=== PATIENT | female | born 1950 | race Caucasian/White ===

== ENCOUNTER 2021-01-02 15:01 | Emergency (ER) | payer MEDICARE, SELFPAY ==
[2021-01-02] VITALS (27 sets, daily range): BP systolic 120–150; BP diastolic 65–104; PULSE 63–152; RESP 13–30; TEMP 36.3–36.6; O2SAT 92–100
--- NOTE | ~2021-01-02 | XR_ITS ---
EXAMINATION: XR chest 2V EXAM DATE: 01/02/2021 16:16 INDICATION: Chest pain. TECHNIQUE: Frontal and lateral projections of the chest obtained and reviewed. There is no prior teodoro dy for comparison. FINDINGS: The lungs are hyperinflated which can be seen with chronic obstructive pulmonary disease (a clinical diagnosis of functional impairment), but is not diagnostic of it. The lungs are clear. Th ere are no pleural effusions. Mild cardiomegaly. There is no pneumothorax suspected. The bones and soft tissues are unremarkable. IMPRESSION: 1. Mild cardiomegaly. 2. Hyperinflation. Reviewed, dictated and finalized at location A.
--- NOTE | 2021-01-02 15:16 | ECG_ITS ---
Measurements Intervals [place] Rate: 151 P: HI: 0 QRS: -60 QRSD: 97 T: 29 QT: 295 QTc: 468 Interpretive Statements ATRIAL FIBRILLATION WITH RAPID VENTRICULAR RESPONSE INCOMPLETE RIGHT BUNDLE BRANCH BLOCK LEFT ANTERIOR FASCICULAR BLOCK BORDERLINE ST-T WAVE ABNORMALITY- HIGH LATERAL LEADS BASELINE ARTIFACT- II, III, AVR, AVL, AVF ABNORMAL ECG Electronically Signed On 01-02-2021 18:50:55 CDT by Noah Marrero D.O.
--- NOTE | 2021-01-02 15:18 | ED.ARRPALP ---
HPI - Arrhythmia/Palpitations General Chief Complaint: Arrhythmia/Palpitations Stated Complaint: SOB/AFIB Time Seen by Provider: 01/02/21 15:04 History of Present Illness HPI narrative: 70 yo female w/ h/o atrial fibrillation presents to the ED for the same. [facility] when she suddenly noted heart racing and SIMON. SHe has had paroxysmal a-fin in the past which has been controlled with metoprolol. She is also on xarelto. She has not missed any doses. No chest pain, fever, back pain, syncope. Related Data Allergies Allergy/AdvReac Type Severity Reaction Status Date / Time Sulfa (Sulfonamide Allergy Unknown Verified 01/02/21 15:19 Antibiotics) NKFA Allergy Unknown Uncoded 02/09/03 11:58 SULFA Allergy Unknown Uncoded 01/02/21 15:18 Review of Systems Review of Systems: All systems reviewed & are unremarkable except as noted in HPI and below Constitutional: Constitutional: Denies chills and Denies fever(s) ENT: Denies dizziness Cardiovascular: Cardiovascular: Denies chest pain and Reports rapid heart rate Respiratory: Respiratory: Reports dyspnea Gastrointestinal: Gastrointestinal: Denies nausea and Denies vomiting Genitourinary: Genitourinary: Reports no additional female genitourinary complaints [facility] Past Medical History Medical History (Updated 01/02/21 @ 18:08 by Rylan Sultana MD) Paroxysmal atrial fibrillation Social History Social History (Updated 01/02/21 @ 16:09 by Rylan Sultana MD) Smoking status: Never smoker Alcohol intake: never Substance use: never Living arrangements: alone Exam Const: General: healthy appearing, no acute distress and alert Orientation/consciousness: patient oriented x3 HENMT: Head: normal to inspection Neck: Neck: normal visual inspection and no lymphadenopathy Chest: Chest palpation & inspection: no tenderness Resp: Effort & Inspection: normal respiratory effort Auscultation: clear to auscultation bilaterally, no rales, no rhonchi and no wheezes Cardio: Jugular venous distension: no JVD Rate: tachycardic Rhythm: abnormal rhythm irregularly irregular Heart sounds: no murmurs GI: Inspection: non-distended GI Palp: Yes Soft to palpation and No Tenderness to palpation present (GI) Skin: General skin exam: normal color Neuro: General: patient oriented x3 and moves all extremities Speech: normal speech Extrem: General: no edema Psych: Appearance: well kempt Affect: normal affect Course Vital Signs Vital signs: Vital Signs Pulse Rate 152 H 01/02/21 15:03 Respiratory Rate 24 H 01/02/21 15:03 Blood Pressure 120/91 H 01/02/21 15:03 Pulse Oximetry 92 01/02/21 15:03 Temperature 36.5 C 01/02/21 17:12 Pulse Rate 68 01/02/21 17:12 Respiratory Rate 14 01/02/21 17:12 Blood Pressure 146/69 H 01/02/21 17:12 Pulse Oximetry 100 01/02/21 17:12 Procedures Procedural Sedation Procedural Sedation #1: Provider Performed: sedation and procedure Informed Consent Obtained: yes Equipment in Room: bag and mask, capnography, spring coverer, crash cart, oxygen, pulse oximeter and suction Plan for Sedation: moderate sedation ASA Class: II Mallampati Classification: class I NPO Status: last liquid food (hours ago) (3) Explanation to Patient/Family: Risk/Benefits/Alternatives and Pt/Family agreed with plan Pt. Educated on Procedural Sedation: Yes Re-evaluated immediately prior: Yes Preparation: spring coverer applied, pulse oximeter, capnometry used, supplemental O2 applied, reversal agents at bedside, suction/airway equipment at bedside and IV secured IV Propofol dose (mg): 70 Patient Tolerated Procedure: well and no complications Other Procedure Procedure 1: Other Procedure: Electrical cardioversion She was placed on the pacer pads Sedation was performed as documented Synchronized cardioversion was attempted at
[2021-01-02] MEDS: METOPROLOL TARTRATE INJ 5 MG/5 ML VIAL IV PUSH (15:44)
[2021-01-02] MEDS: SODIUM CHLORIDE 0.9% IV 500 ML 999 ML IV CONT (15:44)
[2021-01-02 16:13] LABS: Eosinophils Absolute Auto 0.1 K/mm3 (0-0.3); Eosinophils Percent Auto 2.6 % (0-4.4); Hematocrit 39.4 % (37.0-47.0); Hemoglobin 12.9 g/dL (12.0-15.0); Immature Granulocyte Absolute 0.01 K/mm3 (0.00-0.031); Immature Granulocyte Percent A 0.2 % (0-0.5); Lymphocytes Absolute Auto 0.83 K/mm3 (0.9-3.2); Lymphocytes Percent Auto 19.9 % (18.3-44.2); Mean Corpuscular HGB Conc 32.7 g/dl (32-36); Mean Corpuscular Hemoglobin 32.4 pg (26-34); Mean Platelet Volume 9.8 fl (7.4-10.4); Monocytes Absolute Auto 0.2 K/mm3 (0.1-0.6); Monocytes Percent Auto 4.8 % (2.6-8.5); Neutrophils Percent Auto 71.5 % (45.5-73.1); Platelet Count Result 222 k/mm3 (150-375); Red Blood Count 3.98 M/mm3 (4.2-5.4); White Blood Count 4.2 K/mm3 (4.5-10.0)
[2021-01-02 16:22] LABS: INR 1.1; Partial Thromboplastin Time 31.5 SECONDS (22.3-36.8)
[2021-01-02 16:25] LABS: Anion Gap 3 mmol/L (8-16); Blood Urea Nitrogen 17 mg/dL (7-17); Calcium 8.6 mg/dL (8.4-10.2); Carbon Dioxide 30 mmol/L (22-30); Chloride 110 mmol/L (98-107); Estimated CRCL calculation 48 ml/min; Estimated Glomerular Filt Rate > 60; Glucose 114 mg/dL (65-105); Potassium 3.7 mmol/L (3.4-5.0); Sodium 143 mmol/L (137-145)
--- NOTE | 2021-01-02 16:29 | PC.NURSE ---
1632 EDP administered 40mg of propofol via IVP. 1633 EDP administered another 20mg of propofol via IVP.
--- NOTE | 2021-01-02 16:35 | PC.NURSE ---
1634 EDP administered another 10mg of propofol via IVP. 1635 EDP synchronized electrical cardioverted patient at 100J.
--- NOTE | 2021-01-02 16:36 | PC.NURSE ---
EDP electrical synchronized cardioverted patient at 150J due patient remaining in a fib RVR.
[2021-01-02 16:37] LABS: Troponin I < 0.012 ng/mL (0.000-0.034)
[2021-01-02] MEDS: METOPROLOL TARTRATE INJ 5 MG/5 ML VIAL (16:40)
== END 2021-01-02 18:35 | disposition home or self-care (01) ==
PROVIDERS: Emergency Provider Emergency Medicine; PCP Internal Medicine
DX: I48.0 Paroxysmal atrial fibrillation (principal)
CPT/HCPCS: 36415; 71046; 80048; 84484; 85025; 85610; 85730; 92960; 93005; 96374; 99285; J2704; J7040

== ENCOUNTER 2021-01-25 13:30 | Outpatient (CLI) | payer MEDICARE, SELFPAY ==
--- NOTE | ~2021-01-25 | MM_ITS ---
EXAMINATION: MM screening susan BI w ree HISTORY: Screening mammogram TECHNIQUE: Craniocaudal and mediolateral oblique 3-D tomosynthesis images were obtained and synthetic 2-D images were generated. CAD analysis was submitted and interpreted. COMPARISON: No prior mammogram is available for comparison at this institution. BREAST PARENCHYMAL COMPOSITION: There are scattered areas of fibroglandular density. FINDINGS: There is no evidence of suspicious mass, calcification, or architectural distortion to sugg est malignancy in either breast. There has been no suspicious interval change. IMPRESSION: 1. No mammographic evidence of malignancy. 2. Recommend routine screening mammography in one year. BI-RADS Category 1: Negative Reviewed, dictated and finalized at location A.
== END 2021-01-25 13:31 | disposition home or self-care (01) ==
LOC: ANHIMG 13:39
PROVIDERS: Visit Provider Nurse Practitioner Family
DX: Z12.31 Encounter for screening mammogram for malignant neoplasm of breast (principal)
CPT/HCPCS: 77063; 77067

== ENCOUNTER 2021-02-09 11:36 | Emergency (ER) | payer MEDICARE, SELFPAY ==
[2021-02-09] VITALS (7 sets, daily range): BP systolic 118–152; BP diastolic 70–106; PULSE 74–146; RESP 14–18; TEMP 36.4–36.7; O2SAT 98–100
--- NOTE | ~2021-02-09 | XR_ITS ---
EXAMINATION: XR chest 2V 02/09/2021 12:31 INDICATION: A. Fib PROCEDURE: 2 view chest COMPARISON: 01/02/2021 FINDINGS: The lungs are clear. The cardiomediastinal silhouette is enlarged. There are no pleural e ffusions. There is no pneumothorax suspected. IMPRESSION: 1: No acute cardiopulmonary disease. 2: Cardiomegaly. Reviewed, dictated and finalized at location B.
--- NOTE | 2021-02-09 11:49 | ECG_ITS ---
Measurements Intervals [place] Rate: 120 P: NV: 0 QRS: -72 QRSD: 87 T: 27 QT: 314 QTc: 444 Interpretive Statements ATRIAL FIBRILLATION WITH RAPID VENTRICULAR RESPONSE INCOMPLETE RIGHT BUNDLE BRANCH BLOCK LEFT ANTERIOR FASCICULAR BLOCK BASELINE WANDER- I, II, III, AVL ABNORMAL ECG Electronically Signed On 02-09-2021 11:57:56 CDT by Noah Marrero D.O.
[2021-02-09] MEDS: dilTIAZem HCl INJ 25 MG/5 ML VIAL 10 MG IV PUSH (12:10)
[2021-02-09 12:19] LABS: Basophils Absolute Auto 0.1 K/mm3 (0.0-0.1); Basophils Percent Auto 0.8 % (0.2-1.2); Eosinophils Absolute Auto 0.2 K/mm3 (0-0.3); Eosinophils Percent Auto 3.7 % (0-4.4); Hematocrit 43.4 % (37.0-47.0); Hemoglobin 14.2 g/dL (12.0-15.0); Immature Granulocyte Absolute 0.01 K/mm3 (0.00-0.031); Immature Granulocyte Percent A 0.2 % (0-0.5); Lymphocytes Absolute Auto 1.84 K/mm3 (0.9-3.2); Lymphocytes Percent Auto 30.7 % (18.3-44.2); Mean Corpuscular HGB Conc 32.7 g/dl (32-36); Mean Corpuscular Hemoglobin 32.6 pg (26-34); Mean Corpuscular Volume 99.8 fl (80-100); Mean Platelet Volume 9.8 fl (7.4-10.4); Monocytes Absolute Auto 0.3 K/mm3 (0.1-0.6); Neutrophils Absolute Auto 3.6 K/mm3 (1.3-6.7); Neutrophils Percent Auto 59.6 % (45.5-73.1); Platelet Count Result 254 k/mm3 (150-375); Red Blood Count 4.35 M/mm3 (4.2-5.4); Red Cell Distribution Width 12.8 % (11.5-14.5)
[2021-02-09] MEDS: ASPIRIN 81 MG CHEWABLE TABLET 324 MG PO (12:19)
[2021-02-09 12:31] LABS: Anion Gap 7 mmol/L (8-16); Blood Urea Nitrogen 22 mg/dL (7-17); Calcium 9.3 mg/dL (8.4-10.2); Carbon Dioxide 26 mmol/L (22-30); Chloride 107 mmol/L (98-107); Estimated CRCL calculation 46 ml/min; Estimated Glomerular Filt Rate > 60; Glucose 103 mg/dL (65-105); Potassium 4.2 mmol/L (3.4-5.0); Sodium 140 mmol/L (137-145)
[2021-02-09 12:42] LABS: Troponin I < 0.012 ng/mL (0.000-0.034)
[2021-02-09 12:45] LABS: INR 1.2; Prothrombin Time 15.8 Seconds (11.1-14.7)
[2021-02-09 12:46] LABS: Partial Thromboplastin Time 34.5 SECONDS (22.3-36.8)
--- NOTE | 2021-02-09 12:55 | ED.ARRPALP ---
HPI - Arrhythmia/Palpitations General Chief Complaint: Arrhythmia/Palpitations Stated Complaint: sent for afib Time Seen by Provider: 02/09/21 11:59 Source: patient Mode of arrival: ambulatory Limitations: no limitations History of Present Illness HPI narrative: Patient 70 years old white female, asymptomatic, went see a family physician today for the first time to establish physician patient relationship, the nurse practitioner found out that the patient have A. fib then referred her to our emergency room. Again patient is asymptomatic denying any fever, chills, nausea, vomiting, chest pain, shortness of breath, palpitation. Related Data Allergies Allergy/AdvReac Type Severity Reaction Status Date / Time Sulfa (Sulfonamide Allergy Unknown Unknown Verified 02/09/21 12:09 Antibiotics) NKFA Allergy Unknown Unknown Uncoded 02/09/21 12:09 SULFA Allergy Unknown Unknown Uncoded 02/09/21 12:09 Review of Systems Review of Systems: Narrative: CONSTITUTIONAL: Denies fever, chills, or sweats. EYES: Denies visual changes, redness, or discharge. ENT: Denies rhinorrhea, congestion, sore throat, or otalgia. CARDIOVASCULAR: Denies chest pain, palpitations, or edema. RESPIRATORY: Denies cough or dyspnea. GASTROINTESTINAL: Denies abdominal pain, nausea, vomiting, or diarrhea. GENITOURINARY: Denies dysuria or hematuria. SKIN: Denies rash or itching. MUSCULOSKELETAL: Denies back pain, joint pain, or myalgia. NEUROLOGIC: Denies headache, numbness, or weakness. PSYCHIATRIC: Denies anxiety or depression. PMFSH Past Medical History Medical History Paroxysmal atrial fibrillation Social History Social History Smoking status: Never smoker Alcohol intake: never Substance use: never Exam Narrative: Exam Narrative: General appearance: Well-developed, well-nourished Skin: Normal color Head: Normocephalic, nontraumatic Eyes: Clear conjunctiva ENT: Oropharynx normal, ears normal, nose normal Neck: Supple, nontender Chest and respiratory: Airway patent, no respiratory distress, no accessory muscle use Heart: Regular rate/rhythm Abdomen: Soft, nontender, no organomegaly, quiet bowel sounds Vascular: Normal peripheral pulses, normal capillary refill. Musculoskeletal: Normal range of motion, nontender back Neurologic: Alert and oriented ?3, ROLL PLUGGER is normal as tested, no gross motor deficit Course Course Emergency Course: Stable Vital Signs Vital signs: Vital Signs Temperature 36.7 C 02/09/21 11:52 Pulse Rate 146 H 02/09/21 11:52 Respiratory Rate 16 02/09/21 11:52 Blood Pressure 145/87 H 02/09/21 11:52 Pulse Oximetry 100 02/09/21 11:52 Temperature 36.4 C L 02/09/21 11:55 Pulse Rate 74 02/09/21 12:44 Respiratory Rate 14 02/09/21 12:44 Blood Pressure 133/78 02/09/21 12:44 Pulse Oximetry 99 02/09/21 12:44 MDM - Arrhythmia/Palpitations MDM Narrative Medical decision making narrative: Patient had history of A. fib, currently on metoprolol 25 mg nightly and Xarelto. Heart rate is controlled after Cardizem bolus. Metoprolol 25 mg p.o. ordered. 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 On arrival to the emergency room heart rate was A. fib with RVR at 120 which is not significant enough for hospitalization. Patient is asymptomatic. I believe patient would be okay to be discharged home. Differential Diagnosis Differential diagnosis: Likely other (Chronic atrial fibrillation) Lab Data Result diagrams: 02/09/21 12:14 02/09/21 12:13 Labs: Lab Results 02/09/21
[2021-02-09] MEDS: METOPROLOL TARTRATE 25 MG TABLET PO (13:30)
== END 2021-02-09 14:11 | disposition home or self-care (01) ==
PROVIDERS: Emergency Provider Emergency Medicine; PCP Family Medicine
DX: I48.21 Permanent atrial fibrillation (principal)
CPT/HCPCS: 36415; 71046; 80048; 84443; 84484; 85025; 85610; 85730; 93005; 96365; 99284; A9270

== ENCOUNTER 2021-04-10 02:39 | Day surgery (SDC) | payer MEDICARE, SELFPAY ==
[2021-03-31 15:48] VITALS: BMI 22.8
--- NOTE | 2021-04-10 08:16 | WPDANESEPPF ---
Anes - Initial Pre Proc Eval Procedure: Operation Date: 04/10/21 10:15 Proposed Procedures p Screening Colonoscopy - Enrique Rodriguez MD Date/Time: 04/10/21 08:16 Surgeon: Enrique Rodriguez MD Pre Op Diagnosis: neoplasm screening Patient Data Age: 70 Gender: F Height: 1.7 m Weight: 66 kg Allergies Allergy/AdvReac Type Severity Reaction Status Date / Time Sulfa (Sulfonamide Allergy Unknown Unknown Verified 04/10/21 09:21 Antibiotics) latex Allergy Hives Verified 04/10/21 09:21 NKFA Allergy Unknown Unknown Uncoded 04/10/21 09:21 SULFA Allergy Unknown Unknown Uncoded 04/10/21 09:21 Home Medications Medication Instructions Recorded Confirmed Type flecainide 100 mg PO BID 03/31/21 03/31/21 History loratadine 10 mg PO DAILY 03/31/21 03/31/21 History meclizine 25 mg PO DAILY PRN 03/31/21 03/31/21 History metoprolol succinate 25 mg PO DAILY 03/31/21 03/31/21 History metoprolol tartrate 25 mg PO DAILY PRN 03/31/21 03/31/21 History rivaroxaban [Xarelto] 20 mg PO DAILY 03/31/21 03/31/21 History Patient hx anesthesia problems: none Family hx anesthesia problems: none [facility] Past Medical History Medical History (Updated 04/10/21 @ 09:35 by Enrique Rodriguez MD) Hemochromatosis HTN (hypertension) Paroxysmal atrial fibrillation Social History Social History Smoking status: Never smoker Tobacco type: cigarettes Alcohol intake: never Substance use: never Living arrangements: alone Gender identity (if verbalized by the patient): Female Spiritual care concerns: No Anes - Eval Final PreProcedure Day of Procedure 04/10/21 08:16 Patient weight: normal Heart: regular rate and rhythm Lungs: clear to auscultation and normal air movement Airway: Mallampati scale class II Neurological: alert and oriented Last oral intake: >/= 8 hours ASA classification: III Emergent: no Anesthetic plan: proceed Anesthesia type and monitoring: general GIVS Informed Consent: The patient's anesthetic plan and its attendant risks and benefits were discussed with the patient/family/POA. Questions were solicited and answers provided to the satisfaction of the patient/family/POA.
[2021-04-10 09:22] VITALS: BP 141/69; PULSE 101; RESP 20; TEMP 36.1; O2SAT 98; BMI 22.8
[2021-04-10] MEDS: LACTATED RINGERS 1,000 ML 150 ML IV CONT (09:28)
--- NOTE | 2021-04-10 09:33 | WPDGICN ---
Assessment and Plan Assessment and plan (1) Family history of colon cancer in father: Code(s): Z80.0 - Family history of malignant neoplasm of digestive organs Status: Acute Assessment and Plan: Patient has a family history of colon cancer in parent as well as polyps in her brother. Surveillance colonoscopy should be performed at least every 5 years. (2) History of colon polyps: Code(s): Z86.010 - Personal history of colonic polyps Status: Acute Assessment and Plan: Patient has a history of colon polyps most recently 2016. Plan is for surveillance exam every 3-5 years given her prior history. (3) Atrial fibrillation: Code(s): I48.91 - Unspecified atrial fibrillation Status: Acute Assessment and Plan: Xarelto anticoagulation will be held briefly for screening colonoscopy. (4) Hemochromatosis: Code(s): E83.119 - Hemochromatosis, unspecified Status: Acute GI Consult Note Consult date/time: 04/10/21 09:33 HPI: Jillian Gunn is a 70 year old female Presents for screening colonoscopy. Patient has a prior history of colon polyps. Typically she has had a follow-up exam every 3-5 years. Most recently 3 years ago in [place]. Patient reports that her current weight appetite bowel movements are normal. She denies abdominal pain. She has had no bleeding. Family history is significant her father had colon cancer. Her brother has had colon polyps as well. Review of Systems Review of Systems: All systems reviewed & are unremarkable except as noted in HPI and below PMFSH Past Medical History Medical History (Updated 04/10/21 @ 09:35 by Enrique Rodriguez MD) Hemochromatosis HTN (hypertension) Paroxysmal atrial fibrillation Social History Social History Smoking status: Never smoker Tobacco type: cigarettes Alcohol intake: never Substance use: never Living arrangements: alone Gender identity (if verbalized by the patient): Female Spiritual care concerns: No Meds Home Medications and Allergies Home Medications Medication Instructions Recorded Confirmed Type flecainide 100 mg PO BID 03/31/21 03/31/21 History loratadine 10 mg PO DAILY 03/31/21 03/31/21 History meclizine 25 mg PO DAILY PRN 03/31/21 03/31/21 History metoprolol succinate 25 mg PO DAILY 03/31/21 03/31/21 History metoprolol tartrate 25 mg PO DAILY PRN 03/31/21 03/31/21 History rivaroxaban [Xarelto] 20 mg PO DAILY 03/31/21 03/31/21 History Allergies Allergy/AdvReac Type Severity Reaction Status Date / Time Sulfa (Sulfonamide Allergy Unknown Unknown Verified 04/10/21 09:21 Antibiotics) latex Allergy Hives Verified 04/10/21 09:21 NKFA Allergy Unknown Unknown Uncoded 04/10/21 09:21 SULFA Allergy Unknown Unknown Uncoded 04/10/21 09:21 Vital Signs Vital Signs - 24 hr 04/10/21 09:22 Temperature 97.0 F L Pulse Rate 101 H Respiratory Rate 20 Blood Pressure 141/69 H Pulse Oximetry 98 Exam Narrative: Physical exam reveals patient be alert. Vital signs stable. HEENT exam is unremarkable. Patient is anicteric. Lungs are clear to auscultation and percussion. Heart is without murmur or extra sounds. Abdominal exam bowel sounds are present soft nontender with no hepatosplenomegaly. Digital external rectal exam is normal.
[2021-04-10 10:22] VITALS: BP 106/66; PULSE 103; RESP 20; O2SAT 96
[2021-04-10 10:30] VITALS: BP 98/59; PULSE 104; RESP 20; O2SAT 96
[2021-04-10 10:39] VITALS: BP 118/81; PULSE 99; RESP 20; O2SAT 100
== END 2021-04-10 10:53 | disposition home or self-care (01) ==
PROVIDERS: PCP Family Medicine; Visit Provider Internal Medicine Gastroenterology
PROC: 0DJD8ZZ Inspection of Lower Intestinal Tract, Via Natural or Artificial Opening Endoscopic (ICD-10-PCS; CPT 45378; principal; 2021-04-10 10:15)
DX: Z12.11 Encounter for screening for malignant neoplasm of colon (principal); Z80.0 Family history of malignant neoplasm of digestive organs; D12.2 Benign neoplasm of ascending colon; K57.30 Diverticulosis of large intestine without perforation or abscess without bleeding; K64.8 Other hemorrhoids; K63.5 Polyp of colon
CPT/HCPCS: 45385; 88305; J2704; J7120

== ENCOUNTER 2021-10-18 09:22 | Outpatient (CLI) | payer MEDICARE, SELFPAY ==
--- NOTE | ~2021-10-18 | XR_ITS ---
XR lumbar spine 2-3V DATE: 10/18/2021 10:07 INDICATION: Upper and lower back pain since moving boxes on 08/08/2021 TECHNIQUE: AP, lateral, coned lateral lumbosacral views COMPARISON: None FINDINGS: There is moderate levoscoliosis of the thoracolumbar spine. There is diffuse osteopenia. There is moderately prominent degenerative disc disease throughout the lumbar spine. No fracture or bone destruction. The lumbar pedicles appear intact. The sacroiliac joints are intact. IMPRESSION: Multilevel moderately prominent degenerative disc disease Diffuse osteopenia Rotatory thoracolumbar levoscoliosis Reviewed, dictated and finalized at location A. 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
--- NOTE | ~2021-10-18 | XR_ITS ---
XR chest 2V DATE: 10/18/2021 10:08 INDICATION: Dyspnea. Upper and lower back pain since moving boxes on 08/08. TECHNIQUE: PA and lateral views COMPARISON: 02/09/2021 AP and lateral chest FINDINGS: Cardiomegaly. No hilar or mediastinal enlargement. No pulmonary vascular congestion or pleu ral effusion. No pulmonary infiltrate or consolidation or pneumothorax. Bilateral hyperinflation, suggesting COPD. Diffuse osteopenia. There is minimal dextroscoliosis of the thoracic spine. IMPRESSION: Bilateral hyperinflation suggesting COPD Cardiomegaly Reviewed, dictated and finalized at location A. 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
== END 2021-10-18 09:23 | disposition home or self-care (01) ==
LOC: ANHIMG 09:33
PROVIDERS: PCP Family Medicine; Visit Provider Family Medicine
DX: M54.6 Pain in thoracic spine (principal); R06.00 Dyspnea, unspecified; M51.36 Other intervertebral disc degeneration, lumbar region; M85.88 Other specified disorders of bone density and structure, other site; M41.86 Other forms of scoliosis, lumbar region; R91.8 Other nonspecific abnormal finding of lung field; I51.7 Cardiomegaly
CPT/HCPCS: 71046; 72100

== ENCOUNTER 2022-01-02 16:40 | Emergency (ER) | payer MEDICARE, SELFPAY ==
[2022-01-02] VITALS (9 sets, daily range): BP systolic 105–151; BP diastolic 47–90; PULSE 55–71; RESP 18; TEMP 36.5; O2SAT 95–100
--- NOTE | ~2022-01-02 | XR_ITS ---
EXAMINATION: XR chest 1V portable Exam Date/Time: 01/02/2022 19:55 CDT CLINICAL HISTORY: syncope Comparison: 10/18/21. RESULT: Lines, tubes, and devices: None. Lungs and pleura: Clear. Cardiomediastinal silhouette: Stable cardiomediastinal silhouette. Other: No acute osseous or upper abdominal finding. IMPRESSION: No acute cardiopulmonary process Reviewed, dictated and finalized at location K.
--- NOTE | 2022-01-02 16:49 | ECG_ITS ---
Measurements Intervals [place] Rate: 55 P: 51 IA: 237 QRS: -68 QRSD: 116 T: 18 QT: 483 QTc: 464 Interpretive Statements SINUS BRADYCARDIA WITH FIRST DEGREE AV BLOCK INCOMPLETE RIGHT BUNDLE BRANCH BLOCK LEFT ANTERIOR FASCICULAR BLOCK BASELINE ARTIFACT- I, II, III, AVR, AVL, AVF ABNORMAL ECG Electronically Signed On 01-02-2022 18:51:55 CDT by Noah Marrero D.O.
[2022-01-02 17:15] LABS: Basophils Percent Auto 0.6 % (0.2-1.2); Eosinophils Absolute Auto 0.1 K/mm3 (0-0.3); Eosinophils Percent Auto 2.3 % (0-4.4); Hematocrit 39.7 % (37.0-47.0); Hemoglobin 12.9 g/dL (12.0-15.0); Immature Granulocyte Absolute 0.02 K/mm3 (0.00-0.031); Immature Granulocyte Percent A 0.4 % (0-0.5); Lymphocytes Percent Auto 22.5 % (18.3-44.2); Mean Corpuscular HGB Conc 32.5 g/dl (32-36); Mean Corpuscular Hemoglobin 32.5 pg (26-34); Mean Platelet Volume 8.9 fl (7.4-10.4); Monocytes Absolute Auto 0.3 K/mm3 (0.1-0.6); Monocytes Percent Auto 5.1 % (2.6-8.5); Neutrophils Absolute Auto 3.7 K/mm3 (1.3-6.7); Neutrophils Percent Auto 69.1 % (45.5-73.1); Platelet Count Result 229 k/mm3 (150-375); Red Blood Count 3.97 M/mm3 (4.2-5.4); White Blood Count 5.3 K/mm3 (4.5-10.0)
[2022-01-02 17:25] LABS: Alanine Aminotransferase 13 U/L (6-35); Albumin Level 3.9 g/dL (3.5-5.1); Alkaline Phosphatase 67 U/L (38-126); Anion Gap 3 mmol/L (8-16); Aspartate Amino Transferase 25 U/L (14-36); Bilirubin,Total 0.5 mg/dL (0.2-1.3); Blood Urea Nitrogen 21 mg/dL (7-17); Calcium 8.4 mg/dL (8.4-10.2); Carbon Dioxide 30 mmol/L (22-30); Chloride 104 mmol/L (98-107); Estimated CRCL calculation 36 ml/min; Estimated Glomerular Filt Rate 44; Glucose 149 mg/dL (65-110); Potassium 4.1 mmol/L (3.4-5.0); Sodium 137 mmol/L (137-145)
--- NOTE | 2022-01-02 17:27 | ED.SYNCOPE ---
HPI - Syncope General Chief Complaint: Syncope Stated Complaint: syncope Time Seen by Provider: 01/02/22 16:59 Source: patient Mode of arrival: EMS Limitations: no limitations History of Present Illness HPI narrative: Patient is a 71-year-old female who presents the ED via EMS with report of syncopal episode. [place] under a covered area. She was drinking water and had had lunch there and was feeling fine. Around 3:30 PM, she reports she suddenly began to feel clammy and sweaty. She states she began to have tunnel vision at that time and was seeing stars like she knew she was going to pass out. She states she put her head in between her legs to try to prevent from passing out, but was unable to. Her friends were nearby. They states she did not fall and only lost consciousness for a few seconds. She did have nausea at that time, but denied vomiting. [facility] before EMS was called to bring the patient here. Patient states she feels weak all over and drains currently, but does not have any further nausea, dizziness, vision changes, headache. She states she has been feeling fine over the past few days. She denies any recent fever, chills, cough, cold symptoms, chest pain, shortness of breath, abdominal pain, urinary symptoms, back pain, BLE pain or edema, focal weakness. Patient has a history of paroxysmal atrial fibrillation, for which she takes metoprolol, Xarelto, flecainide. She sees Dr. Severino. Related Data Home Medications Medication Instructions Recorded Confirmed flecainide 100 mg PO BID 03/31/21 03/31/21 loratadine 10 mg PO DAILY 03/31/21 03/31/21 meclizine 25 mg PO DAILY PRN 03/31/21 03/31/21 metoprolol succinate 25 mg PO DAILY 03/31/21 03/31/21 metoprolol tartrate 25 mg PO DAILY PRN 03/31/21 03/31/21 rivaroxaban [Xarelto] 20 mg PO DAILY 03/31/21 03/31/21 Allergies Allergy/AdvReac Type Severity Reaction Status Date / Time Sulfa (Sulfonamide Allergy Unknown Unknown Verified 01/02/22 19:03 Antibiotics) latex Allergy Hives Verified 01/02/22 19:03 NKFA Allergy Unknown Unknown Uncoded 01/02/22 19:03 SULFA Allergy Unknown Unknown Uncoded 01/02/22 19:03 Review of Systems Review of Systems: CONSTITUTIONAL: Reports diaphoresis. Denies fever, chills. EYES: Reports tunnel vision, resolved. Denies redness, or discharge. ENT: Denies rhinorrhea, congestion, sore throat. CARDIOVASCULAR: Denies chest pain, palpitations, or BLE edema. RESPIRATORY: Denies cough or dyspnea. GASTROINTESTINAL: Reports nausea, resolved. Denies abdominal pain, vomiting, or diarrhea. GENITOURINARY: Denies dysuria or hematuria. MUSCULOSKELETAL: Denies BLE pain, back pain, joint pain, or myalgia. NEUROLOGIC: Reports syncope, weakness. Denies dizziness, headache, numbness, or focal weakness. All systems reviewed & are unremarkable except as noted in HPI and below PMFSH Past Medical History Medical History Hemochromatosis HTN (hypertension) Paroxysmal atrial fibrillation Surgical History Surgical History (Updated 01/02/22 @ 17:28 by Conchis Colon PA-C) No pertinent past surgical history Social History Social History Smoking status: Never smoker Tobacco type: cigarettes Alcohol intake: never Substance use: never Gender identity (if verbalized by the patient): Female Spiritual care concerns: No Exam Narrative: GENERAL: Well appearing, well-nourished, non-toxic, in no acute distress. HEAD: Normocephalic, atraumatic. EYES: PERRL/EOMI, conjunctivae clear bilaterally. No nystagmus. NOSE: Normal, no drainage THROAT: Pharynx clear, no exudate. MMs slightly dry. NECK: Supple. No adenopathy, no masses. RESPIRATORY: Airway patent, respirations nonlabored. Clear to auscultation bilaterally, no rales, rhonchi, wheezing. CARDIO
[2022-01-02 18:17] LABS: INR 1.2; Prothrombin Time 14.7 Seconds (11.1-14.7)
[2022-01-02 18:18] LABS: Partial Thromboplastin Time 31.7 SECONDS (22.3-36.8)
[2022-01-02 18:20] LABS: D Dimer 0.35 ug/mL (<0.48)
[2022-01-02 18:24] LABS: Troponin I < 0.012 ng/mL (0.000-0.034)
[2022-01-02 18:43] LABS: Appearance Urine Clear (Clear); Bilirubin Urine Negative (Negative); Blood Urine Negative (Negative); Color Urine Yellow (Yellow); Glucose Urine UA Negative (Negative); Ketones Urine Negative (Negative); Leukocyte Esterase Ur Negative LEU/UL (Negative); Nitrate Urine Negative (Negative); Protein Urine 1+ mg/dL (Negative); Specific Grav Ur 1.025 (1.001-1.035); Urobilinogen Urine 0.2 mg/dL (<2.0)
[2022-01-02 18:47] LABS: Add Urine Microscopic? YES; Mucus Urine Rare /lpf; RBC Urine 0-2 /hpf (0-2); Squamous Epithelial Cell Urine Occasional /hpf (Few)
[2022-01-02] MEDS: SODIUM CHLORIDE 0.9% IV 1,000 ML 999 ML IV CONT (19:56)
[2022-01-02 20:57] LABS: Troponin I < 0.012 ng/mL (0.000-0.034)
== END 2022-01-02 21:30 | disposition home or self-care (01) ==
PROVIDERS: Physician Assistant; Emergency Provider Emergency Medicine; PCP Family Medicine
DX: I95.1 Orthostatic hypotension (principal); I10 Essential (primary) hypertension; I48.0 Paroxysmal atrial fibrillation
CPT/HCPCS: 36415; 71045; 80053; 81001; 84484; 85025; 85380; 85610; 85730; 93005; 96360; 96361; 99284; J7030

== ENCOUNTER 2022-02-01 18:57 | Emergency (ER) | payer MEDICARE, SELFPAY ==
[2022-02-01] VITALS (12 sets, daily range): BP systolic 155–188; BP diastolic 62–87; PULSE 55–72; RESP 17–24; TEMP 36.8; O2SAT 96–100
--- NOTE | ~2022-02-01 | XR_ITS ---
XR chest 2V DATE: 02/01/2022 21:45 INDICATION: Hypertension. Dizziness. History of atrial fibrillation. TECHNIQUE: PA and lateral views COMPARISON: 01/02/2022 portable AP chest FINDINGS: Cardiomegaly. No hilar or mediastinal enlargement. Bilateral hyperinflation. No pulmonary infiltrate or consolidation, pleural effusion or pulmonary vas cular congestion or pneumothorax is detected. Diffuse osteopenia. There is dextroscoliosis of the thoracic spine. IMPRESSION: Cardiomegaly Bilateral hyperinflation No active pulmonary disease Osteopenia Reviewed, dictated and finalized at location A.
--- NOTE | ~2022-02-01 | CT_ITS ---
EXAMINATION: CT soft tissue neck wo con DATE: 02/01/2022 22:04 INDICATION: Right thyroid mass TECHNIQUE: Computed tomography (CT) of the neck was performed without intravenous contrast. Automated exposure control and iterative reconstruction technique were employed. Exam dose: 407.76 mGy-cm tot al exam DLP. COMPARISON: None FINDINGS: No cervical mass lesion or lymphadenopathy. Parotid and submandibular glands are normal in appearance. No thyroid mass lesion is evident. The lung apices are clear. Incidentally noted is anterior with some of the neck veins bilaterally and a little bit of air in the right anterior cervical spinal canal and right C2 neural foramen. No pneumomediastinum or pneumothor ax. There is moderate degenerative disc disease of the mid and lower cervical spine. IMPRESSION: No thyroid mass lesion is detected. Reviewed, dictated and finalized at [facility]. Reviewed, dictated and finalized at location A.
--- NOTE | 2022-02-01 19:09 | PC.NURSE ---
Called for triage x 1, no answer
--- NOTE | 2022-02-01 21:24 | ED.RECABL ---
HPI - Recheck/Abnormal Lab/Rx General Chief Complaint: Recheck/Abnormal Lab/Rx Stated Complaint: ELEVATED BLOOD PRESSURE Time Seen by Provider: 02/01/22 21:23 History of Present Illness HPI narrative: Patient is a 71-year-old female with history of hypertension, atrial fibrillation anticoagulated on Xarelto, presenting to the emergency department for evaluation of elevated blood pressure readings. Patient states that she has felt somewhat fatigued throughout the day today and mildly lightheaded. Patient states that she was out in the sun had tried to hydrate significantly although this did not improve her symptoms. Patient denies headache, vision changes, chest pain. She states that she took her blood pressure at home with systolics reading greater than 190s. She states that her blood pressure measurements have been all over the place this afternoon as low as systolics 150s. Patient has been compliant with her medications. No recent medication changes. She denies dizziness. She denies abdominal pain, nausea, vomiting. She denies focal weakness or numbness. Related Data Home Medications Medication Instructions Recorded Confirmed flecainide 100 mg tablet 100 mg PO BID 03/31/21 03/31/21 loratadine 10 mg tablet 10 mg PO DAILY 03/31/21 03/31/21 meclizine 25 mg tablet 25 mg PO DAILY PRN Dizziness 03/31/21 03/31/21 metoprolol succinate 25 mg 25 mg PO DAILY 03/31/21 03/31/21 tablet,extended release 24 hr metoprolol tartrate 25 mg tablet 25 mg PO DAILY PRN Atrial 03/31/21 03/31/21 Fibrillation rivaroxaban 20 mg tablet (Xarelto) 20 mg PO DAILY 03/31/21 03/31/21 Allergies Allergy/AdvReac Type Severity Reaction Status Date / Time Sulfa (Sulfonamide Allergy Unknown Unknown Verified 01/02/22 19:03 Antibiotics) latex Allergy Hives Verified 01/02/22 19:03 NKFA Allergy Unknown Unknown Uncoded 01/02/22 19:03 SULFA Allergy Unknown Unknown Uncoded 01/02/22 19:03 Review of Systems Review of Systems: CONSTITUTIONAL: Denies fever, chills, or sweats. EYES: Denies visual changes, redness, or discharge. ENT: Denies rhinorrhea, congestion, sore throat, or otalgia. CARDIOVASCULAR: Denies chest pain, palpitations, or edema. RESPIRATORY: Denies cough or dyspnea. GASTROINTESTINAL: Denies abdominal pain, nausea, vomiting, or diarrhea. GENITOURINARY: Denies dysuria or hematuria. SKIN: Denies rash or itching. MUSCULOSKELETAL: Denies back pain, joint pain, or myalgia. NEUROLOGIC: Denies headache, numbness, or weakness. [facility] Past Medical History Medical History Hemochromatosis HTN (hypertension) Paroxysmal atrial fibrillation Surgical History Surgical History No pertinent past surgical history Social History Social History Smoking status: Never smoker Tobacco type: cigarettes Alcohol intake: never Substance use: never Gender identity (if verbalized by the patient): Female Spiritual care concerns: No Exam Narrative: GENERAL: Awake, alert, conversant HEAD: Normocephalic, atraumatic. EYES: PERRLA and EOMI. ENT: Nares clear, no rhinorrhea or epistaxis. Mucous membranes moist. NECK: Supple. Patient with thyromegaly with concern for right thyroid nodule on palpation. No anterior or posterior cervical lymphadenopathy appreciated. CHEST: No respiratory distress, breathing even and non labored HEART: Regular rate, sinus rhythm ABDOMEN:Non distended, non tender EXTREMITIES: Normal range of motion. No edema. SKIN: Warm, dry, no rash. NEURO:No focal deficits. Alert and oriented x3 Course Vital Signs Vital signs: Vital Signs Temperature 36.8 C 02/01/22 19:12 Pulse Rate 72 02/01/22 19:12 Respiratory Rate 18 02/01/22 19:12 Blood Pressure 155/87 H 02/01/22 19:12 Pulse Oximetry 99 02/01/22 19:12 Oxygen Delivery Room Air 02/01/22 19:12
--- NOTE | 2022-02-01 21:28 | ECG_ITS ---
Measurements Intervals [place] Rate: 58 P: 71 MT: 266 QRS: -65 QRSD: 123 T: 28 QT: 486 QTc: 481 Interpretive Statements SINUS BRADYCARDIA WITH FIRST DEGREE AV BLOCK POSSIBLE RIGHT VENTRICULAR CONDUCTION DELAY [RSR (QR) IN V1/V2] LEFT ANTERIOR FASCICULAR BLOCK [QRS AXIS <= -45, QR IN I, RS IN II] COMPARED TO ECG 01/02/2022 16:54:58 NO CHANGE Electronically Signed On 02-02-2022 14:36:13 CDT by Alexandro Severino M.D.
[2022-02-01 22:13] LABS: Anion Gap 4 mmol/L (8-16); Blood Urea Nitrogen 20 mg/dL (7-17); Calcium 8.6 mg/dL (8.4-10.2); Carbon Dioxide 29 mmol/L (22-30); Chloride 105 mmol/L (98-107); Estimated CRCL calculation 43 ml/min; Estimated Glomerular Filt Rate 54; Glucose 109 mg/dL (65-110); Potassium 4.1 mmol/L (3.4-5.0); Sodium 138 mmol/L (137-145)
--- NOTE | 2022-02-01 22:17 | PM.IMHP ---
H&P: HPI History of Present Illness Date/Time: 02/01/22 22:17 [facility] Past Medical History Medical History Hemochromatosis HTN (hypertension) Paroxysmal atrial fibrillation Surgical History Surgical History No pertinent past surgical history Social History Social History Smoking status: Never smoker Tobacco type: cigarettes Alcohol intake: never Substance use: never Gender identity (if verbalized by the patient): Female Spiritual care concerns: No Meds Home Medications and Allergies Home Medications Medication Instructions Recorded Confirmed Type flecainide 100 mg tablet 100 mg PO BID 03/31/21 03/31/21 History loratadine 10 mg tablet 10 mg PO DAILY 03/31/21 03/31/21 History meclizine 25 mg tablet 25 mg PO DAILY PRN Dizziness 03/31/21 03/31/21 History metoprolol succinate 25 mg 25 mg PO DAILY 03/31/21 03/31/21 History tablet,extended release 24 hr metoprolol tartrate 25 mg tablet 25 mg PO DAILY PRN Atrial 03/31/21 03/31/21 History Fibrillation rivaroxaban 20 mg tablet (Xarelto) 20 mg PO DAILY 03/31/21 03/31/21 History Allergies Allergy/AdvReac Type Severity Reaction Status Date / Time Sulfa (Sulfonamide Allergy Unknown Unknown Verified 01/02/22 19:03 Antibiotics) latex Allergy Hives Verified 01/02/22 19:03 NKFA Allergy Unknown Unknown Uncoded 01/02/22 19:03 SULFA Allergy Unknown Unknown Uncoded 01/02/22 19:03 Vital Signs Vital Signs - 24 hr 02/01/22 19:12 02/01/22 20:51 02/01/22 21:01 Temperature 98.3 F Pulse Rate 72 61 55 L Respiratory Rate 18 20 21 H Blood Pressure 155/87 H 166/70 H 172/74 H Pulse Oximetry 99 98 98 Oxygen Delivery Room Air H&P: Results Labs Labs: [facility] 02/01/22 21:58 Sodium 138 Potassium 4.1 Chloride 105 Carbon Dioxide 29 BUN 20 H Creatinine 1.00 Glucose 109 Calcium 8.6
[2022-02-01 22:25] LABS: Troponin I < 0.012 ng/mL (0.000-0.034)
[2022-02-01 22:51] LABS: Appearance Urine Clear (Clear); Bilirubin Urine Negative (Negative); Blood Urine Trace-lysed (Negative); Color Urine Yellow (Yellow); Glucose Urine UA Negative (Negative); Ketones Urine Negative (Negative); Leukocyte Esterase Ur Negative LEU/UL (Negative); Nitrate Urine Negative (Negative); Protein Urine Negative (Negative); Urobilinogen Urine 0.2 mg/dL (<2.0); pH Urine 6.5 (5.0-9.0)
[2022-02-01 22:56] LABS: Mucus Urine Rare /lpf; Squamous Epithelial Cell Urine Rare /hpf (Few); WBC Urine 0-3 /hpf
[2022-02-01 23:31] LABS: Basophils Absolute Auto 0.1 K/mm3 (0.0-0.1); Basophils Percent Auto 0.8 % (0.2-1.2); Eosinophils Absolute Auto 0.1 K/mm3 (0-0.3); Eosinophils Percent Auto 2.2 % (0-4.4); Hematocrit 37.6 % (37.0-47.0); Hemoglobin 12.3 g/dL (12.0-15.0); Immature Granulocyte Absolute 0.02 K/mm3 (0.00-0.031); Immature Granulocyte Percent A 0.3 % (0-0.5); Lymphocytes Absolute Auto 1.26 K/mm3 (0.9-3.2); Lymphocytes Percent Auto 19.4 % (18.3-44.2); Mean Corpuscular HGB Conc 32.7 g/dl (32-36); Mean Corpuscular Hemoglobin 32.7 pg (26-34); Mean Platelet Volume 9.7 fl (7.4-10.4); Monocytes Absolute Auto 0.3 K/mm3 (0.1-0.6); Monocytes Percent Auto 4.5 % (2.6-8.5); Neutrophils Absolute Auto 4.7 K/mm3 (1.3-6.7); Neutrophils Percent Auto 72.8 % (45.5-73.1); Platelet Count Result 247 k/mm3 (150-375); Red Blood Count 3.76 M/mm3 (4.2-5.4); Red Cell Distribution Width 13.1 % (11.5-14.5); White Blood Count 6.5 K/mm3 (4.5-10.0)
[2022-02-01 23:42] LABS: Add Urine Microscopic? YES
== END 2022-02-01 23:47 | disposition home or self-care (01) ==
PROVIDERS: Emergency Provider Emergency Medicine; PCP Family Medicine
DX: I10 Essential (primary) hypertension (principal); I48.0 Paroxysmal atrial fibrillation; E83.119 Hemochromatosis, unspecified; Z79.01 Long term (current) use of anticoagulants; M85.88 Other specified disorders of bone density and structure, other site; I44.0 Atrioventricular block, first degree; R00.1 Bradycardia, unspecified; I44.4 Left anterior fascicular block
CPT/HCPCS: 36415; 70490; 71046; 80048; 81001; 84443; 84484; 85025; 93005; 99284

== ENCOUNTER 2022-03-15 10:12 | Outpatient (CLI) | payer MEDICARE, SELFPAY ==
--- NOTE | ~2022-03-15 | MM_ITS ---
EXAMINATION: MM screening susan BI w ree HISTORY: Screening mammogram TECHNIQUE: Craniocaudal and mediolateral oblique 3-D tomosynthesis images were obtained and synthetic 2-D images were generated. Bilateral rotated lateral CC views. CAD analysis was submitted and interp reted. COMPARISON: 01/25/2021 bilateral screening mammogram BREAST PARENCHYMAL COMPOSITION: There are scattered areas of fibroglandular density. FINDINGS: There is no evidence of suspicious mass, calcification, or architectural distortion to sugg est malignancy in either breast. There has been no suspicious interval change. IMPRESSION: 1. No mammographic evidence of malignancy. 2. Recommend routine screening mammography in one year. BI-RADS Category 1: Negative Reviewed, dictated and finalized at location A.
== END 2022-03-15 10:13 | disposition home or self-care (01) ==
PROVIDERS: PCP Family Medicine; Visit Provider Family Medicine
DX: Z12.31 Encounter for screening mammogram for malignant neoplasm of breast (principal)
CPT/HCPCS: 77063; 77067

== ENCOUNTER 2022-04-29 10:15 | Emergency (ER) | payer MEDICARE, SELFPAY ==
[2022-04-29] VITALS (8 sets, daily range): BP systolic 121–154; BP diastolic 72–88; PULSE 51–72; RESP 16–21; TEMP 36.8; O2SAT 96–97
--- NOTE | ~2022-04-29 | XR_ITS ---
XR chest 2V DATE: 04/29/2022 10:45 INDICATION: Cough, congestion TECHNIQUE: PA and lateral views COMPARISON: 02/01/2022 PA and lateral chest FINDINGS: Cardiomegaly. Aortic arch calcification. No hilar or mediastinal enlargement. Bilateral hyperinflation. No pulmonary infiltrate or consolidation, pleural effusion or pulmonary vas cular congestion or pneumothorax is detected. Diffuse osteopenia. IMPRESSION: Cardiomegaly Aortic atherosclerosis Bilateral hyperinflation; no active pulmonary disease Reviewed, dictated and finalized at location A.
--- NOTE | 2022-04-29 11:14 | PC.NURSE ---
Report received from Lexie WINTER, care assumed.
[2022-04-29 11:26] LABS: Influenza A QL RT-PCR Negative (Negative); Influenza B QL RT-PCR Negative (Negative); SARS-CoV-2 RNA PCR Negative
[2022-04-29 11:40] LABS: Basophils Percent Auto 0.9 % (0.2-1.2); Eosinophils Absolute Auto 0.2 K/mm3 (0-0.3); Eosinophils Percent Auto 3.2 % (0-4.4); Hematocrit 35.1 % (37.0-47.0); Hemoglobin 11.4 g/dL (12.0-15.0); Immature Granulocyte Absolute 0.01 K/mm3 (0.00-0.031); Immature Granulocyte Percent A 0.2 % (0-0.5); Lymphocytes Absolute Auto 0.81 K/mm3 (0.9-3.2); Lymphocytes Percent Auto 17.3 % (18.3-44.2); Mean Corpuscular HGB Conc 32.5 g/dl (32-36); Mean Corpuscular Hemoglobin 32.5 pg (26-34); Mean Platelet Volume 9.6 fl (7.4-10.4); Monocytes Absolute Auto 0.4 K/mm3 (0.1-0.6); Monocytes Percent Auto 8.4 % (2.6-8.5); Neutrophils Absolute Auto 3.3 K/mm3 (1.3-6.7); Platelet Count Result 176 k/mm3 (150-375); Red Blood Count 3.51 M/mm3 (4.2-5.4); Red Cell Distribution Width 12.8 % (11.5-14.5); White Blood Count 4.7 K/mm3 (4.5-10.0)
[2022-04-29 11:40] LABS: Alveolar/Arterial O2 Gradient 25.4 mmHg; Base Excess ABG 0.5 mEq/l (+/-2.0); Fractional Inspired Oxygen 21 %; HCO3 ABG 25.1 mEq/l (22.0-26.0); Oxygen Content ABG 16.1 %vol (16.0-22.0); Oxygen Saturation ABG 95.4 % (95.0-100.0); Oxyhemoglobin 94.1 % THb (90.0-100.0); PCO2 ABG 40.2 mmHg (35.0-45.0); PO2 ABG 76.2 mmHg (80.0-100.0); PO2 FiO2 Ratio Arterial Blood 3.63 %; Total Hemoglobin 12.1 g/dL (12.0-18.0); pH ABG 7.413 (7.350-7.450)
[2022-04-29 11:41] LABS: Site Drawn LEFT BRACHIAL
--- NOTE | 2022-04-29 11:48 | ED.URI ---
HPI - URI/Sore Throat General Chief Complaint: Upper Respiratory Infection Stated Complaint: URI Time Seen by Provider: 04/29/22 10:43 Source: patient and RN notes reviewed Mode of arrival: ambulatory Limitations: no limitations History of Present Illness HPI Narrative: 71 years old white female, history of asthma/COPD came to the emergency room from home complaining of green phlegm, coughing up, wheezing for the last 4 days. Patient was in a bus trip with a lot of people. Patient is vaccinated for COVID, she denies any fever, chills, shortness of breath or chest pain. Related Data Home Medications Medication Instructions Recorded Confirmed flecainide 100 mg tablet 100 mg PO BID 03/31/21 03/31/21 loratadine 10 mg tablet 10 mg PO DAILY 03/31/21 03/31/21 meclizine 25 mg tablet 25 mg PO DAILY PRN Dizziness 03/31/21 03/31/21 metoprolol succinate 25 mg 25 mg PO DAILY 03/31/21 03/31/21 tablet,extended release 24 hr metoprolol tartrate 25 mg tablet 25 mg PO DAILY PRN Atrial 03/31/21 03/31/21 Fibrillation rivaroxaban 20 mg tablet (Xarelto) 20 mg PO DAILY 03/31/21 03/31/21 Allergies Allergy/AdvReac Type Severity Reaction Status Date / Time Sulfa (Sulfonamide Allergy Unknown Unknown Verified 04/29/22 10:29 Antibiotics) latex Allergy Hives Verified 04/29/22 10:29 [facility] Past Medical History Medical History Hemochromatosis HTN (hypertension) Paroxysmal atrial fibrillation Surgical History Surgical History No pertinent past surgical history Social History Social History Smoking status: Never smoker Tobacco type: cigarettes Alcohol intake: never Substance use: never Gender identity (if verbalized by the patient): Female Spiritual care concerns: No Course Vital Signs Vital signs: Vital Signs Temperature 36.8 C 04/29/22 10:17 Pulse Rate 60 04/29/22 10:17 Respiratory Rate 16 04/29/22 10:17 Blood Pressure 148/81 H 04/29/22 10:17 Pulse Oximetry 96 04/29/22 10:17 Oxygen Delivery Room Air 04/29/22 10:17 Temperature 36.8 C 04/29/22 10:17 Pulse Rate 55 L 04/29/22 10:29 Respiratory Rate 21 H 04/29/22 10:29 Blood Pressure 151/76 H 04/29/22 10:29 Pulse Oximetry 96 04/29/22 10:30 Oxygen Delivery Room Air 04/29/22 10:30 MDM - URI/Sore Throat Lab Data Result diagrams: 04/29/22 11:31 04/29/22 11:31 Labs: Lab Results 04/29/22 04/29/22 04/29/22 Range/Units 10:31 11:31 11:31 WBC 4.7 (4.5-10.0) K/mm3 RBC 3.51 L (4.2-5.4) M/mm3 Hgb 11.4 L (12.0-15.0) g/dL Hct 35.1 L (37.0-47.0) % MCV 100.0 (80-100) fl MCH 32.5 (26-34) pg MCHC 32.5 (32-36) g/dl RDW 12.8 (11.5-14.5) % Plt Count 176 (150-375) k/mm3 MPV 9.6 (7.4-10.4) fl Immature Gran % (Auto) 0.2 (0-0.5) % Neut % (Auto) 70.0 (45.5-73.1) % Lymph % (Auto) 17.3 L (18.3-44.2) % [place] % (Auto) 8.4 (2.6-8.5) % Eos % (Auto) 3.2 (0-4.4) % Baso % (Auto) 0.9 (0.2-1.2) % Lymph # (Auto) 0.81 L (0.9-3.2) K/mm3 [place] # (Auto) 0.4 (0.1-0.6) K/mm3 Eos # (Auto) 0.2 (0-0.3) K/mm3 Baso # (Auto) 0.0 (0.0-0.1) K/mm3 Abs Immat Gran (auto) 0.01 (0.00-0.031) K/mm3 Absolute Neuts (auto) 3.3 (1.3-6.7) K/mm3 Absolute Nucleated RBC 0.0 (0.0-0.012) K/mm3 Nucleated RBC % 0.0 (0.0-0.2) % Sodium Pending Potassium Pending Chloride Pending Carbon Dioxide Pending Anion Gap Pending BUN Pending Creatinine Pending Estim Creat Clear Calc Pending Estimated GFR Pending Glucose Pending Calcium Pending Total Bilirubin Pending AST Pending ALT Pending Alkaline Phosphatase Pending Total Protein Pending Albumin Pending Influenza A (RT-PCR) Negative (
[2022-04-29 11:51] LABS: Alanine Aminotransferase 15 U/L (6-35); Albumin Level 3.6 g/dL (3.5-5.1); Alkaline Phosphatase 75 U/L (38-126); Anion Gap 4 mmol/L (8-16); Aspartate Amino Transferase 24 U/L (14-36); Bilirubin,Total 0.4 mg/dL (0.2-1.3); Blood Urea Nitrogen 15 mg/dL (7-17); Calcium 8.3 mg/dL (8.4-10.2); Carbon Dioxide 26 mmol/L (22-30); Chloride 107 mmol/L (98-107); Estimated CRCL calculation 54 ml/min; Estimated Glomerular Filt Rate > 60; Glucose 100 mg/dL (65-110); Potassium 4.2 mmol/L (3.4-5.0); Sodium 137 mmol/L (137-145)
[2022-04-29] MEDS: ALBUTEROL SULFATE NEB 2.5 MG/3 ML INH 5 MG INHALATION ×3 (12:27→13:08)
[2022-04-29] MEDS: IPRATROPIUM BR 0.02% INH SOLN 0.5 MG/2.5 ML VIAL INHALATION (12:28)
[2022-04-29] MEDS: predniSONE 20 MG TABLET 60 MG PO (12:29)
== END 2022-04-29 13:54 | disposition home or self-care (01) ==
PROVIDERS: Physician Assistant; Emergency Provider Emergency Medicine; PCP Family Medicine
DX: J44.1 Chronic obstructive pulmonary disease with (acute) exacerbation (principal); J06.9 Acute upper respiratory infection, unspecified; Z20.822 Contact with and (suspected) exposure to COVID-19; I48.0 Paroxysmal atrial fibrillation; I10 Essential (primary) hypertension; E83.119 Hemochromatosis, unspecified; Z79.01 Long term (current) use of anticoagulants; I51.7 Cardiomegaly; I70.0 Atherosclerosis of aorta
CPT/HCPCS: 36415; 36600; 71046; 80053; 82805; 85025; 87502; 94640; 99284; C9803; J7512; U0003; U0005

== ENCOUNTER 2022-05-30 07:54 | Outpatient (CLI) | payer MEDICARE, SELFPAY ==
--- NOTE | 2022-06-11 09:22 | WPDPFTINT ---
PFT Procedure Performed PFT Procedure Performed Spirometry with Pre/Post Bronchodilator Plethysmography (Lung Vol) Diffusing Cap (DLCO) Flow Vol Loop PFT Interpretation DOS: 05/30/2022 REQUESTING: Jennifer Almanza PA-C REASON FOR TESTING: Shortness of breath PULMONARY FUNCTION TESTS Results are reliable and reproducible. The patient had 6 some difficulties performing the study however the results were reproducible. She did have multiple attempts. Spirometry: Pre bronchodilator FEV1 is 1.45 L, 62%, decreased. Pre bronchodilator FVC is 2.32 L, 76%, within the normal range. FEV1/FVC ratio is 62%, decreased consistent with airflow obstruction. The FEF 25-75% is 0.64 L, 34% predicted, severely reduced. After bronchodilator administration there is 1% increase in FEV1, 8% increase in FVC and a 21% increase in the FEF 25-75% flows. None of these are statistically significant. Lung volumes: Total lung capacity is 5.05 L, 92% predicted, normal. Residual volume 2 L, 83% predicted, normal. RV/TLC is 39, normal. There is no air trapping or hyperinflation Diffusion: DLCO 15.8, 74% predicted, normal. DLCO/VA is 3.40, 83% predicted, normal. Flow volume loop: There is scooping of the expiratory limb. IMPRESSION: This study shows a mild obstructive ventilatory impairment with normal lung volumes and normal diffusion. There is no response to bronchodilator. Soumya Fuller MD
--- NOTE | 2022-06-11 09:29 | WPDSIXMINUTE ---
Six Minute Walk Procedure Procedure Performed Pulmonary Stress Test (6 min walk) Six Minute Walk Six Minute Walk: ? DOS:? 05/30/2022 ? REQUESTING:? Jennifer Almanza PA-C ? REASON FOR TESTING:? Shortness of breath SIX MINUTE WALK This test was conducted per ATS standards. Study was conducted with the patient breathing room air. Initial saturation was 100% pulse was 50. The patient used a walker to ambulate. Saturation varied very little between 98 and 100%. Pulse increased to 91 during the walk. During recovery pulse was 87. Total distance walked was 800 ft, 243.8 m. IMPRESSION: Patient does not require supplemental oxygen with exertion. Distance walked is adequate for age.
== END 2022-05-30 07:55 | disposition home or self-care (01) ==
PROVIDERS: PCP Family Medicine; Visit Provider Physician Assistant
DX: R06.00 Dyspnea, unspecified (principal)
CPT/HCPCS: 94060; 94726; 94729

== ENCOUNTER 2022-06-19 09:11 | Emergency (ER) | payer MEDICARE, SELFPAY ==
--- NOTE | ~2022-06-19 | XR_ITS ---
EXAMINATION: XR knee LT min 4V DATE: 06/19/2022 10:04 INDICATION: Medial left knee pain. TECHNIQUE: 4 views of left knee were obtained. COMPARISON: None. FINDINGS: Bone alignment is normal. No fracture. There is mild tricompartmental osteoarthritis charac terized by tiny osteophytes. No joint space narrowing. There is a small knee joint effusion. IMPRESSION: 1. Mild left knee osteoarthritis. 2. Small left knee joint effusion. Reviewed, dictated and finalized at location A.
[2022-06-19 09:22] VITALS: BP 160/77; PULSE 56; RESP 12; TEMP 36.3; O2SAT 99
--- NOTE | 2022-06-19 09:35 | ED.EXTPRO ---
HPI - Extremity Problem General Chief complaint: Extremity Problem,Nontraumatic <ELLEN Blackwell Last Filed: 06/19/22 15:02> Stated complaint: L LEG SWELLING/PAIN <ELLEN Blackwell Last Filed: 06/19/22 15:02> Time Seen by Provider: 06/19/22 09:18 <ELLEN Blackwell Last Filed: 06/19/22 15:02> Source: patient <ELLEN Blackwell Last Filed: 06/19/22 15:02> Mode of arrival: ambulatory <ELLEN Blackwell Last Filed: 06/19/22 15:02> Limitations: no limitations <ELLEN Blackwell Last Filed: 06/19/22 15:02> History of Present Illness HPI Narrative: Patient is a 71-year-old female who presents the ED with report of left knee pain and swelling. Patient reports she fell 1 month ago walking down a incline slope. She landed with her left leg bent backwards underneath of her. She complained of intermittent pain to her medial left knee since then. She has been taking Tylenol for the pain. She notes developed worsening and more persistent pain after an exercise class recently, which prompted her presentation. Some swelling, no redness or warmth. No fevers. No pain or swelling in the rest of her left lower extremity. Patient is on Xarelto due to history of A. fib. <ELLEN Blackwell Last Filed: 06/19/22 15:02> Related Data Home medications: Home Medications Medication Instructions Recorded Confirmed flecainide 100 mg tablet 100 mg PO BID 03/31/21 05/21/22 loratadine 10 mg tablet 10 mg PO DAILY 03/31/21 05/21/22 metoprolol succinate 25 mg 25 mg PO DAILY 03/31/21 05/21/22 tablet,extended release 24 hr rivaroxaban 20 mg tablet (Xarelto) 20 mg PO DAILY 03/31/21 05/21/22 meclizine 25 mg tablet 50 mg PO DAILY PRN Dizziness 05/21/22 05/21/22 <Conchis Cohn PA-C - Last Filed: 06/19/22 15:02> Allergies/Adverse reactions: Allergies Allergy/AdvReac Type Severity Reaction Status Date / Time Sulfa (Sulfonamide Allergy Unknown Unknown Verified 06/19/22 09:14 Antibiotics) latex Allergy Hives Verified 06/19/22 09:14 <Conchis Cohn PA-C - Last Filed: 06/19/22 15:02> Review of Systems Review of Systems: CONSTITUTIONAL: Denies fever, chills, or sweats. CARDIOVASCULAR: Denies chest pain. RESPIRATORY: Denies dyspnea. GASTROINTESTINAL: Denies abdominal pain, nausea, vomiting, or diarrhea. SKIN: Denies redness or warmth to left knee. MUSCULOSKELETAL: Reports left knee pain. NEUROLOGIC: Denies tingling, numbness, or weakness. <Conchis Cohn PA-C - Last Filed: 06/19/22 15:02> All systems reviewed & are unremarkable except as noted in HPI and below <Conchis Cohn PA-C - Last Filed: 06/19/22 15:02> [facility] Past Medical History Medical History: Medical History Hemochromatosis HTN (hypertension) Paroxysmal atrial fibrillation Takotsubo cardiomyopathy <Conchis Cohn PA-C - Last Filed: 06/19/22 15:02> Surgical History Surgical History: Surgical History No pertinent past surgical history <Conchis Cohn PA-C - Last Filed: 06/19/22 15:02> Family History Family History: Family History Father Carcinoma of colon Lung cancer Mother Pancreatic cancer Sibling Brain aneurysm Cerebrovascular accident <Conchis Cohn PA-C - Last Filed: 06/19/22 15:02> Social History Social History: Social History Smoking status: Never smoker Tobacco type: cigarettes Alcohol intake: never Substance use: never Gender identity (if verbalized by the patient): Female Spiritual care concerns: No <Conchis Cohn PA-C - Last Filed: 06/19/22 15:02> Exam Narrative: GENERAL: Elderly, well-nouris
== END 2022-06-19 11:14 | disposition home or self-care (01) ==
LOC: ANHED 10:46
PROVIDERS: Emergency Provider Emergency Medicine; PCP Family Medicine
DX: M23.92 Unspecified internal derangement of left knee (principal); S89.92XA Unspecified injury of left lower leg, initial encounter; I48.0 Paroxysmal atrial fibrillation; I51.81 Takotsubo syndrome; I10 Essential (primary) hypertension; Z79.01 Long term (current) use of anticoagulants; M17.12 Unilateral primary osteoarthritis, left knee; W10.2XXA Fall (on)(from) incline, initial encounter
CPT/HCPCS: 73564; 99283

== ENCOUNTER 2022-08-19 06:04 | Emergency (ER) | payer MEDICARE, SELFPAY ==
--- NOTE | ~2022-08-19 | XR_ITS ---
EXAMINATION: XR chest 1V DATE: 08/19/2022 07:53 INDICATION: Right flank pain. TECHNIQUE: A single frontal view of the chest was obtained. COMPARISON: Chest 2 views 04/29/2022, CT abdomen and pelvis 08/19/2022 FINDINGS: There is mild atelectasis at left lung base. No pleural effusion or pneumothorax. Cardiomeg gerhard is noted. IMPRESSION: 1. Mild atelectasis at left lung base. 2. Cardiomegaly. Reviewed, dictated and finalized at location A. [facility]
--- NOTE | ~2022-08-19 | CT_ITS ---
EXAMINATION: CT abdomen pelvis wo con DATE: 08/19/2022 07:49 INDICATION: Right flank pain. TECHNIQUE: Computed tomography (CT) of the abdomen and pelvis was performed without intravenous contr ast. Automated exposure control and iterative reconstruction technique were employed. The dose-length product was 544.33 mGy-cm. COMPARISON: None. FINDINGS: The visualized portions of the lung bases demonstrate mild atelectasis. No pleural effusion . Cardiomegaly is noted. No pericardial effusion. The liver, gallbladder, spleen, pancreas, adrenal g lands are normal. There is cortical thinning of the kidneys. There are cysts in the kidneys measuring up to 13 mm on the left. There is no urolithiasis. There is an umbilical hernia containing fat. Ther e is diverticulosis of the colon without evidence of diverticulitis. There are no dilated loops of theodora wel. The appendix is normal. There are no pathologically enlarged lymph nodes. There is physiologic f luid in the pelvis. IMPRESSION: 1. Umbilical hernia containing fat. 2. No urolithiasis. Reviewed, dictated and finalized at location A. [facility]
[2022-08-19 06:07] VITALS: BP 171/87; PULSE 71; RESP 20; TEMP 36.7; O2SAT 97
[2022-08-19 07:12] LABS: Basophils Absolute Auto 0.1 K/mm3 (0.0-0.1); Basophils Percent Auto 0.6 % (0.2-1.2); Eosinophils Absolute Auto 0.2 K/mm3 (0-0.3); Eosinophils Percent Auto 2.2 % (0-4.4); Hemoglobin 12.2 g/dL (12.0-15.0); Immature Granulocyte Absolute 0.03 K/mm3 (0.00-0.031); Immature Granulocyte Percent A 0.4 % (0-0.5); Lymphocytes Absolute Auto 0.83 K/mm3 (0.9-3.2); Lymphocytes Percent Auto 10.8 % (18.3-44.2); Mean Corpuscular HGB Conc 33.9 g/dl (32-36); Mean Corpuscular Hemoglobin 33.6 pg (26-34); Mean Corpuscular Volume 99.2 fl (80-100); Mean Platelet Volume 9.7 fl (7.4-10.4); Monocytes Absolute Auto 0.5 K/mm3 (0.1-0.6); Monocytes Percent Auto 6.4 % (2.6-8.5); Neutrophils Absolute Auto 6.1 K/mm3 (1.3-6.7); Neutrophils Percent Auto 79.6 % (45.5-73.1); Platelet Count Result 220 k/mm3 (150-375); Red Blood Count 3.63 M/mm3 (4.2-5.4); Red Cell Distribution Width 12.9 % (11.5-14.5); White Blood Count 7.7 K/mm3 (4.5-10.0)
[2022-08-19 07:22] LABS: Alanine Aminotransferase 16 U/L (6-35); Albumin Level 3.9 g/dL (3.5-5.1); Alkaline Phosphatase 66 U/L (38-126); Anion Gap 5 mmol/L (8-16); Aspartate Amino Transferase 24 U/L (14-36); Bilirubin,Total 0.4 mg/dL (0.2-1.3); Blood Urea Nitrogen 19 mg/dL (7-17); Calcium 8.4 mg/dL (8.4-10.2); Carbon Dioxide 27 mmol/L (22-30); Chloride 105 mmol/L (98-107); Estimated Glomerular Filt Rate > 60; Glucose 113 mg/dL (65-110); Lipase 23 U/L (23-300); Potassium 3.5 mmol/L (3.4-5.0); Sodium 137 mmol/L (137-145)
--- NOTE | 2022-08-19 07:35 | ED.GENADULT ---
HPI - General Adult General Chief complaint: Abdominal Pain Stated complaint: Right flank pain, RUQ pain Time Seen by Provider: 08/19/22 07:09 History of Present Illness HPI narrative: This is a 71-year-old female presenting ED with chief complaint of right flank pain. Has been going on off for the last 6 days however it was acutely worse this morning. It is a stabbing pain in her right flank that wraps around to the front of her abdomen. His 10 out 10 intensity and comes and goes. She has never experienced pain like this before, was mildly relieved with Tylenol there are no exacerbating factors. She has had some nausea but no vomiting. She has found difficulty to urinate but has no other urinary symptoms. She denies fever chills vomiting or diarrhea. She denies chest pain difficulty breathing or productive cough. Related Data Home Medications Medication Instructions Recorded Confirmed flecainide 100 mg tablet 100 mg PO BID 03/31/21 08/16/22 loratadine 10 mg tablet 10 mg PO DAILY 03/31/21 08/16/22 metoprolol succinate 25 mg 25 mg PO DAILY 03/31/21 08/16/22 tablet,extended release 24 hr rivaroxaban 20 mg tablet (Xarelto) 20 mg PO DAILY 03/31/21 08/16/22 meclizine 25 mg tablet 50 mg PO DAILY PRN Dizziness 05/21/22 08/16/22 Allergies Allergy/AdvReac Type Severity Reaction Status Date / Time Sulfa (Sulfonamide Allergy Intermediate Rash Verified 08/16/22 10:33 Antibiotics) latex Allergy Hives Verified 08/16/22 10:33 [facility] Past Medical History Medical History Allergies COPD (chronic obstructive pulmonary disease) Heart disease Hemochromatosis HTN (hypertension) Paroxysmal atrial fibrillation Takotsubo cardiomyopathy Surgical History Surgical History History of hysterectomy 1995 Family History Family History Father Carcinoma of colon Lung cancer Diabetes mellitus Mother Pancreatic cancer Sibling Brain aneurysm Cerebrovascular accident Heart disease Social History Social History Smoking status: Never smoker Tobacco type: cigarettes Alcohol intake: never Substance use: never Gender identity (if verbalized by the patient): Female Spiritual care concerns: No Exam Narrative: APPEARANCE: No apparent distress. Head: atraumatic. EYES: EOMI, NOSE: Atraumatic NECK: Trachea midline RESPIRATORY: No increased rate of breathing CARDIOVASCULAR: RRR, ABDOMINAL: Non-distended MUSCULOSKELETAl: CVA tenderness on the right side, no overlying skin changes, abdomen is soft tender no guarding or rebound, Tenderness to palpation over the right paralumbar muscles, NEURO: Alert. Cranial nerves 2-12 grossly intact. Sensation light touch, motor function cerebellar function intact for 4 extremities. Gait exam was normal. SKIN:: no overlying skin changes or evidence of vesicular rash PSYCHIATRIC: Normal affect Course Vital Signs Vital signs: Vital Signs Temperature 98.1 F 08/19/22 06:07 Pulse Rate 71 08/19/22 06:07 Respiratory Rate 20 08/19/22 06:07 Blood Pressure 171/87 H 08/19/22 06:07 Pulse Oximetry 97 08/19/22 06:07 Oxygen Delivery Room Air 08/19/22 06:07 Temperature 98.1 F 08/19/22 06:07 Pulse Rate 71 08/19/22 06:07 Respiratory Rate 20 08/19/22 06:07 Blood Pressure 171/87 H 08/19/22 06:07 Pulse Oximetry 97 08/19/22 06:07 Oxygen Delivery Room Air 08/19/22 06:07 Medical Decision Making MDM Narrative Medical decision making narrative: this is a 71-year-old female presenting ED with chief complaint of right back and flank pain. Differential includes kidney stone, musculoskeletal strain, gallbladder pathology or early shingles. CT abdomen pelvis has been ordered. Lab work be obtained. Patient has been given Tylenol for
[2022-08-19 07:42] LABS: Add Urine Microscopic? YES; Appearance Urine Clear (Clear); Bilirubin Urine Negative (Negative); Blood Urine 1+ (Negative); Color Urine Yellow (Yellow); Glucose Urine UA Negative (Negative); Ketones Urine Negative (Negative); Leukocyte Esterase Ur Negative LEU/UL (Negative); Nitrate Urine Negative (Negative); Protein Urine Negative (Negative); Specific Grav Ur >= 1.030 (1.001-1.035); Urobilinogen Urine 0.2 mg/dL (<2.0)
[2022-08-19 08:06] LABS: Mucus Urine Rare /lpf; RBC Urine 0-2 /hpf (0-2); Squamous Epithelial Cell Urine Rare /hpf (Few); WBC Urine 0-3 /hpf
[2022-08-19] MEDS: ONDANSETRON INJ 4 MG/2 ML VIAL 8 MG IV PUSH (08:27)
[2022-08-19] MEDS: HYDROmorphone HCL INJ (*CRX) 1 MG/ML SYR 0.5 MG IV PUSH (08:27)
[2022-08-19] MEDS: SODIUM CHLORIDE 0.9% IV 1,000 ML 999 ML IV CONT (08:27)
[2022-08-19 11:28] VITALS: BP 136/80; PULSE 76; RESP 16; O2SAT 98
== END 2022-08-19 11:48 | disposition home or self-care (01) ==
PROVIDERS: Emergency Medicine; Emergency Provider Emergency Medicine; PCP Family Medicine
DX: R10.9 Unspecified abdominal pain (principal); M54.50 Low back pain, unspecified; J44.9 Chronic obstructive pulmonary disease, unspecified; I48.0 Paroxysmal atrial fibrillation; I51.81 Takotsubo syndrome; I10 Essential (primary) hypertension; Z79.01 Long term (current) use of anticoagulants; Z90.710 Acquired absence of both cervix and uterus
CPT/HCPCS: 36415; 71045; 74176; 80053; 81001; 83690; 85025; 96361; 96374; 96375; 99284; J1170; J2405; J7030

== ENCOUNTER 2022-08-23 09:09 | Emergency (ER) | payer MEDICARE, SELFPAY ==
--- NOTE | ~2022-08-23 | CT_ITS ---
EXAMINATION: CT thoracic lumbar wo con DATE: 08/23/2022 13:52 INDICATION: Back pain. TECHNIQUE: Computed tomography (CT) of the thoracic and lumbar spine was performed without intravenou s contrast. Automated exposure control and iterative reconstruction technique were employed. The dose -length product was 1837.03 mGy-cm. COMPARISON: None FINDINGS: CT THORACIC SPINE: There is 4 degrees dextrocurvature of thoracic spine. Vertebral body heights are n ormal. There is mildly decreased disc height at T5-T6, moderately decreased disc height from T6-T7 to T8-T9, and mildly decreased disc height at T9-T10. There is multilevel mild facet joint osteoarthrit is. No neural foraminal stenosis or central canal stenosis. CT LUMBAR SPINE: There is 9 degrees levocurvature of lumbar spine. Vertebral body heights are normal. There is mildly decreased disc height at L3-L4 and severely decreased disc height at L4-L5 and L5-S1 with endplate remodeling. The following disc levels are specifically discussed: L1-L2: The disc does not extend beyond the endplate margin. There is mild bilateral facet joint osteo arthritis. There is no neural foraminal stenosis. There is no central canal stenosis. L2-L3: The disc is bulging. There is mild bilateral facet joint osteoarthritis. There is mild bilater al neural foraminal stenosis. There is mild central canal stenosis. L3-L4: The disc is bulging. There is mild right and severe left facet joint osteoarthritis. There is mild bilateral neural foraminal stenosis. There is mild central canal stenosis. L4-L5: The disc is bulging. There is severe bilateral facet joint osteoarthritis. There is mild bilat eral neural foraminal stenosis. There is mild central canal stenosis. L5-S1: The disc is bulging. There is severe bilateral facet joint osteoarthritis. There is mild bilat eral neural foraminal stenosis. There is mild central canal stenosis. IMPRESSION: 1. Severe lumbar spondylosis and moderate thoracic spondylosis. Reviewed, dictated and finalized at location A. [employer]
[2022-08-23 09:12] VITALS: BP 172/76; PULSE 61; RESP 16; TEMP 36.6; O2SAT 99
[2022-08-23 09:29] LABS: Basophils Percent Auto 0.8 % (0.2-1.2); Eosinophils Absolute Auto 0.1 K/mm3 (0-0.3); Eosinophils Percent Auto 2.8 % (0-4.4); Hematocrit 37.4 % (37.0-47.0); Hemoglobin 12.3 g/dL (12.0-15.0); Immature Granulocyte Absolute 0.02 K/mm3 (0.00-0.031); Immature Granulocyte Percent A 0.4 % (0-0.5); Lymphocytes Percent Auto 21.9 % (18.3-44.2); Mean Corpuscular HGB Conc 32.9 g/dl (32-36); Mean Corpuscular Volume 100.3 fl (80-100); Mean Platelet Volume 9.1 fl (7.4-10.4); Monocytes Absolute Auto 0.2 K/mm3 (0.1-0.6); Monocytes Percent Auto 4.6 % (2.6-8.5); Neutrophils Absolute Auto 3.5 K/mm3 (1.3-6.7); Neutrophils Percent Auto 69.5 % (45.5-73.1); Platelet Count Result 255 k/mm3 (150-375); Red Blood Count 3.73 M/mm3 (4.2-5.4); Red Cell Distribution Width 12.7 % (11.5-14.5)
[2022-08-23 09:39] LABS: Alanine Aminotransferase 16 U/L (6-35); Albumin Level 4.1 g/dL (3.5-5.1); Alkaline Phosphatase 69 U/L (38-126); Anion Gap 6 mmol/L (8-16); Aspartate Amino Transferase 25 U/L (14-36); Bilirubin,Total 0.6 mg/dL (0.2-1.3); Blood Urea Nitrogen 14 mg/dL (7-17); Calcium 8.6 mg/dL (8.4-10.2); Carbon Dioxide 30 mmol/L (22-30); Chloride 104 mmol/L (98-107); Estimated CRCL calculation 53 ml/min; Estimated Glomerular Filt Rate > 60; Glucose 104 mg/dL (65-110); Potassium 3.9 mmol/L (3.4-5.0); Sodium 140 mmol/L (137-145)
[2022-08-23 11:06] LABS: Add Urine Microscopic? YES; Appearance Urine Clear (Clear); Bilirubin Urine Negative (Negative); Blood Urine Trace-Intact (Negative); Color Urine Yellow (Yellow); Glucose Urine UA Negative (Negative); Ketones Urine Negative (Negative); Leukocyte Esterase Ur Negative LEU/UL (Negative); Nitrate Urine Negative (Negative); Protein Urine Negative (Negative); Specific Grav Ur 1.025 (1.001-1.035); Urobilinogen Urine 0.2 mg/dL (<2.0)
[2022-08-23 11:10] LABS: Bacteria Urine Trace /hpf; Mucus Urine Rare /lpf; Squamous Epithelial Cell Urine Rare /hpf (Few); WBC Urine 0-3 /hpf
[2022-08-23 11:33] VITALS: BP 170/72; PULSE 54; RESP 16; TEMP 36.6; O2SAT 99
[2022-08-23 12:13] VITALS: BP 165/84; PULSE 51; RESP 16; O2SAT 99
[2022-08-23] MEDS: ACETAMINOPHEN 500 MG TABLET 1000 MG PO (13:53)
[2022-08-23] MEDS: CYCLOBENZAPRINE HCL 5 MG TABLET PO (13:54)
--- NOTE | 2022-08-23 14:43 | ED.BACK ---
HPI - Back Pain/Injury General Chief Complaint: Back Pain/Injury Stated Complaint: flank pain Time Seen by Provider: 08/23/22 12:45 Source: patient Mode of arrival: ambulatory Limitations: no limitations History of Present Illness HPI Narrative: This is a 71 year old female that presents to the ER for right sided mid back pain. Ongoing over the last 4 days. No recent injury or trauma. She does report she has been doing physical therapy for her left knee. Is unsure if she maybe strained a muscle during therapy. The pain is sharp and intermittent. She can point to the area of tenderness to her right mid back. She was evaluated for this in the ER a couple of days ago. Had negative CT scan of the abdomen/pelvis and no acute findings on chest x-ray. She also had an US of her gallbladder without concerning findings. She has continued to have pain and her primary cannot see her until next week. She has been taking Tylenol with little relief. Denies fever, cough, chest pain, shortness of breath, abdominal pain, vomiting, dysuria, or hematuria. Related Data Home Medications Medication Instructions Recorded Confirmed flecainide 100 mg tablet 100 mg PO BID 03/31/21 08/16/22 loratadine 10 mg tablet 10 mg PO DAILY 03/31/21 08/16/22 metoprolol succinate 25 mg 25 mg PO DAILY 03/31/21 08/16/22 tablet,extended release 24 hr rivaroxaban 20 mg tablet (Xarelto) 20 mg PO DAILY 03/31/21 08/16/22 meclizine 25 mg tablet 50 mg PO DAILY PRN Dizziness 05/21/22 08/16/22 Allergies Allergy/AdvReac Type Severity Reaction Status Date / Time Sulfa (Sulfonamide Allergy Intermediate Rash Verified 08/23/22 12:09 Antibiotics) latex Allergy Hives Verified 08/23/22 12:09 Review of Systems Review of Systems: CONSTITUTIONAL: Denies fever, CARDIOVASCULAR: Denies chest pain, or edema. RESPIRATORY: Denies cough or dyspnea. GASTROINTESTINAL: Denies abdominal pain, nausea, vomiting GENITOURINARY: Denies dysuria or hematuria. SKIN: Denies rash MUSCULOSKELETAL: Reports back pain, joint pain, and myalgia. NEUROLOGIC: Denies numbness, or weakness. All systems reviewed & are unremarkable except as noted in HPI and below PMFSH Past Medical History Medical History Allergies COPD (chronic obstructive pulmonary disease) Heart disease Hemochromatosis HTN (hypertension) Paroxysmal atrial fibrillation Takotsubo cardiomyopathy Surgical History Surgical History History of hysterectomy 1995 Family History Family History Father Carcinoma of colon Lung cancer Diabetes mellitus Mother Pancreatic cancer Sibling Brain aneurysm Cerebrovascular accident Heart disease Social History Social History (Updated 08/23/22 @ 14:50 by Renee Britton PA-C) Smoking status: Never smoker Alcohol intake: never Substance use: never Gender identity (if verbalized by the patient): Female Spiritual care concerns: No Exam Narrative: GENERAL: Well-appearing, well-nourished, and in no acute distress. HEAD: Normocephalic, atraumatic. EYES: EOMI. ENT: Nares clear, no rhinorrhea or epistaxis. Mucous membranes moist. Oropharynx without tonsillar hypertrophy exudate or other lesions. Bilateral TMs pearly green non-bulging NECK: Supple. No adenopathy or masses. CHEST: Clear to auscultation. No respiratory distress. No wheezes rales or rhonchi HEART: Regular rate and rhythm. No murmur heard. Normal peripheral pulses. ABDOMEN: Soft, nontender, nondistended, normal active bowel sounds. BACK: Tender to palpation of the right thoracic paraspinal musculature EXTREMITIES: Normal range of motion. No edema. Strength equal in bilateral upper and lower extremities (5/5) SKIN: Warm, dry, no rash. NEURO: No focal deficits. Alert and oriented x3. PSYCH: Normal mood and affect Course Vital Signs Vital signs: Vit
== END 2022-08-23 15:35 | disposition home or self-care (01) ==
PROVIDERS: Emergency Medicine; Emergency Provider Physician Assistant; PCP Family Medicine
DX: M54.6 Pain in thoracic spine (principal); J44.9 Chronic obstructive pulmonary disease, unspecified; I48.0 Paroxysmal atrial fibrillation; I51.81 Takotsubo syndrome; I10 Essential (primary) hypertension; Z79.01 Long term (current) use of anticoagulants; M47.816 Spondylosis without myelopathy or radiculopathy, lumbar region
CPT/HCPCS: 36415; 72128; 72131; 80053; 81001; 85025; 99284; A9270

== ENCOUNTER → 2022-08-28 10:05 | Outpatient (CLI) | payer MEDICARE, SELFPAY ==
--- NOTE | ~2022-08-28 | MR_ITS ---
EXAMINATION: MR knee LT wo con DATE: 08/28/2022 11:05 INDICATION: Left knee pain TECHNIQUE: Magnetic resonance imaging (MRI) of the left knee was performed without intravenous contra st. Sequences included coronal PD-weighted FSE, coronal PD-weighted FS FSE, sagittal T2-weighted FSE , sagittal PD-weighted FS FSE and axial PD weighted fat saturated FSE. COMPARISON: None. FINDINGS: Medial compartment: Complex tear at the body of the medial meniscus which includes subtle and lateral displacement of a s mall meniscal flap which extends cephalad into the recess between the medial nonarticular margin of t he medial femoral condyle in the deep margin of the medial collateral ligament. There is a longitudin al horizontal tear into the posterior horn which contacts the inferior articular surface. There is di ffuse partial thickness cartilage loss which only smooth chondral surface throughout the medial tibia l plateau and along the anterior to central weightbearing medial femoral condyle. There is prominent marrow edema at the medial tibial plateau surrounding a subarticular linear low signal intensity like ly stress fracture line which measures 11 mm AP and 9 mm medial to lateral. No appreciable depression of the overlying articular cortex. Lateral compartment: Lateral meniscus is normal. Articular cartilage is normal. Patellofemoral compartment: Small region of partial-thickness chondral ulceration with smooth chondral surface of the central asp ect of the patellar apical ridge and lateral side of the medial patellar facet. Suggestion of partial thickness chondral fissuring with underlying tiny central subchondral osteophytes at the trochlear g roove. Assessment is however somewhat limited by some motion artifact on the sagittal images at the l evel of the trochlear groove. Ligaments and tendons: Anterior and posterior cruciate ligaments are normal. The medial collateral ligament and fibular aureliano ateral ligament complex are normal. The extensor mechanism is normal. The visualized medial and later al hamstring tendons as well as the iliotibial band are normal. Fluid: Minimal left knee joint effusion at the suprapatellar pouch. There is also fluid within a small Tinsley 's cyst. No loose osteochondral bodies identified. Osseous/other: Bones are unremarkable aside from the previous noted subarticular stress fracture and surrounding phyllis ma at the medial tibial plateau. IMPRESSION: 1. Complex medial meniscal tear. 2. Prominent marrow edema at the medial tibial plateau surrounding a small subarticular fracture, lik richy stress fracture related to altered weight distribution resulting from the meniscal tear. Line 3. Mild osteoarthritis in the medial and to lesser degree patellofemoral compartments. 4. Minimal left knee joint effusion and small Tinsley's cyst. Reviewed, dictated and finalized at location A. [facility] [employer] IMPRESSION: 1. Complex medial meniscal tear. 2. Prominent marrow edema at the medial tibial plateau surrounding a small suba rticular fracture, likely stress fracture related to altered weight distributio n resulting from the meniscal tear. Line 3. Mild osteoarthritis in the medial and to lesser degree patellofemoral compar tments. 4. Minimal left knee joint effusion and small Tinsley's cyst.
== END ==
PROVIDERS: PCP Family Medicine; Visit Provider Nurse Practitioner
DX: S83.232A Complex tear of medial meniscus, current injury, left knee, initial encounter (principal); X58.XXXA Exposure to other specified factors, initial encounter; M17.12 Unilateral primary osteoarthritis, left knee
CPT/HCPCS: 73721

== ENCOUNTER 2023-02-04 08:14 | Emergency (ER) | payer MEDICARE, SELFPAY ==
[2023-02-04] VITALS (17 sets, daily range): BP systolic 152–180; BP diastolic 67–90; PULSE 48–61; RESP 13–19; TEMP 36.4; O2SAT 94–100
--- NOTE | 2023-02-04 08:50 | ECG_ITS ---
Measurements Intervals [place] Rate: 53 P: 27 FL: 247 QRS: -59 QRSD: 113 T: 2 QT: 464 QTc: 436 Interpretive Statements SINUS BRADYCARDIA WITH FIRST DEGREE AV BLOCK LEFT ANTERIOR FASCICULAR BLOCK [QRS AXIS <= -45, QR IN I, RS IN II] COMPARED TO ECG 02/01/2022 22:13:53 NO SIGNIFICANT CHANGES Electronically Signed On 02-04-2023 15:49:01 CDT by Alexandro Severino M.D.
[2023-02-04 09:08] LABS: Basophils Percent Auto 0.7 % (0.2-1.2); Eosinophils Absolute Auto 0.2 K/mm3 (0-0.3); Eosinophils Percent Auto 3.8 % (0-4.4); Hematocrit 38.5 % (37.0-47.0); Hemoglobin 12.9 g/dL (12.0-15.0); Immature Granulocyte Absolute 0.01 K/mm3 (0.00-0.031); Immature Granulocyte Percent A 0.2 % (0-0.5); Lymphocytes Absolute Auto 0.77 K/mm3 (0.9-3.2); Lymphocytes Percent Auto 12.9 % (18.3-44.2); Mean Corpuscular HGB Conc 33.5 g/dl (32-36); Mean Corpuscular Hemoglobin 33.2 pg (26-34); Mean Platelet Volume 9.2 fl (7.4-10.4); Monocytes Absolute Auto 0.2 K/mm3 (0.1-0.6); Monocytes Percent Auto 3.5 % (2.6-8.5); Neutrophils Absolute Auto 4.7 K/mm3 (1.3-6.7); Neutrophils Percent Auto 78.9 % (45.5-73.1); Platelet Count Result 209 k/mm3 (150-375); Red Blood Count 3.89 M/mm3 (4.2-5.4); Red Cell Distribution Width 12.4 % (11.5-14.5)
[2023-02-04 09:17] LABS: Anion Gap 4 mmol/L (8-16); Blood Urea Nitrogen 21 mg/dL (7-17); Calcium 8.3 mg/dL (8.4-10.2); Carbon Dioxide 27 mmol/L (22-30); Chloride 107 mmol/L (98-107); Estimated CRCL calculation 53 ml/min; Estimated Glomerular Filt Rate > 60; Glucose 105 mg/dL (65-110); Potassium 4.5 mmol/L (3.4-5.0); Sodium 138 mmol/L (137-145)
[2023-02-04] MEDS: SODIUM CHLORIDE 0.9% IV 500 ML 999 ML IV CONT (09:20)
[2023-02-04] MEDS: MECLIZINE HCL 25 MG TABLET PO (09:23)
--- NOTE | 2023-02-04 12:00 | ED.GENADULT ---
HPI - General Adult General Chief complaint: Recheck/Abnormal Lab/Rx Stated complaint: HTN Time Seen by Provider: 02/04/23 08:29 History of Present Illness HPI narrative: Patient is a 72-year-old female who presents ER with dizziness. She woke up from sleep and reports that she is very off balance. She is concerned maybe her blood pressure was high it was 200/100 mmHg. She then was flushed and nauseous. Patient does have history of vertigo and takes meclizine but did not take it this morning. Reports movement exacerbates her symptoms and she is better with rest. No chest pain or chest pressure. No loss of consciousness. No focal weakness or numbness to an arm or leg. Patient took her home blood pressure medications last night. Here patient's blood pressure is not in the severe range. Related Data Home Medications Medication Instructions Recorded Confirmed flecainide 100 mg tablet 100 mg PO BID 03/31/21 01/21/23 loratadine 10 mg tablet 10 mg PO DAILY 03/31/21 01/21/23 metoprolol succinate 25 mg 25 mg PO DAILY 03/31/21 01/21/23 tablet,extended release 24 hr rivaroxaban 20 mg tablet (Xarelto) 20 mg PO DAILY 03/31/21 01/21/23 meclizine 25 mg tablet 50 mg PO DAILY PRN Dizziness 05/21/22 01/21/23 fluticasone propionate 50 1 spray intranasal BID 01/21/23 01/21/23 mcg/actuation nasal spray,suspension (Allergy Relief (fluticasone)) Allergies Allergy/AdvReac Type Severity Reaction Status Date / Time Sulfa (Sulfonamide Allergy Intermediate Rash Verified 02/04/23 08:29 Antibiotics) latex Allergy Hives Verified 02/04/23 08:29 Review of Systems Review of Systems: All systems reviewed & are unremarkable except as noted in HPI and below Constitutional: Constitutional: Denies chills, Denies fatigue and Denies fever(s) ENT: Reports dizziness, Denies nasal congestion and Denies sore throat Cardiovascular: Cardiovascular: Denies chest pain, Denies rapid heart rate and Denies radiating jaw, neck or arm pain Respiratory: Respiratory: Denies cough and Denies dyspnea Gastrointestinal: Gastrointestinal: Denies abdominal pain, Reports nausea and Denies vomiting Neurologic: Denies syncope, Denies headache(s), Denies focal weakness and Denies numbness PMFSH Past Medical History Medical History Allergies COPD (chronic obstructive pulmonary disease) Heart disease Hemochromatosis HTN (hypertension) Paroxysmal atrial fibrillation Takotsubo cardiomyopathy Surgical History Surgical History History of hysterectomy 1995 Family History Family History Father Carcinoma of colon Lung cancer Diabetes mellitus Mother Pancreatic cancer Sibling Brain aneurysm Cerebrovascular accident Heart disease Social History Social History Smoking status: Never smoker Alcohol intake: never Substance use: never Living arrangements: alone Occupation/Education: retired Gender identity (if verbalized by the patient): Female Spiritual care concerns: No Exam Narrative: GENERAL: Well-appearing, well-nourished, and in no acute distress. HEAD: Normocephalic, atraumatic. EYES: PERRL and EOMI. ENT: Mucous membranes moist. TMs normal bilaterally. CHEST: Clear to auscultation. No respiratory distress. HEART: Bradycardic and regular. Normal peripheral pulses. ABDOMEN: Soft, nontender, nondistended. EXTREMITIES: Normal range of motion. No edema. SKIN: Warm, dry, no rash. NEURO: Ambulates with a steady gait. Alert and oriented x3. PSYCH: Normal mood and affect. Course Course Emergency Course: Patient resting comfortably. Received oral meclizine and half liter of IV fluid. Blood pressures have been normal. No recurrence of dizziness. Discharge home. Vital Signs Vital signs:
== END 2023-02-04 12:15 | disposition home or self-care (01) ==
PROVIDERS: Emergency Provider Emergency Medicine; PCP Family Medicine
DX: R42 Dizziness and giddiness (principal); J44.9 Chronic obstructive pulmonary disease, unspecified; I11.9 Hypertensive heart disease without heart failure; I48.0 Paroxysmal atrial fibrillation; Z90.710 Acquired absence of both cervix and uterus; Z79.01 Long term (current) use of anticoagulants
CPT/HCPCS: 36415; 80048; 85025; 93005; 96360; 96361; 99283; A9270; J7040

== ENCOUNTER 2023-03-12 20:46 | Emergency (ER) | payer MEDICARE, SELFPAY ==
[2023-03-12] VITALS (11 sets, daily range): BP systolic 153–170; BP diastolic 70–81; PULSE 58–80; RESP 12–24; TEMP 36.7–36.8; O2SAT 94–99
--- NOTE | ~2023-03-12 | CT_ITS ---
CT of the Abdomen and Pelvis: Indication: Hemorrhage Technique: 2.5 mm axial scans were obtained through the abdomen and pelvis following intravenous adm inistration of 100 cc of Omnipaque 350. Dose reduction technique was used on this scan by utilizing a utomated exposure control and iterative reconstruction technique. The dose-length product (DLP) was 8 64.88 mGy-cm. COMPARISON: 08/19/2022 Findings: Scans through the lung bases are unremarkable. The liver, spleen, pancreas, gallbladder, adrenals and kidneys are within normal limits. No evidence of aortic aneurysm. No lymphadenopathy. No bowel obstruction or bowel wall thickening. There is no evidence to suggest acute appendicitis. Images through the pelvis were performed. Urinary bladder unremarkable. No adnexal mass seen. No asci cisco. Impression: No significant abnormalities seen. Reviewed, dictated and finalized at [facility]. Impression: No significant abnormalities seen.
[2023-03-12 21:13] LABS: Basophils Percent Auto 0.8 % (0.2-1.2); Eosinophils Absolute Auto 0.2 K/mm3 (0-0.3); Eosinophils Percent Auto 4.2 % (0-4.4); Hematocrit 39.8 % (37.0-47.0); Hemoglobin 12.9 g/dL (12.0-15.0); Immature Granulocyte Absolute 0.01 K/mm3 (0.00-0.031); Immature Granulocyte Percent A 0.2 % (0-0.5); Lymphocytes Absolute Auto 1.23 K/mm3 (0.9-3.2); Lymphocytes Percent Auto 24.6 % (18.3-44.2); Mean Corpuscular HGB Conc 32.4 g/dl (32-36); Mean Corpuscular Hemoglobin 32.7 pg (26-34); Mean Corpuscular Volume 100.8 fl (80-100); Mean Platelet Volume 9.3 fl (7.4-10.4); Monocytes Absolute Auto 0.2 K/mm3 (0.1-0.6); Monocytes Percent Auto 4.8 % (2.6-8.5); Neutrophils Absolute Auto 3.3 K/mm3 (1.3-6.7); Neutrophils Percent Auto 65.4 % (45.5-73.1); Platelet Count Result 252 k/mm3 (150-375); Red Blood Count 3.95 M/mm3 (4.2-5.4); Red Cell Distribution Width 12.7 % (11.5-14.5)
[2023-03-12 21:24] LABS: INR 2.1; Prothrombin Time 24.7 Seconds (11.1-14.7)
[2023-03-12 21:25] LABS: Partial Thromboplastin Time 51.4 SECONDS (22.3-36.8)
[2023-03-12 21:27] LABS: Alanine Aminotransferase 20 U/L (6-35); Albumin Level 4.4 g/dL (3.5-5.1); Alkaline Phosphatase 71 U/L (38-126); Anion Gap 8 mmol/L (8-16); Aspartate Amino Transferase 33 U/L (14-36); Bilirubin,Total 0.5 mg/dL (0.2-1.3); Blood Urea Nitrogen 22 mg/dL (7-17); Carbon Dioxide 29 mmol/L (22-30); Chloride 102 mmol/L (98-107); Estimated CRCL calculation 42 ml/min; Estimated Glomerular Filt Rate 54; Glucose 137 mg/dL (65-110); Potassium 4.4 mmol/L (3.4-5.0); Sodium 139 mmol/L (137-145)
[2023-03-12 21:38] LABS: Appearance Urine Slightly Cloudy (Clear); Bilirubin Urine Negative (Negative); Blood Urine 1+ (Negative); Glucose Urine UA Negative (Negative); Ketones Urine Negative (Negative); Leukocyte Esterase Ur 1+ LEU/UL (Negative); Nitrate Urine Negative (Negative); Protein Urine Negative (Negative); Urobilinogen Urine 0.2 mg/dL (<2.0)
[2023-03-12 21:44] LABS: Bacteria Urine None Seen /hpf; Non Pathogenic Casts 0-2; RBC Urine 0-2 /hpf (0-2); Squamous Epithelial Cell Urine None seen /hpf (Few)
[2023-03-12 21:48] LABS: Color Urine Light Red (Yellow)
[2023-03-12 21:49] LABS: Add Urine Microscopic? YES
--- NOTE | 2023-03-12 22:54 | ED.GENADULT ---
HPI - General Adult General Chief complaint: GI Bleed Stated complaint: rectal bleed Time Seen by Provider: 03/12/23 22:46 History of Present Illness HPI narrative: 72-year-old female history of atrial fibrillation on Xarelto, presented with blood per rectum. Per patient, she was in her usual state of health until this morning when she went to the bathroom, when wiping noted blood was concerned. Later during the day went to the bathroom again noted but again, so presented to the ED for further evaluation. She denied abdominal pain, fevers, chills, nausea, vomiting, chest pain, shortness of breath, dysuria, hematuria, melena, sick contacts. Related Data Home Medications Medication Instructions Recorded Confirmed flecainide 100 mg tablet 100 mg PO BID 03/31/21 01/21/23 loratadine 10 mg tablet 10 mg PO DAILY 03/31/21 01/21/23 metoprolol succinate 25 mg 25 mg PO DAILY 03/31/21 01/21/23 tablet,extended release 24 hr rivaroxaban 20 mg tablet (Xarelto) 20 mg PO DAILY 03/31/21 01/21/23 meclizine 25 mg tablet 50 mg PO DAILY PRN Dizziness 05/21/22 01/21/23 fluticasone propionate 50 1 spray intranasal BID 01/21/23 01/21/23 mcg/actuation nasal spray,suspension (Allergy Relief (fluticasone)) Allergies Allergy/AdvReac Type Severity Reaction Status Date / Time Sulfa (Sulfonamide Allergy Intermediate Rash Verified 02/04/23 08:29 Antibiotics) latex Allergy Hives Verified 02/04/23 08:29 Review of Systems Review of Systems: See HPI [facility] Past Medical History Medical History Allergies COPD (chronic obstructive pulmonary disease) Heart disease Hemochromatosis HTN (hypertension) Paroxysmal atrial fibrillation Takotsubo cardiomyopathy Surgical History Surgical History History of hysterectomy 1995 Family History Family History Father Carcinoma of colon Lung cancer Diabetes mellitus Mother Pancreatic cancer Sibling Brain aneurysm Cerebrovascular accident Heart disease Social History Social History Smoking status: Never smoker Alcohol intake: never Substance use: never Living arrangements: alone Occupation/Education: retired Gender identity (if verbalized by the patient): Female Spiritual care concerns: No Course Vital Signs Vital signs: Vital Signs Temperature 98.2 F 03/12/23 20:48 Pulse Rate 80 03/12/23 20:48 Respiratory Rate 16 03/12/23 20:48 Blood Pressure 163/81 H 03/12/23 20:48 Pulse Oximetry 97 03/12/23 20:48 Oxygen Delivery Room Air 03/12/23 20:48 Temperature 98.1 F 03/12/23 23:23 Pulse Rate 61 03/12/23 23:23 Respiratory Rate 15 03/12/23 23:23 Blood Pressure 153/70 H 03/12/23 23:23 Pulse Oximetry 99 03/12/23 23:23 Oxygen Delivery Room Air 03/12/23 20:48 Medical Decision Making MDM Narrative Medical decision making narrative: 72 year old female history of atrial fibrillation presented with one episode of blood per rectum. Abdomen soft and non tender, sitting in bed comfortably, vitals within normal limits. Differential diagnosis includes but not limited to: upper GI bleed vs lower GI bleed vs diverticulosis vs hemorrhoids. CTA abd/pelv without evidence of blush or active GI bleed. Notable for diverticulosis. No evidence of diverticulitis. No other acute intra-abdominal process. Findings communicated to patient. History and exam suggestive of diverticulosis. Blood work reviewed, noted to be unremarkable. Physical exam benign, repeat abdominal exam non tendern and soft, vitals stable. The patient tolerated oral intake, is alert and oriented, speaking with clear speech, ambulated with steady gait, and has remained hemodynamically stable throughout the ED visit. Findings on imaging communicated to patient and funeral planning counselor
[2023-03-13 00:01] VITALS: BP 168/70; PULSE 57; RESP 14; TEMP 36.4; O2SAT 100
== END 2023-03-13 00:03 | disposition home or self-care (01) ==
PROVIDERS: Emergency Medicine; Emergency Provider Emergency Medicine; PCP Family Medicine
DX: K57.90 Diverticulosis of intestine, part unspecified, without perforation or abscess without bleeding (principal); I48.0 Paroxysmal atrial fibrillation; J44.9 Chronic obstructive pulmonary disease, unspecified; I51.81 Takotsubo syndrome; I10 Essential (primary) hypertension; Z79.01 Long term (current) use of anticoagulants; Z90.710 Acquired absence of both cervix and uterus; R82.998 Other abnormal findings in urine
CPT/HCPCS: 36415; 74174; 80053; 81001; 85025; 85610; 85730; 86850; 86900; 86901; 87086; 99284; Q9967

== ENCOUNTER 2023-04-01 14:29 | Emergency (ER) | payer MEDICARE, SELFPAY ==
[2023-04-01 14:38] VITALS: BP 141/83; PULSE 73; RESP 18; TEMP 36.6; O2SAT 98
--- NOTE | 2023-04-01 15:08 | ED.SKABFB ---
HPI - Skin/Abscess/Foreign Bdy General Chief complaint: Skin/Abscess/Foreign Body Stated complaint: Bee Sting Time Seen by Provider: 04/01/23 15:08 Source: patient Mode of arrival: ambulatory Limitations: no limitations History of Present Illness HPI narrative: 72-year-old female presented for complaint of insect stings to the left forearm and left upper thigh worsening for 2 days. States while gardening, she was stung by 'ground bees' at these sites. she has been applying calamine to the sites. Denies lip, tongue, or throat swelling, shortness of breath or wheezing. Related Data Home Medications Medication Instructions Recorded Confirmed flecainide 100 mg tablet 100 mg PO BID 03/31/21 04/01/23 loratadine 10 mg tablet 10 mg PO DAILY 03/31/21 04/01/23 metoprolol succinate 25 mg 25 mg PO DAILY 03/31/21 04/01/23 tablet,extended release 24 hr rivaroxaban 20 mg tablet (Xarelto) 20 mg PO DAILY 03/31/21 04/01/23 meclizine 25 mg tablet 50 mg PO DAILY PRN Dizziness 05/21/22 04/01/23 fluticasone propionate 50 1 spray intranasal BID 01/21/23 04/01/23 mcg/actuation nasal spray,suspension (Allergy Relief (fluticasone)) Allergies Allergy/AdvReac Type Severity Reaction Status Date / Time Sulfa (Sulfonamide Allergy Intermediate Rash Verified 04/01/23 14:39 Antibiotics) latex Allergy Hives Verified 04/01/23 14:39 Review of Systems Review of Systems: CONSTITUTIONAL: Denies body aches, fever, chills, or sweats. EYES: Denies visual changes, redness, or discharge. ENT: Denies rhinorrhea, congestion CARDIOVASCULAR: Denies chest pain, palpitations, or edema. RESPIRATORY: Denies cough or dyspnea. GASTROINTESTINAL: Denies abdominal pain, nausea, vomiting, or diarrhea. SKIN: reports redness and swelling to left arm and left thigh MUSCULOSKELETAL: Denies back pain, joint pain, or myalgia. NEUROLOGIC: Denies headache, numbness, tingling, or weakness. [facility] Past Medical History Medical History Allergies COPD (chronic obstructive pulmonary disease) Heart disease Hemochromatosis HTN (hypertension) Paroxysmal atrial fibrillation Takotsubo cardiomyopathy Surgical History Surgical History History of hysterectomy 1995 Family History Family History Father Carcinoma of colon Lung cancer Diabetes mellitus Mother Pancreatic cancer Sibling Brain aneurysm Cerebrovascular accident Heart disease Social History Social History Smoking status: Never smoker Alcohol intake: never Substance use: never Living arrangements: alone Occupation/Education: retired Gender identity (if verbalized by the patient): Female Spiritual care concerns: No Comments At time of signature, I have reviewed and agree with nursing past medical, surgical, social and family history unless otherwise noted. Please see nursing chart for further information. There is no relevant family history pertinent to the presenting complaint Exam Narrative: GENERAL: Well-appearing HEAD: Normocephalic, atraumatic. EYES: conjunctivae clear, and EOMI. ENT: Mucous membranes moist. Oropharynx without edema, erythema or lesions. NECK: Supple. No lymphadenopathy CHEST: Clear to auscultation. HEART: Regular rate and rhythm. SKIN: Warm, dry. Distal left forearm with vesicles on erythematous base approx 6cm; erythema extending almost the circumference of forearm approx 75%, warm and tender; no induration fluctuance or drainage. Left upper medial thigh with erythematous circular area approx [id number], nontender, no fluctuance or induration. No streaking. NEURO: Alert and oriented x3. Course Course Emergency Course: Patient is aware of diagnosis, understands and agrees to treatment plan. Anticipatory
== END 2023-04-01 15:23 | disposition home or self-care (01) ==
PROVIDERS: Emergency Provider Nurse Practitioner Family
DX: T63.441A Toxic effect of venom of bees, accidental (unintentional), initial encounter (principal); J44.9 Chronic obstructive pulmonary disease, unspecified; I10 Essential (primary) hypertension; I48.0 Paroxysmal atrial fibrillation; I51.81 Takotsubo syndrome
CPT/HCPCS: 99213; G0463

== ENCOUNTER 2023-05-13 00:44 | Day surgery (SDC) | payer MEDICARE, SELFPAY ==
[2023-05-03 15:37] VITALS: BMI 27.4
[2023-05-13] MEDS: LACTATED RINGERS 1,000 ML 150 ML IV CONT (08:56)
[2023-05-13 08:59] VITALS: BP 144/73; PULSE 68; RESP 18; TEMP 36.1; O2SAT 100
--- NOTE | 2023-05-13 09:26 | PM.HPGS ---
History of Present Illness History of Present Illness Consent: Risks, benefits, and alternatives have been discussed and questions answered. Patient agrees to proceed with procedure. Chief complaint: Diverticulosis, hx of colon polyps Narrative: Jillian Gunn is a 72 year old female Presents for screening colonoscopy. Patient has a history of colon polyps in the past. Most recently 2020. Family history is significant her father had colon cancer. Her brother has had colon polyps. Patient states that she recently had diverticulosis several months ago. During this interval of time may have had bright red blood per rectum. This is now resolved. She no longer has abdominal pain. She has completed course of antibiotics. Pre she presents today for surveillance screening colonoscopy. Review of Systems Review of Systems: Review of systems noncontributory. [facility] Past Medical History Medical History Allergies COPD (chronic obstructive pulmonary disease) Heart disease Hemochromatosis HTN (hypertension) Paroxysmal atrial fibrillation Takotsubo cardiomyopathy Surgical History Surgical History History of hysterectomy 1995 Family History Family History Father Carcinoma of colon Lung cancer Diabetes mellitus Mother Pancreatic cancer Sibling Brain aneurysm Cerebrovascular accident Heart disease Social History Social History Smoking status: Never smoker Alcohol intake: current Substance use: never Substance use type: does not use Lack of Transportation: No Lack of Food: Never True Current Housing: I Have Housing Concerned About Future Housing: No Difficulty Paying Gas/Electric Bills: No Difficulty Paying for Meds: No Currently Unemployed: No Education: High School Diploma/GED Difficulty w/ Childcare or Family Care: No Living arrangements: with family Occupation/Education: retired Gender identity (if verbalized by the patient): Female Spiritual care concerns: No Meds Home Medications and Allergies Home Medications Medication Instructions Recorded Confirmed Type flecainide 100 mg tablet 100 mg PO BID 03/31/21 05/03/23 History rivaroxaban 20 mg tablet (Xarelto) 20 mg PO DAILY 03/31/21 05/13/23 History albuterol sulfate 90 mcg/actuation 2 puff inhalation QID PRN 04/29/22 05/03/23 Rx aerosol inhaler (Ventolin HFA) shortness of breath or wheezing #8.5 grams meclizine 25 mg tablet 25 mg PO BID Dizziness 05/21/22 05/03/23 History fluticasone propionate 50 1 spray intranasal DAILY 01/21/23 05/03/23 History mcg/actuation nasal spray,suspension (Allergy Relief (fluticasone)) Anoro Ellipta 62.5 mcg-25 1 inh inhalation DAILY #60 ea 03/25/23 05/03/23 Rx mcg/actuation powder for inhalation (umeclidinium-vilanterol) sodium,potassium,mag sulfates 17.5 See Rx Instructions PO .COMPLEX 03/27/23 04/30/23 Rx gram-3.13 gram-1.6 gram oral soln #354 mL (Suprep Bowel Prep Kit) cetirizine 10 mg capsule (Zyrtec) 10 mg PO DAILY 04/30/23 05/03/23 History carvedilol 6.25 mg tablet 6.25 mg PO BID 05/03/23 05/03/23 History mecobalamin (vitamin B12) 1,000 1,000 mcg PO DAILY 05/03/23 05/03/23 History mcg chewable tablet Allergies Allergy/AdvReac Type Severity Reaction Status Date / Time Sulfa (Sulfonamide Allergy Intermediate Rash Verified 05/13/23 08:57 Antibiotics) latex Allergy Hives Verified 05/13/23 08:57 Vital Signs Vital Signs - 24 hr 05/13/23 08:59 Temperature 97 F L Pulse Rate 68 Respiratory Rate 18 Blood Pressure 144/73 H Pulse Oximetry 100 Oxygen Delivery Room Air Exam Narrative: Physical exam reveals patient to be alert. Vital signs stable. HEENT exam is unremarkable. Patient i
--- NOTE | 2023-05-13 09:51 | WPDANESEPPF ---
Anes - Initial Pre Proc Eval Procedure: Operation Date: 05/13/23 10:00 Proposed Procedures p Colonoscopy - Enrique Rodriguez MD Date/Time: 05/13/23 09:51 Surgeon: Enrique Rodriguez MD Pre Op Diagnosis: Diverticulosis, hx of colon polyps Patient Data Age: 72 Gender: F Height: 1.7 m Weight: 79.5 kg Last Vital Signs Temp 97 F L 05/13/23 08:59 Pulse 68 05/13/23 08:59 Resp 18 05/13/23 08:59 BP 144/73 H 05/13/23 08:59 Pulse Ox 100 05/13/23 08:59 O2 Del Method Room Air 05/13/23 08:59 Allergies Allergy/AdvReac Type Severity Reaction Status Date / Time Sulfa (Sulfonamide Allergy Intermediate Rash Verified 05/13/23 08:57 Antibiotics) latex Allergy Hives Verified 05/13/23 08:57 Home Medications Medication Instructions Recorded Confirmed Type flecainide 100 mg tablet 100 mg PO BID 03/31/21 05/03/23 History rivaroxaban 20 mg tablet (Xarelto) 20 mg PO DAILY 03/31/21 05/13/23 History albuterol sulfate 90 mcg/actuation 2 puff inhalation QID PRN 04/29/22 05/03/23 Rx aerosol inhaler (Ventolin HFA) shortness of breath or wheezing #8.5 grams meclizine 25 mg tablet 25 mg PO BID Dizziness 05/21/22 05/03/23 History fluticasone propionate 50 1 spray intranasal DAILY 01/21/23 05/03/23 History mcg/actuation nasal spray,suspension (Allergy Relief (fluticasone)) Anoro Ellipta 62.5 mcg-25 1 inh inhalation DAILY #60 ea 03/25/23 05/03/23 Rx mcg/actuation powder for inhalation (umeclidinium-vilanterol) sodium,potassium,mag sulfates 17.5 See Rx Instructions PO .COMPLEX 03/27/23 04/30/23 Rx gram-3.13 gram-1.6 gram oral soln #354 mL (Suprep Bowel Prep Kit) cetirizine 10 mg capsule (Zyrtec) 10 mg PO DAILY 04/30/23 05/03/23 History carvedilol 6.25 mg tablet 6.25 mg PO BID 05/03/23 05/03/23 History mecobalamin (vitamin B12) 1,000 1,000 mcg PO DAILY 05/03/23 05/03/23 History mcg chewable tablet Patient hx anesthesia problems: none Family hx anesthesia problems: none Results Review: All pre-operative results and documents have been reviewed as part of the pre-operative evaluation. PMF Past Medical History Medical History Allergies COPD (chronic obstructive pulmonary disease) Heart disease Hemochromatosis HTN (hypertension) Paroxysmal atrial fibrillation Takotsubo cardiomyopathy Surgical History Surgical History History of hysterectomy 1995 Family History Family History Father Carcinoma of colon Lung cancer Diabetes mellitus Mother Pancreatic cancer Sibling Brain aneurysm Cerebrovascular accident Heart disease Social History Social History Smoking status: Never smoker Alcohol intake: current Substance use: never Substance use type: does not use Lack of Transportation: No Lack of Food: Never True Current Housing: I Have Housing Concerned About Future Housing: No Difficulty Paying Gas/Electric Bills: No Difficulty Paying for Meds: No Currently Unemployed: No Education: High School Diploma/GED Difficulty w/ Childcare or Family Care: No Living arrangements: with family Occupation/Education: retired Gender identity (if verbalized by the patient): Female Spiritual care concerns: No Anes - Eval Final PreProcedure Day of Procedure 05/13/23 09:51 Patient weight: normal Heart: regular rate and rhythm Lungs: clear to auscultation Airway: Mallampati scale class II Neurological: alert and oriented Last oral intake: >/= 8 hours ASA classification: III Emergent: no Anesthetic plan: proceed Anesthesia type and monitoring: general GIVS and standard monitoring Results Review: All pre-operative results and documents have been reviewed as part of the pre-operative evaluation. Informe
[2023-05-13] MEDS: SIMETHICONE ORAL SUSPENSION 20 MG/0.3 ML 30 ML BOTTLE 0.6 ML IRRIGATION (10:19)
[2023-05-13 10:26] VITALS: BP 126/63; RESP 20; O2SAT 100
[2023-05-13 10:35] VITALS: BP 143/71; RESP 18; O2SAT 100
[2023-05-13 10:45] VITALS: BP 168/86; RESP 19; O2SAT 100
--- NOTE | 2023-05-13 10:54 | SUR.PHASEII ---
Dr. Rodriguez informed pt. to resume Zarelto tomorrow on 05/14/23. Pt. verbalized understanding.
== END 2023-05-13 10:55 | disposition home or self-care (01) ==
PROVIDERS: PCP Family Medicine; Visit Provider Internal Medicine Gastroenterology
PROC: 0DJD8ZZ Inspection of Lower Intestinal Tract, Via Natural or Artificial Opening Endoscopic (ICD-10-PCS; CPT 45378; principal; 2023-05-13 10:00)
DX: Z09 Encounter for follow-up examination after completed treatment for conditions other than malignant neoplasm (principal); D12.4 Benign neoplasm of descending colon; K64.8 Other hemorrhoids; K57.30 Diverticulosis of large intestine without perforation or abscess without bleeding; Z87.19 Personal history of other diseases of the digestive system; J44.9 Chronic obstructive pulmonary disease, unspecified; I11.9 Hypertensive heart disease without heart failure; I48.0 Paroxysmal atrial fibrillation; Z79.01 Long term (current) use of anticoagulants; Z79.51 Long term (current) use of inhaled steroids; Z80.0 Family history of malignant neoplasm of digestive organs
CPT/HCPCS: 45380; 88305; J2704; J7120

== ENCOUNTER 2023-05-14 16:07 | Emergency (ER) | payer MEDICARE, SELFPAY ==
--- NOTE | ~2023-05-14 | XR_ITS ---
XR ankle RT min 3V DATE: 05/14/2023 16:32 INDICATION: Right ankle pain following a fall TECHNIQUE: 4 views COMPARISON: None FINDINGS: No fracture or dislocation of the ankle or disruption of the ankle mortise is detected. Th ere is prominent calcification at the posterior aspect of the calcaneus. IMPRESSION: Prominent posterior calcification near calcaneus Reviewed, dictated and finalized at location A.
--- NOTE | ~2023-05-14 | XR_ITS ---
EXAM: XR foot RT min 3V DATE: 05/14/2023 18:13 HISTORY: Right foot pain post fall . COMPARISON: X-ray ankle, same date. FINDINGS: Decreased mineralization. No fracture or dislocation. No lytic or blastic lesion. Mild sca ttered degenerative changes. Achilles calcification. No erosion or periosteal change. Soft tissues wi thin normal limits. IMPRESSION: No acute osseous finding in the right foot. Reviewed, dictated and finalized at location K.
--- NOTE | ~2023-05-14 | XR_ITS ---
XR knee RT 3V 05/14/2023 16:33 Indication: Right knee pain after fall Procedure: 3 views right knee Comparison: 04/30/2023 Findings: There is anatomic alignment. No fracture, subluxation or dislocation. No significant joint effusion. No foreign bodies. Impression: 1: No acute bone or joint abnormality. Reviewed, dictated and finalized at location L. Impression: 1: No acute bone or joint abnormality.
--- NOTE | ~2023-05-14 | CT_ITS ---
EXAMINATION: CT brain wo con DATE: 05/14/2023 16:38 INDICATION: Fall. Head injury. TECHNIQUE: Computed tomography (CT) of the head was performed without intravenous contrast. The mA wa s adjusted according to patient size. Iterative reconstruction technique was employed. Exam dose: 60 5.33 mGy-cm total exam DLP. COMPARISON: 03/20/2005 CT brain FINDINGS: Again noted is a large arachnoid cyst at the left middle cranial fossa, present on 03/20/2005 . There is bilateral vertebral artery and prominent bilateral carotid siphon and supraclinoid internal carotid artery calcification. There is nonspecific diminished attenuation of the cerebral white matte r, likely due to chronic small vessel ischemic changes. No intracranial mass lesion or hemorrhage or cerebrovascular accident, midline shift or mass effect i s detected. There is moderate cerebral and cerebellar volume loss. No subdural or epidural hematoma is detected. No skull fracture or bone destruction is detected. IMPRESSION: No skull fracture or acute intracranial finding is detected Reviewed, dictated and finalized at Location [facility]. Reviewed, dictated and finalized at location A.
[2023-05-14 16:10] VITALS: BP 157/81; PULSE 80; RESP 18; TEMP 36.9; O2SAT 98
--- NOTE | 2023-05-14 17:45 | ED.GENADULT ---
HPI - General Adult General Chief complaint: Extremity Injury, Lower Stated complaint: right ankle injury History of Present Illness HPI narrative: Jillian Gunn is a 72 y/o female who presents with reports of ambulating and rolled her right ankle somehow she is not sure if it went inward or outward but she fell on to her right knee and slid slightly on her right face. No LOC, she was able to get up and ambulate after her fall. She does take Xarelto. Denies pain to her left extremity Related Data Home Medications Medication Instructions Recorded Confirmed flecainide 100 mg tablet 100 mg PO BID 03/31/21 05/03/23 rivaroxaban 20 mg tablet (Xarelto) 20 mg PO DAILY 03/31/21 05/13/23 meclizine 25 mg tablet 25 mg PO BID Dizziness 05/21/22 05/03/23 fluticasone propionate 50 1 spray intranasal DAILY 01/21/23 05/03/23 mcg/actuation nasal spray,suspension (Allergy Relief (fluticasone)) cetirizine 10 mg capsule (Zyrtec) 10 mg PO DAILY 04/30/23 05/03/23 carvedilol 6.25 mg tablet 6.25 mg PO BID 05/03/23 05/03/23 mecobalamin (vitamin B12) 1,000 1,000 mcg PO DAILY 05/03/23 05/03/23 mcg chewable tablet Allergies Allergy/AdvReac Type Severity Reaction Status Date / Time Sulfa (Sulfonamide Allergy Intermediate Rash Verified 05/14/23 16:08 Antibiotics) latex Allergy Hives Verified 05/14/23 16:08 Review of Systems Review of Systems: CONSTITUTIONAL: Denies fever, chills, or sweats. EYES: Denies visual changes, redness, or discharge. ENT: Denies rhinorrhea, congestion, sore throat, or otalgia. CARDIOVASCULAR: Denies chest pain, palpitations, or edema. RESPIRATORY: Denies cough or dyspnea. GASTROINTESTINAL: Denies abdominal pain, nausea, vomiting, or diarrhea. GENITOURINARY: Denies dysuria or hematuria. SKIN: Denies rash or itching. MUSCULOSKELETAL: Denies back pain, complains of pain to her right foot NEUROLOGIC: Denies headache, numbness, dizziness, or weakness. PSYCHIATRIC: Denies anxiety or depression. [facility] Past Medical History Medical History Allergies COPD (chronic obstructive pulmonary disease) Heart disease Hemochromatosis HTN (hypertension) Paroxysmal atrial fibrillation Takotsubo cardiomyopathy Surgical History Surgical History History of hysterectomy 1995 Family History Family History Father Carcinoma of colon Lung cancer Diabetes mellitus Mother Pancreatic cancer Sibling Brain aneurysm Cerebrovascular accident Heart disease Social History Social History Smoking status: Never smoker Alcohol intake: current Substance use: never Substance use type: does not use Lack of Transportation: No Lack of Food: Never True Current Housing: I Have Housing Concerned About Future Housing: No Difficulty Paying Gas/Electric Bills: No Difficulty Paying for Meds: No Currently Unemployed: No Education: High School Diploma/GED Difficulty w/ Childcare or Family Care: No Living arrangements: with family Occupation/Education: retired Gender identity (if verbalized by the patient): Female Spiritual care concerns: No Exam Narrative: GENERAL: Well-appearing, well-nourished, and in no acute distress. HEAD: Normocephalic, atraumatic. EYES: PERRLA and EOMI. ENT: Nares clear, no rhinorrhea or epistaxis. Mucous membranes moist. Oropharynx without tonsillar hypertrophy exudate or other lesions. Bilateral TMs pearly green nonbulging NECK: Supple. No adenopathy or masses. No carotid bruits or JVD CHEST: Clear to auscultation. No respiratory distress. No wheezes rales or rhonchi HEART: Regular rate and rhythm. No murmur heard. Normal peripheral pulses. ABDOMEN: Soft, nontender, nondistended, normal active bowel sounds. EXTREMITIES: Normal range of motion. ecchymos
== END 2023-05-14 19:23 | disposition home or self-care (01) ==
PROVIDERS: Emergency Provider Nurse Practitioner Family; PCP Family Medicine
DX: S90.31XA Contusion of right foot, initial encounter (principal); W01.0XXA Fall on same level from slipping, tripping and stumbling without subsequent striking against object, initial encounter; J44.9 Chronic obstructive pulmonary disease, unspecified; I51.81 Takotsubo syndrome; I48.0 Paroxysmal atrial fibrillation; Z79.01 Long term (current) use of anticoagulants
CPT/HCPCS: 70450; 73562; 73610; 73630; 99284

== ENCOUNTER 2023-09-07 11:12 | Outpatient (CLI) | payer MEDICARE, SELFPAY ==
--- NOTE | ~2023-09-07 | MM_ITS ---
EXAMINATION: MM screening susan BI w ree HISTORY: Screening mammogram TECHNIQUE: Craniocaudal and mediolateral oblique 3-D tomosynthesis images were obtained and synthetic 2-D images were generated. CAD analysis was submitted and interpreted. COMPARISON: 03/15/2022, 01/25/2021 BREAST PARENCHYMAL COMPOSITION: There are scattered areas of fibroglandular density. FINDINGS: No suspicious mass, calcification, or architectural distortion are identified in either odm ast to suggest malignancy. There has been no suspicious interval change. IMPRESSION: 1. No mammographic evidence of malignancy. 2. Recommend routine screening mammography in one year. BI-RADS Category 1: Negative Reviewed, dictated and finalized at location A. SAMPLER
== END 2023-09-07 11:13 | disposition home or self-care (01) ==
LOC: ANHIMG 11:14
PROVIDERS: PCP Family Medicine; Visit Provider Family Medicine
DX: Z12.31 Encounter for screening mammogram for malignant neoplasm of breast (principal)
CPT/HCPCS: 77063; 77067

== ENCOUNTER 2023-09-16 00:31 | Emergency (ER) | payer MEDICARE, SELFPAY ==
--- NOTE | ~2023-09-16 | XR_ITS ---
Portable chest x-ray Comparison: 08/19/2022 Clinical History: Left-sided pain Findings: Lungs are clear, without focal consolidation or pleural effusion. Suspected COPD. Cardiom ediastinal silhouette is stable. Bones and soft tissues are unremarkable. Impression: Probable COPD. Reviewed, dictated and finalized at [facility]. RMATICS NURSE SPECIALIST Impression: Probable COPD.
--- NOTE | ~2023-09-16 | CT_ITS ---
Non-contrast CT scan of the Abdomen and Pelvis Clinical indication: Left-sided flank pain Technique: 2.5 mm axial scans were obtained through the abdomen and pelvis without intravenous or or al contrast. Dose reduction technique was used on this scan by utilizing automated exposure control a nd iterative reconstruction technique. The dose-length product (DLP) was 287.64 mGy-cm. COMPARISON: 03/12/2023 Findings: Images through the lung bases reveal no abnormalities. There is no evidence of renal or ureteral calculi. The kidneys and the ureters are nondilated. The liver, spleen, pancreas, gallbladder, and adrenals appear normal. There is no aortic aneurysm. There is no evidence of bowel obstruction. Small fat-containing umbilical hernia noted. Normal append ix. Images through the pelvis were performed. There is no evidence of ascites or lymphadenopathy. Urinary bladder unremarkable. No pelvic mass seen. Impression: No significant abnormality seen. Small fat-containing umbilical hernia. Reviewed, dictated and finalized at [facility]. S REPRESENTATIVE PRINTING Impression: No significant abnormality seen. Small fat-containing umbilical hernia.
[2023-09-16 00:34] VITALS: BP 207/86; PULSE 76; RESP 20; TEMP 36.4; O2SAT 96
[2023-09-16 04:43] LABS: Basophils Absolute Auto 0.1 K/mm3 (0.0-0.1); Basophils Percent Auto 1.1 % (0.2-1.2); Eosinophils Absolute Auto 0.3 K/mm3 (0-0.3); Eosinophils Percent Auto 5.6 % (0-4.4); Hemoglobin 12.3 g/dL (12.0-15.0); Immature Granulocyte Absolute 0.01 K/mm3 (0.00-0.031); Immature Granulocyte Percent A 0.2 % (0-0.5); Lymphocytes Absolute Auto 1.39 K/mm3 (0.9-3.2); Lymphocytes Percent Auto 29.9 % (18.3-44.2); Mean Corpuscular HGB Conc 33.2 g/dl (32-36); Mean Corpuscular Hemoglobin 32.7 pg (26-34); Mean Corpuscular Volume 98.4 fl (80-100); Mean Platelet Volume 9.3 fl (7.4-10.4); Monocytes Absolute Auto 0.2 K/mm3 (0.1-0.6); Monocytes Percent Auto 4.7 % (2.6-8.5); Neutrophils Absolute Auto 2.7 K/mm3 (1.3-6.7); Neutrophils Percent Auto 58.5 % (45.5-73.1); Platelet Count Result 208 k/mm3 (150-375); Red Blood Count 3.76 M/mm3 (4.2-5.4); Red Cell Distribution Width 12.6 % (11.5-14.5); White Blood Count 4.7 K/mm3 (4.5-10.0)
[2023-09-16 04:46] LABS: Appearance Urine Clear (Clear); Bilirubin Urine Negative (Negative); Blood Urine Negative (Negative); Color Urine Yellow (Yellow); Glucose Urine UA Negative (Negative); Ketones Urine Negative (Negative); Leukocyte Esterase Ur Negative LEU/UL (Negative); Nitrate Urine Negative (Negative); Protein Urine Negative (Negative); Specific Grav Ur 1.007 (1.001-1.035); Urobilinogen Urine 0.2 mg/dL (<2.0)
[2023-09-16 04:53] LABS: Add Urine Microscopic? NO
[2023-09-16 04:59] LABS: Alanine Aminotransferase 15 U/L (6-35); Alkaline Phosphatase 78 U/L (38-126); Anion Gap 7 mmol/L (8-16); Aspartate Amino Transferase 24 U/L (14-36); Bilirubin,Total 0.6 mg/dL (0.2-1.3); Blood Urea Nitrogen 19 mg/dL (7-17); Calcium 8.8 mg/dL (8.4-10.2); Carbon Dioxide 27 mmol/L (22-30); Chloride 107 mmol/L (98-107); Estimated CRCL calculation 52 ml/min; Estimated Glomerular Filt Rate > 60; Glucose 110 mg/dL (65-110); Lipase 28 U/L (23-300); Potassium 3.8 mmol/L (3.4-5.0); Sodium 141 mmol/L (137-145)
[2023-09-16] MEDS: ACETAMINOPHEN 500 MG TABLET 1000 MG PO (05:05)
[2023-09-16 05:13] VITALS: BP 189/69; PULSE 61; RESP 17; O2SAT 99
--- NOTE | 2023-09-16 05:48 | ED.GENADULT ---
HPI - General Adult General Chief complaint: Back Pain/Injury Stated complaint: Left flank pain Time Seen by Provider: 09/16/23 03:29 History of Present Illness HPI narrative: This is a 72-year-old female presenting with left-sided lower back pain. patient states that the pain started approximately 3 days ago when she was bending over. It is a dull pain across her left lower back that sometimes radiates the right. Sign out 10 intensity. It comes and goes. It is improved with Tylenol. She has never had symptoms like this past are no alleviating factors. She does note that she has dysuria and increased urinary frequency. She denies fever chills nausea vomiting diarrhea chest pain difficulty breathing or abdominal pain. No neurologic complaints. Related Data Home Medications Medication Instructions Recorded Confirmed flecainide 100 mg tablet 100 mg PO BID 03/31/21 07/30/23 rivaroxaban 20 mg tablet (Xarelto) 20 mg PO DAILY 03/31/21 07/30/23 meclizine 25 mg tablet 25 mg PO BID Dizziness 05/21/22 07/30/23 fluticasone propionate 50 1 spray intranasal DAILY 01/21/23 07/30/23 mcg/actuation nasal spray,suspension (Allergy Relief (fluticasone)) cetirizine 10 mg capsule (Zyrtec) 10 mg PO DAILY 04/30/23 07/30/23 carvedilol 6.25 mg tablet 6.25 mg PO BID 05/03/23 07/30/23 mecobalamin (vitamin B12) 1,000 1,000 mcg PO DAILY 05/03/23 07/30/23 mcg chewable tablet Allergies Allergy/AdvReac Type Severity Reaction Status Date / Time Sulfa (Sulfonamide Allergy Intermediate Rash Verified 09/16/23 00:38 Antibiotics) latex Allergy Hives Verified 09/16/23 00:38 [facility] Past Medical History Medical History Allergies COPD (chronic obstructive pulmonary disease) Heart disease Hemochromatosis HTN (hypertension) Paroxysmal atrial fibrillation Right ankle sprain April 2023 Takotsubo cardiomyopathy Surgical History Surgical History History of hysterectomy 1995 Family History Family History Father Carcinoma of colon Lung cancer Diabetes mellitus Mother Pancreatic cancer Sibling Brain aneurysm Cerebrovascular accident Heart disease Social History Social History Smoking status: Never smoker Alcohol intake: current Substance use: never Substance use type: does not use Lack of Transportation: No Lack of Food: Never True Current Housing: I Have Housing Concerned About Future Housing: No Difficulty Paying Gas/Electric Bills: No Difficulty Paying for Meds: No Currently Unemployed: No Education: High School Diploma/GED Difficulty w/ Childcare or Family Care: No Living arrangements: with family Occupation/Education: retired Gender identity (if verbalized by the patient): Female Spiritual care concerns: No Exam Narrative: APPEARANCE: No apparent distress. Head: atraumatic. EYES: EOMI, NOSE: Atraumatic NECK: Trachea midline RESPIRATORY: No increased rate of breathing, CTAB CARDIOVASCULAR: RRR, ABDOMINAL: Non-distended, soft nontender, left CVA tenderness MUSCULOSKELETAl: Left sided rib and lower back pain. NEURO: Alert. Moving 4/4 extremities SKIN:: Warm, dry. Normal color PSYCHIATRIC: Normal affect Course Vital Signs Vital signs: Vital Signs Temperature 97.5 F L 09/16/23 00:34 Pulse Rate 76 09/16/23 00:34 Respiratory Rate 20 09/16/23 00:34 Blood Pressure 207/86 H 09/16/23 00:34 Pulse Oximetry 96 09/16/23 00:34 Oxygen Delivery Room Air 09/16/23 00:34 Temperature 97.5 F L 09/16/23 00:34 Pulse Rate 61 09/16/23 05:13 Respiratory Rate 17 09/16/23 05:13 Blood Pressure 189/69 H 09/16/23 05:13 Pulse Oximetry 99 09/16/23 05:13 Oxygen Delivery Room Air 09/16/23 00:34 Medical Decision Making MDM Narr
== END 2023-09-16 07:39 | disposition home or self-care (01) ==
PROVIDERS: Emergency Provider Emergency Medicine; PCP Family Medicine
DX: M54.50 Low back pain, unspecified (principal); J44.9 Chronic obstructive pulmonary disease, unspecified; I10 Essential (primary) hypertension; I48.0 Paroxysmal atrial fibrillation; Z79.01 Long term (current) use of anticoagulants
CPT/HCPCS: 36415; 71045; 74176; 80053; 81003; 83690; 85025; 99284; A9270

== ENCOUNTER 2023-10-02 05:44 | Emergency (ER) | payer MEDICARE, SELFPAY ==
[2023-10-02 05:49] VITALS: BP 140/85; PULSE 84; RESP 15; TEMP 36.6; O2SAT 97
[2023-10-02 05:52] VITALS: BP 161/83; PULSE 88; RESP 18; O2SAT 96
[2023-10-02 06:31] LABS: Basophils Percent Auto 0.8 % (0.2-1.2); Eosinophils Absolute Auto 0.1 K/mm3 (0-0.3); Eosinophils Percent Auto 1.2 % (0-4.4); Hematocrit 38.5 % (37.0-47.0); Hemoglobin 12.8 g/dL (12.0-15.0); Immature Granulocyte Absolute 0.01 K/mm3 (0.00-0.031); Immature Granulocyte Percent A 0.2 % (0-0.5); Lymphocytes Absolute Auto 0.64 K/mm3 (0.9-3.2); Lymphocytes Percent Auto 12.7 % (18.3-44.2); Mean Corpuscular HGB Conc 33.2 g/dl (32-36); Mean Corpuscular Hemoglobin 32.7 pg (26-34); Mean Corpuscular Volume 98.5 fl (80-100); Mean Platelet Volume 9.3 fl (7.4-10.4); Monocytes Absolute Auto 0.1 K/mm3 (0.1-0.6); Monocytes Percent Auto 2.8 % (2.6-8.5); Neutrophils Absolute Auto 4.2 K/mm3 (1.3-6.7); Neutrophils Percent Auto 82.3 % (45.5-73.1); Platelet Count Result 236 k/mm3 (150-375); Red Blood Count 3.91 M/mm3 (4.2-5.4); Red Cell Distribution Width 12.9 % (11.5-14.5)
[2023-10-02 06:45] LABS: Alanine Aminotransferase 14 U/L (6-35); Alkaline Phosphatase 84 U/L (38-126); Anion Gap 6 mmol/L (8-16); Aspartate Amino Transferase 35 U/L (14-36); Bilirubin,Total 0.9 mg/dL (0.2-1.3); Blood Urea Nitrogen 17 mg/dL (7-17); Calcium 8.9 mg/dL (8.4-10.2); Carbon Dioxide 24 mmol/L (22-30); Chloride 106 mmol/L (98-107); Estimated CRCL calculation 59 ml/min; Estimated Glomerular Filt Rate > 60; Glucose 131 mg/dL (65-110); Lipase 27 U/L (23-300); Potassium 3.9 mmol/L (3.4-5.0); Sodium 136 mmol/L (137-145)
[2023-10-02] MEDS: KETOROLAC 15 MG/ML VIAL (*BKC) IV PUSH (07:55)
[2023-10-02] MEDS: ONDANSETRON INJ 4 MG/2 ML VIAL IV PUSH (07:55)
[2023-10-02 08:09] LABS: Appearance Urine Clear (Clear); Bacteria Urine None Seen /hpf; Bilirubin Urine Negative (Negative); Blood Urine 1+ (Negative); Color Urine Yellow (Yellow); Glucose Urine UA Negative (Negative); Ketones Urine Negative (Negative); Leukocyte Esterase Ur Negative LEU/UL (Negative); Nitrate Urine Negative (Negative); Non Pathogenic Casts 0-2; Protein Urine Negative (Negative); RBC Urine 0-2 /hpf (0-2); Specific Grav Ur 1.009 (1.001-1.035); Squamous Epithelial Cell Urine None seen /hpf (Few); Urobilinogen Urine 0.2 mg/dL (<2.0); WBC Urine 0-5 /hpf
[2023-10-02 08:18] LABS: Add Urine Microscopic? YES
--- NOTE | 2023-10-02 08:52 | ED.GENADULT ---
HPI - General Adult General Chief complaint: Abdominal Pain Stated complaint: bilateral flank pain, nausea Time Seen by Provider: 10/02/23 07:01 History of Present Illness HPI narrative: Patient is a 72-year-old female who presents ER with back pain. Ongoing over last month. Was seen previously with an unremarkable CT scan. Reports intermittent burning urination. No fevers or chills or sweats. Mild nausea but no vomiting. She has been taking Tylenol without improvement. No blood in her urine. Denies trauma. Cannot take anti-inflammatories due to being on Xarelto. Related Data Home Medications Medication Instructions Recorded Confirmed flecainide 100 mg tablet 100 mg PO BID 03/31/21 07/30/23 rivaroxaban 20 mg tablet (Xarelto) 20 mg PO DAILY 03/31/21 07/30/23 meclizine 25 mg tablet 25 mg PO BID Dizziness 05/21/22 07/30/23 fluticasone propionate 50 1 spray intranasal DAILY 01/21/23 07/30/23 mcg/actuation nasal spray,suspension (Allergy Relief (fluticasone)) cetirizine 10 mg capsule (Zyrtec) 10 mg PO DAILY 04/30/23 07/30/23 carvedilol 6.25 mg tablet 6.25 mg PO BID 05/03/23 07/30/23 mecobalamin (vitamin B12) 1,000 1,000 mcg PO DAILY 05/03/23 07/30/23 mcg chewable tablet Allergies Allergy/AdvReac Type Severity Reaction Status Date / Time Sulfa (Sulfonamide Allergy Intermediate Rash Verified 09/16/23 00:38 Antibiotics) latex Allergy Hives Verified 09/16/23 00:38 Review of Systems Review of Systems: All systems reviewed & are unremarkable except as noted in HPI and below Constitutional: Constitutional: Reports no additional constitutional complaints Cardiovascular: Cardiovascular: Reports no additional cardiovascular complaints Respiratory: Respiratory: Reports no additional respiratory complaints Gastrointestinal: Gastrointestinal: Reports no additional gastrointestinal complaints Genitourinary: Genitourinary: Denies hematuria, Denies nocturia, Reports dysuria and Denies flank pain Musculoskeletal: Musculoskeletal: Reports back pain, Denies arthralgias and Denies joint swelling PMFSH Past Medical History Medical History Allergies COPD (chronic obstructive pulmonary disease) Heart disease Hemochromatosis HTN (hypertension) Paroxysmal atrial fibrillation Right ankle sprain April 2023 Takotsubo cardiomyopathy Surgical History Surgical History History of hysterectomy 1995 Family History Family History Father Carcinoma of colon Lung cancer Diabetes mellitus Mother Pancreatic cancer Sibling Brain aneurysm Cerebrovascular accident Heart disease Social History Social History Smoking status: Never smoker Alcohol intake: current Substance use: never Substance use type: does not use Lack of Transportation: No Lack of Food: Never True Current Housing: I Have Housing Concerned About Future Housing: No Difficulty Paying Gas/Electric Bills: No Difficulty Paying for Meds: No Currently Unemployed: No Education: High School Diploma/GED Difficulty w/ Childcare or Family Care: No Living arrangements: with family Occupation/Education: retired Gender identity (if verbalized by the patient): Female Spiritual care concerns: No Exam Narrative: GENERAL: Well-appearing, well-nourished, and in no acute distress. HEAD: Normocephalic, atraumatic. ENT: Mucous membranes moist. CHEST: Clear to auscultation. No respiratory distress. HEART: Regular rate and rhythm. Normal peripheral pulses. BACK: No midline tenderness of the T/L-spine, mild left paraspinal tenderness L4 area. EXTREMITIES: Normal range of motion. No edema. SKIN: Warm, dry, no rash. NEURO: Alert and oriented x3. PSYCH: Normal mood and affect. Course Course Emerg
[2023-10-02 09:09] VITALS: BP 145/71; PULSE 64; RESP 16; O2SAT 99
== END 2023-10-02 09:09 | disposition home or self-care (01) ==
PROVIDERS: Emergency Medicine; Emergency Provider Emergency Medicine; PCP Family Medicine
DX: M54.50 Low back pain, unspecified (principal); J44.9 Chronic obstructive pulmonary disease, unspecified; I10 Essential (primary) hypertension; I48.91 Unspecified atrial fibrillation
CPT/HCPCS: 36415; 80053; 81001; 83690; 85025; 96374; 96375; 99284; J1885; J2405

== ENCOUNTER 2023-11-08 15:53 | Outpatient (CLI) | payer MEDICARE, SELFPAY ==
--- NOTE | ~2023-11-08 | US_ITS ---
US abdomen complete EXAMINATION: US Abdomen Complete INDICATION: Abdominal pain PROCEDURE: Realtime High Resolution abdomen ultrasound. COMPARISON: No prior studies for comparison FINDINGS: Gallbladder within normal limits. No gallstones, pericholecystic fluid, gallbladder wall t hickening or biliary dilatation. Common bile duct measures 4 mm. Liver echotexture within normal limits without focal mass. Pancreas within normal limits. Pancreati c tail is obscured by bowel gas. Spleen is unremarkeable. Renal echotexture is within normal limits bilaterally without hydronephrosis, contour deforming mass or renal stone. Right kidney measures 9.3 cm. Left kidney measures 9.3 cm. There is a left renal cyst measuring 1.6 cm. Visualized aspects of the aorta and IVC are within normal limits. Portal vein is patent. No sonograph ic Angulo's sign indicated by the technologist. IMPRESSION: 1: Normal abdominal ultrasound. Reviewed, dictated and finalized at location A.
== END 2023-11-08 15:54 | disposition home or self-care (01) ==
LOC: ANHIMG 15:53
PROVIDERS: PCP Family Medicine; Visit Provider Nurse Practitioner Family
DX: R10.9 Unspecified abdominal pain (principal)
CPT/HCPCS: 76700

== ENCOUNTER 2023-12-07 09:40 | Outpatient (CLI) | payer MEDICARE, SELFPAY ==
--- NOTE | ~2023-12-07 | DEXA_ITS ---
Bone Density Report Name: BIANCA DAVILA Age: 73 Sex: Female Ethnicity: White Date of : 1950 Indication: postmenopausal; screening for osteoporosis; history of glucocorticoids; asthma or emphysema; hysterectomy; Referring Provider: LILLIAN, [place] Amaya Study: Bone densitometry was performed. Exam Date: December 07, 2023 Accession number: [id number] Bone Density: Region BMD T-score Z-score Classification AP Spine(L1-L4) 0.768 -2.5 -0.1 Osteoporosis Femoral Neck (Left) 0.636 -1.9 0.2 Osteopenia Total Hip (Left) 0.671 -2.2 -0.4 Osteopenia Femoral Neck (Right) 0.629 -2.0 0.1 Osteopenia Total Hip (Right) 0.734 -1.7 0.1 Osteopenia Total Hip Mean 0.702 -2.0 -0.2 Osteopenia World Health Organization criteria for BMD impression classify patients as: Normal (T-score at or above -1.0), Osteopenia (T-score between -1.0 and -2.5), or Osteoporosis (T-score at or below -2.5). 10-year Fracture Risk: FRAX not reported because: Some T-score for Spine Total or Hip Total or Femoral Neck at or below -2.5 Clinical Information Provided by Patient: Has taken Glucocorticoids Has the following medical conditions: Asthma or Emphysema, Hysterectomy Patient maximum height was 67 Menopause Age: 45 No regular weight bearing exercise Onset of menses at age 9 Number of children 0 Impression: The patient has osteoporosis, based on the Total Spine T-score. The patient has risk factors, including: history of glucocorticoid therapy. Discussion: INCREASED RISK OF FRACTURE. BONE DENSITY IS UNDESIRABLY LOW AT ONE OR MORE SKELETAL SITES, CONSISTENT WITH POSTMENOPAUSAL OSTEOPOROSIS. This patient's lowest T-score meets the World Health Organization's (WHO) criteria for osteoporosis at one or more sites (T-score -2.5 or below). In untreated patients, the risk of osteoporotic fracture increases approximately two-fold for each 1.0 SD decrease in T-score. Low bone density is not the only risk factor for fracture; also consider factors such as patient's age, frailty or poor health, risk of falling, risk of injury, previous osteoporotic fracture, family history of osteoporosis, cigarette smoking, low body weight, etc. Not everyone with low bone mineral density has osteoporosis; osteomalacia and other metabolic bone disorders should also be considered. Patients who have osteoporosis should be evaluated for specific diseases and conditions (secondary causes) that may cause or contribute to bone loss. The [place] Association of Clinical Endocrinologists (AACE) and National Osteoporosis Foundation (NOF) recommend pharmacologic intervention for all postmenopausal women whose T-score is in this range. The patient should follow a healthful lifestyle (good nutrition with adequate calcium and vitamin D, and appropriate weight-bearing exercise). Follow-Up: Consider a repeat BMD and Vertebral Fracture Assessment (VFA) exam in 2 years or sooner if medically necessary, to reassess this patient's status. Reported by: BRISEYDA on 12/07/2023 10:03:00 AM. Reviewed, dictated and finalized at location A. JESUS
== END 2023-12-07 09:41 | disposition home or self-care (01) ==
LOC: ANHIMG 09:42
PROVIDERS: PCP Family Medicine; Visit Provider Family Medicine
DX: M81.0 Age-related osteoporosis without current pathological fracture (principal); Z78.0 Asymptomatic menopausal state
CPT/HCPCS: 77080

== ENCOUNTER 2023-12-10 16:58 | Emergency (ER) | payer MEDICARE, SELFPAY ==
[2023-12-10] VITALS (9 sets, daily range): BP systolic 170–201; BP diastolic 66–91; PULSE 55–76; RESP 13–20; TEMP 36.4–36.8; O2SAT 99–100
--- NOTE | 2023-12-10 17:15 | ECG_ITS ---
SEE SCANNED COPY FOR CONFIRMED REPORT MTDD
[2023-12-10 17:37] LABS: Alanine Aminotransferase 15 U/L (6-35); Albumin Level 4.6 g/dL (3.5-5.1); Alkaline Phosphatase 82 U/L (38-126); Anion Gap 6 mmol/L (4-12); Aspartate Amino Transferase 27 U/L (14-36); Bilirubin,Total 0.7 mg/dL (0.2-1.3); Blood Urea Nitrogen 15 mg/dL (7-17); Calcium 9.4 mg/dL (8.4-10.2); Carbon Dioxide 24 mmol/L (22-30); Chloride 106 mmol/L (98-107); Estimated CRCL calculation 51 ml/min; Estimated Glomerular Filt Rate > 60; Glucose 110 mg/dL (65-110); Potassium 4.2 mmol/L (3.4-5.0); Sodium 136 mmol/L (137-145)
[2023-12-10 17:47] LABS: Basophils Percent Auto 0.8 % (0.2-1.2); Eosinophils Absolute Auto 0.2 K/mm3 (0-0.3); Eosinophils Percent Auto 2.8 % (0-4.4); Hematocrit 38.6 % (37.0-47.0); Hemoglobin 12.9 g/dL (12.0-15.0); Immature Granulocyte Absolute 0.01 K/mm3 (0.00-0.031); Immature Granulocyte Percent A 0.2 % (0-0.5); Lymphocytes Absolute Auto 1.28 K/mm3 (0.9-3.2); Lymphocytes Percent Auto 24.1 % (18.3-44.2); Mean Corpuscular HGB Conc 33.4 g/dl (32-36); Mean Corpuscular Hemoglobin 33.2 pg (26-34); Mean Corpuscular Volume 99.5 fl (80-100); Mean Platelet Volume 9.6 fl (7.4-10.4); Monocytes Absolute Auto 0.2 K/mm3 (0.1-0.6); Neutrophils Absolute Auto 3.6 K/mm3 (1.3-6.7); Neutrophils Percent Auto 68.1 % (45.5-73.1); Platelet Count Result 245 k/mm3 (150-375); Red Blood Count 3.88 M/mm3 (4.2-5.4); Red Cell Distribution Width 12.6 % (11.5-14.5); White Blood Count 5.3 K/mm3 (4.5-10.0)
[2023-12-10 17:48] LABS: Troponin I < 0.012 ng/mL (0.000-0.034)
[2023-12-10] MEDS: hydrALAZINE HCL 20 MG/ML VIAL 10 MG IV PUSH (19:47)
--- NOTE | 2023-12-10 20:03 | ED.GENADULT ---
HPI - General Adult General Chief complaint: Recheck/Abnormal Lab/Rx Stated complaint: high blood pressure Time Seen by Provider: 12/10/23 19:21 History of Present Illness HPI narrative: Patient is a 73-year-old female who presents to the emergency department evening complaining of an elevated blood pressure. Patient states that she woke up today and she was not feeling well so she decided to check her blood pressure and states that it has been running around 190 systolic which is not anywhere near where her blood pressure remained ones. Patient does take blood pressure medications and is a good about checking her low blood pressure frequently. Patient states that her blood pressure has been normal for the past week and states that today's her stated that she noticed that it was high. Patient admits that she is still taking all her blood pressure medications as prescribed. She is currently denying any symptoms including chest pain, shortness of breath, nausea, vomiting, abdominal pain. She also denies any headaches, dizziness, or lightheadedness. There are no other modifying, alleviating, or precipitating factors at this time. Related Data Home Medications Medication Instructions Recorded Confirmed flecainide 100 mg tablet 100 mg PO BID 03/31/21 07/30/23 rivaroxaban 20 mg tablet (Xarelto) 20 mg PO DAILY 03/31/21 07/30/23 meclizine 25 mg tablet 25 mg PO BID Dizziness 05/21/22 07/30/23 fluticasone propionate 50 1 spray intranasal DAILY 01/21/23 07/30/23 mcg/actuation nasal spray,suspension (Allergy Relief (fluticasone)) cetirizine 10 mg capsule (Zyrtec) 10 mg PO DAILY 04/30/23 07/30/23 carvedilol 6.25 mg tablet 6.25 mg PO BID 05/03/23 07/30/23 mecobalamin (vitamin B12) 1,000 1,000 mcg PO DAILY 05/03/23 07/30/23 mcg chewable tablet Allergies Allergy/AdvReac Type Severity Reaction Status Date / Time Sulfa (Sulfonamide Allergy Intermediate Rash Verified 12/10/23 16:59 Antibiotics) latex Allergy Hives Verified 12/10/23 16:59 Review of Systems Review of Systems: All systems are reviewed and are negative unless stated otherwise in the HPI. [facility] Past Medical History Medical History Allergies COPD (chronic obstructive pulmonary disease) Heart disease Hemochromatosis HTN (hypertension) Paroxysmal atrial fibrillation Right ankle sprain April 2023 Takotsubo cardiomyopathy Surgical History Surgical History History of hysterectomy 1995 Family History Family History Father Carcinoma of colon Lung cancer Diabetes mellitus Mother Pancreatic cancer Sibling Brain aneurysm Cerebrovascular accident Heart disease Social History Social History Smoking status: Never smoker Alcohol intake: current Substance use: never Substance use type: does not use Lack of Transportation: No Lack of Food: Never True Current Housing: I Have Housing Concerned About Future Housing: No Difficulty Paying Gas/Electric Bills: No Difficulty Paying for Meds: No Currently Unemployed: No Education: High School Diploma/GED Difficulty w/ Childcare or Family Care: No Living arrangements: with family Occupation/Education: retired Gender identity (if verbalized by the patient): Female Spiritual care concerns: No Exam Narrative: General: Alert, awake, afebrile, in no acute distress. HEENT: PERRL, no rhinorrhea, no post nasal drip, oropharynx clear. Neck: Trachea midline, no JVD, no lymphadenopathy. Cardiovascular: Regular rate and rhythm, no murmurs, rubs or gallops, no peripheral edema. Respiratory: Clear to auscultation bilaterally, no tachypnea, no wheezing, no rhonchi, no rubs, no respiratory distress. Abdomen: Soft, nontender, nondistended, no rebound, no gua
== END 2023-12-10 20:32 | disposition home or self-care (01) ==
PROVIDERS: Preventive Medicine Aerospace Medicine; Emergency Provider Emergency Medicine; PCP Family Medicine
DX: I10 Essential (primary) hypertension (principal); J44.9 Chronic obstructive pulmonary disease, unspecified; I48.91 Unspecified atrial fibrillation
CPT/HCPCS: 36415; 80053; 84484; 85025; 93005; 96374; 99284; J0360

== ENCOUNTER 2024-02-18 07:38 | Outpatient (CLI) | payer MEDICARE, SELFPAY ==
[2024-02-18 08:16] LABS: Hematocrit 40.9 % (37.0-47.0); Hemoglobin 13.2 g/dL (12.0-15.0); Mean Corpuscular HGB Conc 32.3 g/dl (32-36); Mean Corpuscular Hemoglobin 32.7 pg (26-34); Mean Corpuscular Volume 101.2 fl (80-100); Mean Platelet Volume 9.6 fl (7.4-10.4); Platelet Count Result 229 k/mm3 (150-375); Red Blood Count 4.04 M/mm3 (4.2-5.4); Red Cell Distribution Width 11.9 % (11.5-14.5); White Blood Count 4.9 K/mm3 (4.5-10.0)
[2024-02-18 08:29] LABS: Alanine Aminotransferase 14 U/L (6-35); Albumin Level 4.2 g/dL (3.5-5.1); Alkaline Phosphatase 75 U/L (38-126); Anion Gap 6 mmol/L (4-12); Aspartate Amino Transferase 23 U/L (14-36); Bilirubin,Total 0.9 mg/dL (0.2-1.3); Blood Urea Nitrogen 18 mg/dL (7-17); Calcium 9.2 mg/dL (8.4-10.2); Carbon Dioxide 27 mmol/L (22-30); Chloride 107 mmol/L (98-107); Cholesterol 209 mg/dL (0-200); Estimated Glomerular Filt Rate 54; Glucose 99 mg/dL (65-110); HDL Direct 85 mg/dL; Potassium 4.3 mmol/L (3.4-5.0); Sodium 140 mmol/L (137-145); Triglycerides 105 mg/dL (<150)
[2024-02-18 08:35] LABS: Iron 182 ug/dL (37-170)
[2024-02-18 08:39] LABS: LDL Cholesterol Direct 94 mg/dL
[2024-02-18 08:45] LABS: Percent Iron Saturation 91 % (20-50)
== END 2024-02-18 07:39 | disposition home or self-care (01) ==
PROVIDERS: PCP Family Medicine; Visit Provider Family Medicine
DX: I10 Essential (primary) hypertension (principal); E66.3 Overweight; E83.119 Hemochromatosis, unspecified; Z79.899 Other long term (current) drug therapy
CPT/HCPCS: 36415; 80053; 80061; 82728; 83540; 83550; 84443; 85027

== ENCOUNTER 2024-06-10 12:30 | Outpatient (RCR) | payer MEDICARE, SELFPAY ==
--- NOTE | 2024-05-18 15:47 | OPREHPOC ---
Outpatient Therapy Plan of Care This is a Multidisciplinary Plan of Care that may contain components documented by all disciplines (PT, OT, and ST.) PT Problem 1 PT Problem #1 Knowledge Deficit PT Goal 1 Goal / Goal Update Malone with HEP Target Visit 4 PT Problem 2 PT Problem #2 Pain PT Goal 1 Goal / Goal Update Report no pain greater than 2/10 with sit to stand transfers for improved knee functional stability Target Visit 8 PT Problem 3 PT Problem #3 Impaired Range of Motion PT Goal 1 Goal / Goal Update Achieve 130 degrees of left knee flexion for improved functional capability of knee joint to prevent onset of arthritic damage Target Visit 8 PT Goal 2 Goal / Goal Update Demonstrate 10 degrees jennifer ankles to improve terminal stance of gait Target Visit 8 PT Problem 4 PT Problem #4 Impaired Strength PT Goal 1 Goal / Goal Update Improve jennifer hip abduction strength to 4+/5 to improve lateral stability and prevent genu valgus of jennifer knees Target Visit 8
--- NOTE | 2024-05-18 15:47 | PTOPEVAL1 ---
Assessment and note entered by Jose Michael, PT Evaluation Information Assessment Status Evaluation Diagnosis Torn meniscus of left knee ICD-10 Condition Codes (PT) Pain in left knee M25.562 Onset 2022 Subjective Information Reports that since the injection she is doing a lot better. Reports that she is not having pain currently but will get pain when sitting for a while and she goes to get up she has increased pain. She used to do a lot of walking and has not lately due to increased pain. Would do a couple laps but has not done it since the knee started bothering her. Reported Pain Level Pain Score 0: Self Report Assessment PT Clinical Summary Patient presents with minor loss in knee flexion and significant gait alterations this date. Overall since cortisone injection it appears that she is making some progress, but has notable hip strength limitations which reflect into altered gait and weakness with ADLs. Will benefit from skilled therapy to address deficits for improved gait, ADLs, and functional performance. Plan of Care Interventions Gait Training,Manual Therapy,Neuro Re-education, Therapeutic Activities,Therapeutic Exercise PT Services Indicated Yes Treatment Frequency and 2x/week for 8 visits Duration These treatments will address the objective and functional deficits as defined above. The patient will be advanced safely and appropriately in order for the patient to progress towards his/her prior level of function. Additional exercises will be introduced and as well as a comprehensive home exercise program upon discharge, if needed, ?to ensure carryover of functional gains achieved in the clinic. This treatment plan has been reviewed and agreement upon by the patient.
--- NOTE | 2024-06-10 13:06 | PTOPDC ---
Assessment and note entered by Myriam Leone, PT Discharge Report Assessment Status Discharge Diagnosis Torn meniscus of left knee ICD-10 Condition Codes (PT) Pain in left knee M25.562 Onset 2022 Subjective Information knee is doing good, have been doing all of the exercises at home; ready to be finished with therapy; Reported Pain Level Pain Score 0: Self Report Pain Score 0: Self Report Assessment PT Clinical Summary Jillian has received 8 PT sessions. She has improved with decreased pain to 0/10; L knee active ROM is 0-120'; increase strength of L LE; education complete for HEP. The goals were partially achieved. Discharge PT services. She is to continue with her HEP. Plan of Care PT Services Indicated No
== END 2024-06-10 13:58 | disposition home or self-care (01) ==
LOC: ANHPT 12:30
PROVIDERS: PCP Family Medicine; Visit Provider Orthopaedic Surgery
DX: S83.242A Other tear of medial meniscus, current injury, left knee, initial encounter (principal)
CPT/HCPCS: 97110; 97140; 97161; 97530

== ENCOUNTER 2024-06-16 06:13 | Emergency (ER) | payer MEDICARE, SELFPAY ==
[2024-06-16] VITALS (7 sets, daily range): BP systolic 158–191; BP diastolic 69–91; PULSE 55–78; RESP 11–17; TEMP 36.4–36.6; O2SAT 97–100
--- NOTE | ~2024-06-16 | XR_ITS ---
Clinical Indication: Hypertension PA and lateral views of the chest: Comparison: 09/16/2023 Findings: The lungs are clear, without evidence of focal consolidation or pleural effusion. Possible COPD. Cardiomediastinal silhouette is stable. Bones and soft tissues are unremarkable. Impression: Clear lungs. Possible COPD. Stable cardiomegaly. Reviewed, dictated and finalized at location . Impression: Clear lungs. Possible COPD. Stable cardiomegaly.
--- NOTE | 2024-06-16 06:14 | ECG_ITS ---
Test Date: 2024-06-16 06:24:14 Measurements Intervals [place] Rate: 62 P: 79 ME: 255 QRS: -66 QRSD: 110 T: 19 QT: 453 QTc: 463 Interpretive Statements SINUS RHYTHM WITH FIRST DEGREE AV BLOCK MARKED LEFT AXIS DEVIATION [QRS AXIS < -30] INCOMPLETE RIGHT BUNDLE BRANCH BLOCK [90+ ms QRS DURATION, TERMINAL R IN V1/V2, 40+ ms S IN I/aVL/V4/V5/V6] SEPTAL MYOCARDIAL INFARCTION , PROBABLY OLD [40+ ms Q WAVE IN V1/V2] No previous ECG available for comparison Electronically Signed On 06-16-2024 09:45:25 CDT by Janee Robin M.D.
[2024-06-16 06:34] LABS: Basophils Absolute Auto 0.1 K/mm3 (0.0-0.1); Basophils Percent Auto 1.1 % (0.2-1.2); Eosinophils Absolute Auto 0.3 K/mm3 (0-0.3); Eosinophils Percent Auto 5.4 % (0-4.4); Hematocrit 39.3 % (37.0-47.0); Hemoglobin 13.1 g/dL (12.0-15.0); Immature Granulocyte Absolute 0.02 K/mm3 (0.00-0.031); Immature Granulocyte Percent A 0.4 % (0-0.5); Lymphocytes Absolute Auto 1.06 K/mm3 (0.9-3.2); Lymphocytes Percent Auto 19.1 % (18.3-44.2); Mean Corpuscular HGB Conc 33.3 g/dl (32-36); Mean Corpuscular Hemoglobin 33.9 pg (26-34); Mean Corpuscular Volume 101.6 fl (80-100); Mean Platelet Volume 9.2 fl (7.4-10.4); Monocytes Absolute Auto 0.3 K/mm3 (0.1-0.6); Monocytes Percent Auto 4.5 % (2.6-8.5); Neutrophils Absolute Auto 3.9 K/mm3 (1.3-6.7); Neutrophils Percent Auto 69.5 % (45.5-73.1); Platelet Count Result 205 k/mm3 (150-375); Red Blood Count 3.87 M/mm3 (4.2-5.4); Red Cell Distribution Width 12.9 % (11.5-14.5); White Blood Count 5.6 K/mm3 (4.5-10.0)
[2024-06-16 06:41] LABS: Alanine Aminotransferase 14 U/L (6-35); Albumin Level 4.2 g/dL (3.5-5.1); Alkaline Phosphatase 49 U/L (38-126); Anion Gap 10 mmol/L (4-12); Aspartate Amino Transferase 22 U/L (14-36); Bilirubin,Total 0.7 mg/dL (0.2-1.3); Blood Urea Nitrogen 21 mg/dL (7-17); Calcium 8.7 mg/dL (8.4-10.2); Carbon Dioxide 25 mmol/L (22-30); Chloride 107 mmol/L (98-107); Estimated CRCL calculation 46 ml/min; Estimated Glomerular Filt Rate > 60; Glucose 109 mg/dL (65-110); Potassium 3.7 mmol/L (3.4-5.0); Sodium 142 mmol/L (137-145)
[2024-06-16] MEDS: SODIUM CHLORIDE 0.9% IV 1,000 ML 150 ML IV CONT (07:43)
[2024-06-16] MEDS: METOCLOPRAMIDE HCL INJ 10 MG/2 ML VIAL 5 MG IV PUSH (07:44)
[2024-06-16] MEDS: MECLIZINE HCL 25 MG TABLET PO (07:45)
--- NOTE | 2024-06-16 09:10 | ED_ITS ---
HPI - Dizziness General Chief Complaint: Dizziness Stated Complaint: dizzy, high bp, nausea Time Seen by Provider: 06/16/24 07:01 Source: patient Mode of arrival: ambulatory Limitations: no limitations History of Present Illness HPI Narrative: 73-year-old with a history of benign positional vertigo, hypertension, AFib here with the complaints of sudden onset of dizziness this morning patient states that she woke up to go to the restroom around 3:00 a.m. since then she has been feeling extremely dizzy and nauseated. Patient states that she takes meclizine however she has not taken this morning. She denies any chest pain and shortness of breath. MD elicited complaint: dizziness Pertinent past history: BPPV Timing: sudden onset Severity: moderate Description: room spinning History of similar symptoms: Yes Exacerbating factors: movement/ambulation Relieving factors: remaining still Associated symptoms: nausea and vomiting Related Data Home Medications Medication Instructions Recorded Confirmed flecainide 100 mg tablet 100 mg PO BID 03/31/21 06/02/24 cetirizine 10 mg capsule (Zyrtec) 10 mg PO DAILY 04/30/23 06/02/24 hydralazine 25 mg tablet 25 mg PO ONCE 02/11/24 06/02/24 calcium 600 mg (as 1 tablet PO BID 05/26/24 06/02/24 carbonate)-vitamin D3 10 mcg (400 unit) tablet (Calcium with Vitamin D) mecobalamin (vitamin B12) 1,000 1,000 mcg PO DAILY 05/26/24 06/02/24 mcg chewable tablet Allergies Allergy/AdvReac Type Severity Reaction Status Date / Time Sulfa (Sulfonamide Allergy Intermediate Rash Verified 06/16/24 06:25 Antibiotics) latex Allergy Hives Verified 06/16/24 06:25 Review of Systems Review of Systems: All systems reviewed & are unremarkable except as noted in HPI and below Constitutional: Constitutional: Reports no additional constitutional complaints Eyes: Eyes: Reports no additional eye complaints ENT: Reports system reviewed and no additional complaints, except as documented Cardiovascular: Cardiovascular: Reports no additional cardiovascular complaints Respiratory: Respiratory: Reports no additional respiratory complaints Gastrointestinal: Gastrointestinal: Reports as per HPI Musculoskeletal: Musculoskeletal: Reports no additional musculoskeletal complaints Neurologic: Reports system reviewed and no additional complaints, except as documented [facility] Past Medical History Medical History Allergies COPD (chronic obstructive pulmonary disease) Heart disease Hemochromatosis HTN (hypertension) Paroxysmal atrial fibrillation Right ankle sprain April 2023 Takotsubo cardiomyopathy Surgical History Surgical History History of hysterectomy 1995 Family History Family History Father Carcinoma of colon Lung cancer Diabetes mellitus Mother Pancreatic cancer Sibling Brain aneurysm Cerebrovascular accident Heart disease Social History Social History Smoking status: Never smoker Second hand tobacco smoke exposure: Yes Alcohol intake: current Alcohol use details: wine Substance use: never Substance use type: does not use Do You Feel Safe in your Home?: Yes Lack of Transportation: No Lack of Food: Never True Current Housing: I Have Housing Concerned About Future Housing: No Difficulty Paying Gas/Electric Bills: No Difficulty Paying for Meds: No Currently Unemployed: No Education: High School Diploma/GED Difficulty w/ Childcare or Family Care: No Living arrangements: alone Occupation/Education: retired 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 HEAD: Normocephalic, atraumatic. EYES: PERRLA and EOMI. ENT: Nares clear, no rhinorrhea or epistaxis. Mucous membranes moist. NECK: Supple. CHEST: Clear to auscultation. No respiratory distress. HEART: Regular rate and rhythm. No murmur heard. Normal peripheral pulses. ABDOMEN: Soft, nontender, nondistended, normal active bowel sounds. EXTREMITIES: Normal range of motion. No edema. SKIN: Warm, dry, no rash. NEURO: No focal deficits. Alert and oriented x3. PSYCH: Normal mood Course Course Emergency Course: Patient feeling much better. Informed her about the lab work. Patient states that she has meclizine at home I recommended her to continue home medication. Advised to continue home medication. Fall precaution Vital Signs Vital signs: Vital Signs Temperature 36.6 C 06/16/24 06:17 Pulse Rate 78 06/16/24 06:17 Respiratory Rate 17 06/16/24 06:17 Blood Pressure 191/91 H 06/16/24 06:17 Pulse Oximetry 97 06/16/24 06:17 Oxygen Delivery Room Air 06/16/24 06:17 Temperature 36.6 C 06/16/24 06:17 Pulse Rate 55 L 06/16/24 08:49 Respiratory Rate 11 L 06/16/24 08:49 Blood Pressure 160/77 H 06/16/24 08:49 Pulse Oximetry 100 06/16/24 08:49 Oxygen Delivery Room Air 06/16/24 06:17 MDM - Dizziness MDM Narrative Medical decision making narrative: 73-year-old with a history of BPPV, hypertension here with a complaint of sudden onset of dizziness associated with nausea and vomiting. She has no motor deficit his motor exam is benign and do EKG and lab work when okay were some Reglan for dizziness and nausea. Differential Diagnosis Differential diagnosis: Likely benign paroxysmal positional vertigo, orthostatic hypotension, cerebrovascular accident and transient cerebral ischemia Medical Records Attestation: I reviewed the patient's medical records. Lab Data Attestation: I reviewed the patient's lab results. 06/16/24 06:22 06/16/24 06:22 Labs: Lab Results 06/16/24 Range/Units 06:22 WBC 5.6 (4.5-10.0) K/mm3 RBC 3.87 L (4.2-5.4) M/mm3 Hgb 13.1 (12.0-15.0) g/dL Hct 39.3 (37.0-47.0) % MCV 101.6 H (80-100) fl MCH 33.9 (26-34) pg MCHC 33.3 (32-36) g/dl RDW 12.9 (11.5-14.5) % Plt Count 205 (150-375) k/mm3 MPV 9.2 (7.4-10.4) fl Immature Gran % (Auto) 0.4 (0-0.5) % Neut % (Auto) 69.5 (45.5-73.1) % Lymph % (Auto) 19.1 (18.3-44.2) % [place] % (Auto) 4.5 (2.6-8.5) % Eos % (Auto) 5.4 H (0-4.4) % Baso % (Auto) 1.1 (0.2-1.2) % Lymph # (Auto) 1.06 (0.9-3.2) K/mm3 [place] # (Auto) 0.3 (0.1-0.6) K/mm3 Eos # (Auto) 0.3 (0-0.3) K/mm3 Baso # (Auto) 0.1 (0.0-0.1) K/mm3 Abs Immat Gran (auto) 0.02 (0.00-0.031) K/mm3 Absolute Neuts (auto) 3.9 (1.3-6.7) K/mm3 Absolute Nucleated RBC 0.000 (0.0-0.012) K/mm3 Nucleated RBC % 0.0 (0.0-0.2) % Sodium 142 (137-145) mmol/L Potassium 3.7 (3.4-5.0) mmol/L Chloride 107 (98-107) mmol/L Carbon Dioxide 25 (22-30) mmol/L Anion Gap 10 (4-12) mmol/L BUN 21 H (7-17) mg/dL Creatinine 0.90 (0.7-1.0) mg/dL Estim Creat Clear Calc 46 ml/min Estimated GFR > 60 (59 - ) Glucose 109 (65-110) mg/dL Calcium 8.7 (8.4-10.2) mg/dL Total Bilirubin 0.7 (0.2-1.3) mg/dL AST 22 (14-36) U/L ALT 14 (6-35) U/L Alkaline Phosphatase 49 (38-126) U/L Total Protein 7.0 (6.3-8.2) g/dL Albumin 4.2 (3.5-5.1) g/dL Imaging Data Radiologist's impression: ITS Impressions Chest X-Ray 06/16/24 07:12 Impression: Clear lungs. Possible COPD. Stable cardiomegaly. ECG Data EKG #1: ECG completion date: 06/16/24 ECG completion time: 06:24 EKG Interpretation: normal rate (62), sinus rhythm, normal QRS, normal QT and NL axis Discharge Plan Discharge Clinical Impression: Benign paroxysmal positional vertigo Patient Disposition: Home, Self-Care Condition: Stable Instructions: Benign Paroxysmal Positional Vertigo (ED) Prescriptions: New ondansetron 4 mg tablet,disintegrating 4 mg PO Q6-8H PRN (Reason: nausea and vomiting) Qty: 14 0RF No Action calcium carbonate-vitamin D3 [Calcium with Vitamin D] 600 mg-10 mcg (400 unit) tablet 1 tablet PO BID Zyrtec 10 mg capsule 10 mg PO DAILY hydralazine 25 mg tablet 25 mg PO ONCE Rx Instructions: Only take if BP is over 160 Anoro Ellipta 62.5-25 mcg/actuation blister with device 1 inh inhalation DAILY 30 Days Qty: 60 11RF Rx Instructions: One puff same time daily. albuterol sulfate [Ventolin HFA] 90 mcg/actuation HFA aerosol inhaler 2 puff inhalation QID PRN (Reason: shortness of breath or wheezing) Qty: 8.5 0RF flecainide 100 mg tablet 100 mg PO BID mecobalamin (vitamin B12) 1,000 mcg tablet,chewable 1,000 mcg PO DAILY acetaminophen 500 mg tablet 1,000 mg PO TID PRN (Reason: isabella) 7 Days Qty: 42 0RF carvedilol 6.25 mg tablet 6.25 mg PO BID Qty: 180 1RF meclizine 25 mg tablet 25 mg PO BID Qty: 180 1RF Xarelto 20 mg tablet 20 mg PO DAILY Qty: 90 1RF alendronate 70 mg tablet 70 mg PO WEEKLY Qty: 12 1RF Follow-up/Referrals: Antoinetta Lopez DO [Primary Care Provider] -
[2024-06-16] MEDS: LORazepam INJ (*CRX) 2 MG/ML VIAL 0.5 MG IV PUSH (09:31)
== END 2024-06-16 10:28 | disposition home or self-care (01) ==
PROVIDERS: Emergency Medicine; Emergency Provider Family Medicine; PCP Family Medicine
DX: H81.10 Benign paroxysmal vertigo, unspecified ear (principal); I48.0 Paroxysmal atrial fibrillation; I11.9 Hypertensive heart disease without heart failure; J44.9 Chronic obstructive pulmonary disease, unspecified; Z90.710 Acquired absence of both cervix and uterus; Z79.01 Long term (current) use of anticoagulants; Z79.899 Other long term (current) drug therapy; I45.10 Unspecified right bundle-branch block; I51.7 Cardiomegaly; I44.0 Atrioventricular block, first degree
CPT/HCPCS: 36415; 71046; 80053; 85025; 93005; 96361; 96374; 96375; 99284; A9270; J2060; J2765; J7030

== ENCOUNTER 2024-12-02 07:06 | Outpatient (CLI) | payer MEDICARE, SELFPAY ==
--- OUTSIDE RECORDS SUMMARY | 2024-12-02 07:10 | XMS_ITS | Clinical Summary ---
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 Role Phone Antonietta Lopez DO Primary Care Provider [phone] Allergies Active Allergy Reactions Criticality Noted Date Comments Latex, Natural Rubber Rash Medium 05/22/2016 Sulfa (Sulfonamide Antibiotics) Rash Medium 11/2015 Medications loratadine (CLARITIN) 10 mg tablet Take 1 tablet (10 mg total) by mouth daily as needed Active rivaroxaban (XARELTO) 20 mg tablet Take 1 tablet (20 mg total) by mouth daily 9 Active acetaminophen 500 mg capsule Take by mouth as needed Active meclizine (ANTIVERT) 25 mg tablet Take 1 tablet (25 mg total) by mouth 3 (three) times a day as needed for dizziness Active multivitamin capsule Take 1 capsule by mouth daily Active albuterol HFA (PROVENTIL HFA,VENTOLIN HFA,PROAIR HFA) 90 mcg/actuation inhaler 2 Active Anoro Ellipta 62.5-25 mcg/actuation blister with device 2 Active cetirizine (ZyrTEC) 10 mg tablet Take 1 tablet (10 mg total) by mouth daily Active carvediloL (COREG) 6.25 mg tablet Take 1 tablet (6.25 mg total) by mouth 2 (two) times a day with meals 3 Active hydrOXYzine (ATARAX) 25 mg tablet Take 1 tablet (25 mg total) by mouth Active ascorbic acid, vitamin C, (ascorbic acid) 250 mg tablet,chewable Vitamin C 1 Active ELDERBERRY FRUIT ORAL Take by mouth Activ e flecainide (TAMBOCOR) 100 mg tablet Take 1 tablet by mouth twice daily 180 tablet 5 Active Active Problems Problem Noted Date Diagnosed Date Paroxysmal atrial fibrillation 02/16/2021 Stress-induced cardiomyopathy 06/08/2019 Elevated blood pressure read ing in office with white coat syndrome, without diagnosis of hypertension 06/08/2019 Dizziness 06/08/2019 Surgical History Surgery Date Site/Laterality Comments CARDIAC CATHETERIZATION HYSTERECTOMY Medical History Medical History Date Comments Arrhythmia Atrial fibrillation (HCC) Takotsubo cardiomyopathy 2018 Hemochromatosis White coat syndrome without diagnosis of hyperte nsion Guillain Calvert syndrome 1991 Vertigo Family History Medical History Relation Name Comments Cancer Father Diabetes Father Cancer Mother Arrhythmia Sister Diabetes Sister Relation Name Status Comments Father Mother Sister Social History Tobacco Use Types Packs/Day Years Used Date Smoking Tobacco: Never Smokeless Tobacco: Never Tobacco Cessation:Counseling Given: Not Answered Comments Unknown Sex and Gender Information Value Date Recorded Sex Assigned at Not on file Legal Sex Female 8:38 PM [employer] Gender Identity Not on file Sexual Orientation Not on file Obstetrics History Last Filed Vital Signs Vital Sign Reading Time Taken Comments Blood Pressure 120/80 07/21/2024 10:24 AM [employer] Pulse 60 07/21/2024 10:24 AM [employer] Temperature - - Respiratory Rate - - Oxygen Saturation 99% 07/21/2024 10:24 AM [employer] Inhaled Oxygen Concentration - - Weight 82.3 kg (181 lb 8 oz) 07/21/2024 10:24 AM [employer] Height 170.2 cm (5' 7 ) 07/21/2024 10:24 AM [employer] Body Mass Index 28.43 07/21/2024 10:24 AM [employer] Plan of Treatment Health Maintenance Due Date Last Done Comments Depression Screening 1948 Fall Risk Assessment 1948 Hepatitis C Screening 1950 Osteoporosis Screening-Bone Density Scan 1948 DTaP/Tdap/Td Vaccine (1 - Tdap) 11/19/1959 Hepatitis B Screening 1966 Zoster Vaccine (1 of 2) 1998 Well Visit 65+ 2013 Influenza Vaccine (Season Ended) 2025 05/18/2019, 06/23/2018, 06/17/2017, Additional history exists Pneumococcal vaccine 65+ Completed 08/14/2017, 03/19 Insurance MEDICARE [facility] MEDICARE [facility] [place] [address] [facility] [address] 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
--- OUTSIDE RECORDS SUMMARY | 2024-12-02 07:10 | XMS_ITS | Data Portability ---
Author Organization [facility], Main Office Address [address] [place] [address] Assessment No assessment recorded. Plan of Treatment Reminders Order Date Submit Date Provider Last Modified By Organization Details Last Modified Time Details Appointments None recorded. Lab None recorded. Referral physical therapist referral - *Please call pt to schedule* [email or web address] [facility] [address], [place], [address], 4 10:02:43 gastroenter ologist referral 2022 023 [email or web address] 3 Enrique Rodriguez MD, [address] [facility] [address], [place], [address], 3 08:06:57 Procedures None recorded. Surgeries None recorded. Imaging US, abdomen, complete [address], [address], [place], [address], 4 09:04:40 DEXA - *Please call pt to schedule* [email or web address] [place] [address], [address], [place], [address], 3 16:37:28 Medication Orders meclizine 25 mg tablet 2023 024 MONET Ge [facility] [address], [address] , [place], [address], 4 09:27:14 Xarelto 20 mg tablet 2023 024 [email or web address] [facility] [address], [address], [place], [address], 4 09:27:07 hydralazine 25 mg tablet 2023 024 [facility] [address], [address], [place], [address], 4 09:27:15 carvedilol 6.25 mg tablet 2023 024 [facility] [address], [address], [place], [address], 4 09:27:13 Flagyl 500 mg tablet 2022 023 [facility] [address], [address], [place], [address], 3 10:45:13 ciprofloxac in 500 mg tablet 2022 023 [facility] [address], [address], [place], [address], 3 10:45:12 Patient TargetsNo targets recorded. Patient Instructions Encounter Date Encounter Id Patient Instructions Last Modified By Organization Details Last Modified Time 06/26/2023 [id number] dementia rating scale-2* [email or web address] Not available 06/26/2023 11:49:02 multi-dimensiona l health assessment questionnaire* Not available 06/26/2023 11:49:06 care plan* [email or web address] Not available 06/26 11:49:09 advance directiv es: care instructions Not available 06/26/2023 10:44:38 advance care planning: care instructions Not available 06/26/2023 10:44:38 [place] Advance Directives Not available 06/26/2023 10:44:38 Personalized [facility] Plan and Screening Recommendations Advance Directives - Do you have one? Advance Directives - Do we have your advance directive on file in your health record? Primary Prevention/Interven tion (prevents or decreases the chance of common diseases from occurring) Smoking Risk: Alcohol Misuse Screening: Weight: Physical activity: Nutrition: Fall Risk (screened today): Vaccines Pneumococcal: Influenza: Chronic Disease Risks Stroke: I have no recommendations Act higinio diagnosis, Continue current treatment plan Heart Attack: I have no recommendations Act higinio diagnosis, Continue current treatment plan Clogging of the Arteries: I have no recommendations Act higinio diagnosis, Continue current treatment plan Diabetes: Active diagnosis, Continue current treatment plan Secondary Prevention/Interven tion (detects treatable diseases before they may cause symptoms, disability, or ) Breast Cancer Screening with mammogram: Your next mammogram: Ordered Cervical/Uterine/Ov keli Cancer Screening: No screening necessary Osteoporosis Screening: Your next DEXA in: Ordered Date Screening Last Performed: Colon Cancer Screening: Colonoscopy Date Screening Last Performed: 05/13/23 Eye Disease Screening: Dementia Risk: Depression Screening: Active diagnosis, Continue current treatment plan [id number] Not available 06/26/2023 10:47:05 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 [address], [address], 03/13/2023 07:56:02 05/14/2005/14/2023 XR, knee No observ ation record ed. [address], [address], 05/15/2023 08:29:34 05/14/20 23 05/14/2023 XR, ankle No observ ation record ed. [place] [address], [place], [address], 05/15/2023 15:17:34 05/14/20 23 05/14/2023 CT, brain , w/o contr ast No observ ation record ed. [place] [address], [place], [address], 05/15/2023 08:33:26 09/09/19 24 09/07/2023 MAMMO , scree cira, digit al, bilat eral No observ ation record ed. [place] [address], [place], [address], 12/29/2023 15:31:11 09/16/19 24 09/16/2023 XR, chest No observ ation record ed. [place] [address], [place], [address], 09/17/2023 07:57:05 09/16/19 24 09/16/2023 CT, abdom en + pelvi s, w/o contr ast No observ ation record ed. [place] [address], [place], [address], 10/02/2023 12:15:03 11/09/19 24 11/08/2023 US, abdom en, compl ete No observ ation record ed. [address] [facility], [place], [address], 11/13/2023 15:54:13 12/11/19 24 12/07/2023 DEXA No observ ation record ed. [place] [address], [place], [address], 01/07/2024 17:02:54 Result Notes None recorded. Problems Name Problem SNOMED Code Status Onset Date Resolution Date Notes Provider Name and Address Organization Details Recorded Time Chronic obstructive pulmonary disease 10871843 Active 2021 Not Available [facility] 3 23:03:20 Rosacea 001464945 Active 2021 Not Available [facility] 3 23:03:20 Hemochromat osis 045245650 Active 2020 Not Available [facility] 3 23:03:20 Takotsubo cardiomyopa thy 517906550 Active 2020 Not Available [facility] 3 23:03:20 Atrial fibrillatio n 35334509 Active 2020 Not Available [facility] 3 23:03:20 Pruritic rash 10894414 Active 2021 Not Available [facility] 3 23:03:20 Polyp of colon 40148492 Active 2020 Tubular adenoma 04/10/21 Not Available [facility] 3 23:03:20 Basal cell carcinoma of skin 631969247 Active 2022 Sravanthi Hinton MD [address], [address], [place], [address] , [facility] 3 08:06:37 Vitamin D deficiency 17703055 Active 2022 Sravanthi Hinton MD [address], [address], [place], [address] , [facility] 3 10:37:40 Cobalamin deficiency 373073756 Active 2022 Sravanthi Hinton MD [address], [address], [place], [address] , [facility] 3 10:37:50 Iron deficiency 87796811 Active 2022 Sravanthi Hinton MD [address], [address], [place], [address] , [facility] 3 10:38:50 Essential hypertensio n 99351748 Active 2022 DOC Dias [address], [address], [place], [address] , [place] [facility] 3 16:53:10 Acute sinusitis 90960951 Active 2022 DOC Dias [address], [address], [place], [address] , [place] [facility] 3 17:00:48 Diverticulo sis of colon 087633113 Active 2022 DOC Dias [address], [address], [place], [address] , [facility] 3 10:35:15 Spasm 29333761 Active 2023 Sravanthi Hinton MD [address], [address], [place], [address] , [facility] 4 15:30:44 Low back pain 830617122 Active 2023 FER Huitorn [address], [address], [place], [address] , [facility] 4 16:25:50 Abdominal discomfort 74079673 Active 2023 FER Huitron [address], [address], [place], [address] , [facility] 4 16:35:14 Cyst of kidney 607305351 Active 2023 Sravanthi Hinton MD [address], [address], [place], [address] , [facility] 4 13:44:26 Vertigo 053035243 Active 2023 FER Huitron [address], [address], [place], [address] , [facility] 4 09:25:21 Osteoporosi s 52471343 Active 2023 Sravanthi Hinton MD [address], [address], [place], [address] , [facility] [employer] 19:37:35 Problem Notes None recorded. Procedures Surgical History Date Name Laterality Status Provider Name and Address Organization Details Recorded Time 06/26/20 Medicare Wellness CPT Code, subsequent completed Yemi Saldana RN [facility] 06/26/2023 10:19:48 05/13/20 colonoscopy completed Sravanthi Hinton MD [address] [facility], [facility] [address], [place], [address], [facility] 06/26/2023 10:46:36 04/10/20 21 colonoscopy completed Not Available [facility] 10/18/19 23:02:53 06/15/19 96 Hysterectomy completed Not Available [facility] 023 23:02:53 extraction of cataract completed Not Available [facility] 10/17/2022 23:02:53 Imaging Results Imaging Date Name Status LastModified by Organiz ation Details LastModified Time 03/12/2023 CT, angiogram, abdomen + pelvis, w/ contrast completed [address], [address], 03/13/2023 07:56:02 05/14/2023 XR, knee completed [address] [place] [address], [address], 05/15/2023 08:29:34 05/14/2023 XR, ankle completed [address] [place] [address], [address], 05/15/2023 15:17:34 05/14/2023 CT, brain, w/o contrast completed [address], [address], 05/15/2023 08:33:26 09/07/2023 MAMMO, screening, digital, bilateral completed [address] [place] [address], [address], 12/29/2023 15:31:11 09/16/2023 XR, chest completed [facility] [address] [facility] [address], [address], 09/17/2023 07:57:05 09/16/2023 CT, abdomen + pelvis, w/o contrast completed [email or web address] [address], [place], [address], 10/02/2023 12:15:03 11/08/2023 US, abdomen, complete completed [address] [facility] [place] [address] [place] [address], [address], 11/13/2023 15:54:13 12/07/2023 DEXA completed [address] [place] [address], [address], 01/07/2024 17:02:54 Procedure Notes None recorded. Medical Equipment None Reported. Allergies Allergen ID Allergen Name Allergen Category Reaction Reaction Severity Criticality Documentation Date Start Date Code Code System Note Provider Name and Address Organization Details Recorded Time 02541 Substance with sulfonami de structure and antibacte rial mechanism of action (substanc e) medicatio n Not available Not available Not available 10/17/2022 87559 8003 SNOMED Not Available [facility] 3 23:04:19 48589 Latex (substanc e) environme nt,medica tion Not available Not available Not available 10/17/2022 17597 8007 SNOMED Not Available [facility] 3 23:04:19 58403 cephalexi n medicatio n other mild low 03/14/2023 2231 RxNorm josi Salgado, [employer] [address] [facility], [facility] [address], [place], [address] , [facility] [employer] [facility] 3 10:37:53 Medications Name Sig Start Date Stop Date Status Note LastModified by Organization Details LastModified Time amoxicillin 500 mg capsule TAKE 1 CAPSULE BY MOUTH EVERY 8 HOURS FOR 10 DAYS 04/19 completed Not Available Not Available Not Available buspirone 5 mg tablet TAKE 1 TABLET BY MOUTH THREE TIMES DAILY NEEDED FOR STRESS active Not Available Not Available No t Available carvedilol 6.25 mg tablet Take 1 tablet twice a day by oral route for 90 days. active Not Available Not Available No t Available doxycycline hyclate 100 mg capsule TAKE 1 CAPSULE BY MOUTH TWICE DAILY FOR 10 DAYS 12/24 completed Not Available Not Available Not Available tizanidine 2 mg tablet Take 1 tablet every 6 hours by oral route. active Not Available Not Available No t Available azithromyci n 250 mg tablet TAKE 2 TABLETS BY MOUTH ON DAY 1, AND THEN TAKE 1 TABLET BY MOUTH ONCE A DAY ON DAY 2 THROUGH DAY 5 12/24 completed Not Available Not Available Not Available metoprolol succinate ER 50 mg tablet,exte nded release 24 hr TAKE 1 TABLET BY MOUTH ONCE DAILY 02/13 completed Not Available Not Available Not Available prednisone 20 mg tablet TAKE 2 TABLETS BY MOUTH ONCE DAILY FOR 5 DAYS 03/14 completed Not Available Not Available Not Available alendronate 70 mg tablet TAKE 1 TABLET BY MOUTH ONCE A WEEK active Not Available Not Available No t Available hydralazine 25 mg tablet Take 1 tablet daily as needed for systolic bp over 160 active Not Available Not Available No t Available metronidazo le 500 mg tablet TAKE 1 TABLET BY MOUTH EVERY 8 HOURS active Not Available Not Available No t Available ciprofloxac in 500 mg tablet TAKE 1 TABLET BY MOUTH EVERY 12 HOURS FOR 10 DAYS active Not Available Not Available No t Available triamcinolo ne acetonide 0.1 % topical cream active Not Available Not Available Not Available amoxicillin 875 mg tablet Take 1 tablet every 12 hours by oral route for 7 days. active Not Available Not Available No t Available meclizine 25 mg tablet Take 1 tablet by mouth three times daily as needed active Not Available Not Available No t Available triamcinolo ne acetonide 40 mg/mL suspension for injection Take 40 mg by injection route for 1 day. 12/13 completed Not Available Not Available Not Available cephalexin 500 mg capsule TAKE 1 CAPSULE BY MOUTH EVERY 8 HOURS FOR 5 DAYS active Not Available Not Available No t Available flecainide 100 mg tablet TAKE 1 TABLET BY MOUTH TWICE DAILY active Not Available Not Available No t Available Motion Sickness Relief 50 mg tablet Take 1 tablet every 6 hours by oral route. 03/08 completed Not Available Not Available Not Available hydroxyzine HCl 25 mg tablet active Not Available Not Available Not Available metoprolol succinate ER 25 mg tablet,exte nded release 24 hr TAKE 1 TABLET BY MOUTH ONCE DAILY FOR 90 DAYS 03/14 completed Not Available Not Available Not Available methylpredn isolone 4 mg tablets in a dose pack TAKE BY MOUTH DIRECTED ON INSIDE OF PACKAGE 05/07 completed Not Available Not Available Not Available albuterol sulfate HFA 90 mcg/actuati on aerosol inhaler INHALE 2 PUFFS BY MOUTH 4 TIMES DAILY NEEDED FOR SHORTNESS OF BREATH FOR WHEEZING active Not Available Not Available No t Available metronidazo le 0.75 % topical gel APPLY THIN LAYER TOPICALLY TO FACE IN THE MORNING AND IN THE EVENING 06/22 completed Not Available Not Available Not Available doxycycline hyclate 100 mg tablet TAKE 1 TABLET BY MOUTH TWICE DAILY 06/22 completed Not Available Not Available Not Available amoxicillin 875 mg-potassiu m clavulanate 125 mg tablet 03/08 completed Not Available Not Available Not Available escitalopra m 10 mg tablet 01/12 completed Not Available Not Available Not Available cyclobenzap rine 5 mg tablet TAKE 1 TABLET BY MOUTH THREE TIMES DAILY NEEDED active Not Available Not Available No t Available metoprolol tartrate 25 mg tablet TAKE 1 TABLET BY MOUTH TWICE DAILY NEEDED ONLY FOR SUDDEN ONSET AFIB SX WITH HR GREATER THAN 120BPM 05/04 completed Not Available Not Available Not Available tizanidine 2 mg capsule TAKE 1 CAPSULE BY MOUTH EVERY 8 HOURS NEEDED FOR MUSCLE SPASM active Not Available Not Available No t Available Vitamin C 2020 active Not Available Not Available Not Avai lable zinc 2020 active Not Available Not Available Not Avai lable Symbicort 80 mcg-4.5 mcg/actuati on HFA aerosol inhaler active Not Available Not Available Not Available sodium,pota ssium,mag sulfates 17.5 gram-3.13 gram-1.6 gram oral soln TAKE DIRECTED active Not Available Not Available No t Available Xarelto 20 mg tablet TAKE 1 TABLET BY MOUTH ONCE DAILY active Not Available Not Available No t Available Anoro Ellipta 62.5 mcg-25 mcg/actuati on powder for inhalation INHALE 1 PUFF BY MOUTH ONCE DAILY FOR 30 DAYS . INHALE AT THE SAME TIME EACH DAY. DO NOT TAKE WITH SYMBICORT active Not Available Not Available No t Available Spiriva Respimat 2.5 mcg/actuati on solution for inhalation Inhale 2 puffs every day by inhalatio n route. 12/13 completed Not Available Not Available Not Available Vitals Date Recorded Body height Systolic blood pressure Diastolic blood pressure Systolic blood pressure Diastolic blood pressure Provider Name and Address Organization Details Last Updated DateTime 3 170.18 cm 132 mm[Hg] 92 mm[Hg] 120 mm[Hg] 82 mm[Hg] Zoila Cardozo RN [facility] [employer] [facility] 3 10:20:04 Date Recorded Body height Body mass index (BMI) Body weight Heart rate Oxygen saturation Oxygen saturation in Arterial blood by Pulse oximetry Body temperature Systolic blood pressure Diastolic blood pressure Provider Name and Address Organization Details Last Updated DateTime 3 170.18 cm 27.9 kg/m2 67926.4 4 g 71 /min 97 % 97 % 97.6 [degF] 140 mm[Hg] 92 mm[Hg] Estefania Corona RN [facility] [employer] [facility] 3 10:24:03 Date Recorded Body height Body mass index (BMI) Body weight Body temperature Heart rate Oxygen saturation Oxygen saturation in Arterial blood by Pulse oximetry Systolic blood pressure Diastolic blood pressure Provider Name and Address Organization Details Last Updated DateTime 3 170.18 cm 28.2 kg/m2 64358.6 3 g 97.5 [degF] 66 /min 96 % 96 % 112 mm[Hg] 78 mm[Hg] Yemi Saldana RN [facility] [employer] [facility] 3 10:23:20 Date Recorded Body height Body mass index (BMI) Body weight Body temperature Heart rate Oxygen saturation Oxygen saturation in Arterial blood by Pulse oximetry Systolic blood pressure Diastolic blood pressure Provider Name and Address Organization Details Last Updated DateTime 4 170.18 cm 28.2 kg/m2 81639.6 3 g 99.7 [degF] 73 /min 97 % 97 % 148 mm[Hg] 88 mm[Hg] Yuliya Mark RN [facility] [employer] [facility] 4 15:54:35 Date Recorded Body height Body mass index (BMI) Body weight Body temperature Heart rate Oxygen saturation Oxygen saturation in Arterial blood by Pulse oximetry Systolic blood pressure Diastolic blood pressure Provider Name and Address Organization Details Last Updated DateTime 4 170.18 cm 27.4 kg/m2 88836.6 6 g 98.5 [degF] 62 /min 97 % 97 % 148 mm[Hg] 84 mm[Hg] Yuliya Mark RN [place] [facility] 4 09:03:15 Social History Question Answer Notes LastModified by Organizat ion Details LastModified Time Tobacco Smoking Status Never Smoker Not Available [employer] 10/17/2022 23:02:35 Do You Have An Advance Directive? Yes [id number] Information not available 10/17/2022 What Is Your Level Of Alcohol Consumption? None MIGRATION.65680 71156 Information not available 10/17/2022 Are You Blind Or Do You Have Difficulty Seeing? No MIGRATION.46533 06495 Information not available 10/17/2022 What Is Your Level Of Caffeine Consumption? Occasional MIGRATION.85575 65959 Information not available 10/17/2022 How Much Tobacco Do You Chew? None MIGRATION.60158 66743 Information not available 10/17/2022 In The 14 Days Before Symptom Onset, Have You Had Close Contact With A Laboratory-confi rmed COVID-19 While That Case Was Ill? No MIGRATION.26525 21164 Information not available 10/17/2022 In The 14 Days Before Symptom Onset, Have You Had Close Contact With A Person Who Is Under Investigation For COVID-19 While That Person Was Ill? No MIGRATION.10673 12777 Information not available 10/17/2022 Are You Deaf Or Do You Have Serious Difficulty Hearing? Yes MIGRATION.01080 01119 Information not available 10/17/2022 What Type Of Diet Are You Following? REGULAR MIGRATION.52368 86896 Information not available 10/17/2022 Which Illicit Or Recreational Drugs Have You Used? No MIGRATION.70129 28961 Information not available 10/17/2022 Do You Or Have You Ever Used E-cigarettes Or Vape? Never Used Electronic Cigarettes MIGRATION.99704 40307 Information not available 10/17/2022 What Is Your Occupation? Retired MIGRATION.70168 71479 Information not available 10/17/2022 Have There Been Any Changes To Your Family Or Social Situation? No MIGRATION.61445 98074 Information not available 10/17/2022 Are There Any Guns Present In Your Home? No MIGRATION.99690 25157 Information not available 10/17/2022 Do You Use Insect Repellent Routinely? No MIGRATION.72505 60753 Information not available 10/17/2022 Where Do You Live? [place] MIGRATION.96223 77147 Information not available 10/17/2022 Do You Have A Medical Power Of Network Support Analyst? Yes MIGRATION.25495 45160 Information not available 10/17/2022 What Was The Date Of Your Most Recent Tobacco Screening? 06/26/2023 Information not available 06/26/2023 Do You Have Any Pets? No MIGRATION.25066 49868 Information not available 10/17/2022 Do You Have Smoke And Carbon Monoxide Detectors In Your Home? Yes MIGRATION.93929 02654 Information not available 10/17/2022 Are You Passively Exposed To Smoke? No MIGRATION.36941 16856 Information not available 10/17/2022 Do You Or Have You Ever Used Smokeless Tobacco? Never Used Smokeless Tobacco MIGRATION.24153 00176 Information not available 10/17/2022 Are There Any Smokers In Your House? No MIGRATION.51544 37152 Information not available 10/17/2022 How Much Tobacco Do You Smoke? No MIGRATION.77602 17136 Information not available 10/17/2022 What Types Of Sporting Activities Do You Participate In? Goes [facility] MIGRATION.70802 12540 Information not available 10/17/2022 Do You Feel Stressed (tense, Restless, Nervous, Or Anxious, Or Unable To Sleep At Night)? [id number] MIGRATION.12098 97003 Information not available 10/17/2022 Do You Use Any Illicit Or Recreational Drugs? No MIGRATION.44930 92415 Information not available 10/17/2022 Do You Use Sunscreen Routinely? Yes MIGRATION.39706 28766 Information not available 10/17/2022 Has Tobacco Cessation Counseling Been Provided? No MIGRATION.38373 73936 Information not available 10/17/2022 Have You Recently Traveled Abroad? No MIGRATION.25962 49629 Information not available 10/17/2022 Are You Currently In School? No MIGRATION.50944 23562 Information not available 10/17/2022 Do You Have Any Dietary Restrictions? No MIGRATION.92454 33401 Information not available 10/17/2022 Do You Or Have You Ever Used Any Other Forms Of Tobacco Or Nicotine? No MIGRATION.43611 58241 Information not available 10/17/2022 Sex: Unknown Functional Status Question Answer Note LastModified by Organizat [employer] Details LastModified Time Do you have difficulty walking or climbing stairs? No MIGRATION.[id number] 026 Information not available 10/17/2022 Do you have transportation difficulties? No MIGRATION.1186415 026 Information not available 10/17/2022 Are you able to walk? [place]WOREST MIGRATION.7507830 026 Information not available 10/17/2022 Do you have difficulty doing errands alone? No MIGRATION.6321463 026 Information not available 10/17/2022 Are you able to care for yourself? Yes MIGRATION.7088054 026 Information not available 10/17/2022 Do you have difficulty dressing or bathing? No MIGRATION.0625709 026 Information not available 10/17/2022 What is your exercise level? Moderate MIGRATION.1453319 026 Information not available 10/17/2022 Mental Status Question Answer Note LastModified by Organizat ion Details LastModified Time Do you have difficulty concentrating, remembering or making decisions? No MIGRATION.[id number] 6 Information not available 10/17/2022 Family History Relationship Description Onset Age of this Age Resolved Age Notes LastModified by Organization Details LastModified Time Father Family history of malignant neoplasm 61 colon and lung [id number] Not available 10/17/2022 23:02:53 Mother Family history of malignant neoplasm 66 pancre atic [id number] Not available 10/17/2022 23:02:53 Brother Cerebrovascu lar accident [id number] Not available 10/17/2022 23:02:53 Brother Aneurysm 56 brain- caused cva [id number] Not available 10/17/2022 23:02:53 Medical History No medical history recorded. Gynecological History Statement/Question Response How many live births 0 Date of Last Mammogram 01/25/2021 Date of Last Colonoscopy Most Recent Bone Density Date of LMP Sexually Active? N STIs/STDs N Current Control Method Menopause Breast Problems no Discharge no Obstetrics History GPAL:G 0 P 0 0 0 0 Immunizations Vaccine Type Date Status Note Provider Nam e and Address Organization Details Recorded Time COVID-19, mRNA, LNP-S, PF, 30 mcg/0.3 mL dose 10/09/2021 completed Not Available [facility] 3 23:04:15 COVID-19 PS Non-US Vaccine (EpiVacCorona ) 03/24/2021 completed Not Available [facility] 3 23:04:16 COVID-19 PS Non-US Vaccine (EpiVacCorona ) 03/03/2021 completed Not Available [facility] 3 23:04:16 Influenza, high-dose, quadrivalent, PF 06/22/2022 completed Not Available [facility] 3 23:04:16 Influenza, high-dose, quadrivalent, PF 06/13/2021 completed Not Available [facility] 3 23:04:16 Past Encounters Encounter ID Performer Location Encounter Start Date Encounter Closed Date Diagnosis/Indication Diagnosis SNOMED-CT Code Diagnosis ICD10 Code Diagnosis Note [id number] [facility] [place] [address] [place] [address] 01/12/2021 00:00:00 01/12/2021 19:47:44 [id number] [facility] [place] [address] [place] [address] 02/09/2021 00:00:00 02/09/2021 15:33:59 [id number] [facility] [place] [address] [place] [address] 03/08/2021 00:00:00 03/10/2021 09:16:50 [id number] [facility] [place] [address] [place] [address] 03/17/2021 00:00:00 03/17/2021 12:53:48 [id number] [facility] [place] [address] [place] [address] 04/19/2021 00:00:00 04/19/2021 10:32:37 [id number] [facility] [place] [address] [place] [address] 06/13/2021 00:00:00 06/13/2021 17:06:13 [id number] [facility] [place] [address] [place] [address] 10/17/2021 00:00:00 10/17/2021 10:17:24 [id number] [facility] [place] [address] [place] [address] 11/14/2021 00:00:00 11/14/2021 11:01:21 [id number] [facility] [place] [address] [place] [address] 12/01/2021 00:00:00 12/01/2021 18:14:52 [id number] [facility] [place] [address] [place] [address] 12/13/2021 00:00:00 12/13/2021 09:29:56 [id number] [facility] [place] [address] [place] [address] 02/07/2022 00:00:00 02/07/2022 16:41:38 [id number] [facility] [place] [address] [place] [address] 03/14/2022 00:00:00 03/15/2022 12:44:19 [id number] [facility] [place] [address] [place] [address] 05/07/2022 00:00:00 05/07/2022 11:45:17 [id number] [facility] [place] [address] [place] [address] 06/22/2022 00:00:00 07/17/2022 17:07:12 [id number] [facility] [place] [address] [place] [address] 06/25/2022 00:00:00 06/25/2022 10:51:13 [id number] [facility] Primary Care Alexia thomason [address] [facility] [address] [place] [address] 08/28/2022 00:00:00 08/28/2022 09:23:13 [id number] Sravanthi Hinton MD [facility] Primary Care Michele willian [address] [facility] [address] [place] [address] 12/24/2022 10:18:09 12/24/2022 10:53:44 Atrial fibrillation 39463734 I48.91 Z79.899 stable Chronic ob structive pulmonary disease 90167177 J44.9 stable Vitamin D deficiency 347 96528 E55.9 Cobalamin deficiency 190 302663 E53.8 Iron deficiency 22369893 E61.1 [id number] DOC Dias [facility] Primary Care [place] [address] [facility] [address] [place] [address] 02/13/2023 16:25:13 02/13/2023 17:11:06 Essential hypertension 46799596 I10 Not well controlled Asymptomat ic at this timeEncour aged pt to increase water intake, reduce caffeine intake, exercise regularly, decrease/e liminate sodium intake, work on weight loss and stress reductionW ill continue to monitor closelyDis continue metoprolol as it is not as effective in managing bps.Start carvedilol 6.25mg BID Atrial fibrillation 4943 6004 I48.91 Chronic, stableDisc ussed importance of controllin g BP, minimizing EtOH, and exercising regularly. Advised patient to seek medical attention for palpitatio ns, chest pain, dizziness or syncope, SOB, or any other new or concerning symptoms. Patient on {{beta-blo cker antia rrhythmic warfarin b eta-blocke r + antiarrhyt hmic beta- pippa + warfarin a ntiarrhyth king + warfarin b eta-blocke r + antiarrhyt hmic + warfarin b eta-blocke r + xarelto#}} .Samples given. Acute sinusitis 32324026 J01.90 --Ear Pain/Sinus Congestion -encourage d warm compresses to face/jawli ne to promote drainage. Ok to take otc pain relievers per package instructio ns to reduce discomfort . Continue/s tart nasal spray otc anti-hista mines per package instructio ns.Will give course of steroids. [id number] NAVID River [facility] Primary Care [facility] [address] [facility] [address] [place] [address] 02/22/2023 09:52:31 02/22/2023 10:45:40 [id number] DOC Dias [facility] Primary Care [facility] [address] [facility] [address] [place] [address] 03/14/2023 10:15:25 03/14/2023 13:56:08 Diverticulosis of colon 961580589 K57.30 New problemRev iewed ER note from Dr. Dupree (03/12/23) indicating diverticul osis w/o diverticul itis.Discu ssed bland diet, avoid seeds, nuts and high fiber foots. increase fluids, handout given. If pain worsens, develops fever, vomiting should RTC or go to the ER for further evaluation . Pt voices understand ing.Althou gh imaging neg for diverticul itis, pt still having some pain sx. Advised to complete ciprofloxa neil and metronidaz ole as directed. Essential hypertension 00576028 I10 Improved, but not to goalReview ed pts bp log (see scanned documentat ion). Bps noticeably improved from last visit.Asym ptomatic at this timeEncour aged pt to increase water intake, reduce caffeine intake, exercise regularly, decrease/e liminate sodium intake, work on weight loss and stress reductionW ill continue to monitor closely, pt to track bps at home.Disco ntinued metoprolol as it is not as effective in managing bps.Contin ue carvedilol 6.25mg BID [id number] Sravanthi Hinton MD [facility] Primary Care [facility] [address] [facility] [address] [place] [address] 06/26/2023 10:15:32 06/26/2023 11:35:38 Adult health examination 703905295 Z00.00 Colonoscop y 05/13/23-po lyps repeat 3-[address] Mercedes gustafson is scheduled for A orderedFlu vaccine todayRecom mend RSV, covid vaccine and shingles vaccine seriesPneu monia vaccines completed per patient recordLabs up to date Screening for disorder 088316659 Z13.9 Postmenopausal state 764 10533 Z78.0 Chronic ob structive pulmonary disease 18743034 J44.[address] Nava Essential hypertension 76252859 I10 stable Hemochromatosis 16730585 6 E83.119 stablerepe at labs in 6 months Polyp of colon 40702561 K63.5 colonoscop y 05/13/23 Dr. Rodriguez tubular adenomarep eat in 3-5 years per his note Atrial fibrillation 4943 6004 I48.91 stablesees cardiology [id number] FER Huitron [facility] Primary Care [place] [address] [employer] [facility] [address] [place] [address] 10/31/2023 15:47:52 10/31/2023 16:44:57 Low back pain 444815991 M54.50 -new issue, to left low back-pain rated at 5/10, can go up to 10/10 later in the day-F/u in the ER x2, was given muscle relaxers (uses occ)-ROM and strength are intact some pain-numbn ess and tingling to left hip-PT referral given Abdominal discomfort 433 87043 R10.9 -noted since August, LLQ/superi or lateral L hip-no specific incident that coused discomfort -she questions whether she has a hernia or not, non currently papable on exam-has not affected diet-bowel and bladder are wnl-US abdomen ordered [id number] FER Huitron [facility] Primary Care [facility] [address] [facility] [address] [facility] [place] [address] 12/11/2023 08:55:39 12/11/2023 09:42:52 Low back pain 089762352 M54.50 12-11-23-pt doing PT BID, seems to be improving conditions -no further treatment needed 10-31-23-ne w issue, to left low back-pain rated at 5/10, can go up to 10/10 later in the day-F/u in the ER x2, was given muscle relaxers (uses occ)-ROM and strength are intact some pain-numbn ess and tingling to left hip-PT referral given Abdominal discomfort 433 88884 R10.9 12-11-23-US reviewed-n egative-no further interventi on needed 10-31-23-no samaria since August, LLQ/superi or lateral L hip-no specific incident that coused discomfort -she questions whether she has a hernia or not, non currently papable on exam-has not affected diet-bowel and bladder are wnl-US abdomen ordered Essential hypertension 19034642 I10 -pt recently noted high bp at PT (feeling dizzy)-F/u with the ER yesterday dt feeling dizzy, bp noted to be in the 190s-was given hydralazin e while in the ER, improvemen t noted-uses 32oz container for water, drinks 3 per day-does not drink coffee/caf feine products-h ydralazine 25mg given-refi ll carvedilol given Atrial fibrillation 4943 6004 I48.91 -refill xarelto given Vertigo 148241060 R42 -refill meclizine given Health Concerns Section Related Observation LastModified by Organization Detai ls LastModified Time None Recorded Concern Status LastModified by Organization Details LastModified Time None Recorded Advance Directives Directive Y: Payers Encounter Date Sequence Insurance Name Policy Number Policy Allen Covered Member ID Allen Member ID Guarantor Name 02/22/2023 1 [employer] (MEDICARE REPLACEMENT HMO[place] [id number] Jillian Lang Luis A [id number] Jillian Rickey Luis A 03/14/2023 1 [employer] (MEDICARE REPLACEMENT HMO) [id number] Jillian Celison [id number] Jillian Rickey Gunn 06/26/2023 1 [employer] (MEDICARE REPLACEMENT HMO) [id number] Jillian Rickey Gunn [id number] Jillian Rickey Luis A 10/31/2023 1 [employer] (MEDICARE RE[place]AC[place] [id number] Jillian Lang Gunn [id number] Jillian Rickey Luis A 12/11/2023 1 [employer] (MEDICARE REPLACEMENT HMO) [id number] Jillian Rickey Gunn [id number] Jillian Gunn Notes Date Note Type Note Provider Name and Address Organization Details Recorded Time 03/14/2023 text/html 1. Pt in office for ER f/u appt. Pt states she went to ER on with a severe stomach ache. States she had several BMs that day and they were all bloody. Pt states they did a CT scan and found diverticular disease. States she was told to cut back on nuts/seeds/corn. Did not receive any meds b/c she already had f/u scheduled.2. Pt also needs to f/u on elevated bp. Pt states bp is improving with medication change. States she has been tracking them at home. Reports family member (who is a nurse) has been doing orthostatic pressures on her over the past few weeks. DOC Dias [address], [place], [address], [employer] 03/14/2023 13:59:44 10/31/2023 text/html Pt was recently in the hospital for low back pain FER Huitron [address], [place], [address], [employer] 10/31/2023 17:12:11 12/11/2023 text/html pt is here for f/u FER Alston [address], [place], [address], [employer] 12/11/2023 09:29:14 OBGyn Episode No OBEpisode recorded.
--- OUTSIDE RECORDS SUMMARY | 2024-12-02 07:10 | XMS_ITS | Referral Summary ---
Author Organization [facility] Address [address] [place] [address] Care Team Providers Care Bullion Weigher Name Role Phone Antonietta Lopez DO Primary Care Provider +1- [phone] Allergies Active Allergy Reactions Criticality Noted Date [...] without diagnosis of hypertension 06/08/2019 Dizziness 06/08/2019 Social History Tobacco Use Types Packs/Day Years Used Date Smoking Tobacco: Never Smokeless Tobacco: Never Tobacco Cessation:Counseling Given: Not Answered Comments Unknown Sex and Gender Information Value Date Recorded Sex Assigned at Not on file Legal Sex Female 8:38 PM POCKET CUTTER Gender Identity Not on file Sexual Orientation Not on file Last Filed Vital Signs Vital Sign Reading Time Taken Comments Blood Pressure 120/80 07/21/2024 10:24 AM POCKET CUTTER Pulse 60 07/21/2024 10:24 AM POCKET CUTTER Temperature - - Respiratory Rate - - Oxygen Saturation 99% 07/21/2024 10:24 AM POCKET CUTTER Inhaled Oxygen Concentration - - Weight 82.3 kg (181 lb 8 oz) 07/21/2024 10:24 AM POCKET CUTTER Height 170.2 cm (5' 7 ) 07/21/2024 10:24 AM POCKET CUTTER Body Mass Index 28.43 07/21/2024 10:24 AM POCKET CUTTER Plan of Treatment Not on file Insurance MEDICARE [facility] MEDICARE [facility] AETNA MEDICARE GOLD AETNA MEDICARE GOLD [facility] MEDICARE Address: [facility] [address] [place] [address] Care Teams Bullion Weigher Relationship Specialty Start Date End Date Antonietta Lopez DO [facility] [address] MELLO [address] [place] [address] PCP - General Family Medicine 12/31/23
[2024-12-02 07:43] LABS: Hematocrit 39.3 % (37.0-47.0); Hemoglobin 12.8 g/dL (12.0-15.0); Mean Corpuscular HGB Conc 32.6 g/dl (32-36); Mean Corpuscular Hemoglobin 32.2 pg (26-34); Mean Platelet Volume 9.5 fl (7.4-10.4); Platelet Count Result 231 k/mm3 (150-375); Red Blood Count 3.97 M/mm3 (4.2-5.4); Red Cell Distribution Width 12.8 % (11.5-14.5); White Blood Count 4.9 K/mm3 (4.5-10.0)
[2024-12-02 08:15] LABS: Alanine Aminotransferase 15 U/L (6-35); Albumin Level 4.1 g/dL (3.5-5.1); Alkaline Phosphatase 58 U/L (38-126); Anion Gap 8 mmol/L (4-12); Aspartate Amino Transferase 25 U/L (14-36); Bilirubin,Total 0.9 mg/dL (0.2-1.3); Blood Urea Nitrogen 20 mg/dL (7-17); Carbon Dioxide 27 mmol/L (22-30); Chloride 105 mmol/L (98-107); Cholesterol 197 mg/dL (0-200); Estimated Glomerular Filt Rate 48; Glucose 100 mg/dL (65-110); HDL Direct 80 mg/dL; Potassium 3.9 mmol/L (3.4-5.0); Sodium 140 mmol/L (137-145); Triglycerides 94 mg/dL (<150)
[2024-12-02 08:16] LABS: Iron 196 ug/dL (37-170)
[2024-12-02 08:26] LABS: LDL Cholesterol Direct 81 mg/dL
[2024-12-02 08:27] LABS: Percent Iron Saturation 90 % (20-50)
== END 2024-12-02 07:07 | disposition home or self-care (01) ==
PROVIDERS: PCP Family Medicine; Visit Provider Family Medicine
DX: E66.3 Overweight (principal); E83.119 Hemochromatosis, unspecified; I10 Essential (primary) hypertension; D64.9 Anemia, unspecified; Z79.899 Other long term (current) drug therapy
CPT/HCPCS: 36415; 80053; 80061; 82728; 83540; 83550; 84443; 85027

== ENCOUNTER 2024-12-31 14:18 | Outpatient (CLI) | payer MEDICARE, SELFPAY ==
--- OUTSIDE RECORDS SUMMARY | 2024-12-31 14:22 | XMS_ITS | Clinical Summary ---
Author Organization [facility] Luc Fisher Address [address] [place] [address] Care Team Providers Care Insurance Specialist Name Role Phone Antonietta Lopez Primary Care Provider +1- [phone] Allergies Active Allergy Reactions Criticality Noted Date Comments Latex, Natural Rubber Rash Medium 05/22/2016 Sulfa (Sulfonamide Antibiotics) Rash Medium 11/2015 Medications rivaroxaban (Xarelto) 20 mg Tablet Take 20 mg by mouth daily with supper. Active flecainide (TAMBOCOR) 100 mg tablet Take 100 mg by mouth 2 times daily. 5 Active meclizine (ANTIVERT) 25 mg tablet Take 25 mg by mouth 3 times daily as needed for Dizziness. Active carvediloL (COREG) 6.25 mg tablet Take 6.25 mg by mouth 2 times daily. 3 Active umeclidinium-v ilanteroL (Anoro Ellipta) 62.5-25 mcg/actuation Disk with Device Take 1 Puff by inhalation daily. Active alendronate (FOSAMAX) 70 mg tablet Take 70 mg by mouth see administration instructions. 5 Active cyanocobalamin 1,000 mcg Tablet Take 1,000 mcg by mouth daily. Active calcium as CARBONATE-susan min D3 600 mg-200 unit Capsule Take by mouth daily. Active metroNIDAZOLE (METROGEL) 1 % Gel Apply to affected area. 5 Active fluconazole (DIFLUCAN) 150 mg tablet Take 150 mg by mouth every 7 days. 5 Active albuterol sulfate HFA 90 mcg/actuation aerosol inhaler 2 Puffs by See Admin Instructions route see administration instructions. Active Zinc Acetate, Oral, 50 mg (zinc) Capsule Take 50 mg by mouth daily. Active ELDERBERRY FRUIT ORAL Take by mouth daily. Active ascorbic acid, vitamin C, (VITAMIN C) 1,000 mg Tablet Take 1,000 mg by mouth daily. Active Active Problems No known active problems Encounters Date Type Department Care Team Description 12/31/2024 1:30 PM CDT Office Visit [facility] Oncology and Hematology - [place] [address] [place] [address] Vidal Ayoub MD Hereditary hemochromatosis (Primary Dx) from Last 3 Months Family History Medical History Relation Name Comments Brain Cancer Father Colon Cancer Father Lung Cancer Father Pancreatic Cancer Mother Diabetes Sister Relation Name Status Comments Father Mother Sister Alive Social History Tobacco Use Types Packs/Day Years Used Date Smoking Tobacco: Never Smokeless Tobacco: Never Alcohol Use Standard Drinks/Week Comments Yes 0 (1 standard drink = 0.6 oz pur e alcohol) occasional Comments Unknown Sex and Gender Information Value Date Recorded Sex Assigned at Not on file Legal Sex Female 8:21 AM CDT Gender Identity Not on file Sexual Orientation Not on file Last Filed Vital Signs Vital Sign Reading Time Taken Comments Blood Pressure 132/84 12/31/2024 1:46 PM CDT Pulse 86 12/31/2024 1:46 PM CDT Temperature 35.7 C (96.3 F) 12/31/2024 1:46 PM CDT Respiratory Rate 15 12/31/2024 1:46 PM CDT Oxygen Saturation 96% 12/31/2024 1:46 PM CDT Inhaled Oxygen Concentration - - Weight 80.6 kg (177 lb 9.6 oz) 12/31/2024 1:46 P M CDT Height 170.2 cm (5' 7 ) 12/31/2024 1:46 PM CDT Body Mass Index 27.82 12/31/2024 1:46 PM CDT Plan of Treatment Upcoming Encounters Date Type Department Care Team (Late st Contact Info) Description 01/07/2025 4:30 PM CDT Telephone Check Up [facility] Oncology and Hematology [facility] [address] [place] [address] Vidal Ayoub MD [address] [facility] [address] [place] [address] Health Maintenance Due Date Last Done Comments DTAP/TDAP/TD VACCINES (1 - Tdap) 11/19/1967 ZOSTER VACCINE (1 of 2) 1998 OSTEOPOROSIS SCREENING 2013 RSV VACCINE (60+ or ) (1 - 1-dose 75+ series) 11/19/2023 INFLUENZA VACCINE (#1) 2024 05/23/2020 Medicare Advantage ([place]) Prev entative Visit/Annual Wellness Visit 08/19/2024 PNEUMOCOCCAL VACCINE 50+ YEARS Completed 08/14/2017 , 04/06/2014 Insurance AENA O MCR Care Teams Insurance Specialist Relationship Specialty Start Date End Date Antonietta Lopez DO [address] [facility] [address] [place] [address] PCP - General Family Practice 12/31/24
--- OUTSIDE RECORDS SUMMARY | 2024-12-31 14:22 | XMS_ITS | Encounter Summary ---
Author Organization [facility] NIGHAT Goddard [facility] Address [address] [place] [address] Care Team Providers Care Cinnamon Grinder Name Role Phone Antonietta Lopez Primary Care Provider +1- [phone] Reason for Referral * Laboratory Services (Routine) - Open Specialty Diagnoses / Procedures Referred By Contac t Referred To Contact Diagnoses Hereditary hemochromatosis Procedures HEMOCHROMATOSIS GENOTYPE Vidal Ayoub MD [address] [place] [address] Phone: tel: fax: Referral ID Status Reason Start Date Expiration Date Visits Re quested Visits Authorized [id number] Open 12/31/2024 01/31/2026 1 1 Encounter Details Date Type Department Care Team (Late st Contact Info) Description 12/31/2024 1:30 PM CDT Office Visit [facility] Oncology and Hematology - [place] [facility] Natalia Choudhury [address] [address] Vidal Ayoub MD [address] [place] [address] Hereditary hemochromatosis (Primary Dx) Social History Tobacco Use Types Packs/Day Years Used Date Smoking Tobacco: Never Smokeless Tobacco: Never Alcohol Use Standard Drinks/Week Comments Yes 0 (1 standard drink = 0.6 oz pur e alcohol) occasional Comments Unknown Sex and Gender Information Value Date Recorded Sex Assigned at Not on file Legal Sex Female 8:21 AM CDT Gender Identity Not on file Sexual Orientation Not on file documented as of this encounter Last Filed Vital Signs Vital Sign Reading [...] Mass Index 27.82 12/31/2024 1:46 PM CDT documented in this encounter Plan of Treatment Upcoming Encounters Date Type Department Care Team (Late st Contact Info) Description 01/07/2025 4:30 PM CDT Telephone Check Up [facility] and [facility]ology - [place] [address] [facility] [address] [place] [address] Vidal Ayoub MD [address] [facility] [address] [place] [address] Scheduled Orders Name Type Priority Associated Diagnoses Orde r Schedule CBC WITH DIFFERENTIAL Lab Stat Hereditary hemochromatosis Expected: 12/31/2024, Expires: 12/31/2025 COMPREHENSIVE METABOLIC PANEL Lab Stat Hereditary hemochromatosis Expected: 12/31/2024, Expires: 12/31/2025 FERRITIN Lab Routine Hereditary hemochromatosis Expected: 12/31/2024, Expires: 12/31/2025 IRON, TIBC, AND PERCENT SATURATION Lab Routine Hereditary hemochromatosis Expected: 12/31/2024, Expires: 12/31/2025 HEMOCHROMATOSIS GENOTYPE Lab Routine Hereditary hemochromatosis Ordered: 12/31/2024 documented as of this encounter Visit Diagnoses Diagnosis Hereditary hemochromatosis- Primary documented in this encounter Care Teams Cinnamon Grinder Relationship Specialty Start Date End Date Antonietta Lopez DO [address] [place] [address] [address] [place] [address] PCP - General Family Practice 12/31/24 documented as of this encounter
--- OUTSIDE RECORDS SUMMARY | 2024-12-31 14:22 | XMS_ITS | Clinical Summary ---
Author Organization [facility] Address [address] [place] [address] Care Team Providers Care Creative Intern Name Role Phone Antonietta Lopez DO Primary Care Provider +1- [phone] Allergies Active Allergy Reactions Criticality Noted Date Comments Latex, Natural Rubber Rash Medium 05/22/2016 Sulfa (Sulfonamide Antibiotics) Rash Medium 11/2015 Medications loratadine (CLARITIN) 10 mg tablet Take 1 tablet (10 mg total) by mouth daily as needed Active rivaroxaban (XARELTO) 20 mg tablet Take 1 tablet (20 mg total) by mouth daily 11/18/19 19 Active acetaminophen 500 mg capsule Take by mouth as needed Active meclizine (ANTIVERT) 25 mg tablet Take 1 tablet (25 mg total) by mouth 3 (three) times a day as needed for dizziness Active multivitamin capsule Take 1 capsule by mouth daily Active albuterol HFA (PROVENTIL HFA,VENTOLIN HFA,PROAIR HFA) 90 mcg/actuation inhaler 05/20/20 22 Active Anoro Ellipta 62.5-25 mcg/actuation blister with device 05/21/20 22 Active cetirizine (ZyrTEC) 10 mg tablet Take 1 tablet (10 mg total) by mouth daily Active carvediloL (COREG) 6.25 mg tablet Take 1 tablet (6.25 mg total) by mouth 2 (two) times a day with meals 04/29/20 23 Active hydrOXYzine (ATARAX) 25 mg tablet Take 1 tablet (25 mg total) by mouth Active ascorbic acid, vitamin C, (ascorbic acid) 250 mg tablet,chewabl e Vitamin C 06/13/20 21 Active ELDERBERRY FRUIT ORAL Take by mouth Activ e flecainide (TAMBOCOR) 100 mg tablet Take 1 tablet by mouth twice daily 180 tablet 12/29/19 25 Active flecainide (TAMBOCOR) 100 mg tablet Take 1 tablet by mouth twice daily 180 tablet 09/15/19 25 025 Discontinued Active Problems Problem Noted Date Diagnosed Date [...] diagnosis of hyperte nsion Guillain Calvert syndrome 1990 Vertigo Family History Medical History Relation Name [...] on file Legal Sex Female 8:38 PM SUPERVISOR WOOD CREW Gender Identity Not on file Sexual Orientation Not on file Obstetrics History Last Filed Vital Signs Vital Sign Reading Time Taken Comments Blood Pressure 120/80 07/21/2024 10:24 AM SUPERVISOR WOOD CREW Pulse 60 07/21/2024 10:24 AM SUPERVISOR WOOD CREW Temperature - - Respiratory Rate - - Oxygen Saturation 99% 07/21/2024 10:24 AM SUPERVISOR WOOD CREW Inhaled Oxygen Concentration - - Weight 82.3 kg (181 lb 8 oz) 07/21/2024 10:24 AM SUPERVISOR WOOD CREW Height 170.2 cm (5' 7 ) 07/21/2024 10:24 AM SUPERVISOR WOOD CREW Body Mass Index 28.43 07/21/2024 10:24 AM SUPERVISOR WOOD CREW Plan of Treatment Health Maintenance Due Date [...] vaccine 65+ Completed 08/14/2017, 03/19 Insurance MEDICARE [facility] MEDICARE [facility] [place] [address] [facility]LY [facility] MEDICARE [facility] AET MEDICARE [facility] Care Teams Creative Intern Relationship Specialty Start Date End Date Antonietta Lopez DO [address] [place] [address] [place] [address] PCP - General Family Medicine 12/31/23
--- OUTSIDE RECORDS SUMMARY | 2024-12-31 14:22 | XMS_ITS | Referral Summary ---
Author Organization [facility] Address [address] [place] [address] Care Team Providers Care Pastoral Assistant Name Role Phone Antonietta Lopez DO Primary Care Provider [phone] Allergies Active Allergy Reactions Criticality Noted Date [...] on file Legal Sex Female 8:38 PM [employer] Gender Identity Not on file Sexual Orientation Not on file Last Filed Vital Signs Vital Sign Reading Time Taken Comments Blood Pressure 120/80 07/21/2024 10:24 AM [employer] Pulse 60 07/21/2024 10:24 AM [employer] Temperature - - Respiratory Rate - - Oxygen Saturation 99% 07/21/2024 10:24 AM [employer] Inhaled Oxygen Concentration - - Weight 82.3 kg (181 lb 8 oz) 07/21/2024 10:24 AM [employer] Height 170.2 cm (5' 7 ) 07/21/2024 10:24 AM [employer] Body Mass Index 28.43 07/21/2024 10:24 AM [employer] Plan of Treatment Not on file Insurance MEDICARE [facility] MEDICARE [facility] [employer] MEDICARE [employer] [facility] Address: [address] [place] [address] Care Teams Pastoral Assistant Relationship Specialty Start Date End Date Antonietta Lopez DO [facility] [address] [address] PCP - General Family Medicine 12/31/23
--- OUTSIDE RECORDS SUMMARY | 2024-12-31 14:23 | XMS_ITS | Data Portability ---
Author Organization [facility], Main Office Address [address] [place] [address] Assessment No assessment recorded. Plan of Treatment Reminders Order Date Submit Date Provider Last Modified By Organization Details Last Modified Time Details Appointments None recorded. Lab None recorded. Referral physical therapist referral - *Please call pt to schedule* [email or web address] [facility] [address], [place], [address], 4 10:02:43 gastroenter ologist referral 2022 023 [email or web address] 3 Enrique Rodriguez MD, [address] [facility] [address], [place], [address], 3 08:06:57 Procedures None recorded. Surgeries None recorded. Imaging US, abdomen, complete [email or web address], [address], [place], [address], 4 09:04:40 DEXA - *Please call pt to schedule* [email or web address], [address], [place], [address], 3 16:37:28 Medication Orders meclizine 25 mg tablet 2023 024 MONET Ge [facility] [address], [address] , [place], [address], 4 09:27:14 Xarelto 20 mg tablet 2023 024 [email or web address] [facility] [address], [address], [place], [address], 4 09:27:07 hydralazine 25 mg tablet 2023 024 [facility] [address], [address], [place], [address], 4 09:27:15 carvedilol 6.25 mg tablet 2023 024 [facility] [address], [address], [place], [address], 4 09:27:13 Flagyl 500 mg tablet 2022 023 [facility] [address], [address], [place], [address], 3 10:45:13 ciprofloxac in 500 mg tablet 2022 023 [facility] [address], [address], [place], [address], 3 10:45:12 Patient TargetsNo targets recorded. Patient Instructions Encounter Date Encounter Id Patient Instructions Last Modified By Organization Details Last Modified Time 06/26/2023 [id number] dementia rating scale-2* Not available 06/26/2023 11:49:02 multi-dimensiona l health assessment questionnaire* [email or web address] Not available 06/26/2023 11:49:06 care plan* [email or web address] Not available 06/26 11:49:09 advance directiv es: care instructions Not available 06/26/2023 10:44:38 advance care planning: care instructions Not available 06/26/2023 10:44:38 [place] Advance Directives Not available 06/26/2023 10:44:38 Personalized [facility] Plan and Screening Recommendations Advance Directives - [...] Screening: Active diagnosis, Continue current treatment plan [email or web address] Not available 06/26/2023 10:47:05 Reason for Referral Director Of Math Referral for Diverticulosis of colon Referring Physician: [...] contr ast No observ ation record ed. [address], [address], 03/13/2023 07:56:02 05/14/2005/14/2023 XR, knee No observ ation record ed. [address], [address], 05/15/2023 08:29:34 05/14/20 23 05/14/2023 XR, ankle No observ ation record ed. [address] [facility], [place], [address], 05/15/2023 15:17:34 05/14/20 23 05/14/2023 CT, brain , w/o contr ast No observ ation record ed. [address] [facility], [place], [address], 05/15/2023 08:33:26 09/09/19 24 09/07/2023 MAMMO , scree cira, digit al, bilat eral No observ ation record ed. [address] [address], [place], [address], 12/29/2023 15:31:11 09/16/19 24 09/16/2023 XR, chest No observ ation record ed. [address] [address], [place], [address], 09/17/2023 07:57:05 09/16/19 24 09/16/2023 CT, abdom en + pelvi s, w/o contr ast No observ ation record ed. [address] [facility], [place], [address], 10/02/2023 12:15:03 11/09/19 24 11/08/2023 US, abdom en, compl ete No observ ation record ed. [address] [facility], [place], [address], 11/13/2023 15:54:13 12/11/19 24 12/07/2023 DEXA No observ ation record ed. [address] [address], [place], [address], 01/07/2024 17:02:54 Result Notes None recorded. Problems Name Problem SNOMED Code Status Onset Date Resolution Date Notes Provider Name and Address Organization Details Recorded Time Chronic obstructive pulmonary disease 81074548 Active 2021 Not Available [facility] 3 23:03:20 Rosacea 519579423 Active 2021 Not Available [facility] 3 23:03:20 Hemochromat osis 406029306 Active 2020 Not Available [facility] 3 23:03:20 Takotsubo cardiomyopa thy 083911066 Active 2020 Not Available [facility] 3 23:03:20 Atrial fibrillatio n 14863036 Active 2020 Not Available [facility] 3 23:03:20 Pruritic rash 88794411 Active 2021 Not Available [facility] 3 23:03:20 Polyp of colon 08182408 Active 2020 Tubular adenoma 04/10/21 Not Available [facility] 3 23:03:20 Basal cell carcinoma of skin 784596038 Active 2022 Sravanthi Hinton MD [address], [address], [place], [address] , [facility] 3 08:06:37 Vitamin D deficiency 31571767 Active 2022 Sravanthi Hinton MD [address], [address], [place], [address] , [facility] 3 10:37:40 Cobalamin deficiency 139573049 Active 2022 Sravanthi Hinton MD [address], [address], [place], [address] , [facility] 3 10:37:50 Iron deficiency 56367167 Active 2022 Sravanthi Hinton MD [address], [address], [place], [address] , [facility] 3 10:38:50 Essential hypertensio n 89707251 Active 2022 DOC Dias [address], [address], [place], [address] , [facility] 3 16:53:10 Acute sinusitis 39845379 Active 2022 DOC Dias [address], [address], [place], [address] , [facility] 3 17:00:48 Diverticulo sis of colon 722778377 Active 2022 DOC Dias [address], [address], [place], [address] , [facility] 3 10:35:15 Spasm 51438435 Active 2023 Sravanthi Hinton MD [address], [address], [place], [address] , [facility] 4 15:30:44 Low back pain 434332113 Active 2023 FER Huitron [address], [address], [place], [address] , [facility] 4 16:25:50 Abdominal discomfort 87527509 Active 2023 FER Huitron [address], [address], [place], [address] , [facility] 4 16:35:14 Cyst of kidney 898693406 Active 2023 Sravanthi Hinton MD [address], [address], [place], [address] , [facility] 4 13:44:26 Vertigo 705815087 Active 2023 FER Huitron [address], [address], [place], [address] , [facility] 4 09:25:21 Osteoporosi s 96308477 Active 2023 Sravanthi Hinton MD [address], [address], [place], [address] , [facility] 19:37:35 Problem Notes None recorded. Procedures Surgical History Date Name Laterality Status Provider Name and Address Organization Details Recorded Time 06/26/20 Medicare Wellness CPT Code, subsequent completed Yemi Saldana RN [place] [facility] 06/26/2023 10:19:48 05/13/20 colonoscopy completed Sravanthi Hinton MD [address] [facility], [facility] [address], [place], [address], [facility] [employer] 06/26/2023 10:46:36 04/10/20 21 colonoscopy completed Not Available [facility] [place] [facility] 10/18/19 23:02:53 06/15/19 96 Hysterectomy completed Not Available [facility] 023 23:02:53 extraction of cataract completed Not Available [facility] [place] [facility] 10/17/2022 23:02:53 Imaging Results Imaging Date Name Status LastModified by Organiz ation Details LastModified Time 03/12/2023 CT, angiogram, abdomen + pelvis, w/ contrast completed [address], [address], 03/13/2023 07:56:02 05/14/2023 XR, knee completed [address] [place] [address], [address], 05/15/2023 08:29:34 05/14/2023 XR, ankle completed [email or web address] [address] [place] [address], [address], 05/15/2023 15:17:34 05/14/2023 CT, brain, w/o contrast completed [address], [address], 05/15/2023 08:33:26 09/07/2023 MAMMO, screening, digital, bilateral completed [address], [address], 12/29/2023 15:31:11 09/16/2023 XR, chest completed [facility] [address] [facility] [address] [place] [address], [address], 09/17/2023 07:57:05 09/16/2023 CT, abdomen + pelvis, w/o contrast completed [address], [place], [address], 10/02/2023 12:15:03 11/08/2023 US, abdomen, complete completed [address] [facility] [place] [address], [address], 11/13/2023 15:54:13 12/07/2023 DEXA completed [address] [place] [address], [address], 01/07/2024 17:02:54 Procedure Notes None recorded. Medical Equipment None Reported. Allergies Allergen ID Allergen Name Allergen Category Reaction Reaction Severity Criticality Documentation Date Start Date Code Code System Note Provider Name and Address Organization Details Recorded Time 14748 Substance with sulfonami de structure and antibacte rial mechanism of action (substanc e) medicatio n Not available Not available Not available 10/17/2022 06112 8003 SNOMED Not Available [facility] [place] [facility] 3 23:04:19 [address] Latex (substanc e) environme nt,medica tion Not available Not available Not available 10/17/2022 63155 8007 SNOMED Not Available [facility] [place] [facility] 3 23:04:19 08328 cephalexi n medicatio n other mild low 03/14/2023 2231 RxNorm josi Salgado, ALMOND [employer] FIN[employer] [address] [facility], [facility] [address], [place], [address] , [facility] [employer] 3 10:37:53 Medications Name Sig Start [...] 120 mm[Hg] 82 mm[Hg] Zoila Cardozo RN [facility] [employer] [facility] 3 10:20:04 Date Recorded Body height Body mass index (BMI) Body weight Heart rate Oxygen saturation Oxygen saturation in Arterial blood by Pulse oximetry Body temperature Systolic blood pressure Diastolic blood pressure Provider Name and Address Organization Details Last Updated DateTime 3 170.18 cm 27.9 kg/m2 02010.4 4 g 71 /min 97 % 97 % 97.6 [degF] 140 mm[Hg] 92 mm[Hg] Estefania Corona RN [facility] [employer] [facility] 3 10:24:03 Date Recorded Body height Body mass index (BMI) Body weight Body temperature Heart rate Oxygen saturation Oxygen saturation in Arterial blood by Pulse oximetry Systolic blood pressure Diastolic blood pressure Provider Name and Address Organization Details Last Updated DateTime 3 170.18 cm 28.2 kg/m2 04665.6 3 g 97.5 [degF] 66 /min 96 % 96 % 112 mm[Hg] 78 mm[Hg] Yemi Saldana RN [facility] [employer] [facility] 3 10:23:20 Date Recorded Body height Body mass index (BMI) Body weight Body temperature Heart rate Oxygen saturation Oxygen saturation in Arterial blood by Pulse oximetry Systolic blood pressure Diastolic blood pressure Provider Name and Address Organization Details Last Updated DateTime 4 170.18 cm 28.2 kg/m2 28821.6 3 g 99.7 [degF] 73 /min 97 % 97 % 148 mm[Hg] 88 mm[Hg] Yuliya Mark RN [facility] [employer] [facility] 4 15:54:35 Date Recorded Body height Body mass index (BMI) Body weight Body temperature Heart rate Oxygen saturation Oxygen saturation in Arterial blood by Pulse oximetry Systolic blood pressure Diastolic blood pressure Provider Name and Address Organization Details Last Updated DateTime 4 170.18 cm 27.4 kg/m2 21953.6 6 g 98.5 [degF] 62 /min 97 % 97 % 148 mm[Hg] 84 mm[Hg] Yuliya Mark RN [facility] 4 09:03:15 Social History Question Answer Notes LastModified by Organizat ion Details LastModified Time Tobacco Smoking Status Never Smoker Not Available [employer] 10/17/2022 23:02:35 Do You Have An Advance Directive? Yes MIGRATION.26628 17427 Information not available 10/17/2022 Are You Blind Or Do You Have Difficulty Seeing? No MIGRATION.38640 53281 Information not available 10/17/2022 What Is Your Level Of Caffeine Consumption? Occasional MIGRATION.57321 78262 Information not available 10/17/2022 How Much Tobacco Do You Chew? None MIGRATION.11107 45557 Information not available 10/17/2022 In The 14 Days Before Symptom Onset, Have You Had Close Contact With A Laboratory-confir med COVID-19 While That Case Was Ill? No MIGRATION.87807 72692 Information not available 10/17/2022 In The 14 Days Before Symptom Onset, Have You Had Close Contact With A Person Who Is Under Investigation For COVID-19 While That Person Was Ill? No MIGRATION.44949 53257 Information not available 10/17/2022 Are You Deaf Or Do You Have Serious Difficulty Hearing? Yes MIGRATION.29049 71308 Information not available 10/17/2022 What Type Of Diet Are You Following? REGULAR MIGRATION.42484 36151 Information not available 10/17/2022 Which Illicit Or Recreational Drugs Have You Used? No MIGRATION.02712 55544 Information not available 10/17/2022 Have There Been Any Changes To Your Family Or Social Situation? No MIGRATION.61011 81785 Information not available 10/17/2022 Are There Any Guns Present In Your Home? No MIGRATION.06520 00286 Information not available 10/17/2022 Do You Use Insect Repellent Routinely? No MIGRATION.99137 97991 Information not available 10/17/2022 Where Do You Live? [place] MIGRATION.22602 72563 Information not available 10/17/2022 Do You Have A Medical Power Of Wood Ski Maker? Yes MIGRATION.85423 80478 Information not available 10/17/2022 What Was The Date Of Your Most Recent Tobacco Screening? 06/26/2023 Information not available 06/26/2023 Do You Have Any Pets? No MIGRATION.37573 66916 Information not available 10/17/2022 Do You Have Smoke And Carbon Monoxide Detectors In Your Home? Yes MIGRATION.44618 71326 Information not available 10/17/2022 Are You Passively Exposed To Smoke? No MIGRATION.66089 01253 Information not available 10/17/2022 Are There Any Smokers In Your House? No MIGRATION.96372 76790 Information not available 10/17/2022 How Much Tobacco Do You Smoke? No MIGRATION.41750 70135 Information not available 10/17/2022 What Types Of Sporting Activities Do You Participate In? Goes To [facility] MIGRATION.53137 71348 Information not available 10/17/2022 Do You Use Sunscreen Routinely? Yes MIGRATION.52132 25935 Information not available 10/17/2022 Has Tobacco Cessation Counseling Been Provided? No MIGRATION.40757 57773 Information not available 10/17/2022 Have You Recently Traveled Abroad? No MIGRATION.00524 89826 Information not available 10/17/2022 Do You Have Difficulty Walking Or Climbing Stairs? No MIGRATION.66432 68369 Information not available 10/17/2022 Are You Currently In School? No MIGRATION.07604 60977 Information not available 10/17/2022 Do You Have Any Dietary Restrictions? No MIGRATION.22780 30401 Information not available 10/17/2022 Sex: Unknown Functional Status Question Answer Note LastModified by Organizat ion Details LastModified Time Do you use any illicit or recreational drugs? No MIGRATION.726188 9199 Information not available 10/17/2022 Do you or have you ever used any other forms of tobacco or nicotine? No MIGRATION.477179 1263 Information not available 10/17/2022 What is your level of alcohol consumption? None MIGRATION.675338 8968 Information not available 10/17/2022 Do you or have you ever used smokeless tobacco? Never used smokeless tobacco MIGRATION.840797 0176 Information not available 10/17/2022 Do you have transportation difficulties? No MIGRATION.798530 9536 Information not available 10/17/2022 Are you able to walk? [place]OREST MIGRATION.474242 3048 Information not available 10/17/2022 Do you have difficulty doing errands alone? No MIGRATION.265711 2568 Information not available 10/17/2022 Are you able to care for yourself? Yes MIGRATION.707619 4494 Information not available 10/17/2022 What is your occupation? retired MIGRATION.647992 5759 Information not available 10/17/2022 Do you have difficulty dressing or bathing? No MIGRATION.723548 8358 Information not available 10/17/2022 Do you or have you ever used e-cigarettes or vape? Never used electronic cigarettes MIGRATION.904315 4623 Information not available 10/17/2022 What is your exercise level? Moderate MIGRATION.780953 3856 Information not available 10/17/2022 Mental Status Question Answer Note LastModified by Organizat ion Details LastModified Time Do you feel stressed (tense, restless, nervous, or anxious, or unable to sleep at night)? HS3390-4 MIGRATION.47727647 26 Information not available 10/17/2022 Do you have difficulty concentrating, remembering or making decisions? No MIGRATION.83976989 26 Information not available 10/17/2022 Family History Relationship Description Onset Age of this Age Resolved Age Notes LastModified by Organization Details LastModified Time Father Family history of malignant neoplasm 63 colon and lung MIGRATION.453 [id number] Not available 10/17/2022 23:02:53 Mother Family history of malignant neoplasm 68 pancre atic MIGRATION.309 [id number] Not available 10/17/2022 23:02:53 Brother Cerebrovascu lar accident MIGRATION.857 3392645 Not available 10/17/2022 23:02:53 Brother Aneurysm 56 brain- caused cva MIGRATION.845 7134688 Not available 10/17/2022 23:02:53 Medical History No [...] mcg/0.3 mL dose 10/09/2021 completed Not Available [facility] 23:04:15 COVID-19 PS Non-US Vaccine (EpiVacCorona ) 03/24/2021 completed Not Available [facility] 10/18/19 [id number]|2024-12-31 14:44:00|2024-12-31 14:43:00|XMS_ITS|FERN HORTA|External Medical Summaries|[id number]|" Clinical Summary Created on: December 31, 2024 Collette Sewell : 04/17/1951 Sex: Male Author Organization [facility] Address [facility] [place] [address] Care Team Providers Care Security Incident Response Specialist Name Role Phone Casa Corrigan MD Primary Care Provider Alexandro Dorsey MD Unavailable [phone] Kassandra Palacios NP Unavailable [phone] Sebas Baron MD Unavailable Allergies Active Allergy Reactions Criticality Noted Date Comments Cat Dander Itching 06/18/2016 Simvastatin Myalgias 11/11/2024 Medications aspirin EC 81 MG tabletIndicati ons:Anticoagul ant Therapy Take 1 tablet (81 mg total) by mouth daily. Indications: Anticoagulant Therapy 8 Active vitamin C 1000 MG tabletIndicati ons:Nutritiona l Support Take 1 tablet (1,000 mg total) by mouth daily. Indications: Nutritional Support Active Flaxseed, Linseed, (FLAX SEED OIL) 1000 MG capsuleIndicat ions:Nutrition al Support Take 1,000 mg by mouth daily. Indications: Nutritional Support Active multivitamin tabletIndicati ons:Nutritiona l Support Take 1 tablet by mouth daily. Indications: Nutritional Support Active metFORMIN 1000 MG tabletIndicati ons:Diabetes Mellitus Take 1 tablet (1,000 mg total) by mouth daily with breakfast. Indications: Diabetes 8 Active lisinopril 2.5 MG tablet Take 1 tablet (2.5 mg total) by mouth daily. 90 tablet 3 9 Active dulaglutide (TRULICITY) 3 MG/0.5ML injection Inject 3 mg into the skin once a week. 3 Active gabapentin (NEURONTIN) 600 MG tablet Take 0.5 tablets (300 mg total) by mouth daily. 4 Active Active Problems Problem Noted Date Diagnosed Date Abscess of left index finger 06/13/2024 Erectile dysfunction, unspecified erectile dysfu nction type 11/06/2022 PVD (peripheral vascular disease) with claudicat ion 04/14/2018 CAD (coronary artery disease) Dyslipidemia Essential (primary) hypertension NSTEMI (non-ST elevated myoc ardial infarction) ([facility]) S/P PTCA (percutaneous transluminal coronary ang ioplasty) Overview (06/18/2016): s/p PTCA/stent Resolved Problems Problem Noted Date Diagnosed Date Resolved Date Pre-operative clearance 10/24/202110/17 Encounters Date Type Department Care Team Description 11/11/2024 9:45 AM CDT Office Visit [facility] [address] [place] [address] Kassandra Palacios NP Follow Up 11/11/2024 Telephone [facility] [address] [place] [phone] Kassandra Palacios NP Lab Results; Record Request 11/11/2024 Travel 11/11/2024 Orders Only [facility] [address] [place] [id number] Angela Garcia MD 10/22[facility]2024 [facility] [address] [place] [address] Kassandra Palacios NP Reschedule 10/15/2024 Telephone [facility] field [address] [place] [address] Coco Stanford MD Reschedule from Last 3 Months Immunizations Immunization Administration Dates Next Due PFIZER COVID-19 (ORIGINAL FO RMULATION, PURPLE CAP) mRNA, LNP-S, PF, 30 MCG/0.3 ML DOSE 10/14/2020,09/22/2020 Family History Medical History Relation Comments ALS Father Hypertension Mother Seizures Mother macular degeneration Mother Relation Status Comments Brother Father (Age 73) Mother Alive Sister Alive Social History Tobacco Use Types Packs/Day Years Used Date Smoking Tobacco: Former Cigarettes - 1974 Cigars Smokeless Tobacco: Never Tobacco Cessation:Counseling Given: No Alcohol Use Standard Drinks/Week Comments Yes 0 (1 standard drink = 0.6 oz pur e alcohol) 3 -4 PER WEEK [employer] Answer Date Recorded In the past 12 months has e [employer], gas, oil, or water [employer] threatened to shut off services in your home? No 06/13/2024 Humiliation, Afraid, Rape, and Kick questionnair e Answer Date Recorded Within the last year, have y ou been afraid of your partner or ex-partner? No 06/13/2024 Within the last year, have y ou been humiliated or emotionally abused in other ways by your partner or ex-partner? No Within the last year, have y ou been kicked, hit, slapped, or otherwise physically hurt by your partner or ex-partner? No 06/13/2024 Within the last year, have y ou been raped or forced to have any kind of sexual activity by your partner or ex-partner? No 06/13/2024 Overall Financial Resource Strain (CARDIA) Answe r Date Recorded How hard is it for you to pa y for the very basics like food, housing, medical care, and heating? Not hard at all 06/13/2024 Hunger Vital Sign Answer Date Recorded Within the past 12 months, y ou worried that your food would run out before you got the money to buy more. Never true 06/13/20 24 Within the past 12 months, t he food you bought just didn't last and you didn't have money to get more. Never true 06/13/2024 PRAPARE - Transportation Answer Date Re corded In the past 12 months, has l ack of transportation kept you from medical appointments or from getting medications? No 05/20 In the past 12 months, has l ack of transportation kept you from meetings, work, or from getting things needed for daily living? No 06/13/2024 Housing Stability Vital Sign Answer Igor e Recorded In the last 12 months, was t here a time when you were not able to pay the mortgage or rent on time? No 06/13/2024 In the past 12 months, how m any times have you moved where you were living? 0 06/13/2024 At any time in the past 12 m [facility], were you homeless or living in a care home (including now)? 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 Not on file Not on file Not on file Not on file Not on file Not on file Last Filed Vital Signs Vital Sign Reading Time Taken Comments Blood Pressure 130/74 11/11/2024 9:54 AM CDT Pulse 86 11/11/2024 9:54 AM CDT Temperature 36.5 C (97.7 F) 06/16/2024 8:26 AM CDT Respiratory Rate 18 11/11/2024 9:54 AM CDT Oxygen Saturation 93% 11/11/2024 9:54 AM CDT Inhaled Oxygen Concentration - - Weight 117.5 kg (259 lb) 11/11/2024 9:54 AM CDT Height 182.9 cm (6') 11/11/2024 9:54 AM CDT Body Mass Index 35.13 11/11/2024 9:54 AM CDT Plan of Treatment Upcoming Encounters Date Type Department Care Team (Late st Contact Info) Description 11/11/2025 9:45 AM CDT Office Visit [facility] eld [address] [place] [address] Kassandra Palacios NP [address] [place] [address] Health Maintenance Due Date Last Done Comments Colorectal Cancer Screening Colonoscopy (10 Years) 04/17/1951 Kidney Health Evaluation 04/17/1949 Diabetes: Retinopathy Eye Exam 04/17/1967 Hepatitis C 04/17/1967 DTaP, Tdap and Td Vaccines ( 1 - Tdap) 04/17/1968 Zoster Vaccines (1 of 2) 04/17/1999 AAA SCREENING 04/17/2014 Annual Medicare Wellness Visit 04/17/2014 Pneumococcal Vaccine: 50+ Years (2 of 2 - PPSV23) 08/06/2016 06/11/2016 ASCVD LDL 12/18/2023 12/17/2022, 07/15/2017, 04/15/2013 Lipid Panel 12/18/2023 12/17/2022, 04/15/2013 RSV Immunization or 60+ Years (1 - 1-dose 75+ series) 04/17/2024 COVID-19 Vaccine (3 - 2023-2 5 season) 2024 10/14/2020, 09/22/2020 Hemoglobin A1C 12/13/2024 06/14/2024 Meningococcal B Vaccine Aged Out No l onger eligible based on patient's age to complete this topic Meningococcal Vaccine Aged Out No david ce eligible based on patient's age to complete this topic RSV Immunizations Under 20 Months Aged Out No longer eligible b ased on patient's age to complete this topic Medical Devices Implanted Type Area Discount Clerk Device Identifier Shelf Expiration Date Model / Serial / Lot Screw Screw Description:Left ankle Stent Stent Description:Heart stent Procedures Procedure Name Priority Date/Time Associated Diagnosis Comments ELECTROCARDIOGRAM (NON MIDMARK ACQUIRED) Routine 11/11/2024 10:00 AM CDT Coronary artery disease involving cahto coronary artery of cahto heart without angina pectoris Essential hypertension Hyperlipidemia, mixed CMP (ABSTRACTED LAB) Routine 11/11/2024 HEMOGLOBIN, GLYCOSYLATED Routine 024 6:16 AM CDT LIPID PANEL Routine 12/17/2022 7:30 AM CDT Fatigue from Last 3 Months or Most Recently Relevant to Health Maintenance Results * ELECTROCARDIOGRAM (11/11/2024 10:00 AM CDT) 11/11/2024 10:0 0 AM CDT Narrative [facility] - 11/11/2024 5:29 PM CDT [facility] [address] [place] [address] Test Date: 2024-11-11 Pat Name: COLLETTE SEWELL Department: 105 Room: Gender: Male Clinical Allergist: [facility] : 1951-04-17 Requested By: ANGELA GARCIA Order Number: [id number] Reading MD: Angela Garcia Measurements Intervals [place] Rate: 86 P: 41 HI: 219 QRS: -13 QRSD: 92 T: 43 QT: 362 QTc: 434 Interpretive Statements SINUS RHYTHM WITH FIRST DEGREE AV BLOCK Procedure Note Angela Garcia MD - 11/11/2024 [facility] [address] [place] [address] Test Date: 2024-11-11 Pat Name: COLLETTE SEWELL Department: 105 Room: Gender: Male Clinical Allergist: [facility] : 1951-04-17 Requested By: ANGELA GARCIA Order Number: [id number] Reading MD: Angela Garcia Measurements Intervals [place] Rate: 86 P: 41 HI: 219 QRS: -13 QRSD: 92 T: 43 QT: 362 QTc: 434 Interpretive Statements SINUS RHYTHM WITH FIRST DEGREE AV BLOCK us Angela Garcia MD PROCEDURES-ORDERABLE NO CHARGE F inal Result [facility] * (ABNORMAL) CMP (ABSTRACTED LAB) (11/11/2024) SODIUM S/P/B 140 136 - 145 POTASSIUM S/P/B 4.6 3.5 - 5.1 CHLORIDE S/P/B 104 98 - 107 CO2 26 21 - 31 ANION GAP 10 8 - 16 BUN 19 7 - 25 CREATININE S/P/B 1.0 0.6 - 1.3 EGFR NON-AFR. AMER. 78 <=90 GLUCOSE 128(A) 70 - 105 mg/dL CALCIUM S/P/B 9.7 8.6 - 10.3 ALKALINE PHOSPHATASE S/P/B 88 34 - 104 AST 14 13 - 39 ALT 17 7 - 52 BILIRUBIN TOTAL S/P/B 0.6 0.3 - 1.0 TOTAL PROTEIN S/P/B 6.5 6.0 - 8.3 ALBUMIN S/P/B 4.4 3.5 - 5.7 11/11/2024 us Doc Pccl Abstract LAB-OUTSIDE/ABSTRACTED Final R esult * (ABNORMAL) HEMOGLOBIN, GLYCATED (06/14/2024 6:16 AM CDT) HGB A1C 6.8(H) <5.7 % 06/14/2024 8:34 AM CDT [facility] ESTIMATED AVG GLUCOSE 148(H) 74 - 114 MG/DL 06/14/2024 8:34 AM CDT [facility] 06/14/2024 6:16 AM CDT us Macario Gil MD LABORATORY Final Result [facility] [address] [place] [address], [phone] * LIPID PANEL (12/17/2022 7:30 AM CDT) CHOLESTEROL 157 MG/DL 12/17/2022 8:58 AM CDT [facility] Comment:DESIRABLE: <200 TRIGLYCERIDES 73 MG/DL 12/17/2022 8:58 AM CDT [facility] Comment:<150 NORMAL HDL 48 >39 MG/DL 12/17/2022 8:58 AM CDT [facility] LDL (CALCULATED) 94 MG/DL 12/18/19 8:58 AM CDT [facility] Comment:<100 OPTIMAL VLDL CALCULATION 15 MG/DL 12/18/19 8:58 AM CDT [facility] Comment:REFERENCE RANGE NOT ESTABLISHED CHOL/HDL RATIO 3.3 12/17/2022 8:58 AM CDT [facility] Comment:REFERENCE RANGE NOT ESTABLISHED LDL/HDL 2.0 12/17/2022 8:58 AM CDT [facility] Comment:REFERENCE RANGE NOT ESTABLISHED NON HDL CHOLESTEROL 109 MG/DL 12/17/2022 8:58 AM CDT [facility] Comment:REFERENCE RANGE NOT ESTABLISHED 12/17/2022 7:30 AM CDT Yara Gomez NP LABORATORY Final Result [facility] [address] [place] [address], [phone] from Last 3 Months or Most Recently Relevant to Health Maintenance Insurance [employer] Advance Directives * Full Code (Latest Code Status on File) Date Activated Date Inactivated Comments 06/13/2024 9:21 PM 06/16/2024 4:47 PM Care Teams Security Incident Response Specialist Relationship Specialty Start Date End Date Casa Corrigan MD [address] [place] [address] PCP - General FAMILY PRACTICE 06/10/17 Alexandro Dorsey MD [address] [place] [address] RECONSTRUCTIVE SURGERY 10/18/21 Kassandra Palacios NP [address] [place] [phone] Nurse Practitioner Nurse Practitioner Family 11/11/24 Sebas Baron MD [address] [place], [place] [id number] Consulting Physician INTERVENTIONAL CARDIOLOGY 11/11/24 "
[2024-12-31 14:36] LABS: Basophils Absolute Auto 0.1 K/mm3 (0.0-0.1); Basophils Percent Auto 0.9 % (0.2-1.2); Eosinophils Absolute Auto 0.2 K/mm3 (0-0.3); Eosinophils Percent Auto 3.6 % (0-4.4); Hemoglobin 13.3 g/dL (12.0-15.0); Immature Granulocyte Absolute 0.01 K/mm3 (0.00-0.031); Immature Granulocyte Percent A 0.2 % (0-0.5); Lymphocytes Percent Auto 26.2 % (18.3-44.2); Mean Corpuscular HGB Conc 33.3 g/dl (32-36); Mean Corpuscular Hemoglobin 32.9 pg (26-34); Mean Platelet Volume 9.4 fl (7.4-10.4); Monocytes Absolute Auto 0.3 K/mm3 (0.1-0.6); Monocytes Percent Auto 4.7 % (2.6-8.5); Neutrophils Absolute Auto 3.5 K/mm3 (1.3-6.7); Neutrophils Percent Auto 64.4 % (45.5-73.1); Platelet Count Result 248 k/mm3 (150-375); Red Blood Count 4.04 M/mm3 (4.2-5.4); Red Cell Distribution Width 12.7 % (11.5-14.5); White Blood Count 5.4 K/mm3 (4.5-10.0)
[2024-12-31 15:26] LABS: Alanine Aminotransferase 15 U/L (6-35); Albumin Level 4.4 g/dL (3.5-5.1); Alkaline Phosphatase 63 U/L (38-126); Anion Gap 8 mmol/L (4-12); Aspartate Amino Transferase 29 U/L (14-36); Bilirubin,Total 0.8 mg/dL (0.2-1.3); Blood Urea Nitrogen 33 mg/dL (7-17); Carbon Dioxide 27 mmol/L (22-30); Chloride 104 mmol/L (98-107); Estimated Glomerular Filt Rate 39; Glucose 98 mg/dL (65-110); Potassium 4.2 mmol/L (3.4-5.0); Sodium 139 mmol/L (137-145)
[2024-12-31 16:34] LABS: Iron 193 ug/dL (37-170)
[2024-12-31 16:44] LABS: Percent Iron Saturation 82 % (20-50)
== END 2024-12-31 14:19 | disposition home or self-care (01) ==
LOC: ANHLAB 14:19
PROVIDERS: PCP Nurse Practitioner; Visit Provider Internal Medicine Hematology & Oncology
DX: E83.110 Hereditary hemochromatosis (principal)
CPT/HCPCS: 36415; 80053; 81256; 82728; 83540; 83550; 85025

== ENCOUNTER 2025-01-20 13:19 | Outpatient (CLI) | payer MEDICARE, SELFPAY ==
--- OUTSIDE RECORDS SUMMARY | 2025-01-20 13:23 | XMS_ITS | Data Portability ---
Author Organization [facility], Main Office Address [address] [place] [address] Assessment No assessment recorded. Plan of Treatment Reminders Order Date Submit Date Provider Last Modified By Organization Details Last Modified Time Details Appointments None recorded. Lab None recorded. Referral physical therapist referral - *Please call pt to schedule* [email or web address] [facility] [address], [place], [address], 4 10:02:43 gastroenter ologist referral 2022 023 [email or web address] 3 Enrique Rodriguez MD, [address] [facility] [address], [place], [address], 3 08:06:57 Procedures None recorded. Surgeries None recorded. Imaging US, abdomen, complete [email or web address], [address], [place], [address], 4 09:04:40 DEXA - *Please call pt to schedule* [email or web address], [address], [place], [address], 3 16:37:28 Medication Orders meclizine 25 mg tablet 2023 024 MONET Ge [facility] [address], [address] , [place], [address], 4 09:27:14 Xarelto 20 mg tablet 2023 024 [email or web address] [facility] [address], [address], [place], [address], 4 09:27:07 hydralazine 25 mg tablet 2023 024 [facility] [address], [address], [place], [address], 4 09:27:15 carvedilol 6.25 mg tablet 2023 024 [facility] [address], [address], [place], [address], 4 09:27:13 Flagyl 500 mg tablet 2022 023 [facility] [address], [address], [place], [address], 3 10:45:13 ciprofloxac in 500 mg tablet 2022 023 [facility] [address], [address], [place], [address], 3 10:45:12 Patient TargetsNo targets recorded. Patient Instructions Encounter Date Encounter Id Patient Instructions Last Modified By Organization Details Last Modified Time 06/26/2023 [id number] dementia rating scale-2* [email or web address] Not available 06/26/2023 11:49:02 multi-dimensiona l health assessment questionnaire* [email or web address] Not available 06/26/2023 11:49:06 care plan* [email or web address] Not available 06/26 11:49:09 advance directiv es: care instructions Not available 06/26/2023 10:44:38 advance care planning: care instructions Not available 06/26/2023 10:44:38 [place] Advance Directives Not available 06/26/2023 10:44:38 Personalized [facility] Plan and Screening Recommendations Advance Directives - Do you have one? Advance Directives - Do we have your advance directive on file in your health record? Primary Prevention/Interven tion (prevents or decreases the chance of common diseases from occurring) Smoking Risk: Alcohol Misuse Screening: Weight: Physical activity: Nutrition: Fall Risk (screened today): Vaccines Pneumococcal: Influenza: Chronic Disease Risks Stroke: Active diagnosis, Continue current treatment plan Heart Attack: Active diagnosis, Continue current treatment plan Clogging of the Arteries: Active diagnosis, Continue current treatment plan Diabetes: Active diagnosis, Continue current treatment plan Secondary Prevention/Interven tion (detects treatable diseases before they may cause symptoms, disability, or ) Breast Cancer Screening with mammogram: Ordered Cervical/Uterine/Ov keli Cancer Screening: No screening necessary Osteoporosis Screening: Ordered Date Screening Last Performed: Colon Cancer Screening: Colonoscopy In: Ordered Recomme nded Recommended today, but you have declined No screening necessary In:2027 Date Screening Last Performed: 05/13/23 Eye Disease Screening: Ordered Recommended today Recommended today, but you have declined No Eye exam necessary Your next exam in: Dementia Risk: Depression Screening: Active diagnosis, Continue current treatment plan [place] [id number] Not available 06/26/2023 10:47:05 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 [address], [address], 03/13/2023 07:56:02 05/14/2005/14/2023 XR, knee No observ ation record ed. [address], [address], 05/15/2023 08:29:34 05/14/20 23 05/14/2023 XR, ankle No observ ation record ed. [address] [facility], [place], [address], 05/15/2023 15:17:34 05/14/20 23 05/14/2023 CT, brain , w/o contr ast No observ ation record ed. [address] [address], [place], [address], 05/15/2023 08:33:26 09/09/19 24 09/07/2023 MAMMO , scree cira, digit al, bilat eral No observ ation record ed. [address] [address], [place], [address], 12/29/2023 15:31:11 09/16/19 24 09/16/2023 XR, chest No observ ation record ed. [address] [address], [place], [address], 09/17/2023 07:57:05 09/16/19 24 09/16/2023 CT, abdom en + pelvi s, w/o contr ast No observ ation record ed. [address] [address], [place], [address], 10/02/2023 12:15:03 11/09/19 24 11/08/2023 US, abdom en, compl ete No observ ation record ed. [address] [address], [place], [address], 11/13/2023 15:54:13 12/11/19 24 12/07/2023 DEXA No observ ation record ed. [address] [address], [place], [address], 01/07/2024 17:02:54 Result Notes None recorded. Problems Name Problem SNOMED Code Status Onset Date Resolution Date Notes Provider Name and Address Organization Details Recorded Time Chronic obstructive pulmonary disease 32836982 Active 2021 Not Available [facility] 3 23:03:20 Rosacea 012366959 Active 2021 Not Available [facility] 3 23:03:20 Hemochromat osis 836622903 Active 2020 Not Available [facility] 3 23:03:20 Takotsubo cardiomyopa thy 548611772 Active 2020 Not Available [facility] 3 23:03:20 Atrial fibrillatio n 65494342 Active 2020 Not Available [facility] 3 23:03:20 Pruritic rash 00721993 Active 2021 Not Available [facility] 3 23:03:20 Polyp of colon 62863216 Active 2020 Tubular adenoma 04/10/21 Not Available [facility] 3 23:03:20 Basal cell carcinoma of skin 796528069 Active 2022 Sravanthi Hinton MD [address], [address], [place], [address] , [facility] 3 08:06:37 Vitamin D deficiency 86400693 Active 2022 Sravanthi Hinton MD [address], [address], [place], [address] , [facility] 3 10:37:40 Cobalamin deficiency 654150163 Active 2022 Sravanthi Hinton MD [address], [address], [place], [address] , [facility] 3 10:37:50 Iron deficiency 31029485 Active 2022 Sravanthi Hinton MD [address], [address], [place], [address] , [facility] 3 10:38:50 Essential hypertensio n 76849645 Active 2022 DOC Dias [address], [address], [place], [address] , [place] [facility] 3 16:53:10 Acute sinusitis 35602247 Active 2022 DOC Dias [address], [address], [place], [address] , [place] [facility] 3 17:00:48 Diverticulo sis of colon 199436828 Active 2022 DOC Dias [address], [address], [place], [address] , [facility] [place] [facility] 3 10:35:15 Spasm 11383489 Active 2023 Sravanthi Hinton MD [address], [address], [place], [address] , [facility] [place] [facility] 4 15:30:44 Low back pain 915908572 Active 2023 [facility] [address], [address], [place], [address] , [facility] [place] [facility] 4 16:25:50 Abdominal discomfort 74447564 Active 2023 [facility] [address], [address], [place], [address] , [place] [facility] 4 16:35:14 Cyst of kidney 549568840 Active 2023 Sravanthi Hinton MD [address], [address], [place], [address] , [facility] [place] [facility] 4 13:44:26 Vertigo 561007836 Active 2023 [facility] [address], [address], [place], [address] , [place] [facility] 4 09:25:21 Osteoporosi s 03481448 Active 2023 Sravanthi Hinton MD [address], [address], [place], [address] , [employer] [facility] 4 19:37:35 Problem Notes None recorded. Procedures Surgical History Date Name Laterality Status Provider Name and Address Organization Details Recorded Time 06/26/20 23 Medicare Wellness CPT Code, subsequent completed Yemi Saldana RN [facility] 06/26/2023 10:19:48 05/13/20 23 colonoscopy completed Sravanthi Hinton MD [address], [facility] [address], [place], [address], [facility] [employer] 06/26/2023 10:46:36 04/10/20 21 colonoscopy completed Not Available [facility] 10/18/19 23 23:02:53 06/15/19 96 Hysterectomy completed Not Available [facility] 023 23:02:53 extraction of cataract completed Not Available [facility] 10/17/2022 23:02:53 Imaging Results None recorded. Procedure Notes None recorded. Medical Equipment None Reported. Allergies Allergen ID Allergen Name Allergen Category Reaction Reaction Severity Criticality Documentation Date Start Date Code Code System Note Provider Name and Address Organization Details Recorded Time 35798 Substance with sulfonami de structure and antibacte rial mechanism of action (substanc e) medicatio n Not available Not available Not available 10/17/2022 55171 8003 SNOMED Not Available [facility] 3 23:04:19 61586 Latex (substanc e) environme nt,medica tion Not available Not available Not available 10/17/2022 91364 8007 SNOMED Not Available [facility] 3 23:04:19 81169 cephalexi n medicatio n other mild low 03/14/2023 2231 RxNorm DOC Henson [address], [facility] [address], [place], [address], [employer] [facility] 3 10:37:53 Medications Name Sig Start Date [...] Not Available Vitals Date Recorded Body height Body mass index (BMI) Body weight Body temperature Heart rate Oxygen saturation Oxygen saturation in Arterial blood by Pulse oximetry Systolic blood pressure Diastolic blood pressure Provider Name and Address Organization Details Last Updated DateTime 4 170.18 cm 28.2 kg/m2 68672.6 3 g 99.7 [degF] 73 /min 97 % 97 % 148 mm[Hg] 88 mm[Hg] Yuliya Mark RN [facility] 4 15:54:35 Date Recorded Body height Body mass index (BMI) Body weight Body temperature Heart rate Oxygen saturation Oxygen saturation in Arterial blood by Pulse oximetry Systolic blood pressure Diastolic blood pressure Provider Name and Address Organization Details Last Updated DateTime 4 170.18 cm 27.4 kg/m2 00367.6 6 g 98.5 [degF] 62 /min 97 % 97 % 148 mm[Hg] 84 mm[Hg] Yuliya Mark RN [facility] 4 09:03:15 Date Recorded Body height Systolic blood pressure Diastolic blood pressure Systolic blood pressure Diastolic blood pressure Provider Name and Address Organization Details Last Updated DateTime 3 170.18 cm 132 mm[Hg] 92 mm[Hg] 120 mm[Hg] 82 mm[Hg] Zoila Cardozo RN [facility] 3 10:20:04 Date Recorded Body height Body mass index (BMI) Body weight Heart rate Oxygen saturation Oxygen saturation in Arterial blood by Pulse oximetry Body temperature Systolic blood pressure Diastolic blood pressure Provider Name and Address Organization Details Last Updated DateTime 3 170.18 cm 27.9 kg/m2 61100.4 4 g 71 /min 97 % 97 % 97.6 [degF] 140 mm[Hg] 92 mm[Hg] Estefania Corona RN [facility] 3 10:24:03 Date Recorded Body height Body mass index (BMI) Body weight Body temperature Heart rate Oxygen saturation Oxygen saturation in Arterial blood by Pulse oximetry Systolic blood pressure Diastolic blood pressure Provider Name and Address Organization Details Last Updated DateTime 3 170.18 cm 28.2 kg/m2 71726.6 3 g 97.5 [degF] 66 /min 96 % 96 % 112 mm[Hg] 78 mm[Hg] Yemi Saldana RN [place] [facility] [place] [facility] 3 10:23:20 Social History Question Answer Notes LastModified by Organizat ion Details LastModified Time Tobacco Smoking Status Never Smoker Not Available [employer] 10/17/2022 23:02:35 Do You Have An Advance Directive? Yes MIGRATION.56842 08552 Information not available 10/17/2022 Are You Blind Or Do You Have Difficulty Seeing? No MIGRATION.88140 78928 Information not available 10/17/2022 What Is Your Level Of Caffeine Consumption? Occasional MIGRATION.33168 68261 Information not available 10/17/2022 How Much Tobacco Do You Chew? None MIGRATION.24733 97156 Information not available 10/17/2022 In The 14 Days Before Symptom Onset, Have You Had Close Contact With A Laboratory-confir med COVID-19 While That Case Was Ill? No MIGRATION.86497 99715 Information not available 10/17/2022 In The 14 Days Before Symptom Onset, Have You Had Close Contact With A Person Who Is Under Investigation For COVID-19 While That Person Was Ill? No MIGRATION.76878 05137 Information not available 10/17/2022 Are You Deaf Or Do You Have Serious Difficulty Hearing? Yes MIGRATION.49169 53837 Information not available 10/17/2022 What Type Of Diet Are You Following? REGULAR MIGRATION.38518 72523 Information not available 10/17/2022 Which Illicit Or Recreational Drugs Have You Used? No MIGRATION.67815 63508 Information not available 10/17/2022 Have There Been Any Changes To Your Family Or Social Situation? No MIGRATION.94407 80239 Information not available 10/17/2022 Are There Any Guns Present In Your Home? No MIGRATION.24349 41541 Information not available 10/17/2022 Do You Use Insect Repellent Routinely? No MIGRATION.46795 13565 Information not available 10/17/2022 Where Do You Live? [place] MIGRATION.50043 26187 Information not available 10/17/2022 Do You Have A Medical Power Of Audiovisual Equipment Operator? Yes MIGRATION.61885 44950 Information not available 10/17/2022 What Was The Date Of Your Most Recent Tobacco Screening? 06/26/2023 Information not available 06/26/2023 Do You Have Any Pets? No MIGRATION.98954 39255 Information not available 10/17/2022 Do You Have Smoke And Carbon Monoxide Detectors In Your Home? Yes MIGRATION.59598 32102 Information not available 10/17/2022 Are You Passively Exposed To Smoke? No MIGRATION.25217 86671 Information not available 10/17/2022 Are There Any Smokers In Your House? No MIGRATION.69067 25851 Information not available 10/17/2022 How Much Tobacco Do You Smoke? No MIGRATION.35979 57527 Information not available 10/17/2022 What Types Of Sporting Activities Do You Participate In? Goes To The [facility] MIGRATION.62258 07629 Information not available 10/17/2022 Do You Use Sunscreen Routinely? Yes MIGRATION.92583 91097 Information not available 10/17/2022 Has Tobacco Cessation Counseling Been Provided? No MIGRATION.77231 66255 Information not available 10/17/2022 Have You Recently Traveled Abroad? No MIGRATION.99023 32067 Information not available 10/17/2022 Do You Have Difficulty Walking Or Climbing Stairs? No MIGRATION.50920 35952 Information not available 10/17/2022 Are You Currently In School? No MIGRATION.40207 44340 Information not available 10/17/2022 Do You Have Any Dietary Restrictions? No MIGRATION.01369 43163 Information not available 10/17/2022 Sex: Unknown Functional Status Question Answer Note LastModified by Organizat ion Details LastModified Time Do you use any illicit or recreational drugs? No MIGRATION.376877 2681 Information not available 10/17/2022 Do you or have you ever used any other forms of tobacco or nicotine? No MIGRATION.378017 5164 Information not available 10/17/2022 What is your level of alcohol consumption? None MIGRATION.150335 5769 Information not available 10/17/2022 Do you or have you ever used smokeless tobacco? Never used smokeless tobacco MIGRATION.219585 4236 Information not available 10/17/2022 Do you have transportation difficulties? No MIGRATION.712934 7550 Information not available 10/17/2022 Are you able to walk? YESWOREST MIGRATION.538854 2718 Information not available 10/17/2022 Do you have difficulty doing errands alone? No MIGRATION.610379 1103 Information not available 10/17/2022 Are you able to care for yourself? Yes MIGRATION.669522 0695 Information not available 10/17/2022 What is your occupation? retired MIGRATION.881055 4995 Information not available 10/17/2022 Do you have difficulty dressing or bathing? No MIGRATION.732360 1280 Information not available 10/17/2022 Do you or have you ever used e-cigarettes or vape? Never used electronic cigarettes MIGRATION.633575 7758 Information not available 10/17/2022 What is your exercise level? Moderate MIGRATION.216528 9985 Information not available 10/17/2022 Mental Status Question Answer Note LastModified by Organizat ion Details LastModified Time Do you feel stressed (tense, restless, nervous, or anxious, or unable to sleep at night)? PJ1151-3 MIGRATION.57215316 26 Information not available 10/17/2022 Do you have difficulty concentrating, remembering or making decisions? No MIGRATION.37174932 26 Information not available 10/17/2022 Family History Relationship Description Onset Age of this Age Resolved Age Notes LastModified by Organization Details LastModified Time Father Family history of malignant neoplasm 63 colon and lung MIGRATION.696 4774945 Not available 10/17/2022 23:02:53 Mother Family history of malignant neoplasm 68 pancre atic MIGRATION.391 1331034 Not available 10/17/2022 23:02:53 Brother Cerebrovascu lar accident MIGRATION.462 2165872 Not available 10/17/2022 23:02:53 Brother Aneurysm 56 brain- caused cva MIGRATION.529 2285128 Not available 10/17/2022 23:02:53 Medical History No [...] mcg/0.3 mL dose 10/09/2021 completed Not Available [facility] 3 23:04:15 COVID-19 PS Non-US Vaccine (EpiVacCorona ) 03/24/2021 completed Not Available [facility] 3 23:04:16 COVID-19 PS Non-US Vaccine (EpiVacCorona ) 03/03/2021 completed Not Available [facility] 3 23:04:16 Influenza, high-dose, quadrivalent, PF 06/22/2022 completed Not Available [facility] 3 23:04:16 Influenza, high-dose, quadrivalent, PF 06/13/2021 completed Not Available [facility] 3 23:04:16 Past Encounters Encounter ID Performer Location Encounter Start Date Encounter Closed Date Diagnosis/Indication Diagnosis SNOMED-CT Code Diagnosis ICD10 Code Diagnosis Note [id number] DOC Dias [facility] Primary Care [place] [address] [facility] [address] [place] [address] 01/12/2021 00:00:00 01/12/2021 19:47:[id number] [facility] Primary Care [place] [address] [facility] [place] [address] 02/09/2021 00:00:00 02/09/2021 15:33:59 [id number] [address] Hinton MD [facility] Primary Care [place] [address] [facility] [address] [place] [address] 03/08/2021 00:00:00 03/10/2021 09:16:50 [id number] [address] [facility] Primary Care [place] [address] [facility] [address] [place] [address] 03/17/2021 00:00:00 03/17/2021 12:53:[id number] [facility] Primary Care [place] [address] [facility] [place] [address] 04/19/2021 00:00:00 04/19/2021 10:32:37 [id number] NAVID River [facility] Primary [facility] [place] [address] [place] [address] 06/13/2021 00:00:00 06/13/2021 17:06:13 [id number] Sravanthi Hinton MD S[facility] Primary Care [place] [address] [place] [address] 10/17/2021 00:00:00 10/17/2021 10:17:24 [id number] Sravanthi Hinton MD [facility] Primary Care [place] [address] [place] [address] 11/14/2021 00:00:00 11/14/2021 11:01:21 [id number] DOC Dias [facility] Primary [facility] [place] [address] [place] [address] 12/01/2021 00:00:00 12/01/2021 18:14:52 [id number] Sravanthi Hinton MD [facility] Primary Care [place] [address] [place] [address] 12/13/2021 00:00:00 12/13/2021 09:29:56 [id number] NAVID River [facility] Primary [facility] [place] [address] [place] [address] 02/07/2022 00:00:00 02/07/2022 16:41:38 [id number] Sravanthi Hinton MD [facility] Primary Care [place] [address] [place] [address] 03/14/2022 00:00:00 03/15/2022 12:44:19 [id number] NAVID River [facility] Primary [facility] [place] [address] [place] [address] 05/07/2022 00:00:00 05/07/2022 11:45:[id number] [facility] Primary Care [place] [address] [place] [address] 06/22/2022 00:00:00 07/17/2022 17:07:12 [id number] [facility] Primary Care [place] [address] [place] [address] 06/25/2022 00:00:00 06/25/2022 10:51:[id number] [facility] Primary Care [place] [address] [place] [address] 08/28/2022 00:00:00 08/28/2022 09:23:13 [id number] [facility] Primary [place] [address] [facility] [place] [address] 12/24/2022 10:18:09 12/24/2022 10:53:44 Atrial fibrillation 49610775 I48.91 Z79.899 stable Chronic ob structive pulmonary disease 37634109 J44.9 stable Vitamin D deficiency 347 51177 E55.9 Cobalamin deficiency 190 382859 E53.8 Iron deficiency 24916518 E61.[id number] [facility] Primary [place] [address] [facility] [place] [address] 02/13/2023 16:25:13 02/13/2023 17:11:06 Essential hypertension 74291663 I10 Not well controlled Asymptomat ic at [...] other new or concerning symptoms. Patient on beta-block er antiarr hythmic wa rfarin bet a-pippa + antiarrhyt hmic beta- pippa + warfarin a ntiarrhyth king + warfarin b eta-blocke r + antiarrhyt hmic + warfarin b eta-blocke r + xarelto.Sa mples given. Acute sinusitis 78150034 J01.90 --Ear Pain/Sinus Congestion -encourage d warm compresses to face/jawli ne to promote drainage. Ok to take otc pain relievers per package instructio ns to reduce discomfort . Continue/s tart nasal spray otc anti-hista mines per package instructio ns.Will give course of steroids. [id number] Sravanthi Hinton MD [facility] Primary Care [facility] [address] [facility] [place] [address] 02/22/2023 09:52:31 02/22/2023 10:45:[id number] [facility] Primary Care [facility] [address] [facility] [address] [place] [address] 03/14/2023 10:15:25 03/14/2023 13:56:08 Diverticulosis of colon 111603128 K57.30 New problemRev iewed ER note from [...] and metronidaz ole as directed. Essential hypertension 54228971 I10 Improved, but not to goalReview ed [...] in managing bps.Contin ue carvedilol 6.25mg BID [id number] Sravanthi Hinton MD [facility] Primary Care [address] [place] [address] 06/26/2023 10:15:32 06/26/2023 11:35:38 Adult health examination 756507961 Z00.00 Colonoscop y 05/13/23-po lyps repeat 3-[address] Mercedes gustafson is scheduled for A orderedFlu vaccine todayRecom mend RSV, covid vaccine and shingles vaccine seriesPneu monia vaccines completed per patient recordLabs up to date Screening for disorder 357543029 Z13.9 Postmenopausal state [id number] Z78.0 Chronic ob structive pulmonary disease 18503754 J44.[address] Nava Essential hypertension 54043245 I10 stable Hemochromatosis [id number] 6 E83.119 stablerepe at labs in 6 months Polyp of colon 35049745 K63.5 colonoscop y 05/13/23 Dr. Rodriguez tubular adenomarep eat in 3-5 years per his note Atrial fibrillation 4943 6004 I48.91 stablesees cardiology [id number] Sravanthi Hinton MD [facility] Primary Care [address] [place] [address] 10/31/2023 15:47:52 10/31/2023 16:44:57 Low back pain 837315634 M54.50 -new issue, to left low back-pain rated at 5/10, can go up to 10/10 later in the day-F/u in the ER x2, was given muscle relaxers (uses occ)-ROM and strength are intact some pain-numbn ess and tingling to left hip-PT referral given Abdominal discomfort 433 36455 R10.9 -noted since August, LLQ/superi or lateral L hip-no specific incident that coused discomfort -she questions whether she has a hernia or not, non currently papable on exam-has not affected diet-bowel and bladder are wnl-US abdomen ordered [id number] Sravanthi Hinton MD [facility] Primary Care [address] [place] [address] 12/11/2023 08:55:39 12/11/2023 09:42:52 Low back pain 256078215 M54.50 12-11-23-pt doing PT BID, seems to be improving conditions -no further treatment needed 10-31-23-ne w issue, to left low back-pain rated at 5/10, can go up to 10/10 later in the day-F/u in the ER x2, was given muscle relaxers (uses occ)-ROM and strength are intact some pain-numbn ess and tingling to left hip-PT referral given Abdominal discomfort 433 26610 R10.9 12-11-23-US reviewed-n egative-no further interventi on needed 10-31-23-no samaria since August, LLQ/superi or lateral L hip-no specific incident that coused discomfort -she questions whether she has a hernia or not, non currently papable on exam-has not affected diet-bowel and bladder are wnl-US abdomen ordered Essential hypertension 46153649 I10 -pt recently noted high bp at PT (feeling dizzy)-F/u with the ER yesterday dt feeling dizzy, bp noted to be in the 190s-was given hydralazin e while in the ER, bernie t noted-uses 32oz container for water, drinks 3 per day-does not drink coffee/caf feine products-h ydralazine 25mg given-refi ll carvedilol given Atrial fibrillation 4943 6004 I48.91 -refill xarelto given Vertigo [id number] R42 -refill meclizine given Health Concerns Section Related Observation LastModified by Organization Detai ls LastModified Time None Recorded Concern Status LastModified by Organization Details LastModified Time None Recorded Advance Directives Directive Y: Payers Encounter Date Sequence Insurance Name Policy Number Policy Allen Covered Member ID Allen Member ID Guarantor Name 02/22/2023 1 [employer] (MEDICARE REPLACEMENT/ ADVANTAGE - HMO) [id number] Jillian Rickey Luis A [id number] Jillian Rickey Luis A 03/14/2023 1 [employer] (MEDICARE REPLACEMENT/ ADVANTAGE - HMO) [id number] Jillian Rickey Luis A [id number] Jillian Rickey Gunn 06/26/2023 1 [employer] (MEDICARE REPLACEMENT/ ADVANTAGE - HMO) [id number] Jillian Gunn [id number] Jillian Gunn 10/31/2023 1 [employer] (MEDICARE REPLACEMENT/ ADVANTAGE - HMO) [id number] Jillian Gunn [id number] Jillian Gunn 12/11/2023 1 [employer] (MEDICARE REPLACEMENT/ ADVANTAGE - HMO) [id number] Jillian Gunn [id number] Jillian Gunn Notes Date Note Type Note [...] the past few weeks. [facility] [address], [place] [address], [place], [address], [employer] 03/14/2023 13:59:44 10/31/2023 text/html Pt was recently in the hospital for low back pain [facility] [address], [place] [address], [place], [address], [employer] 10/31/2023 17:12:11 12/11/2023 text/html pt is here for f/u [facility] [address], [facility] [address], [place], [address], R2G 12/11/2023 09:29:14 OBGyn Episode No OBEpisode recorded.
--- OUTSIDE RECORDS SUMMARY | 2025-01-20 13:23 | XMS_ITS | Clinical Summary ---
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 Gender Identity Not on file Sexual Orientation Not on file Obstetrics History Last Filed Vital Signs Vital Sign Reading Time Taken Comments Blood Pressure 120/80 07/21/2024 10:24 AM HAZARDOUS MATERIALS TANKER DRIVER Pulse 60 07/21/2024 10:24 AM HAZARDOUS MATERIALS TANKER DRIVER Temperature - - Respiratory Rate - - Oxygen Saturation 99% 07/21/2024 10:24 AM HAZARDOUS MATERIALS TANKER DRIVER Inhaled Oxygen Concentration - - Weight 82.3 kg (181 lb 8 oz) 07/21/2024 10:24 AM HAZARDOUS MATERIALS TANKER DRIVER Height 170.2 cm (5' 7) 07/21/2024 10:24 AM HAZARDOUS MATERIALS TANKER DRIVER Body Mass Index 28.43 07/21/2024 10:24 AM HAZARDOUS MATERIALS TANKER DRIVER Plan of Treatment Health Maintenance Due Date [...] Pneumococcal vaccine 65+ Completed 08/14/2017, 03/[address] [facility] [address]IC[address] [facility] [place] [id number] T MEDICARE [facility] T MEDICARE [facility] Care Teams Ballpoint Pens Assembler Relationship Specialty Start Date End Date Antonietta Lopez DO [address] [place] [address] [id number] PCP - General Family Medicine 12/31/23
--- OUTSIDE RECORDS SUMMARY | 2025-01-20 13:23 | XMS_ITS | Clinical Summary ---
Author Organization [facility] Luc [facility] Address [address] [place] [address] Care Team Providers Care Gui Developer Name Role Phone Antonietta Lopez Primary Care Provider +1- [phone] Allergies Active Allergy Reactions Criticality Noted Date [...] Encounters Date Type Department Care Team Description 01/12/2025 Orders Only [facility] Oncology and Hematology [facility] [address] [place] [address] Vidal Ayoub MD 01/07/2025 4:30 PM CDT Telephone Check Up [facility] Oncology [facility] [address] [place] [address] Vidal Ayoub MD Hereditary hemochromatosis (Primary Dx) 01/07/2025 External Device Data STL ABSTRACTION Provider, Abstract 01/07/2025 External Device Data STL ABSTRACTION Provider, Abstract 01/06/2025 External Device Data STL ABSTRACTION Provider, Abstract 01/06/2025 External Device Data STL ABSTRACTION Provider, Abstract 01/05/2025 External Device Data STL ABSTRACTION Provider, Abstract 01/04/2025 Orders Only [facility] Oncology and Hematology [facility] [address] [place] [address] Vidal Ayoub MD 12/31/2024 1:30 PM CDT Office Visit [facility] Oncology [facility] [address] [place] [address] Vidal Ayoub MD Hereditary hemochromatosis (Primary Dx) [...] P M CDT Height 170.2 cm (5' 7) 12/31/2024 1:46 PM CDT Body Mass Index 27.82 12/31/2024 1:46 PM CDT Plan of Treatment Upcoming Encounters Date Type Department Care Team (Late st Contact Info) Description 04/14/2025 10:00 AM CDT Office Visit [facility] Oncology and Hematology - [place] [address] [facility] [address] [place] [address] Vidal Ayoub MD [address] [facility] [address] [place] [address] Health Maintenance Due Date Last Done Comments DTAP/TDAP/TD VACCINES (1 - Tdap) 11/19/1967 ZOSTER VACCINE (1 of 2) 1998 OSTEOPOROSIS SCREENING 2013 RSV VACCINE (60+ or ) (1 - 1-dose 75+ series) 11/19/2023 INFLUENZA VACCINE (#1) 2024 05/23/2020 [place] Prev entative Visit/Annual Wellness Visit 08/19/2024 PNEUMOCOCCAL VACCINE 50+ YEARS Completed 08/14/2017 , 04/06/2014 Procedures Procedure Name Priority Date/Time Associated Diagnosis Comments HEREDITARY HEMOCHROMATOSIS DNA MUTATION ANALYSIS Routine 12/31/2024 11:31 AM CDT IRON LEVEL Routine 12/31/2024 10:20 AM CDT COMPREHENSIVE METABOLIC PANEL Routine 12/31/2024 9:43 AM CDT from Last 3 Months Results * HEREDITARY HEMOCHROMATOSIS DNA MUTATION ANALYSIS (12/31/2024 11:31 AM CDT) us Vidal Ayoub MD CHEMISTRY ORDERABLES COM Final Result * IRON LEVEL (12/31/2024 10:20 AM CDT) Blood Vidal Ayoub MD CHEMISTRY ORDERABLES Final Resu lt * COMPREHENSIVE METABOLIC PANEL (12/31/2024 9:43 AM CDT) Blood Vidal Ayoub MD CHEMISTRY ORDERABLES Final Resu lt from Last 3 Months Insurance [facility] Address: [facility] [id number] [place] [id number] Care Teams Gui Developer Relationship Specialty Start Date End Date Antonietta Lopez DO [address] [facility] [address] [place] [id number] PCP - General Family Practice 12/31/24
--- OUTSIDE RECORDS SUMMARY | 2025-01-20 13:23 | XMS_ITS | Referral Summary ---
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 Gender Identity Not on file Sexual Orientation Not on file Last Filed Vital Signs Vital Sign Reading Time Taken Comments Blood Pressure 120/80 07/21/2024 10:24 AM TWIST PACKER Pulse 60 07/21/2024 10:24 AM TWIST PACKER Temperature - - Respiratory Rate - - Oxygen Saturation 99% 07/21/2024 10:24 AM TWIST PACKER Inhaled Oxygen Concentration - - Weight 82.3 kg (181 lb 8 oz) 07/21/2024 10:24 AM TWIST PACKER Height 170.2 cm (5' 7) 07/21/2024 10:24 AM TWIST PACKER Body Mass Index 28.43 07/21/2024 10:24 AM TWIST PACKER Plan of Treatment Not on file Insurance MEDICARE [facility] AETNA MEDICARE GOLD AETNA MEDICARE GOLD Care Teams Washer Meat Relationship Specialty Start Date End Date Antonietta Lopez DO [facility] [address] [address] PCP - General Family Medicine 12/31/23
[2025-01-20 13:31] LABS: Hematocrit 39.4 % (37.0-47.0); Mean Corpuscular Hemoglobin 32.7 pg (26-34); Mean Corpuscular Volume 99.2 fl (80-100); Mean Platelet Volume 9.1 fl (7.4-10.4); Platelet Count Result 232 k/mm3 (150-375); Red Blood Count 3.97 M/mm3 (4.2-5.4); Red Cell Distribution Width 12.4 % (11.5-14.5); White Blood Count 5.8 K/mm3 (4.5-10.0)
[2025-01-20 16:43] LABS: Iron 177 ug/dL (37-170)
[2025-01-20 16:53] LABS: Percent Iron Saturation 76 % (20-50)
== END 2025-01-20 13:20 | disposition home or self-care (01) ==
LOC: ANHLAB 13:20
PROVIDERS: PCP Nurse Practitioner; Visit Provider Internal Medicine Hematology & Oncology
DX: E83.110 Hereditary hemochromatosis (principal)
CPT/HCPCS: 36415; 82728; 83540; 83550; 85027

== ENCOUNTER 2025-01-28 13:00 | Emergency (ER) | payer MEDICARE, SELFPAY ==
--- NOTE | ~2025-01-28 | CT_ITS ---
EXAMINATION: CT brain wo con DATE: 01/28/2025 14:12 INDICATION: Anticoagulated patient post fall with head injury TECHNIQUE: Computed tomography (CT) of the head was performed without intravenous contrast. Sagittal and coronal reconstructions were performed. The mA was adjusted according to patient size. Iterative reconstruction technique was employed. The dose-length product was 605.33 mGy-cm. COMPARISON: head CT dated 05/14/2023 FINDINGS: No calvarial fracture. No acute intracranial hemorrhage, acute infarction or abnormal extra axial flu id collection. There is mild scattered white matter hypoattenuation consistent with chronic small ves ilya ischemic disease. Symmetric prominence of the sulci consistent with mild age-appropriate diffuse cerebral volume loss. Ventricles are normal and symmetric. No mass/mass effect. Changes of bilateral intraocular lens replacement. There is mucosal thickening and central blood in the left maxillary sin us. There is subtle buckling of the inferior wall of the left orbit as well as the lateral wall of th e left maxillary sinus which is new since the prior study consistent with fracture. IMPRESSION: 1. Fracture with mild buckling of the inferior wall of the left orbit and lateral wall the maxillary sinus with blood filling the left maxillary sinus. 2. Stable appearance of normal aging brain with no calvarial fracture or acute intracranial process. Reviewed, dictated and finalized at location A. IMPRESSION: 1. Fracture with mild buckling of the inferior wall of the left orbit and later al wall the maxillary sinus with blood filling the left maxillary sinus. 2. Stable appearance of normal aging brain with no calvarial fracture or acute intracranial process.
--- NOTE | ~2025-01-28 | XR_ITS ---
XR knee LT min 4V 01/28/2025 14:29 Indication: Left knee pain Procedure: 4 views left knee Comparison: 04/21/2024 Findings: No fracture, subluxation or dislocation. Mild joint space narrowing. No joint effusion. No foreign bodies. Small loose bodies posterior to the joint space. Impression: 1: Mild tricompartment osteoarthritis of the left knee. Reviewed, dictated and finalized at location B. Impression: 1: Mild tricompartment osteoarthritis of the left knee.
--- NOTE | ~2025-01-28 | CT_ITS ---
EXAMINATION: 1. CT facial & cervical spine wo DATE: 01/28/2025 14:12 INDICATION: Left head and facial injury post fall TECHNIQUE: 1. Computed tomography (CT) of the maxillofacial region and of the cervical spine were performed with out intravenous contrast. Sagittal and coronal reconstructions of both regions were obtained. Automat ed exposure control and iterative reconstruction technique were employed. The dose-length product was 227.27 mGy-cm. COMPARISON: None. FINDINGS: Maxillofacial CT: Nondisplaced fracture with mild buckling along the inferior wall of the left maxillary sinus position medial to the infraorbital canal anteriorly but extending across the anteriormost and posterior aspe cts of the canal. Mildly displaced fractures along the anterior and lateral coker of the left maxilla which is nearly completely filled with blood. No other maxillofacial fractures identified. Specifica lly the nasal bones, zygomatic arches, coker of the right orbit and remaining paranasal sinuses and t he mandible are all intact. There is some sclerosis along the coker of the bilateral ethmoid sinuses with associated mild mucosal thickening likely sequela of chronic sinusitis. There is severe bilatera l temporomandibular osteoarthritis. Nasal septum is midline. Cervical spine CT: Mild cervicothoracic dextrocurvature. Sagittal alignment is normal. Mild osteoarthritis at the atlant oaxial articulation. Vertebral body heights are normal. No fracture. Moderate disc height loss with s evere bilateral uncovertebral osteoarthritis at C4-C5 with severe right-sided and moderate left-sided uncovertebral osteoarthritis at C5-C6. Additional mild disc height loss at C2-C3, C3-C4, and C6-C7 w ith additional severe uncovertebral osteoarthritis on the left at C6-C7 and mild uncovertebral osteoa rthritis at C2-C3 and C3-C4. There are posterior disc osteophyte complexes resulting in mild central canal stenosis at C4-C5 through C6-C7. Multilevel moderate bilateral facet osteoarthritis throughout the cervical spine. There is multilevel mild left-sided and minimal to mild right-sided cervical neur al foraminal stenosis. Cervical soft tissues are unremarkable. Mild biapical pleural-parenchymal scar ring. IMPRESSION: 1. Fractures of the inferior wall of the left orbit and anterior and lateral coker of the left maxill sammy sinus. 2. Mild cervicothoracic dextrocurvature with moderate cervical spondylosis. No acute cervical osseous abnormality. Reviewed, dictated and finalized at location A. IMPRESSION: 1. Fractures of the inferior wall of the left orbit and anterior and lateral wa lls of the left maxillary sinus. 2. Mild cervicothoracic dextrocurvature with moderate cervical spondylosis. No acute cervical osseous abnormality.
[2025-01-28 13:04] VITALS: BP 182/103; PULSE 99; RESP 18; TEMP 36.8; O2SAT 98
--- OUTSIDE RECORDS SUMMARY | 2025-01-28 13:33 | XMS_ITS | Clinical Summary ---
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 Elevated blood pressure read ing in office with white coat syndrome, without diagnosis of hypertension 06/08/2019 Dizziness 06/08/2019 Encounters Date Type Department Care Team Description 01/26/2025 11:15 AM CDT Office Visit [facility] Cardiology [address] [facility] [address] [place] [address] Alexandro Severino MD Stress-induced cardiomyopathy (Primary Dx); Paroxysmal atrial fibrillation (HCC) from Last 3 Months Surgical History Surgery Date Site/Laterality Comments CARDIAC [...] on file 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 Gender Identity Not on file Sexual Orientation Not on file Obstetrics History Last Filed Vital Signs Vital Sign Reading Time Taken Comments Blood Pressure 120/70 01/26/2025 11:10 AM CDT Pulse 82 01/26/2025 11:10 AM CDT Temperature - - Respiratory Rate - - Oxygen Saturation 97% 01/26/2025 11: 10 AM CDT Inhaled Oxygen Concentration - - Weight 82.4 kg (181 lb 11.2 oz) 025 11:10 AM CDT Height 170.2 cm (5' 7) 01/26/2025 11:1 0 AM CDT Body Mass Index 28.46 01/26/2025 11:10 AM CDT Plan of Treatment Health Maintenance Due Date Last Done Comments Depression Screening 1948 Fall Risk Assessment 1950 Hepatitis C Screening 1950 Osteoporosis Screening-Bone Density Scan 1950 DTaP/Tdap/Td Vaccine (1 - Tdap) 11/19/1959 Hepatitis B Screening 1966 Zoster Vaccine (1 of 2) 1998 Well Visit 65+ 2013 Influenza Vaccine (Season Ended) 2025 05/18/2019, 06/23/2018, 06/17/2017, Additional history exists Pneumococcal vaccine 65+ Completed 08/14/2017, 03/19 Procedures Procedure Name Priority Date/Time Associated Diagnosis Comments ELECTROCARDIOGRAM REPORT Routine 025 3:18 PM CDT Paroxysmal atrial fibrillation (HCC) from Last 3 Months Results * Electrocardiogram Report (01/26/2025 3:18 PM CDT) us Alexandro Severino MD ECG ORDERABLES Final Re sult from Last 3 Months Insurance MEDICARE [facility] [place], [place] [id number] MEDICARE [facility] TNA MEDICARE GOLD Care Teams Lead Architect Relationship Specialty Start Date End Date Antonietta Lopez DO [facility] [address] [address] PCP - General Family Medicine 12/31/23
--- OUTSIDE RECORDS SUMMARY | 2025-01-28 13:33 | XMS_ITS | Referral Summary ---
Author Organization [facility] Address [address] [place] [address] Care Team Providers Care Laundry Sorter Name Role Phone Antonietta Lopez DO Primary Care Provider +1- [phone] Encounters Date Type Department Care Team Description 01/26/2025 11:15 AM CDT Office Visit 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 Gender Identity Not on file Sexual Orientation [...] 01/26/2025 11:10 AM CDT Plan of Treatment Not on file Procedures Procedure Name Priority Date/Time Associated Diagnosis Comments ELECTROCARDIOGRAM REPORT Routine 025 3:18 PM CDT Paroxysmal atrial fibrillation (HCC) from Last 3 Months Results * Electrocardiogram Report (01/26/2025 3:18 PM CDT) us Alexandro Severino MD ECG ORDERABLES Final Re sult from Last 3 Months Insurance MEDICARE [facility] MEDICARE [facility] [place] [address] A[employer] MEDICARE GOLD AETNA MEDICARE GOLD Care Teams Laundry Sorter Relationship Specialty Start Date End Date Antonietta Lopez DO [address] [place] [address] [place] [address] PCP - General Family Medicine 12/31/23
--- OUTSIDE RECORDS SUMMARY | 2025-01-28 13:33 | XMS_ITS | Data Portability ---
Author Organization [facility], Main Office Address [address] [place] [address] Assessment No assessment recorded. Plan of Treatment Reminders Order Date Submit Date Provider Last Modified By Organization Details Last Modified Time Details Appointments None recorded. Lab None recorded. Referral physical therapist referral - *Please call pt to schedule* [email or web address] [facility] [address], [place], [address], 4 10:02:43 gastroenter ologist referral 2022 023 [email or web address] 3 Enrique Rodriguez MD, [address] [facility] [address], [place], [address], 3 08:06:57 Procedures None recorded. Surgeries None recorded. Imaging US, abdomen, complete [email or web address], [address], [place], [address], 4 09:04:40 DEXA - *Please call pt to schedule* [email or web address], [address], [place], [address], 3 16:37:28 Medication Orders meclizine 25 mg tablet 2023 024 MONET Ge [facility] [address], [address] , [place], [address], 4 09:27:14 Xarelto 20 mg tablet 2023 024 [email or web address] [facility] [address], [address], [place], [address], 4 09:27:07 hydralazine 25 mg tablet 2023 024 [facility] [address], [address], [place], [address], 4 09:27:15 carvedilol 6.25 mg tablet 2023 024 [facility] [address], [address], [place], [address], 4 09:27:13 Flagyl 500 mg tablet 2022 023 [facility] [address], [address], [place], [address], 3 10:45:13 ciprofloxac in 500 mg tablet 2022 023 [facility] [address], [address], [place], [address], 3 10:45:12 Patient TargetsNo targets recorded. Patient Instructions Encounter Date Encounter Id Patient Instructions Last Modified By Organization Details Last Modified Time 06/26/2023 [id number] dementia rating scale-2* [email or web address] Not available 06/26/2023 11:49:02 multi-dimensiona l health assessment questionnaire* [email or web address] Not available 06/26/2023 11:49:06 care plan* [email or web address] Not available 06/26 11:49:09 advance directiv es: care instructions Not available 06/26/2023 10:44:38 advance care planning: care instructions Not available 06/26/2023 10:44:38 [place] Advance Directives Not available 06/26/2023 10:44:38 Personalized [facility] Plan and Screening Recommendations Advance Directives - [...] Screening Last Performed: Colon Cancer Screening: Colonoscopy In:2027 Date Screening Last Performed: 05/13/23 Eye Disease Screening: Your next exam in: Dementia Risk: Depression Screening: Active diagnosis, Continue current treatment plan [email or web address] Not available 06/26/2023 10:47:05 Reason for Referral [employer] Referral for Diverticulosis of colon Referring Physician: [...] contr ast No observ ation record ed. [address] [place] [address], [address], 03/13/2023 07:56:02 05/14/2005/14/2023 XR, knee No observ ation record ed. [address], [place], [address], 05/15/2023 08:29:34 05/14/2005/14/2023 XR, ankle No observ ation record ed. [address] [facility], [place], [address], 05/15/2023 15:17:34 05/14/20 23 05/14/2023 CT, brain , w/o contr ast No observ ation record ed. [address] [address], [place], [address], 05/15/2023 08:33:26 09/09/19 24 09/07/2023 MAMMO , scree cira, digit al, bilat eral No observ ation record ed. [address] [address], [place], [address], 12/29/2023 15:31:11 09/16/19 24 09/16/2023 XR, chest No observ ation record ed. [address] [address], [place], [address], 09/17/2023 07:57:05 09/16/19 24 09/16/2023 CT, abdom en + pelvi s, w/o contr ast No observ ation record ed. [address] [address], [place], [address], 10/02/2023 12:15:03 11/09/19 24 11/08/2023 US, abdom en, compl ete No observ ation record ed. [address] [address], [place], [address], 11/13/2023 15:54:13 12/11/19 24 12/07/2023 DEXA No observ ation record ed. [address], [address], 01/07/2024 17:02:54 Result Notes None recorded. Problems Name Problem SNOMED Code Status Onset Date Resolution Date Notes Provider Name and Address Organization Details Recorded Time Chronic obstructive pulmonary disease 75467179 Active 2021 Not Available [employer] 3 23:03:20 Rosacea 508152333 Active 2021 Not Available [facility] 3 23:03:20 Hemochromat osis 150957323 Active 2020 Not Available [facility] 3 23:03:20 Takotsubo cardiomyopa thy 111773255 Active 2020 Not Available [facility] 3 23:03:20 Atrial fibrillatio n 93692711 Active 2020 Not Available [facility] 3 23:03:20 Pruritic rash 24394966 Active 2021 Not Available [facility] 3 23:03:20 Polyp of colon 03518350 Active 2020 Tubular adenoma 04/10/21 Not Available [facility] 3 23:03:20 Basal cell carcinoma of skin 849087870 Active 2022 Sravanthi Hinton MD [address], [address], [place], [address] , [facility] [employer] [facility] 3 08:06:37 Vitamin D deficiency 96272209 Active 2022 Sravanthi Hinton MD [address], [address], [place], [address] , [facility] [employer] [facility] 3 10:37:40 Cobalamin deficiency 574306524 Active 2022 Sravanthi Hinton MD [address], [address], [place], [address] , [facility] [employer] [facility] 3 10:37:50 Iron deficiency 43437597 Active 2022 Sravanthi Hinton MD [address], [address], [place], [address] , [facility] [employer] [facility] 3 10:38:50 Essential hypertensio n 15081816 Active 2022 DOC Dias [address], [address], [place], [address] , [facility] [employer] [facility] 3 16:53:10 Acute sinusitis 57884250 Active 2022 DOC Dias [address], [address], [place], [address] , [facility] [employer] [facility] 3 17:00:48 Diverticulo sis of colon 193046706 Active 2022 DOC Dias [address], [address], [place], [address] , [place] [facility] 3 10:35:15 Spasm 09102039 Active 2023 Sravanthi Hinton MD [address], [address], [place], [address] , [facility] [employer] [facility] 4 15:30:44 Low back pain 571180810 Active 2023 [facility]ER [employer] [address], [address], [place], [address] , [place] [facility] 4 16:25:50 Abdominal discomfort 33741328 Active 2023 FER [employer] [address], [address], [place], [address] , [facility] - [facility] 4 16:35:14 Cyst of kidney 666731558 Active 2023 Sravanthi Hinton MD [address], [address], [place], [address] , [facility] - [facility] 4 13:44:26 Vertigo 971532372 Active 2023 [employer] [address], [address], [place], [address] , [place] [facility] 4 09:25:21 Osteoporosi s 28787040 Active 2023 Sravanthi Hinton MD [address], [address], [place], [address] , [facility] - [facility] 4 19:37:35 Problem Notes None recorded. Procedures Surgical History Date Name Laterality Status Provider Name and Address Organization Details Recorded Time 06/26/20 Medicare Wellness CPT Code, subsequent completed Yemi Saldana RN [facility] [employer] 06/26/2023 10:19:48 05/13/20 23 colonoscopy completed Sravanthi Hinton MD [address] [facility], [facility], [place], [address], [facility] [employer] [facility] 06/26/2023 10:46:36 04/10/20 21 colonoscopy completed Not Available [facility] 10/18/19 23:02:53 06/15/19 96 Hysterectomy completed Not Available [facility] 023 23:02:53 extraction of cataract completed Not Available [facility] 10/17/2022 23:02:53 Imaging Results None recorded. Procedure Notes None recorded. Medical Equipment None Reported. Allergies Allergen ID Allergen Name Allergen Category Reaction Reaction Severity Criticality Documentation Date Start Date Code Code System Note Provider Name and Address Organization Details Recorded Time 80109 Substance with sulfonami de structure and antibacte rial mechanism of action (substanc e) medicatio n Not available Not available Not available 10/17/2022 95792 8003 SNOMED Not Available [facility] 3 23:04:19 86437 Latex (substanc e) environme nt,medica tion Not available Not available Not available 10/17/2022 45326 8007 SNOMED Not Available [facility] 3 23:04:19 88664 cephalexi n medicatio n other mild low 03/14/2023 2231 RxNorm DOC Henson [address] [facility], [facility], [address], [place], [address], [facility] [employer] 3 10:37:53 Medications Name Sig Start Date [...] Updated DateTime 4 170.18 cm 28.2 kg/m2 96166.6 3 g 99.7 [degF] 73 /min 97 % 97 % 148 mm[Hg] 88 mm[Hg] Yuliya Mark RN [facility] [employer] [facility] 4 15:54:35 Date Recorded Body height Body mass index (BMI) Body weight Body temperature Heart rate Oxygen saturation Oxygen saturation in Arterial blood by Pulse oximetry Systolic blood pressure Diastolic blood pressure Provider Name and Address Organization Details Last Updated DateTime 4 170.18 cm 27.4 kg/m2 55377.6 6 g 98.5 [degF] 62 /min 97 % 97 % 148 mm[Hg] 84 mm[Hg] Yuliya Mark RN [facility] [employer] [facility] 4 09:03:15 Date Recorded Body height Systolic blood pressure Diastolic blood pressure Systolic blood pressure Diastolic blood pressure Provider Name and Address Organization Details Last Updated DateTime 3 170.18 cm 132 mm[Hg] 92 mm[Hg] 120 mm[Hg] 82 mm[Hg] Zoila Cardozo RN [facility] [employer] [facility] 3 10:20:04 Date Recorded Body height Body mass index (BMI) Body weight Heart rate Oxygen saturation Oxygen saturation in Arterial blood by Pulse oximetry Body temperature Systolic blood pressure Diastolic blood pressure Provider Name and Address Organization Details Last Updated DateTime 3 170.18 cm 27.9 kg/m2 97708.4 4 g 71 /min 97 % 97 % 97.6 [degF] 140 mm[Hg] 92 mm[Hg] Estefania Corona RN [facility] [employer] [facility] 3 10:24:03 Date Recorded Body height Body mass index (BMI) Body weight Body temperature Heart rate Oxygen saturation Oxygen saturation in Arterial blood by Pulse oximetry Systolic blood pressure Diastolic blood pressure Provider Name and Address Organization Details Last Updated DateTime 3 170.18 cm 28.2 kg/m2 51662.6 3 g 97.5 [degF] 66 /min 96 % 96 % 112 mm[Hg] 78 mm[Hg] Yemi Saldana RN [place] [facility] [place] [employer] 3 10:23:20 Social History Question Answer Notes LastModified by Organizat ion Details LastModified Time Tobacco Smoking Status Never Smoker Not Available [facility] 10/17/2022 23:02:35 Do You Have An Advance Directive? Yes MIGRATION.33176 20232 Information not available 10/17/2022 Are You Blind Or Do You Have Difficulty Seeing? No MIGRATION.06939 98957 Information not available 10/17/2022 What Is Your Level Of Caffeine Consumption? Occasional MIGRATION.05957 48017 Information not available 10/17/2022 How Much Tobacco Do You Chew? None MIGRATION.69372 49777 Information not available 10/17/2022 In The 14 Days Before Symptom Onset, Have You Had Close Contact With A Laboratory-confir med COVID-19 While That Case Was Ill? No MIGRATION.07791 47775 Information not available 10/17/2022 In The 14 Days Before Symptom Onset, Have You Had Close Contact With A Person Who Is Under Investigation For COVID-19 While That Person Was Ill? No MIGRATION.35239 79553 Information not available 10/17/2022 Are You Deaf Or Do You Have Serious Difficulty Hearing? Yes MIGRATION.61819 72438 Information not available 10/17/2022 What Type Of Diet Are You Following? REGULAR MIGRATION.29565 75082 Information not available 10/17/2022 Which Illicit Or Recreational Drugs Have You Used? No MIGRATION.59045 30628 Information not available 10/17/2022 Have There Been Any Changes To Your Family Or Social Situation? No MIGRATION.71189 31812 Information not available 10/17/2022 Are There Any Guns Present In Your Home? No MIGRATION.19175 70887 Information not available 10/17/2022 Do You Use Insect Repellent Routinely? No MIGRATION.58113 26219 Information not available 10/17/2022 Where Do You Live? [place] MIGRATION.96818 11703 Information not available 10/17/2022 Do You Have A Medical Power Of Revenue Liaison? Yes MIGRATION.64609 54155 Information not available 10/17/2022 What Was The Date Of Your Most Recent Tobacco Screening? 06/26/2023 Information not available 06/26/2023 Do You Have Any Pets? No MIGRATION.91168 83376 Information not available 10/17/2022 Do You Have Smoke And Carbon Monoxide Detectors In Your Home? Yes MIGRATION.53891 79192 Information not available 10/17/2022 Are You Passively Exposed To Smoke? No MIGRATION.00171 14318 Information not available 10/17/2022 Are There Any Smokers In Your House? No MIGRATION.74071 98609 Information not available 10/17/2022 How Much Tobacco Do You Smoke? No MIGRATION.42931 93828 Information not available 10/17/2022 What Types Of Sporting Activities Do You Participate In? Goes To [facility] MIGRATION.04108 27798 Information not available 10/17/2022 Do You Use Sunscreen Routinely? Yes MIGRATION.86928 88278 Information not available 10/17/2022 Has Tobacco Cessation Counseling Been Provided? No MIGRATION.21122 30266 Information not available 10/17/2022 Have You Recently Traveled Abroad? No MIGRATION.00284 85291 Information not available 10/17/2022 Do You Have Difficulty Walking Or Climbing Stairs? No MIGRATION.29729 48352 Information not available 10/17/2022 Are You Currently In School? No MIGRATION.83474 26303 Information not available 10/17/2022 Do You Have Any Dietary Restrictions? No MIGRATION.62407 21175 Information not available 10/17/2022 Sex: Unknown Functional Status Question Answer Note LastModified by Organizat ion Details LastModified Time Do you use any illicit or recreational drugs? No MIGRATION.612861 1444 Information not available 10/17/2022 Do you or have you ever used any other forms of tobacco or nicotine? No MIGRATION.219464 7936 Information not available 10/17/2022 What is your level of alcohol consumption? None MIGRATION.172715 4975 Information not available 10/17/2022 Do you or have you ever used smokeless tobacco? Never used smokeless tobacco MIGRATION.925081 2390 Information not available 10/17/2022 Do you have transportation difficulties? No MIGRATION.649562 9797 Information not available 10/17/2022 Are you able to walk? YESWOREST MIGRATION.068928 5201 Information not available 10/17/2022 Do you have difficulty doing errands alone? No MIGRATION.306008 2434 Information not available 10/17/2022 Are you able to care for yourself? Yes MIGRATION.966433 1391 Information not available 10/17/2022 What is your occupation? retired MIGRATION.686867 0341 Information not available 10/17/2022 Do you have difficulty dressing or bathing? No MIGRATION.472420 4870 Information not available 10/17/2022 Do you or have you ever used e-cigarettes or vape? Never used electronic cigarettes MIGRATION.481415 5626 Information not available 10/17/2022 What is your exercise level? Moderate MIGRATION.961765 9490 Information not available 10/17/2022 Mental Status Question Answer Note LastModified by Organizat ion Details LastModified Time Do you feel stressed (tense, restless, nervous, or anxious, or unable to sleep at night)? YO1689-5 MIGRATION.59332290 26 Information not available 10/17/2022 Do you have difficulty concentrating, remembering or making decisions? No MIGRATION.98295490 26 Information not available 10/17/2022 Family History Relationship Description Onset Age of this Age Resolved Age Notes LastModified by Organization Details LastModified Time Father Family history of malignant neoplasm 63 colon and lung MIGRATION.018 [id number] Not available 10/17/2022 23:02:53 Mother Family history of malignant neoplasm 68 pancre atic MIGRATION.717 3710338 Not available 10/17/2022 23:02:53 Brother Cerebrovascu lar accident MIGRATION.692 6305369 Not available 10/17/2022 23:02:53 Brother Aneurysm 56 brain- caused cva MIGRATION.370 3630278 Not available 10/17/2022 23:02:53 Medical History No [...] mcg/0.3 mL dose 10/09/2021 completed Not Available [facility] 3 23:04:15 COVID-19 PS Non-US Vaccine (EpiVacCorona ) 03/24/2021 completed Not Available [facility] 3 23:04:16 COVID-19 PS Non-US Vaccine (EpiVacCorona ) 03/03/2021 completed Not Available [facility] 3 23:04:16 Influenza, high-dose, quadrivalent, PF 06/22/2022 completed Not Available [facility] 3 23:04:16 Influenza, high-dose, quadrivalent, PF 06/13/2021 completed Not Available [facility] 3 23:04:16 Past Encounters Encounter ID Performer Location Encounter Start Date Encounter Closed Date Diagnosis/Indication Diagnosis SNOMED-CT Code Diagnosis ICD10 Code Diagnosis Note [id number] DOC Dias [facility] [place] [address] [place] [address] 01/12/2021 00:00:00 01/12/2021 19:47:44 [id number] DOC Dias [facility] [place] [address] [place] [address] 02/09/2021 00:00:00 02/09/2021 15:33:59 [id number] Sravanthi Hinton MD [facility] [place] [address] [place] [address] 03/08/2021 00:00:00 03/10/2021 09:16:50 [id number] Sravanthi Hinton MD [facility] [place] [address] [place] [address] 03/17/2021 00:00:00 03/17/2021 12:53:48 [id number] Sravanthi Hinton MD [facility] [place] [address] [place] [address] 04/19/2021 00:00:00 04/19/2021 10:32:37 [id number] NAVID River [facility] [place] [address] [place] [address] 06/13/2021 00:00:00 06/13/2021 17:06:13 [id number] Sravanthi Hinton MD [facility] [place] [address] [place] [address] 10/17/2021 00:00:00 10/17/2021 10:17:24 [id number] Sravanthi Hinton MD [facility] [place] [address] [place] [address] 11/14/2021 00:00:00 11/14/2021 11:01:21 [id number] DOC Dias [facility] [place] [address] [place] [address] 12/01/2021 00:00:00 12/01/2021 18:14:52 [id number] Sravanthi Hinton MD [facility] [place] [address] [place] [address] 12/13/2021 00:00:00 12/13/2021 09:29:56 [id number] NAVID River [facility] [place] [address] [place] [address] 02/07/2022 00:00:00 02/07/2022 16:41:38 [id number] Sravanthi Hinton MD [facility] [place] [address] [place] [address] 03/14/2022 00:00:00 03/15/2022 12:44:19 [id number] NAVID River [facility] [place] [address] [place] [address] 05/07/2022 00:00:00 05/07/2022 11:45:17 [id number] NAVID River [facility] [place] [address] [place] [address] 06/22/2022 00:00:00 07/17/2022 17:07:12 [id number] Sravanthi Hinton MD [facility] [address] [place] [address] 06/25/2022 00:00:00 06/25/2022 10:51:13 [id number] NAVID River [address] [place] [address] 08/28/2022 00:00:00 08/28/2022 09:23:13 [id number] Sravanthi Hinton MD [address] [place] [address] 12/24/2022 10:18:09 12/24/2022 10:53:44 Atrial fibrillation 63029185 I48.91 Z79.899 stable Chronic ob structive pulmonary disease 19908637 J44.9 stable Vitamin D deficiency 347 24563 E55.9 Cobalamin deficiency 190 032054 E53.8 Iron deficiency 85637937 E61.1 [id number] DOC Dias [address] [place] [address] 02/13/2023 16:25:13 02/13/2023 17:11:06 Essential hypertension 91556781 I10 Not well controlled Asymptomat ic at [...] or concerning symptoms. Patient on beta-block er + xarelto.Sa mples given. Acute sinusitis 30414719 J01.90 --Ear Pain/Sinus Congestion -encourage d warm compresses to face/jawli ne to promote drainage. Ok to take otc pain relievers per package instructio ns to reduce discomfort . Continue/s tart nasal spray otc anti-hista mines per package instructio ns.Will give course of steroids. [id number] Sravanthi Hinton MD [facility] Primary Care [facility] [address] [facility] [address] [place] [address] 02/22/2023 09:52:31 02/22/2023 10:45:40 [id number] DOC Dias [facility] [address] [facility] [address] [place] [address] 03/14/2023 10:15:25 03/14/2023 13:56:08 Diverticulosis of colon 507824690 K57.30 New problemRev iewed ER note from [...] and metronidaz ole as directed. Essential hypertension 86120013 I10 Improved, but not to goalReview ed [...] in managing bps.Contin ue carvedilol 6.25mg BID [id number] Sravanthi Hinton MD [facility] [address] [facility] [address] [place] [address] 06/26/2023 10:15:32 06/26/2023 11:35:38 Adult health examination 074614878 Z00.00 Colonoscop y 05/13/23-po lyps repeat 3-[address] Mercedes gustafson is scheduled for A orderedFlu vaccine todayRecom mend RSV, covid vaccine and shingles vaccine seriesPneu monia vaccines completed per patient recordLabs up to date Screening for disorder 465404500 Z13.9 Postmenopausal state 764 02890 Z78.0 Chronic ob structive pulmonary disease 86753082 J44.[address] Nava Essential hypertension 67508675 I10 stable Hemochromatosis 78365712 6 E83.119 stablerepe at labs in 6 months Polyp of colon 81103238 K63.5 colonoscop y 05/13/23 Dr. Rodriguez tubular adenomarep eat in 3-5 years per his note Atrial fibrillation 4943 6004 I48.91 stablesees cardiology [id number] Sravanthi Hinton MD [facility] Primary Care [address] [place] [address] 10/31/2023 15:47:52 10/31/2023 16:44:57 Low back pain 152214275 M54.50 -new issue, to left low back-pain rated at 5/10, can go up to 10/10 later in the day-F/u in the ER x2, was given muscle relaxers (uses occ)-ROM and strength are intact some pain-numbn ess and tingling to left hip-PT referral given Abdominal discomfort 433 46500 R10.9 -noted since August, LLQ/superi or lateral L hip-no specific incident that coused discomfort -she questions whether she has a hernia or not, non currently papable on exam-has not affected diet-bowel and bladder are wnl-US abdomen ordered [id number] Sravanthi Hinton MD [facility] Primary Care [facility] [address] [facility] [address] [facility] [place] [address] 12/11/2023 08:55:39 12/11/2023 09:42:52 Low back pain 602053614 M54.50 12-11-23-pt doing PT BID, seems to be improving conditions -no further treatment needed 10-31-23-ne w issue, to left low back-pain rated at 5/10, can go up to 10/10 later in the day-F/u in the ER x2, was given muscle relaxers (uses occ)-ROM and strength are intact some pain-numbn ess and tingling to left hip-PT referral given Abdominal discomfort [id number] R10.9 12-11-23-US reviewed-n egative-no further interventi on needed 10-31-23-no samaria since August, LLQ/superi or lateral L hip-no specific incident that coused discomfort -she questions whether she has a hernia or not, non currently papable on exam-has not affected diet-bowel and bladder are wnl-US abdomen ordered Essential hypertension [id number] I10 -pt recently noted high bp at PT (feeling dizzy)-F/u with the ER yesterday dt feeling dizzy, bp noted to be in the 190s-was given hydralazin e while in the ER, improvemen t noted-uses 32oz container for water, drinks 3 per day-does not drink coffee/caf feine products-h ydralazine 25mg given-refi ll carvedilol given Atrial fibrillation [id number] I48.91 -refill xarelto given Vertigo [id number] R42 -refill meclizine given Health Concerns Section Related Observation LastModified by Organization Detai ls LastModified Time None Recorded Concern Status LastModified by Organization Details LastModified Time None Recorded Advance Directives Directive Y: Payers Insurance Date Sequence Insurance Name Policy Number Policy Allen Covered Member ID Allen Member ID Guarantor Name 12/08/2023 1 [employer] (MEDICARE REPLACEMENT/ ADVANTAGE - HMO) [id number] Jillian Gunn [id number] Jillian Gunn Notes Date Note Type Note [...] the past few weeks. [facility] [address], [place], [address], [employer] 03/14/2023 13:59:44 10/31/2023 text/html Pt was recently in the hospital for low back pain [facility] [address], [place], [address], [employer] 10/31/2023 17:12:11 12/11/2023 text/html pt is here for f/u [facility] [address], [place], [address], [employer] 12/11/2023 09:29:14 OBGyn Episode No OBEpisode recorded.
--- OUTSIDE RECORDS SUMMARY | 2025-01-28 13:33 | XMS_ITS | Clinical Summary ---
Author Organization [facility] Luc Fisher Address [address] [place] [address] Care Team Providers Care Core Manager Name Role Phone Antonietta Lopez Primary Care Provider +1- [phone] Allergies Active Allergy Reactions Criticality Noted Date [...] Encounters Date Type Department Care Team Description 01/22/2025 Orders Only [facility] Oncology and Hematology - El[address] [place] [phone] Vidal Ayoub MD 01/20/2025 Orders Only [facility] Oncology and Hematology - [place] [place] [phone] Vidal Ayoub MD 01/12/2025 Orders Only [facility] Oncology and Hematology - El[place] [address] [place] [phone] Vidal Ayoub MD 01/07/2025 4:30 PM CDT Telephone Check Up [facility] Oncology and Hematology [facility] [address] [place] [phone] Vidal Ayoub MD Hereditary hemochromatosis (Primary Dx) 01/07/2025 External Device Data STL ABSTRACTION Provider, Abstract 01/07/2025 External Device Data STL ABSTRACTION Provider, Abstract 01/06/2025 External Device Data STL ABSTRACTION Provider, Abstract 01/06/2025 External Device Data STL ABSTRACTION Provider, Abstract 01/05/2025 External Device Data STL ABSTRACTION Provider, Abstract 01/04/2025 Orders Only [facility] Oncology and Hematology - [place] [place] [address] Vidal Ayoub MD 12/31/2024 1:30 PM CDT Office Visit [facility] Oncology and Hematology [facility] [address] [place] [address] Vidal Ayoub MD Hereditary hemochromatosis (Primary Dx) [...] Description 04/14/2025 10:00 AM CDT Office Visit [facility] Oncology and Hematology [facility] [address] [facility] [address] [place] [address] Vidal Ayoub MD [address] [facility] [address] [place] [address] Health Maintenance Due Date Last Done Comments DTAP/TDAP/TD VACCINES (1 - Tdap) 11/19/1967 ZOSTER VACCINE (1 of 2) 1998 OSTEOPOROSIS SCREENING 2013 RSV VACCINE (60+ or ) (1 - 1-dose 75+ series) 11/19/2023 INFLUENZA VACCINE (#1) 2024 05/23/2020 PNEUMOCOCCAL VACCINE 50+ YEARS Completed 08/14/2017 , 04/06/2014 Procedures Procedure Name Priority Date/Time Associated Diagnosis Comments CBC WITH DIFFERENTIAL Routine 01/20/2025 4:24 PM CDT CBC WITH DIFFERENTIAL Routine 01/20/2025 3:36 PM CDT IRON PANEL Routine 01/20/2025 12:59 PM CDT HEREDITARY HEMOCHROMATOSIS DNA MUTATION ANALYSIS Routine 12/31/2024 11:31 AM CDT IRON LEVEL Routine 12/31/2024 10:20 AM CDT COMPREHENSIVE METABOLIC PANEL Routine 12/31/2024 9:43 AM CDT from Last 3 Months Results * CBC WITH DIFFERENTIAL (01/20/2025 4:24 PM CDT) Only the most recent of2 resultswithin the time period is included. Blood us Vidal Ayoub MD HEMATOLOGY ORDERABLES Final Res ult * IRON PANEL (01/20/2025 12:59 PM CDT) Blood us Vidal Ayoub MD CHEMISTRY ORDERABLES Final Resu lt * HEREDITARY HEMOCHROMATOSIS DNA MUTATION ANALYSIS (12/31/2024 11:31 AM CDT) us Vidal Ayoub MD CHEMISTRY ORDERABLES COM Final Result * IRON LEVEL (12/31/2024 10:20 AM CDT) Blood us Vidal Ayoub MD CHEMISTRY ORDERABLES Final Resu lt * COMPREHENSIVE METABOLIC PANEL (12/31/2024 9:43 AM CDT) Blood us Vidal Ayoub MD CHEMISTRY ORDERABLES Final Resu lt from Last 3 Months Insurance A[employer] HMO MCR Care Teams Core Manager Relationship Specialty Start Date End Date Antonietta Lopez DO [address] [facility] [address] [place] [address] PCP - General Family Practice 12/31/24
--- NOTE | 2025-01-28 13:55 | ED_ITS ---
HPI - Fall General Chief Complaint: Fall Stated Complaint: fall, takes Xarelto Time Seen by Provider: 01/28/25 13:10 Source: patient Mode of arrival: ambulatory Limitations: no limitations History of Present Illness HPI Narrative: Patient is a 74-year-old female who presents the ED status post fall. Patient reports a history of hemochromatosis and was walking into the outpatient oncology building today to have a phlebotomy appointment when she tripped and fell. Landed onto her left side. She did hit her head, sustained small abrasions to her left eyebrow, left facial cheek. Denied LOC. She had left- sided epistaxis which has since resolved. Also sustained abrasion to her left knee. Was able to ambulate after the fall. Denies any other areas of pain. Denies left arm or shoulder pain. Denies left hip pain. Denies chest or abdominal pain. Patient is on Xarelto due to history of AFib. Tetanus status unknown. Related Data Home Medications ?Medication ?Instructions ?Recorded ?Confirmed ?Last Taken ?Type flecainide 100 mg tablet 100 mg PO BID 03/31/21 11/30/24 05/13/23 07:10 History cetirizine 10 mg capsule (Zyrtec) 10 mg PO DAILY 04/30/23 11/30/24 Unknown History calcium 600 mg (as 1 tablet PO BID 05/26/24 11/30/24 Unknown History carbonate)-vitamin D3 10 mcg (400 unit) tablet (Calcium with Vitamin D) mecobalamin (vitamin B12) 1,000 1,000 mcg PO DAILY 05/26/24 11/30/24 Unknown History mcg chewable tablet Allergies Allergy/AdvReac Type Severity Reaction Status Date / Time Sulfa (Sulfonamide Allergy Intermediate Rash Verified 01/28/25 13:08 Antibiotics) latex Allergy Hives Verified 01/28/25 13:08 Review of Systems Review of Systems: All systems reviewed & are unremarkable except as noted in HPI. All systems reviewed & are unremarkable except as noted in HPI and below PMFSH Past Medical History Medical History Right ankle sprain April 2023 Heart disease COPD (chronic obstructive pulmonary disease) Allergies Takotsubo cardiomyopathy Hemochromatosis HTN (hypertension) Paroxysmal atrial fibrillation Surgical History Surgical History History of hysterectomy 1995 Family History Family History Father Carcinoma of colon Lung cancer Diabetes mellitus Mother Pancreatic cancer Sibling Brain aneurysm Cerebrovascular accident Heart disease Social History Social History Smoking status: Never smoker Second hand tobacco smoke exposure: Yes Alcohol intake: current Alcohol use details: wine Substance use: never Substance use type: does not use Do You Feel Safe in your Home?: Yes Lack of Transportation: No Lack of Food: Never True Current Housing: I Have Housing Concerned About Future Housing: No Difficulty Paying Gas/Electric Bills: No Difficulty Paying for Meds: No Currently Unemployed: No Education: High School Diploma/GED Difficulty w/ Childcare or Family Care: No Living arrangements: alone Occupation/Education: retired Additional occupation/education comments: [employer] Gender identity (if verbalized by the patient): Female Spiritual care concerns: No Exam Narrative: GENERAL: Elderly but well appearing, well-nourished, non-toxic, in no acute distress. HEAD: Normocephalic, atraumatic. EYES: PERRL/EOMI, conjunctiva clear. No pain with eye movements. No nystagmus. Small abrasion of L lateral eyebrow w/o active bleeding, no deep lacerations. ENT: Small contusion to L facial cheek/maxillary region, no wounds. Dried blood in L nare, no active epistaxis. No septal hematoma. RESPIRATORY: Airway patent, respirations nonlabored. Clear to auscultation bilaterally, no rales, rhonchi, wheezing. CARDIOVASCULAR: Regular rate and rhythm without murmurs, rubs, or gallops. MUSCULOSKELETAL: Moves all extremities. No gross deformities. Small abrasion to left anterior knee with mild focal tenderness. Minimal swelling present. No significant tenderness throughout left hip joint, left upper extremity. SKIN: Warm, dry, normal color. NEURO: A&O X3. Speech clear. Cranial nerves II-XII grossly intact. Steady gait. No ataxic movements. PSYCHIATRIC: Appropriate mood and affect. Normal interaction. Course Vital Signs Vital signs: Vital Signs Temperature 98.2 F 06/12/25 13:04 Pulse Rate 99 01/28/25 13:04 Respiratory Rate 18 01/28/25 13:04 Blood Pressure 182/103 H 01/28/25 13:04 Pulse Oximetry 98 01/28/25 13:04 Oxygen Delivery Room Air 01/28/25 13:04 Temperature 98.2 F 01/28/25 13:04 Pulse Rate 91 01/28/25 15:51 Respiratory Rate 18 01/28/25 15:51 Blood Pressure 149/90 H 01/28/25 15:51 Pulse Oximetry 94 01/28/25 15:51 Oxygen Delivery Room Air 01/28/25 13:04 MDM - Fall MDM Narrative Medical decision making narrative: Patient presented to ED status post mechanical fall, head injury, no LOC, abrasions to left face, left knee. On Xarelto due to history of AFib. Vital signs are stable upon arrival. Patient is in no acute distress. Neurologically intact. No focal deficits. CT brain without acute intracranial process. CT cervical spine/facial bones without neck fracture, does show fractures of inferior wall of left orbit and anterior and lateral coker of left maxillary sinus. X-ray of left knee negative, does show osteoarthritis. Tetanus updated in the ED. Discussed imaging findings with patient. She is feeling improved with Tylenol. There is no evidence of eye entrapment on exam. She has no eye pain, vision changes, blurry vision, diplopia whatsoever. She has no pain with eye movements whatsoever. Able to look in all directions. No evidence of ocular bradycardic reflex. Discussed case with Dr. Grimm, ENT w [facility], agrees w/ plan for outpatient f/u in their clinic within the next 1 week. Patient is in agreement with plan. She feels comfortable going home. I discussed very strict return precautions, including any eye complaints, sinus precautions, and patient voiced understanding. Offered pain medication for home, however patient declined. States she will take Tylenol. Patient discharged in stable condition Medical Records Attestation: I reviewed the patient's medical records. Imaging Data Attestation: I personally reviewed and interpreted this imaging study as follows: Radiologist's impression: ITS Impressions Head CT 01/28/25 14:13 IMPRESSION: 1. Fracture with mild buckling of the inferior wall of the left orbit and lateral wall the maxillary sinus with blood filling the left maxillary sinus. 2. Stable appearance of normal aging brain with no calvarial fracture or acute intracranial process. Head/Cervical Spine/Facial Bones CT 01/28/25 14:18 IMPRESSION: 1. Fractures of the inferior wall of the left orbit and anterior and lateral coker of the left maxillary sinus. 2. Mild cervicothoracic dextrocurvature with moderate cervical spondylosis. No acute cervical osseous abnormality. Knee X-Ray 01/28/25 14:36 Impression: 1: Mild tricompartment osteoarthritis of the left knee. Discharge Plan Discharge Clinical Impression: Fall from ground level Fracture of inferior orbital wall Qualifiers: Encounter type: initial encounter Fracture type: closed Laterality: left Qualified Code(s): S02.32XA - Fracture of orbital floor, left side, initial encounter for closed fracture Closed fracture of left maxillary sinus Qualifiers: Encounter type: initial encounter Qualified Code(s): S02.40DA - Maxillary fracture, left side, initial encounter for closed fracture Abrasion of left eyebrow Qualifiers: Encounter type: initial encounter Qualified Code(s): S00.212A - Abrasion of left eyelid and periocular area, initial encounter Abrasion of left knee Qualifiers: Encounter type: initial encounter Qualified Code(s): S80.212A - Abrasion, left knee, initial encounter Patient Disposition: Home Condition: Stable Instructions: Antibiotic Form, Facial Fracture (ED), Head Injury (ED) Additional Instructions: Recommend frequent icing to face, Tylenol as needed for pain. You are to follow-up with [facility] ENT/facial specialist for further evaluation of your fractures. They should be contacting you to make appointment. If you do not hear from them within the next couple of days, contact their office at [phone]. Avoid rubbing or blowing nose as much as possible. Return to the ED if you experience worsening or severe pain, recurrent injury, severe swelling of face, recurrent nosebleeds, vision changes, double vision, blurry vision, pa in with eye movements, or any other symptoms of concern. Patient Language: Spanish Prescriptions: No Action calcium carbonate-vitamin D3 [Calcium with Vitamin D] 600 mg-10 mcg (400 unit) tablet 1 tablet PO BID Zyrtec 10 mg capsule 10 mg PO DAILY Anoro Ellipta 62.5-25 mcg/actuation blister with device 1 inh inhalation DAILY 30 Days Qty: 60 11RF Rx Instructions: One puff same time daily. albuterol sulfate [Ventolin HFA] 90 mcg/actuation HFA aerosol inhaler 2 puff inhalation QID PRN (Reason: shortness of breath or wheezing) Qty: 8.5 0RF carvedilol 6.25 mg tablet 6.25 mg PO BID Qty: 180 1RF flecainide 100 mg tablet 100 mg PO BID mecobalamin (vitamin B12) 1,000 mcg tablet,chewable 1,000 mcg PO DAILY Xarelto 20 mg tablet 20 mg PO DAILY Qty: 90 1RF alendronate 70 mg tablet 70 mg PO WEEKLY Qty: 12 1RF meclizine 25 mg tablet See Rx Instructions .ROUTE .COMPLEX Qty: 180 1RF Dose Instruction: TAKE 1 TABLET BY MOUTH TWICE DAILY FOR DIZZINESS Rx Instructions: TAKE 1 TABLET BY MOUTH TWICE DAILY FOR DIZZINESS Follow-up/Referrals: Antonietta Lopez DO [Primary Care Provider] - Time of Disposition: 16:18
--- OUTSIDE RECORDS SUMMARY | 2025-01-28 14:01 | XMS_ITS | Clinical Summary ---
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
--- OUTSIDE RECORDS SUMMARY | 2025-01-28 14:01 | XMS_ITS | Referral Summary ---
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 [address] [employer] MEDICARE GOLD [employer] MEDICARE GOLD Care Teams International Marketing Specialist Relationship Specialty Start Date End Date Antonietta Lopez DO [address] [place] [address] [place] [address] PCP - General Family Medicine 12/31/23
--- OUTSIDE RECORDS SUMMARY | 2025-01-28 14:01 | XMS_ITS | Clinical Summary ---
Author Organization [facility] Luc Fisher Address [address] [place] [address] Care Team Providers Care First Helper Name Role Phone Antonietta Lopez Primary Care Provider +1- [phone] Allergies Active Allergy Reactions Criticality Noted Date [...] Department Care Team Description 01/22/2025 Orders Only [facility] Oncology and Hematology - Elie [address] [place] [phone] Vidal Ayoub MD 01/20/2025 Orders Only [facility] Oncology and Hematology - Elie [address] [place] [phone] Vidal Ayoub MD 01/12/2025 Orders Only [facility] Oncology and Hematology - Elie [address] [place] [phone] Vidal Ayoub MD 01/07/2025 4:30 PM CDT Telephone Check Up [facility] Oncology and Hematology [facility] [address] [place] [phone] Vidal Ayoub MD Hereditary hemochromatosis (Primary Dx) 01/07/2025 External Device Data STL ABSTRACTION Provider, Abstract 01/07/2025 External Device Data STL ABSTRACTION Provider, Abstract 01/06/2025 External Device Data STL ABSTRACTION Provider, Abstract 01/06/2025 External Device Data STL ABSTRACTION Provider, Abstract 01/05/2025 External Device Data STL ABSTRACTION Provider, Abstract 01/04/2025 Orders Only [facility] Oncology and Hematology - Elie [address] [place] [address] Vidal Ayoub MD 12/31/2024 1:30 PM CDT Office Visit [facility] Oncology and Hematology [facility] [address] [place] [address] Vidal Ayoub MD Hereditary hemochromatosis (Primary Dx) [...] Description 04/14/2025 10:00 AM CDT Office Visit [facility] Oncology and Hematology [facility] [address] [facility] [address] [place] [address] Vdial Ayoub MD [address] [facility] [address] [place] [address] Health Maintenance Due Date Last [...] Last 3 Months Insurance AETNA HMO MCR [facility] Address: [facility] [id number] [place] [id number] Care Teams First Helper Relationship Specialty Start Date End Date Antonietta Lopez DO [address] [facility] [address] [place] [address] PCP - General Family Practice 12/31/24
[2025-01-28] MEDS: ONDANSETRON HCL ODT 4 MG TABLET PO (14:29)
[2025-01-28] MEDS: ACETAMINOPHEN 500 MG TABLET 1000 MG PO (14:29)
[2025-01-28] MEDS: TETANUS,DIPHTHERIA,AC PERTUSSIS ADULT (0.5 ML) BOOSTRIX IM (14:29)
[2025-01-28 15:51] VITALS: BP 149/90; PULSE 91; RESP 18; O2SAT 94
== END 2025-01-28 16:37 | disposition home or self-care (01) ==
PROVIDERS: Emergency Provider Physician Assistant; PCP Family Medicine
DX: S02.32XA Fracture of orbital floor, left side, initial encounter for closed fracture (principal); S02.40DA Maxillary fracture, left side, initial encounter for closed fracture; S00.212A Abrasion of left eyelid and periocular area, initial encounter; S80.212A Abrasion, left knee, initial encounter; Z23 Encounter for immunization; E83.119 Hemochromatosis, unspecified; J44.9 Chronic obstructive pulmonary disease, unspecified; I48.0 Paroxysmal atrial fibrillation; I11.9 Hypertensive heart disease without heart failure; Z77.22 Contact with and (suspected) exposure to environmental tobacco smoke (acute) (chronic); Z90.710 Acquired absence of both cervix and uterus; Z79.01 Long term (current) use of anticoagulants; Z79.899 Other long term (current) drug therapy; M47.812 Spondylosis without myelopathy or radiculopathy, cervical region; W01.0XXA Fall on same level from slipping, tripping and stumbling without subsequent striking against object, initial encounter; M17.12 Unilateral primary osteoarthritis, left knee
CPT/HCPCS: 70450; 70486; 72125; 73564; 90471; 90715; 99284; A9270

== ENCOUNTER 2025-02-16 14:05 | Outpatient (CLI) | payer MEDICARE, SELFPAY ==
--- NOTE | ~2025-02-16 | MM_ITS ---
EXAMINATION: MM screening susan BI w ree HISTORY: Screening mammogram TECHNIQUE: Craniocaudal and mediolateral oblique 3-D tomosynthesis images were obtained and synthetic 2-D images were generated. CAD analysis was submitted and interpreted. COMPARISON: 09/07/2023, 03/15/2022 BREAST PARENCHYMAL COMPOSITION:Not Dense. There are scattered areas of fibroglandular density. FINDINGS: No suspicious mass, calcification, or architectural distortion are identified in either dom ast to suggest malignancy. There has been no suspicious interval change. IMPRESSION: No mammographic evidence of malignancy. Recommend routine screening mammography in one year. BI-RADS Category 1: Negative Reviewed, dictated and finalized at location .
--- OUTSIDE RECORDS SUMMARY | 2025-02-16 14:08 | XMS_ITS | Clinical Summary ---
Author Organization [facility] Address [address] [place] [address] Care Team Providers Care Furniture Manager Name Role Phone Antonietta Lopez DO Primary Care Provider +1- [phone] Allergies Active Allergy Reactions Criticality Noted Date [...] (ascorbic acid) 250 mg tablet,chewable Vitamin C Active ELDERBERRY FRUIT ORAL Take by mouth Activ e flecainide (TAMBOCOR) 100 mg tablet Take 1 tablet by mouth twice daily 180 tablet 5 Active alendronate (FOSAMAX) 70 mg tablet Take 1 tablet (70 mg total) by mouth once a week Active calcium carbonate-vitam in D3 1,500 mg (600 mg elemental)-200 unit capsule Take by mouth daily Active clotrimazole 1 % cream APPLY CREAM TOPICALLY TO AFFECTED AREA TWICE DAILY FOR 4 WEEKS 5 Active cyanocobalamin (Vitamin B-12) 1,000 mcg tablet Take 1 tablet (1,000 mcg total) by mouth daily Active Active Problems Problem Noted Date Diagnosed Date Paroxysmal atrial fibrillation 02/16/2021 Stress-induced cardiomyopathy 06/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 [address] [place] [address] [place] [address] Trung Fofana MD Facial trauma, initial encounter (Primary Dx); Dysphagia, oropharyngeal phase 02/03/2025 9:15 PM CDT - 02/03/2025 11:59 PM CDT Hospital Encounter [facility] [address] [place] [address] Discharge Disposition: Discharge to home or self care 02/03/2025 9:15 PM CDT - 02/03/2025 11:59 PM CDT Hospital Encounter [facility] [address] [place] [address] Discharge Disposition: Discharge to home or self care 01/29/2025 Telephone [facility] Otolaryngology [address] [place] [address] Edilia Otero MS 01/26/2025 11:15 AM CDT Office Visit [facility] Cardiology [address] [place] [id number] Alexandro Severino MD Stress-induced cardiomyopathy (Primary Dx); Paroxysmal atrial fibrillation (HCC) from Last 3 Months Surgical History Surgery Date Site/Laterality Comments CARDIAC CATHETERIZATION HYSTERECTOMY Medical History Medical History Date Comments Arrhythmia Atrial fibrillation (HCC) Takotsubo cardiomyopathy 2019 Hemochromatosis White coat syndrome without diagnosis of hyperte nsion Guillain Calvert syndrome 1991 Vertigo Family History Medical History Relation Name Comments Cancer Father Diabetes Father Cancer Mother Arrhythmia Sister Diabetes Sister Relation Name Status Comments Father Mother Sister Social History Tobacco Use Types Packs/Day Years Used Date Smoking Tobacco: Never Smokeless Tobacco: Never Tobacco Cessation:Counseling Given: Not Answered AUDIT-C Answer Date Recorded Q1: How often do you have a drink containing alc ohol? 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 Gender Identity Not on file Sexual Orientation Not on file Obstetrics History Last Filed Vital Signs Vital Sign Reading Time Taken Comments Blood Pressure 144/96 02/08/2025 12:58 PM CDT Pulse 65 02/08/2025 12:58 PM CDT Temperature - - Respiratory Rate - - Oxygen Saturation 98% 02/08/2025 12:58 PM CDT Inhaled Oxygen Concentration - - Weight 81.5 kg (179 lb 9.6 oz) 02/08/2025 12:58 PM CDT Height 170.2 cm (5' 7.01) 02/08/2025 12:58 PM C DT Body Mass Index 28.12 02/08/2025 12:58 PM CDT Plan of Treatment Health Maintenance Due Date Last Done Comments Depression Screening 1950 Fall Risk Assessment 1950 Hepatitis C Screening 1950 Osteoporosis Screening-Bone Density Scan 1950 DTaP/Tdap/Td Vaccine (1 - Tdap) 11/19/1959 Hepatitis B Screening 1966 Zoster Vaccine (1 of 2) 1998 Well Visit 65+ 2013 Influenza Vaccine (#1) 2025 9, 06/23/2018, 06/17/2017, Additional history exists Pneumococcal vaccine 65+ Completed 08/14/2017, 03/19 Procedures Procedure Name Priority Date/Time Associated Diagnosis Comments NEURO CT OUTSIDE REFERENCE Routine 02/03/2025 9:[address] BODY OUTSIDE REFERENCE Routine 02/03/2025 9:15 PM CDT ELECTROCARDIOGRAM REPORT Routine 025 3:18 PM CDT Paroxysmal atrial fibrillation (HCC) from Last 3 Months Results * Neuro CT Outside Reference (02/03/2025 9:15 PM CDT) Impressions [email or web address] - 02/03/2025 9:15 PM CDT These images are for Reference purposes only and have not been reviewed by [facility]iology. There will be no report generated by a [facility] Radiologist. Narrative [email or web address] - 02/03/2025 9:15 PM CDT EXAMINATION: Images For Reference Purposes Only Omar Germain MD [facility] CT PROCEDURES Final Re sult Performing Organization Address [facility] Co de Phone Number [email or web address] * CT Body Outside Reference (02/03/2025 9:15 PM CDT) Impressions [email or web address] - 02/03/2025 9:15 PM CDT These images are for Reference purposes only and have not been reviewed by [facility]iology. There will be no report generated by a [facility] Radiologist. Narrative [email or web address] - 02/03/2025 9:15 PM CDT EXAMINATION: Images For Reference Purposes Only us Omar Germain MD IM CT PROCEDURES Final Re sult Performing Organization Address [facility]/ZIP Co de Phone Number [email or web address] * Electrocardiogram Report (01/26/2025 3:18 PM CDT) us Alexandro Severino MD ECG ORDERABLES Final Re sult from Last 3 Months Insurance [employer] MEDICARE GOLD MEDICARE [facility] AETNA MEDICARE GOLD AET MEDICARE GOLD Care Teams Furniture Manager Relationship Specialty Start Date End Date Antonietta Lopez DO [address] [place] [address] DR MELLO [address] [place] [id number] PCP - General Family Medicine 12/31/23
--- OUTSIDE RECORDS SUMMARY | 2025-02-16 14:08 | XMS_ITS | Clinical Summary ---
Author Organization [facility] Address [address] [place] [address] Care Team Providers Care It Administrator Name Role Phone Antonietta Lopez Primary Care Provider +1- [phone] Allergies Active Allergy Reactions Criticality Noted Date [...] Encounters Date Type Department Care Team Description 02/03/2025 External Device Data STL ABSTRACTION Provider, Abstract 02/02/2025 External Device Data STL ABSTRACTION Provider, Abstract 01/22/2025 Orders Only [facility] Oncology and Hematology - [address] [place] [phone] Vidal Ayoub MD 01/20/2025 Orders Only [facility] Oncology and Hematology - [address] [place] [address] Vidal Ayoub MD 01/12/2025 Orders Only [facility] Oncology and Hematology - [address] [place] [phone] Vidal Ayoub MD 01/07/2025 4:30 PM CDT Telephone Check Up [facility] Oncology [facility] Hematology [facility] [address] [place] [phone] Vidal Ayoub MD Hereditary hemochromatosis (Primary Dx) 01/07/2025 External Device Data STL ABSTRACTION Provider, Abstract 01/07/2025 External Device Data STL ABSTRACTION Provider, Abstract 01/06/2025 External Device Data STL ABSTRACTION Provider, Abstract 01/06/2025 External Device Data STL ABSTRACTION Provider, Abstract 01/05/2025 External Device Data STL ABSTRACTION Provider, Abstract 01/04/2025 Orders Only [facility] Oncology and Hematology - [address] [place] [address] Vidal Ayoub MD 12/31/2024 1:30 PM CDT Office Visit [facility] Oncology and Hematology [facility] [address] [place] [address] Vidal Ayoub MD Hereditary hemochromatosis (Primary Dx) [...] Description 04/14/2025 10:00 AM CDT Office Visit [facility] Oncology and Hematology - [address] [facility] [address] [place] [address] Vidal Ayoub MD [address] [facility] [address] [place] [address] Health Maintenance Due Date Last [...] lt from Last 3 Months Insurance AETNA O [facility] [place] Address: [facility] [id number] [place] [address] Care Teams It Administrator Relationship Specialty Start Date End Date Antonietta Lopez DO [address] [facility] [address] [place] [phone] PCP - General Family Practice 12/31/24
--- OUTSIDE RECORDS SUMMARY | 2025-02-16 14:09 | XMS_ITS | Referral Summary ---
Author Organization [facility] Address [address] [place] [address] Care Team Providers Care Raw Scales Operator Name Role Phone Antonietta Lopez DO Primary Care Provider +1- [phone] Encounters Date Type Department Care Team Description 02/08/2025 1:00 PM CDT Office Visit [facility] - [facility] ENT [address] [facility] [address] [place] [address] [place] [address] Trung Fofana MD Facial trauma, initial encounter (Primary Dx); Dysphagia, oropharyngeal phase 02/03/2025 9:15 PM CDT - 02/03/2025 11:59 PM CDT Hospital Encounter [facility] [address] [place] [address] Discharge Disposition: Discharge to home or self care 02/03/2025 9:15 PM CDT - 02/03/2025 11:59 PM CDT Hospital Encounter 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 There will be no report generated by a [facility] Radiologist. Narrative [email or web address] - 02/03/2025 9:15 PM CDT EXAMINATION: Images For Reference Purposes Only Omar Germain MD IMG CT PROCEDURES Final Re sult Performing Organization Address [facility] de Phone Number [email or web address] * CT Body Outside Reference (02/03/2025 9:15 PM CDT) Impressions [email or web address] - 02/03/2025 9:15 PM CDT These images are for Reference purposes only and have not been reviewed by [facility] Radiology. There will be no report generated by a [facility] Radiologist. Narrative [email or web address] - 02/03/2025 9:15 PM CDT EXAMINATION: Images For Reference Purposes Only Omar Germain MD IMG CT PROCEDURES Final Re sult Performing Organization Address [facility] de Phone Number [email or web address] * Electrocardiogram Report (01/26/2025 3:18 PM CDT) Alexandro Severino MD ECG ORDERABLES Final Re sult from Last 3 Months Insurance [employer] MEDICARE GOLD MEDICARE [facility] TNA MEDICARE GOLD AET[employer] MEDICARE GOLD Care Teams Raw Scales Operator Relationship Specialty Start Date End Date Antonietta Lopez DO [address] [place] [address] [address] PCP - General Family Medicine 12/31/23
--- OUTSIDE RECORDS SUMMARY | 2025-02-16 14:09 | XMS_ITS | Data Portability ---
Author Organization [facility] [employer], Main Office Address [address] [place] [address] Assessment No assessment recorded. Plan of Treatment Reminders Order Date Submit Date Provider Last Modified By Organization Details Last Modified Time Details Appointments None recorded. Lab None recorded. Referral physical therapist referral - *Please call pt to schedule* [address] [facility] [address], [place], [address], 4 10:02:43 gastroenter ologist referral 2022 023 [email or web address] 3 Enrique Rodriguez MD, [address] [facility] [address], [place], [address], 3 08:06:57 Procedures None recorded. Surgeries None recorded. Imaging US, abdomen, complete [email or web address] [place] [address], [address], [place], [address], 4 09:04:40 DEXA - *Please call pt to schedule* 2022 [email or web address] [place] [address], [address] [facility] [address], [place], [address], 3 16:37:28 Medication Orders meclizine 25 mg tablet 2023 024 MONET Ge [facility] [address], [address] , [place], [address], 4 09:27:14 Xarelto 20 mg tablet 2023 024 [email or web address] [facility] [address], [address], [place], [address], 4 09:27:07 hydralazine 25 mg tablet 2023 024 [facility] [address], [address], [place], [address], 4 09:27:15 carvedilol 6.25 mg tablet 2023 024 [facility] [address], [address], [place], [address], 4 09:27:13 Flagyl 500 mg tablet 2022 023 [facility] [address], [address], [place], [address], 3 10:45:13 ciprofloxac in 500 mg tablet 2022 023 [facility] [address], [address], [place], [address], 3 10:45:12 Patient TargetsNo targets recorded. Patient Instructions Encounter Date Encounter Id Patient Instructions Last Modified By Organization Details Last Modified Time 06/26/2023 [id number] dementia rating scale-2* [email or web address] Not available 06/26/2023 11:49:02 multi-dimensiona l health assessment questionnaire* [email or web address] Not available 06/26/2023 11:49:06 care plan* [email or web address] Not available 06/26 11:49:09 advance directiv es: care instructions Not available 06/26/2023 10:44:38 advance care planning: care instructions Not available 06/26/2023 10:44:38 [place] Advance Directives Not available 06/26/2023 10:44:38 Personalized [facility] Plan and Screening Recommendations Advance Directives [...] Screening: Active diagnosis, Continue current treatment plan [email or web address] Not available 06/26/2023 10:47:05 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 [address], [address], 03/13/2023 07:56:02 05/14/2005/14/2023 XR, knee No observ ation record ed. [address], [place], [address], 05/15/2023 08:29:34 05/14/2005/14/2023 XR, ankle No observ ation record ed. [email or web address] [address], [place], [address], 05/15/2023 15:17:34 05/14/20 23 05/14/2023 CT, brain , w/o contr ast No observ ation record ed. [address] [address], [place], [address], 05/15/2023 08:33:26 09/09/19 24 09/07/2023 MAMMO , scree cira, digit al, bilat eral No observ ation record ed. [address] [address], [place], [address], 12/29/2023 15:31:11 09/16/19 24 09/16/2023 XR, chest No observ ation record ed. [address] [address], [place], [address], 09/17/2023 07:57:05 09/16/19 24 09/16/2023 CT, abdom en + pelvi s, w/o contr ast No observ ation record ed. [address] [address], [place], [address], 10/02/2023 12:15:03 11/09/19 24 11/08/2023 US, abdom en, compl ete No observ ation record ed. [address] [place] [address], [place], [address], 11/13/2023 15:54:13 12/11/19 24 12/07/2023 DEXA No observ ation record ed. [address], [address], 01/07/2024 17:02:54 Result Notes None recorded. Problems Name Problem SNOMED Code Status Onset Date Resolution Date Notes Provider Name and Address Organization Details Recorded Time Chronic obstructive pulmonary disease 79087708 Active 2021 Not Available [employer] 3 23:03:20 Rosacea 495089476 Active 2021 Not Available [facility] 3 23:03:20 Hemochromat osis 375103813 Active 2020 Not Available [facility] 3 23:03:20 Takotsubo cardiomyopa thy 059496451 Active 2020 Not Available [facility] 3 23:03:20 Atrial fibrillatio n 08253258 Active 2020 Not Available [facility] 3 23:03:20 Pruritic rash 15225126 Active 2021 Not Available [facility] 3 23:03:20 Polyp of colon 07572250 Active 2020 Tubular adenoma 04/10/21 Not Available [facility] 3 23:03:20 Basal cell carcinoma of skin 835407255 Active 2022 Sravanthi Hinton MD [address], [address], [place], [address] , [facility] 3 08:06:37 Vitamin D deficiency 21641313 Active 2022 Sravanthi Hinton MD [address], [address], [place], [address] , [facility] [employer] [facility] 3 10:37:40 Cobalamin deficiency 739400605 Active 2022 Sravanthi Hinton MD [address], [place], [address] , [facility] 3 10:37:50 Iron deficiency 92373378 Active 2022 Sravanthi Hinton MD [address], [place], [address] , [facility] 3 10:38:50 Essential hypertensio n 01220798 Active 2022 DOC Dias [address], [address], [place], [address] , [facility] 3 16:53:10 Acute sinusitis 94420122 Active 2022 DOC Dias [address], [address], [place], [address] , [facility] 3 17:00:48 Diverticulo sis of colon 495999069 Active 2022 DOC Dias [address], [address], [place], [address] , [facility] 3 10:35:15 Spasm 77092697 Active 2023 Sravanthi Hinton MD [address], [place], [address] , [facility] 4 15:30:44 Low back pain 203024540 Active 2023 [facility]ER [facility] [address], [address], [place], [address] , [facility] 4 16:25:50 Abdominal discomfort 16119379 Active 2023 FER [address]ron [address], [address], [address] , [facility] 4 16:35:14 Cyst of kidney 273553428 Active 2023 Sravanthi Hinton MD [address], [address], [place], [address] , [facility] 4 13:44:26 Vertigo 214506225 Active 2023 FER [employer] [address], [address], [place], [address] , [facility] 4 09:25:21 Osteoporosi s 84145033 Active 2023 Sravanthi Hinton MD [address], [place], [address] , [facility] 4 19:37:35 Problem Notes None recorded. Procedures Surgical History Date Name Laterality Status Provider Name and Address Organization Details Recorded Time 06/26/20 Medicare Wellness CPT Code, subsequent completed Yemi Saldana RN [facility] [employer] [facility] 06/26/2023 10:19:48 05/13/20 23 colonoscopy completed Sravanthi Hinton MD [address] [facility], [facility] [address], [place], [address], [facility] [employer] [facility] 06/26/2023 10:46:36 04/10/20 21 colonoscopy completed Not Available [facility] 10/18/19 23 23:02:53 06/15/19 96 Hysterectomy completed Not Available [facility] 023 23:02:53 extraction of cataract completed Not Available [facility] 10/17/2022 23:02:53 Imaging Results None recorded. Procedure Notes None recorded. Medical Equipment None Reported. Allergies Allergen ID Allergen Name Allergen Category Reaction Reaction Severity Criticality Documentation Date Start Date Code Code System Note Provider Name and Address Organization Details Recorded Time 27110 Substance with sulfonami de structure and antibacte rial mechanism of action (substanc e) medicatio n Not available Not available Not available 10/17/2022 27599 8003 SNOMED Not Available [facility] 3 23:04:19 22267 Latex (substanc e) environme nt,medica tion Not available Not available Not available 10/17/2022 44053 8007 SNOMED Not Available [facility] 3 23:04:19 53890 cephalexi n medicatio n other mild low 03/14/2023 2231 RxNorm DOC Henson [address] [facility], [facility] [address], [place], [address], [facility] [employer] [facility] 3 10:37:53 Medications Name Sig Start Date [...] Updated DateTime 4 170.18 cm 28.2 kg/m2 69566.6 3 g 99.7 [degF] 73 /min 97 % 97 % 148 mm[Hg] 88 mm[Hg] Yuliya Mark RN [facility] [employer] [facility] 4 15:54:35 Date Recorded Body height Body mass index (BMI) Body weight Body temperature Heart rate Oxygen saturation Oxygen saturation in Arterial blood by Pulse oximetry Systolic blood pressure Diastolic blood pressure Provider Name and Address Organization Details Last Updated DateTime 4 170.18 cm 27.4 kg/m2 29448.6 6 g 98.5 [degF] 62 /min 97 % 97 % 148 mm[Hg] 84 mm[Hg] Yuliya Mark RN [facility] [employer] [facility] 4 09:03:15 Date Recorded Body height Systolic blood pressure Diastolic blood pressure Systolic blood pressure Diastolic blood pressure Provider Name and Address Organization Details Last Updated DateTime 3 170.18 cm 132 mm[Hg] 92 mm[Hg] 120 mm[Hg] 82 mm[Hg] Zoila Cardozo RN [facility] [employer] [facility] 3 10:20:04 Date Recorded Body height Body mass index (BMI) Body weight Heart rate Oxygen saturation Oxygen saturation in Arterial blood by Pulse oximetry Body temperature Systolic blood pressure Diastolic blood pressure Provider Name and Address Organization Details Last Updated DateTime 3 170.18 cm 27.9 kg/m2 64384.4 4 g 71 /min 97 % 97 % 97.6 [degF] 140 mm[Hg] 92 mm[Hg] Estefania Corona RN [facility] [employer] [facility] 3 10:24:03 Date Recorded Body height Body mass index (BMI) Body weight Body temperature Heart rate Oxygen saturation Oxygen saturation in Arterial blood by Pulse oximetry Systolic blood pressure Diastolic blood pressure Provider Name and Address Organization Details Last Updated DateTime 3 170.18 cm 28.2 kg/m2 46897.6 3 g 97.5 [degF] 66 /min 96 % 96 % 112 mm[Hg] 78 mm[Hg] Ymei Saldana RN [facility] [place] [employer] [facility] [employer] 3 10:23:20 Social History Question Answer Notes LastModified by Organizat ion Details LastModified Time Tobacco Smoking Status Never Smoker Not Available [employer] 10/17/2022 23:02:35 Do You Have An Advance Directive? Yes MIGRATION.22949 24199 Information not available 10/17/2022 Are You Blind Or Do You Have Difficulty Seeing? No MIGRATION.11638 36314 Information not available 10/17/2022 What Is Your Level Of Caffeine Consumption? Occasional MIGRATION.27705 40749 Information not available 10/17/2022 How Much Tobacco Do You Chew? None MIGRATION.60925 61878 Information not available 10/17/2022 In The 14 Days Before Symptom Onset, Have You Had Close Contact With A Laboratory-confir med COVID-19 While That Case Was Ill? No MIGRATION.95170 66506 Information not available 10/17/2022 In The 14 Days Before Symptom Onset, Have You Had Close Contact With A Person Who Is Under Investigation For COVID-19 While That Person Was Ill? No MIGRATION.36240 88570 Information not available 10/17/2022 Are You Deaf Or Do You Have Serious Difficulty Hearing? Yes MIGRATION.83158 67155 Information not available 10/17/2022 What Type Of Diet Are You Following? REGULAR MIGRATION.51543 02137 Information not available 10/17/2022 Which Illicit Or Recreational Drugs Have You Used? No MIGRATION.14329 09217 Information not available 10/17/2022 Have There Been Any Changes To Your Family Or Social Situation? No MIGRATION.25578 06558 Information not available 10/17/2022 Are There Any Guns Present In Your Home? No MIGRATION.05526 52485 Information not available 10/17/2022 Do You Use Insect Repellent Routinely? No MIGRATION.26292 99371 Information not available 10/17/2022 Where Do You Live? [place]House MIGRATION.22867 63412 Information not available 10/17/2022 Do You Have A Medical Power Of Fisher Sponge Hooking? Yes MIGRATION.99782 45471 Information not available 10/17/2022 What Was The Date Of Your Most Recent Tobacco Screening? 06/26/2023 Information not available 06/26/2023 Do You Have Any Pets? No MIGRATION.16072 79771 Information not available 10/17/2022 Do You Have Smoke And Carbon Monoxide Detectors In Your Home? Yes MIGRATION.34264 95809 Information not available 10/17/2022 Are You Passively Exposed To Smoke? No MIGRATION.75516 65318 Information not available 10/17/2022 Are There Any Smokers In Your House? No MIGRATION.35621 29928 Information not available 10/17/2022 How Much Tobacco Do You Smoke? No MIGRATION.34313 16943 Information not available 10/17/2022 What Types Of Sporting Activities Do You Participate In? [facility] MIGRATION.57102 89338 Information not available 10/17/2022 Do You Use Sunscreen Routinely? Yes MIGRATION.21857 19724 Information not available 10/17/2022 Has Tobacco Cessation Counseling Been Provided? No MIGRATION.18153 67140 Information not available 10/17/2022 Have You Recently Traveled Abroad? No MIGRATION.39252 44474 Information not available 10/17/2022 Do You Have Difficulty Walking Or Climbing Stairs? No MIGRATION.01577 87825 Information not available 10/17/2022 Are You Currently In School? No MIGRATION.79344 18860 Information not available 10/17/2022 Do You Have Any Dietary Restrictions? No MIGRATION.73777 41282 Information not available 10/17/2022 Sex: Unknown Functional Status Question Answer Note LastModified by Organizat ion Details LastModified Time Do you use any illicit or recreational drugs? No MIGRATION.745472 7847 Information not available 10/17/2022 Do you or have you ever used any other forms of tobacco or nicotine? No MIGRATION.513469 6825 Information not available 10/17/2022 What is your level of alcohol consumption? None MIGRATION.554769 8888 Information not available 10/17/2022 Do you or have you ever used smokeless tobacco? Never used smokeless tobacco MIGRATION.196831 6056 Information not available 10/17/2022 Do you have transportation difficulties? No MIGRATION.840612 9357 Information not available 10/17/2022 Are you able to walk? YESWOREST MIGRATION.178060 9916 Information not available 10/17/2022 Do you have difficulty doing errands alone? No MIGRATION.427111 3626 Information not available 10/17/2022 Are you able to care for yourself? Yes MIGRATION.938658 5458 Information not available 10/17/2022 What is your occupation? retired MIGRATION.496293 9116 Information not available 10/17/2022 Do you have difficulty dressing or bathing? No MIGRATION.825685 4360 Information not available 10/17/2022 Do you or have you ever used e-cigarettes or vape? Never used electronic cigarettes MIGRATION.284543 3114 Information not available 10/17/2022 What is your exercise level? Moderate MIGRATION.870164 0675 Information not available 10/17/2022 Mental Status Question Answer Note LastModified by Organizat ion Details LastModified Time Do you feel stressed (tense, restless, nervous, or anxious, or unable to sleep at night)? [id number] MIGRATION.20412805 26 Information not available 10/17/2022 Do you have difficulty concentrating, remembering or making decisions? No MIGRATION.56376760 26 Information not available 10/17/2022 Family History Relationship Description Onset Age of this Age Resolved Age Notes LastModified by Organization Details LastModified Time Father Family history of malignant neoplasm 63 colon and lung MIGRATION.948 [id number] Not available 10/17/2022 23:02:53 Mother Family history of malignant neoplasm 68 pancre atic MIGRATION.008 3435160 Not available 10/17/2022 23:02:53 Brother Cerebrovascu lar accident MIGRATION.473 2887638 Not available 10/17/2022 23:02:53 Brother Aneurysm 56 brain- caused cva MIGRATION.750 5168062 Not available 10/17/2022 23:02:53 Medical History No [...] mcg/0.3 mL dose 10/09/2021 completed Not Available [facility] 3 23:04:15 COVID-19 PS Non-US Vaccine (EpiVacCorona ) 03/24/2021 completed Not Available [facility] 3 23:04:16 COVID-19 PS Non-US Vaccine (EpiVacCorona ) 03/03/2021 completed Not Available [facility] 3 23:04:16 Influenza, high-dose, quadrivalent, PF 06/22/2022 completed Not Available [facility] 3 23:04:16 Influenza, high-dose, quadrivalent, PF 06/13/2021 completed Not Available [facility] 3 23:04:16 Past Encounters Encounter ID Performer Location Encounter Start Date Encounter Closed Date Diagnosis/Indication Diagnosis SNOMED-CT Code Diagnosis ICD10 Code Diagnosis Note [id number] DOC Dias [facility] Primary [facility] [place] [address] [facility] [address] [place] [address] 01/12/2021 00:00:00 01/12/2021 19:47:44 [id number] DOC Dias [facility] Primary [facility] [place] [address] [place] [address] [address] [place] [address] 02/09/2021 00:00:00 02/09/2021 15:33:59 [id number] Sravanthi Hinton MD [facility] Primary [facility] [place] [address] [facility] [address] [place] [address] 03/08/2021 00:00:00 03/10/2021 09:16:50 [id number] Sravanthi Hinton MD [facility] Primary [facility] [place] [address] [facility] [address] [place] [address] 03/17/2021 00:00:00 03/17/2021 12:53:48 [id number] Sravanthi Hintno MD [facility] Primary [facility] [place] [address] [facility] [address] [place] [address] 04/19/2021 00:00:00 04/19/2021 10:32:37 [id number] NAVID River [facility] [place] [address] [place] [address] 06/13/2021 00:00:00 06/13/2021 17:06:13 [id number] Sravanthi Hinton MD [facility] [place] [address] [place] [address] 10/17/2021 00:00:00 10/17/2021 10:17:24 [id number] Sravanthi Hinton MD [facility] [place] [address] [place] [address] 11/14/2021 00:00:00 11/14/2021 11:01:21 [id number] DOC Dias [facility] [place] [address] [place] [address] 12/01/2021 00:00:00 12/01/2021 18:14:52 [id number] Sravanthi Hinton MD [facility] [place] [address] [place] [address] 12/13/2021 00:00:00 12/13/2021 09:29:56 [id number] NAVID River [facility] [place] [address] [place] [address] 02/07/2022 00:00:00 02/07/2022 16:41:38 [id number] Sravanthi Hinton MD [facility] [place] [address] [place] [address] 03/14/2022 00:00:00 03/15/2022 12:44:19 [id number] NAVID River [facility] [place] [address] [place] [address] 05/07/2022 00:00:00 05/07/2022 11:45:17 [id number] NAVID River [facility] [place] [address] [place] [address] 06/22/2022 00:00:00 07/17/2022 17:07:12 [id number] Sravanthi Hinton MD [facility] Primary Care [address] [place] [address] 06/25/2022 00:00:00 06/25/2022 10:51:13 [id number] NAVID River [facility] Primary Care [address] [facility] [place] [address] 08/28/2022 00:00:00 08/28/2022 09:23:13 [id number] Sravanhti Hinton MD [facility] Primary Care [address] [facility] [place] [address] 12/24/2022 10:18:09 12/24/2022 10:53:44 Atrial fibrillation 78889020 I48.91 Z79.899 stable Chronic ob structive pulmonary disease 09618462 J44.9 stable Vitamin D deficiency 347 35171 E55.9 Cobalamin deficiency 190 680817 E53.8 Iron deficiency 17152915 E61.1 [id number] DOC Dias [facility] Primary Care [address] [facility] [place] [address] 02/13/2023 16:25:13 02/13/2023 17:11:06 Essential hypertension 95623891 I10 Not well controlled Asymptomat ic at [...] er + xarelto.Sa mples given. Acute sinusitis 30331994 J01.90 --Ear Pain/Sinus Congestion -encourage d warm compresses to face/jawli ne to promote drainage. Ok to take otc pain relievers per package instructio ns to reduce discomfort . Continue/s tart nasal spray otc anti-hista mines per package instructio ns.Will give course of steroids. [id number] Sravanthi Hinton MD [facility] Primary Care [facility] [address] [facility] [address] [place] [address] 02/22/2023 09:52:31 02/22/2023 10:45:40 [id number] DOC Dias [facility] Primary Care [facility] [address] [facility] [address] [place] [address] 03/14/2023 10:15:25 03/14/2023 13:56:08 Diverticulosis of colon 365251442 K57.30 New problemRev iewed ER note from [...] and metronidaz ole as directed. Essential hypertension 18488415 I10 Improved, but not to goalReview ed [...] in managing bps.Contin ue carvedilol 6.25mg BID [id number] Sravanthi Hinton MD [facility] Primary Care [facility] [address] [facility] [address] [place] [address] 06/26/2023 10:15:32 06/26/2023 11:35:38 Adult health examination 319364993 Z00.00 Colonoscop y 05/13/23-po lyps repeat 3-[address] Mercedes gustafson is scheduled for A orderedFlu vaccine todayRecom mend RSV, covid vaccine and shingles vaccine seriesPneu monia vaccines completed per patient recordLabs up to date Screening for disorder 893667541 Z13.9 Postmenopausal state 764 22002 Z78.0 Chronic ob structive pulmonary disease 73504313 J44.[address] Nava Essential hypertension 11274725 I10 stable Hemochromatosis 54733549 6 E83.119 stablerepe at labs in 6 months Polyp of colon 91089368 K63.5 colonoscop y 05/13/23 Dr. Rodriguez tubular adenomarep eat in 3-5 years per his note Atrial fibrillation 4943 6004 I48.91 stablesees cardiology [id number] Sravanthi Hinton MD [facility] [place] [address] [place] [address] 10/31/2023 15:47:52 10/31/2023 16:44:57 Low back pain 409125066 M54.50 -new issue, to left low back-pain rated at 5/10, can go up to 10/10 later in the day-F/u in the ER x2, was given muscle relaxers (uses occ)-ROM and strength are intact some pain-numbn ess and tingling to left hip-PT referral given Abdominal discomfort 433 62973 R10.9 -noted since August, LLQ/superi or lateral L hip-no specific incident that coused discomfort -she questions whether she has a hernia or not, non currently papable on exam-has not affected diet-bowel and bladder are wnl-US abdomen ordered [id number] Sravanthi Hinton MD [facility] [place] [address] [place] [address] 12/11/2023 08:55:39 12/11/2023 09:42:52 Low back pain 146059752 M54.50 12-11-23-pt doing PT BID, seems to be improving conditions -no further treatment needed 10-31-23-ne w issue, to left low back-pain rated at 5/10, can go up to 10/10 later in the day-F/u in the ER x2, was given muscle relaxers (uses occ)-ROM and strength are intact some pain-numbn ess and tingling to left hip-PT referral given Abdominal discomfort [id number] R10.9 12-11-23-US reviewed-n egative-no further interventi on needed 10-31-23-no samaria since August, LLQ/superi or lateral L hip-no specific incident that coused discomfort -she questions whether she has a hernia or not, non currently papable on exam-has not affected diet-bowel and bladder are wnl-US abdomen ordered Essential hypertension [id number] I10 -pt recently noted high bp at PT (feeling dizzy)-F/u with the ER yesterday dt feeling dizzy, bp noted to be in the 190s-was given hydralazin e while in the ER, improvemen t noted-uses 32oz container for water, drinks 3 per day-does not drink coffee/caf feine products-h ydralazine 25mg given-refi ll carvedilol given Atrial fibrillation 4943 6004 I48.91 -refill xarelto given Vertigo [id number] R42 -refill meclizine given Health Concerns Section Related Observation LastModified by Organization Detai ls LastModified Time None Recorded Concern Status LastModified by Organization Details LastModified Time None Recorded Advance Directives Directive Y: Payers Insurance Date Sequence Insurance Name Policy Number Policy Allen Covered Member ID Allen Member ID Guarantor Name 12/08/2023 1 [employer] (MEDICARE REPLACEMENT/ ADVANTAGE - HMO) [id number] Jillian Gunn [id number] Jillian Gunn Notes Date Note Type Note [...] past few weeks. [facility] [address], [address], [place], [address], [employer] 03/14/2023 13:59:44 10/31/2023 text/html Pt was recently in the hospital for low back pain [facility] [address], [place], [address], [employer] 10/31/2023 17:12:11 12/11/2023 text/html pt is here for f/u [facility] [address], [place], [address], [employer] 12/11/2023 09:29:14 OBGyn Episode No OBEpisode recorded.
== END 2025-02-16 14:06 | disposition home or self-care (01) ==
LOC: ANHIMG 14:07
PROVIDERS: PCP Family Medicine; Visit Provider Family Medicine
DX: Z12.31 Encounter for screening mammogram for malignant neoplasm of breast (principal)
CPT/HCPCS: 77063; 77067

== ENCOUNTER 2025-02-22 13:15 | Outpatient (CLI) | payer MEDICARE, SELFPAY ==
--- OUTSIDE RECORDS SUMMARY | 2025-02-22 13:20 | XMS_ITS | Clinical Summary ---
Author Organization [facility] Address [address] [place] [address] Care Team Providers Care Emblem Drawer In Name Role Phone Antonietta Lopez DO Primary Care Provider +1- [phone] Allergies Active Allergy Reactions Criticality Noted Date [...] Description 02/08/2025 1:00 PM CDT Office Visit [facility] ([facility]) - [facility] ENT [address] [place] [address] [place] [address] Trung Fofana MD Facial trauma, initial encounter (Primary Dx); Dysphagia, oropharyngeal phase 02/03/2025 9:15 PM CDT - 02/03/2025 11:59 PM CDT Hospital Encounter [facility] [address] [place] [address] Discharge Disposition: Discharge to home or self care 02/03/2025 9:15 PM CDT - 02/03/2025 11:59 PM CDT Hospital Encounter [facility] [address] [place] [address] Discharge Disposition: Discharge to home or self care 01/29/2025 Telephone [facility] Otolaryngology [address] [place] [address] Edilia Otero MS 01/26/2025 11:15 AM CDT Office Visit [facility] Cardiology [address] [place] [id number] Alexandro Severino MD Stress-induced cardiomyopathy (Primary Dx); [...] on file Legal 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 There will be no report generated by a [facility] Radiologist. Narrative RAD_PACS_[facility] - 02/03/2025 9:15 PM CDT EXAMINATION: Images For Reference Purposes Only Omar Germain MD [facility] PROCEDURES Final Re sult Performing Organization Address [facility] Co de Phone Number RAD_PACS_[facility] * CT Body Outside Reference (02/03/2025 9:15 PM CDT) Impressions RAD_PACS[facility] - 02/03/2025 9:15 PM CDT These images are for Reference purposes only and have not been reviewed by [facility] Radiology. There will be no report generated by a [facility] Radiologist. Narrative RAD_PACS_[facility] - 02/03/2025 9:15 PM CDT EXAMINATION: Images For Reference Purposes Only us Omar Germain MD IM CT PROCEDURES Final Re sult Performing Organization Address [facility]/ZIP Co de Phone Number RAD_PACS_[facility] * Electrocardiogram Report (01/26/2025 3:18 PM CDT) us Alexandro Severino MD ECG ORDERABLES Final Re sult from Last 3 Months Insurance [employer] MEDICARE GOLD MEDICARE [facility] AETNA MEDICARE GOLD * Guarantor: Jillian Gunn Account Type Relation to Patient Date of Phone Billing Address Personal/Family Self [address] [place] [phone] AET MEDICARE GOLD Care Teams Emblem Drawer In Relationship Specialty Start Date End Date Antonietta Lopez DO [address] [place] [address] DR MELLO [address] [place] [id number] PCP - General Family Medicine 12/31/23
--- OUTSIDE RECORDS SUMMARY | 2025-02-22 13:20 | XMS_ITS | Clinical Summary ---
Author Organization [facility] Luc Fisher Address [address] [place] [address] Care Team Providers Care Patient Transport Officer Name Role Phone Antonietta Lopez Primary Care Provider +1- [phone] Allergies Active Allergy Reactions Criticality Noted Date [...] STL ABSTRACTION Provider, Abstract 01/22/2025 Orders Only [facility] Oncology and Hematology - [address] [place] [phone] Vidal Ayoub MD 01/20/2025 Orders Only [facility] Oncology and Hematology - [address] [place] [address] Vidal Ayoub MD 01/12/2025 Orders Only [facility] Oncology and Hematology - [address] [place] [phone] Vidal Ayoub MD 01/07/2025 4:30 PM CDT Telephone Check Up [facility] Oncology [facility] Hematology [facility] [address] [place] [address] Vidal Ayoub MD Hereditary hemochromatosis (Primary Dx) 01/07/2025 External Device Data STL ABSTRACTION Provider, Abstract 01/07/2025 External Device Data STL ABSTRACTION Provider, Abstract 01/06/2025 External Device Data STL ABSTRACTION Provider, Abstract 01/06/2025 External Device Data STL ABSTRACTION Provider, Abstract 01/05/2025 External Device Data STL ABSTRACTION Provider, Abstract 01/04/2025 Orders Only [facility] Oncology and Hematology - [address] [place] [address] Vidal Ayoub MD 12/31/2024 1:30 PM CDT Office Visit [facility] Oncology and Hematology [facility] [address] [place] [address] Vidal Ayoub MD Hereditary hemochromatosis (Primary Dx) [...] Medical Center Oncology and Hematology - [address] [facility] [address] [place] [address] Vidal Ayoub MD [address] [place] [address] Health Maintenance Due Date Last Done Comments DTAP/TDAP/TD VACCINES (1 - Tdap) 11/19/1967 ZOSTER VACCINE (1 of 2) 1998 OSTEOPOROSIS SCREENING 2013 RSV VACCINE (60+ or ) (1 - 1-dose 75+ series) 11/19/2023 [place] Prev entative Visit/Annual Wellness Visit 08/19/2024 INFLUENZA VACCINE (#1) 2025 05/23/2020 PNEUMOCOCCAL VACCINE 50+ YEARS Completed 08/14/2017 [...] Last 3 Months Insurance AETNA O MCR [facility] Address: [facility] [id number] [place] [address] Care Teams Patient Transport Officer Relationship Specialty Start Date End Date Antonietta Lopez DO [address] [facility] [address] [place] [phone] PCP - General Family Practice 12/31/24
--- OUTSIDE RECORDS SUMMARY | 2025-02-22 13:20 | XMS_ITS | Data Portability ---
Author Organization [facility] [employer], Main Office Address [address] [place] [address] Assessment No assessment recorded. Plan of Treatment Reminders Order Date Submit Date Provider Last Modified By Organization Details Last Modified Time Details Appointments None recorded. Lab None recorded. Referral physical therapist referral - *Please call pt to schedule* [email or web address] [facility] [address], [place], [address], 4 10:02:43 gastroenter ologist referral 2022 023 [email or web address] 3 Enrique Rodriguez MD, [address] [facility] [address], [place], [address], 3 08:06:57 Procedures None recorded. Surgeries None recorded. Imaging US, abdomen, complete [email or web address] [place] [address], [address], [place], [address], 4 09:04:40 DEXA - *Please call pt to schedule* 2022 [email or web address] [place] [address], [address] [facility] [address], [place], [address], 3 16:37:28 Medication Orders meclizine 25 mg tablet 2023 024 MONET Ge [facility] [address], [address] , [place], [address], 4 09:27:14 Xarelto 20 mg tablet 2023 024 [email or web address] [facility] [address], [address], [place], [address], 4 09:27:07 hydralazine 25 mg tablet [address] [facility] [address], [address], [place], [address], 4 09:27:15 carvedilol 6.25 mg tablet [address] [facility] [address], [address], [place], [address], 4 09:27:13 Flagyl 500 mg tablet [address]22 [address] [facility] [address], [address], [place], [address], 3 10:45:13 ciprofloxac in 500 mg tablet [address]22 [address] [facility] [address], [address], [place], [address], 3 10:45:12 Patient TargetsNo targets recorded. Patient Instructions Encounter Date Encounter Id Patient Instructions Last Modified By Organization Details Last Modified Time 06/26/2023 [id number] dementia rating scale-2* [email or web address] Not available 06/26/2023 11:49:02 multi-dimensiona l health assessment questionnaire* [email or web address] Not available 06/26/2023 11:49:06 care plan* [email or web address] Not available 06/26 11:49:09 advance directiv es: care instructions Not available 06/26/2023 10:44:38 advance care planning: care instructions Not available 06/26/2023 10:44:38 [place] Advance Directives Not available 06/26/2023 10:44:38 [facility] Plan and Screening Recommendations Advance [...] Screening: Active diagnosis, Continue current treatment plan [email or web address] Not available 06/26/2023 10:47:05 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 [address], [address], 03/13/2023 07:56:02 05/14/2005/14/2023 XR, knee No observ ation record ed. [address], [place], [address], 05/15/2023 08:29:34 05/14/2005/14/2023 XR, ankle No observ ation record ed. [email or web address] [address], [place], [address], 05/15/2023 15:17:34 05/14/20 23 05/14/2023 CT, brain , w/o contr ast No observ ation record ed. [address] [address], [place], [address], 05/15/2023 08:33:26 09/09/19 24 09/07/2023 MAMMO , scree cira, digit al, bilat eral No observ ation record ed. [address] [address], [place], [address], 12/29/2023 15:31:11 09/16/19 24 09/16/2023 XR, chest No observ ation record ed. [address] [address], [place], [address], 09/17/2023 07:57:05 09/16/19 24 09/16/2023 CT, abdom en + pelvi s, w/o contr ast No observ ation record ed. [address] [address], [place], [address], 10/02/2023 12:15:03 11/09/19 24 11/08/2023 US, abdom en, compl ete No observ ation record ed. [address] [place] [address], [place], [address], 11/13/2023 15:54:13 12/11/19 24 12/07/2023 DEXA No observ ation record ed. [address], [address], 01/07/2024 17:02:54 Result Notes None recorded. Problems Name Problem SNOMED Code Status Onset Date Resolution Date Notes Provider Name and Address Organization Details Recorded Time Chronic obstructive pulmonary disease 20823583 Active 2021 Not Available [employer] 3 23:03:20 Rosacea 205936475 Active 2021 Not Available [facility] 3 23:03:20 Hemochromat osis 913002030 Active 2020 Not Available [facility] 3 23:03:20 Takotsubo cardiomyopa thy 252482017 Active 2020 Not Available [facility] 3 23:03:20 Atrial fibrillatio n 49466848 Active 2020 Not Available [facility] 3 23:03:20 Pruritic rash 83445761 Active 2021 Not Available [facility] 3 23:03:20 Polyp of colon 82171273 Active 2020 Tubular adenoma 04/10/21 Not Available [facility] 3 23:03:20 Basal cell carcinoma of skin 769742847 Active 2022 Sravanthi Hinton MD [address], [address], [place], [address] , [facility] 3 08:06:37 Vitamin D deficiency 38342930 Active 2022 Sravanthi Hinton MD [address], [address], [place], [address] , [facility] [employer] [facility] 3 10:37:40 Cobalamin deficiency 277390544 Active 2022 Sravanthi Hinton MD [address], [place], [address] , [facility] 3 10:37:50 Iron deficiency 56754354 Active 2022 Sravanthi Hinton MD [address], [place], [address] , [facility] 3 10:38:50 Essential hypertensio n 46206451 Active 2022 DOC Dias [address], [address], [place], [address] , [facility] 3 16:53:10 Acute sinusitis 83564934 Active 2022 DOC Dias [address], [address], [place], [address] , [facility] 3 17:00:48 Diverticulo sis of colon 537942530 Active 2022 DOC Dias [address], [address], [place], [address] , [facility] 3 10:35:15 Spasm 64529647 Active 2023 Sravanthi Hinton MD [address], [address], [place], [address] , [facility] 4 15:30:44 Low back pain 562236808 Active 2023 FER Huitron [address], [address], [place], [address] , [facility] 4 16:25:50 Abdominal discomfort 07691774 Active 2023 FER Huitron [address], [address], [place], [address] , [facility] 4 16:35:14 Cyst of kidney 212651767 Active 2023 Sravanthi Hinton MD [address], [address], [place], [address] , [facility] 4 13:44:26 Vertigo 237990931 Active 2023 FER Huitron [address], [address], [place], [address] , [facility] 4 09:25:21 Osteoporosi s 47758286 Active 2023 Sravanthi Hinton MD [address], [place], [address] , [facility] 4 19:37:35 Problem Notes None recorded. Procedures Surgical History Date Name Laterality Status Provider Name and Address Organization Details Recorded Time 06/26/20 Medicare Wellness CPT Code, subsequent completed Yemi Saldana RN [facility] 06/26/2023 10:19:48 05/13/20 23 colonoscopy completed Sravanthi Hinton MD [address] [facility] [address], [place], [address], [facility] 06/26/2023 10:46:36 04/10/20 21 colonoscopy completed Not Available [facility] 10/18/19 23 23:02:53 06/15/19 96 Hysterectomy completed Not Available [facility] 023 23:02:53 extraction of cataract completed Not Available [facility] 10/17/2022 23:02:53 Imaging Results None recorded. Procedure Notes None recorded. Medical Equipment None Reported. Allergies Allergen ID Allergen Name Allergen Category Reaction Reaction Severity Criticality Documentation Date Start Date Code Code System Note Provider Name and Address Organization Details Recorded Time 75946 Substance with sulfonami de structure and antibacte rial mechanism of action (substanc e) medicatio n Not available Not available Not available 10/17/2022 77380 8003 SNOMED Not Available [facility] 3 23:04:19 64536 Latex (substanc e) environme nt,medica tion Not available Not available Not available 10/17/2022 57212 8007 SNOMED Not Available [facility] 3 23:04:19 84072 cephalexi n medicatio n other mild low 03/14/2023 2231 RxNorm DOC Henson [address] [facility], [facility] [address], [place], [address], [facility] 3 10:37:53 Medications Name Sig [...] in Arterial blood by Pulse oximetry Systolic And Diastolic Provider Name and Address Organization Details Last Updated DateTime 4 170.18 cm 28.2 kg/m2 43048.6 3 g 99.7 [degF] 73 /min 97 % 97 % 148/88 mm[Hg] Yuliya Mark RN [facility] [employer] [facility] 4 15:54:35 Date Recorded Body height Body mass index (BMI) Body weight Body temperature Heart rate Oxygen saturation Oxygen saturation in Arterial blood by Pulse oximetry Systolic And Diastolic Provider Name and Address Organization Details Last Updated DateTime 4 170.18 cm 27.4 kg/m2 16234.6 6 g 98.5 [degF] 62 /min 97 % 97 % 148/84 mm[Hg] Yuliya Mark RN [facility] [employer] [facility] 4 09:03:15 Date Recorded Body height Systolic And Diastolic Systolic And Diastolic Provider Name and Address Organization Details Last Updated DateTime 02/22/2023 170.18 cm 132/92 mm[Hg] 120/82 mm[Hg] Zoila shahid RN [facility] [employer] [facility] 02/22/2023 10:20:04 Date Recorded Body height Body mass index (BMI) Body weight Heart rate Oxygen saturation Oxygen saturation in Arterial blood by Pulse oximetry Body temperature Systolic And Diastolic Provider Name and Address Organization Details Last Updated DateTime 3 170.18 cm 27.9 kg/m2 17435.4 4 g 71 /min 97 % 97 % 97.6 [degF] 140/92 mm[Hg] Estefania Corona RN [facility] [employer] [facility] 3 10:24:03 Date Recorded Body height Body mass index (BMI) Body weight Body temperature Heart rate Oxygen saturation Oxygen saturation in Arterial blood by Pulse oximetry Systolic And Diastolic Provider Name and Address Organization Details Last Updated DateTime 3 170.18 cm 28.2 kg/m2 16064.6 3 g 97.5 [degF] 66 /min 96 % 96 % 112/78 mm[Hg] Yemi Saldana RN [facility] 3 10:23:20 Social History Question Answer Notes LastModified by Organizat ion Details LastModified Time Tobacco Smoking Status Never Smoker Not Available [facility] 10/17/2022 23:02:35 Do You Have An Advance Directive? Yes MIGRATION.99415 89296 Information not available 10/17/2022 Are You Blind Or Do You Have Difficulty Seeing? No MIGRATION.80014 58422 Information not available 10/17/2022 What Is Your Level Of Caffeine Consumption? Occasional MIGRATION.65102 97212 Information not available 10/17/2022 How Much Tobacco Do You Chew? None MIGRATION.71034 77023 Information not available 10/17/2022 In The 14 Days Before Symptom Onset, Have You Had Close Contact With A Laboratory-confir med COVID-19 While That Case Was Ill? No MIGRATION.52682 34131 Information not available 10/17/2022 In The 14 Days Before Symptom Onset, Have You Had Close Contact With A Person Who Is Under Investigation For COVID-19 While That Person Was Ill? No MIGRATION.17614 53810 Information not available 10/17/2022 Are You Deaf Or Do You Have Serious Difficulty Hearing? Yes MIGRATION.58203 77425 Information not available 10/17/2022 What Type Of Diet Are You Following? REGULAR MIGRATION.98335 77203 Information not available 10/17/2022 Which Illicit Or Recreational Drugs Have You Used? No MIGRATION.21136 34543 Information not available 10/17/2022 Have There Been Any Changes To Your Family Or Social Situation? No MIGRATION.09991 03679 Information not available 10/17/2022 Are There Any Guns Present In Your Home? No MIGRATION.42000 21970 Information not available 10/17/2022 Do You Use Insect Repellent Routinely? No MIGRATION.24938 25790 Information not available 10/17/2022 Where Do You Live? [place] MIGRATION.27230 45044 Information not available 10/17/2022 Do You Have A Medical Power Of Contribution Solicitor? Yes MIGRATION.03063 59289 Information not available 10/17/2022 What Was The Date Of Your Most Recent Tobacco Screening? 06/26/2023 Information not available 06/26/2023 Do You Have Any Pets? No MIGRATION.57110 89371 Information not available 10/17/2022 Do You Have Smoke And Carbon Monoxide Detectors In Your Home? Yes MIGRATION.48637 49823 Information not available 10/17/2022 Are You Passively Exposed To Smoke? No MIGRATION.78532 17219 Information not available 10/17/2022 Are There Any Smokers In Your House? No MIGRATION.25860 48813 Information not available 10/17/2022 How Much Tobacco Do You Smoke? No MIGRATION.58658 92359 Information not available 10/17/2022 What Types Of Sporting Activities Do You Participate In? Go[facility] MIGRATION.29505 60162 Information not available 10/17/2022 Do You Use Sunscreen Routinely? Yes MIGRATION.13329 17320 Information not available 10/17/2022 Has Tobacco Cessation Counseling Been Provided? No MIGRATION.12166 40461 Information not available 10/17/2022 Have You Recently Traveled Abroad? No MIGRATION.02482 97001 Information not available 10/17/2022 Do You Have Difficulty Walking Or Climbing Stairs? No MIGRATION.25353 11054 Information not available 10/17/2022 Are You Currently In School? No MIGRATION.46999 20843 Information not available 10/17/2022 Do You Have Any Dietary Restrictions? No MIGRATION.83043 33457 Information not available 10/17/2022 Sex: Unknown Functional Status Question Answer Note LastModified by Organizat ion Details LastModified Time Do you use any illicit or recreational drugs? No MIGRATION.051738 4797 Information not available 10/17/2022 Do you or have you ever used any other forms of tobacco or nicotine? No MIGRATION.319570 6375 Information not available 10/17/2022 What is your level of alcohol consumption? None MIGRATION.373577 6712 Information not available 10/17/2022 Do you or have you ever used smokeless tobacco? Never used smokeless tobacco MIGRATION.372103 4631 Information not available 10/17/2022 Do you have transportation difficulties? No MIGRATION.329162 3844 Information not available 10/17/2022 Are you able to walk? YESWOREST MIGRATION.109228 7680 Information not available 10/17/2022 Do you have difficulty doing errands alone? No MIGRATION.998318 1865 Information not available 10/17/2022 Are you able to care for yourself? Yes MIGRATION.237387 9506 Information not available 10/17/2022 What is your occupation? retired MIGRATION.632486 9424 Information not available 10/17/2022 Do you have difficulty dressing or bathing? No MIGRATION.529599 4469 Information not available 10/17/2022 Do you or have you ever used e-cigarettes or vape? Never used electronic cigarettes MIGRATION.783275 2870 Information not available 10/17/2022 What is your exercise level? Moderate MIGRATION.763657 4120 Information not available 10/17/2022 Mental Status Question Answer Note LastModified by Organizat ion Details LastModified Time Do you feel stressed (tense, restless, nervous, or anxious, or unable to sleep at night)? ZE7591-8 MIGRATION.34536558 26 Information not available 10/17/2022 Do you have difficulty concentrating, remembering or making decisions? No MIGRATION.84185499 26 Information not available 10/17/2022 Family History Relationship Description Onset Age of this Age Resolved Age Notes LastModified by Organization Details LastModified Time Father Family history of malignant neoplasm 63 colon and lung MIGRATION.086 [id number] Not available 10/17/2022 23:02:53 Mother Family history of malignant neoplasm 68 pancre atic MIGRATION.378 9455026 Not available 10/17/2022 23:02:53 Brother Cerebrovascu lar accident MIGRATION.303 8755936 Not available 10/17/2022 23:02:53 Brother Aneurysm 56 brain- caused cva MIGRATION.824 6938503 Not available 10/17/2022 23:02:53 Medical History No [...] mcg/0.3 mL dose 10/09/2021 completed Not Available [facility] 23:04:15 COVID-19 PS Non-US Vaccine (EpiVacCorona ) 03/24/2021 completed Not Available [facility] 3 23:04:16 COVID-19 PS Non-US Vaccine (EpiVacCorona ) 03/03/2021 completed Not Available [facility] 3 23:04:16 Influenza, high-dose, quadrivalent, PF 06/22/2022 completed Not Available [facility] 3 23:04:16 Influenza, high-dose, quadrivalent, PF 06/13/2021 completed Not Available [facility] 3 23:04:16 Past Encounters Encounter ID Performer Location Encounter Start Date Encounter Closed Date Diagnosis/Indication Diagnosis SNOMED-CT Code Diagnosis ICD10 Code Diagnosis Note [id number] DOC Dias [facility] [place] [address] [place] [address] 01/12/2021 00:00:00 01/12/2021 19:47:44 [id number] DOC Dias [facility] Primary [facility] [place] [address] [place] [address] 02/09/2021 00:00:00 02/09/2021 15:33:59 [id number] Sravanthi Hinton MD [facility] Primary [facility] [place] [address] [place] [address] 03/08/2021 00:00:00 03/10/2021 09:16:50 [id number] Sravanthi Hinton MD [facility] Primary [facility] [place] [address] [place] [address] 03/17/2021 00:00:00 03/17/2021 12:53:48 [id number] Sravanthi Hinton MD [facility] Primary [facility] [place] [address] [place] [address] 04/19/2021 00:00:00 04/19/2021 10:32:37 [id number] NAVID River [facility] Primary [facility] [place] [address] [place] [address] 06/13/2021 00:00:00 06/13/2021 17:06:13 [id number] Sravanthi Hinton MD [facility] Primary [facility] [place] [address] [place] [address] 10/17/2021 00:00:00 10/17/2021 10:17:24 [id number] Sravanthi Hinton MD [facility] Primary [facility] [place] [address] [place] [address] 11/14/2021 00:00:00 11/14/2021 11:01:21 [id number] DOC Dias [facility] [place] [address] [place] [address] 12/01/2021 00:00:00 12/01/2021 18:14:52 [id number] Sravanthi Hinton MD [facility] Primary [facility] [place] [address] [place] [address] 12/13/2021 00:00:00 12/13/2021 09:29:56 [id number] NAVID River [facility] [place] [address] [place] [address] 02/07/2022 00:00:00 02/07/2022 16:41:38 [id number] Sravanthi Hinton MD [facility] [place] [address] [place] [address] 03/14/2022 00:00:00 03/15/2022 12:44:19 [id number] NAVID River [facility] [place] [address] [place] [address] 05/07/2022 00:00:00 05/07/2022 11:45:17 [id number] NAVID River [facility] [place] [address] [place] [address] 06/22/2022 00:00:00 07/17/2022 17:07:12 [id number] Sravanthi Hinton MD [facility] Primary Care [place] thomason [address] [place] [address] 06/25/2022 00:00:00 06/25/2022 10:51:13 [id number] NAVID River [facility] Primary Care Alexia mccormicke [address] [facility] [address] [place] [address] 08/28/2022 00:00:00 08/28/2022 09:23:13 [id number] Sravanthi Hinton MD [facility] Primary Care Alexia thomason [address] [facility] [address] [place] [address] 12/24/2022 10:18:09 12/24/2022 10:53:44 Atrial fibrillation 33075138 I48.91 Z79.899 stable Chronic ob structive pulmonary disease 51697973 J44.9 stable Vitamin D deficiency 347 15044 E55.9 Cobalamin deficiency 190 239974 E53.8 Iron deficiency 94520305 E61.1 [id number] DOC Dias [facility] Primary Care Alexia thomason [address] [facility] [address] [place] [address] 02/13/2023 16:25:13 02/13/2023 17:11:06 Essential hypertension 16509785 I10 Not well controlled Asymptomat ic at [...] er + xarelto.Sa mples given. Acute sinusitis 98301373 J01.90 --Ear Pain/Sinus Congestion -encourage d warm compresses to face/jawli ne to promote drainage. Ok to take otc pain relievers per package instructio ns to reduce discomfort . Continue/s tart nasal spray otc anti-hista mines per package instructio ns.Will give course of steroids. [id number] Sravanthi Hinton MD [facility] Primary Care [facility] [address] [facility] [address] [place] [address] 02/22/2023 09:52:31 02/22/2023 10:45:40 [id number] DANAY DiasP [facility] Primary Care [address] [place] [address] 03/14/2023 10:15:25 03/14/2023 13:56:08 Diverticulosis of colon 373012987 K57.30 New problemRev iewed ER note from [...] and metronidaz ole as directed. Essential hypertension 23756692 I10 Improved, but not to goalReview ed [...] in managing bps.Contin ue carvedilol 6.25mg BID [id number] Sravanthi Hinton MD [facility] Primary Care [address] [place] [address] 06/26/2023 10:15:32 06/26/2023 11:35:38 Adult health examination 527571827 Z00.00 Colonoscop y 05/13/23-po lyps repeat 3-[address] Mercedes gustafson is scheduled for A orderedFlu vaccine todayRecom mend RSV, covid vaccine and shingles vaccine seriesPneu monia vaccines completed per patient recordLabs up to date Screening for disorder 910182994 Z13.9 Postmenopausal state 764 74527 Z78.0 Chronic ob structive pulmonary disease 07248088 J44.[address] Nava Essential hypertension 18265533 I10 stable Hemochromatosis 33737655 6 E83.119 stablerepe at labs in 6 months Polyp of colon 12985931 K63.5 colonoscop y 05/13/23 Dr. Rodriguez tubular adenomarep eat in 3-5 years per his note Atrial fibrillation 4943 6004 I48.91 [facility] cardiology [id number] Sravanthi Hinton MD [facility] Primary Care [address] [place] [address] 10/31/2023 15:47:52 10/31/2023 16:44:57 Low back pain 677069824 M54.50 -new issue, to left low back-pain rated at 5/10, can go up to 10/10 later in the day-F/u in the ER x2, was given muscle relaxers (uses occ)-ROM and strength are intact some pain-numbn ess and tingling to left hip-PT referral given Abdominal discomfort 433 67028 R10.9 -noted since August, LLQ/superi or lateral L hip-no specific incident that coused discomfort -she questions whether she has a hernia or not, non currently papable on exam-has not affected diet-bowel and bladder are wnl-US abdomen ordered [id number] Sravanthi Hinton MD [facility] Primary Care [address] [place] [address] 12/11/2023 08:55:39 12/11/2023 09:42:52 Low back pain 229867271 M54.50 12-11-23-pt doing PT BID, seems to be improving conditions -no further treatment needed 10-31-23-ne w issue, to left low back-pain rated at 5/10, can go up to 10/10 later in the day-F/u in the ER x2, was given muscle relaxers (uses occ)-ROM and strength are intact some pain-numbn ess and tingling to left hip-PT referral given Abdominal discomfort 433 48609 R10.9 12-11-23-US reviewed-n egative-no further interventi on needed 10-31-23-no samaria since August, LLQ/superi or lateral L hip-no specific incident that coused discomfort -she questions whether she has a hernia or not, non currently papable on exam-has not affected diet-bowel and bladder are wnl-US abdomen ordered Essential hypertension [id number] I10 -pt recently noted high bp at PT (feeling dizzy)-F/u with the ER yesterday dt feeling dizzy, bp noted to be in the 190s-was given hydralazin e while in the ER, improvemen t noted-uses 32oz container for water, drinks 3 per day-does not drink coffee/caf feine products-h ydralazine 25mg given-refi ll carvedilol given Atrial fibrillation 4943 6004 I48.91 -refill xarelto given Vertigo [id number] R42 -refill meclizine given Health Concerns Section Related Observation LastModified by Organization Detai ls LastModified Time None Recorded Concern Status LastModified by Organization Details LastModified Time None Recorded Advance Directives Directive Y: Payers Insurance Date Sequence Insurance Name Policy Number Policy Allen Covered Member ID Allen Member ID Guarantor Name 12/08/2023 1 [employer] (MEDICARE REPLACEMENT/ ADVANTAGE - HMO) [id number] Jillian Gunn [id number] Jillian Gunn Notes Date Note Type Note [...] on her over the past few weeks. Rivas Salgado, DOC [address], [place], [address], [place] 03/14/2023 13:59:44 10/31/2023 text/html Pt was recently in the hospital for low back pain DOC [facility]-[facility] [address], [place], [address], [place] 10/31/2023 17:12:11 12/11/2023 text/html pt is here for f/u Ace zayas [employer] [address], [place], [address], [place] 12/11/2023 09:29:14 OBGyn Episode No OBEpisode recorded.
--- OUTSIDE RECORDS SUMMARY | 2025-02-22 13:20 | XMS_ITS | Referral Summary ---
Author Organization [facility] Address [address] [place] [address] Care Team Providers Care Branch Or Department Chief Librarian Name Role Phone Antonietta Lopez DO Primary Care Provider +1- [phone] Encounters Date Type Department Care Team Description 02/08/2025 1:00 PM CDT Office Visit [facility] - [facility] ENT [address] [facility] [address]th [place] [address] [place] [address] Trung Fofana MD Facial trauma, initial encounter (Primary Dx); Dysphagia, oropharyngeal phase 02/03/2025 9:15 PM CDT - 02/03/2025 11:59 PM CDT Hospital Encounter [facility] [address] [place] [address] Discharge Disposition: Discharge to home or self care 02/03/2025 9:15 PM CDT - 02/03/2025 11:59 PM CDT Hospital Encounter [facility] [address] [place] [address] Discharge Disposition: Discharge to home or self care 01/29/2025 Telephone [facility] Otolaryngology [address] [place] [address] Edilia Otero MS 01/26/2025 11:15 AM CDT Office Visit [facility] Cardiology [address] [facility] [address] [place] [address] Alexandro Severino MD Stress-induced cardiomyopathy [...] on file Legal Sex Female 8:38 PM [employer]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 There will be no report generated by a [facility] Radiologist. Narrative RAD_PACS_[facility] - 02/03/2025 9:15 PM CDT EXAMINATION: Images For Reference Purposes Only Omar Germain MD IMG CT PROCEDURES Final Re sult Performing Organization Address [facility] de Phone Number [email or web address] * CT Body Outside Reference (02/03/2025 9:15 PM CDT) Impressions RAD_PACS_[facility] - 02/03/2025 9:15 PM CDT These images are for Reference purposes only and have not been reviewed by [facility] Radiology. There will be no report generated by a [facility] Radiologist. Narrative RAD_PACS_[facility] - 02/03/2025 9:15 PM CDT EXAMINATION: Images For Reference Purposes Only Omar Germain MD IMG CT PROCEDURES Final Re sult Performing Organization Address [facility] de Phone Number [email or web address] * Electrocardiogram Report (01/26/2025 3:18 PM CDT) Alexandro Severino MD ECG ORDERABLES Final Re sult from Last 3 Months Insurance TNA MEDICARE GOLD MEDICARE [facility] TNA MEDICARE GOLD AET[employer] MEDICARE GOLD Care Teams Branch Or Department Chief Librarian Relationship Specialty Start Date End Date Antonietta Lopez DO [address] [place] [address] [address] PCP - General Family Medicine 12/31/23
[2025-02-22 13:36] LABS: Hematocrit 38.8 % (37.0-47.0); Hemoglobin 12.9 g/dL (12.0-15.0); Mean Corpuscular HGB Conc 33.2 g/dl (32-36); Mean Corpuscular Hemoglobin 32.8 pg (26-34); Mean Corpuscular Volume 98.7 fl (80-100); Platelet Count Result 228 k/mm3 (150-375); Red Blood Count 3.93 M/mm3 (4.2-5.4); White Blood Count 5.1 K/mm3 (4.5-10.0)
[2025-02-22 17:23] LABS: Iron 172 ug/dL (37-170)
[2025-02-22 17:33] LABS: Percent Iron Saturation 76 % (20-50)
[2025-02-22 18:00] LABS: Ferritin 172.00 ng/mL (11.1-264)
== END 2025-02-22 13:16 | disposition home or self-care (01) ==
PROVIDERS: PCP Family Medicine; Visit Provider Internal Medicine Hematology & Oncology
DX: E83.110 Hereditary hemochromatosis (principal)
CPT/HCPCS: 36415; 82728; 83540; 83550; 85027

== ENCOUNTER 2025-03-27 06:59 | Outpatient (CLI) | payer MEDICARE, SELFPAY ==
--- OUTSIDE RECORDS SUMMARY | 2025-03-27 07:02 | XMS_ITS | Clinical Summary ---
Author Organization [facility] Address [address] [place] [address] Care Team Providers Care Field Seismologist Name Role Phone Antonietta Lopez Primary Care Provider +1- [phone] Allergies Active Allergy Reactions Criticality Noted Date [...] Encounters Date Type Department Care Team Description 03/03/2025 External Device Data ST[facility] ABSTRACTION Provider, Abstract 03/03/2025 External Device Data [facility] ABSTRACTION Provider, Abstract 03/03/2025 External Device Data [facility] ABSTRACTION Provider, Abstract 03/02/2025 External Device Data [facility] ABSTRACTION Provider, Abstract 02/03/2025 External Device Data [facility] ABSTRACTION Provider, Abstract 02/02/2025 External Device Data [facility] ABSTRACTION Provider, Abstract 01/22/2025 Orders Only [facility] - [address] [place] [address] Vidal Ayoub MD 01/20/2025 Orders Only [facility] - [address] [place] [address] Vidal Ayoub MD 01/12/2025 Orders Only [facility] - [address] [place] [address] Vidal Ayoub MD 01/07/2025 4:30 PM CDT Telephone Check Up [facility] - [address] [place] [address] Vidal Ayoub MD Hereditary hemochromatosis (Primary Dx) 01/07/2025 External Device Data [facility] ABSTRACTION Provider, Abstract 01/07/2025 External Device Data [facility] ABSTRACTION Provider, Abstract 01/06/2025 External Device Data [facility] ABSTRACTION Provider, Abstract 01/06/2025 External Device Data [facility] ABSTRACTION Provider, Abstract 01/05/2025 External Device Data [facility] ABSTRACTION Provider, Abstract 01/04/2025 Orders Only [facility] - [address] [place] [address] Vidal Ayoub MD 12/31/2024 1:30 PM CDT Office Visit [facility] [address] [place] [address] Vidal Ayoub MD Hereditary hemochromatosis (Primary Dx) [...] Description 04/14/2025 10:00 AM CDT Office Visit [facility] [address] [place] [address] Vidal Ayoub MD [address] [place] [address] Health Maintenance Due Date Last Done Comments DTAP/TDAP/TD VACCINES (1 - Tdap) 11/19/1967 ZOSTER VACCINE (1 of 2) 1998 OSTEOPOROSIS SCREENING 2013 RSV VACCINE (60+ or ) (1 - 1-dose 75+ series) 11/19/2023 INFLUENZA VACCINE (#1) 2025 05/23/2020 PNEUMOCOCCAL VACCINE [...] Last 3 Months Insurance AETNA O [facility] Address: [facility] [id number] [place] [address] Care Teams Field Seismologist Relationship Specialty Start Date End Date Antonietta Lopez DO [address] [facility] [address] [place] [address] PCP - General Family Practice 12/31/24
--- OUTSIDE RECORDS SUMMARY | 2025-03-27 07:02 | XMS_ITS | Clinical Summary ---
Author Organization [facility] Address [address] [place] [address] Care Team Providers Care Towel Folder Name Role Phone Antonietta Lopez DO Primary Care Provider +1- [phone] Allergies Active Allergy Reactions Criticality Noted Date [...] FRUIT ORAL Take by mouth Activ e alendronate (FOSAMAX) 70 mg tablet Take 1 tablet (70 mg total) by mouth once a week Active calcium carbonate-susan min D3 1,500 mg (600 mg elemental)-200 unit capsule Take by mouth daily Active clotrimazole 1 % cream APPLY CREAM TOPICALLY TO AFFECTED AREA TWICE DAILY FOR 4 WEEKS 12/20/19 25 Active cyanocobalamin (Vitamin B-12) 1,000 mcg tablet Take 1 tablet (1,000 mcg total) by mouth daily Active flecainide (TAMBOCOR) 100 mg tablet Take 1 tablet by mouth twice daily 180 tablet 03/24/20 25 Active flecainide (TAMBOCOR) 100 mg tablet Take 1 tablet by mouth twice daily 180 tablet 12/29/19 25 025 Discontinued Active Problems Problem Noted Date Diagnosed Date Paroxysmal atrial fibrillation 02/16/2021 Stress-induced cardiomyopathy 06/08/2019 Elevated blood pressure read ing in office with white coat syndrome, without diagnosis of hypertension 06/08/2019 Dizziness 06/08/2019 Encounters Date Type Department Care Team Description 02/08/2025 1:00 PM CDT Office Visit [facility] - [facility] ENT [address] [facility] [address] [place] [address] [place] [address] Trung Fofana MD Facial trauma, initial encounter (Primary Dx); Dysphagia, oropharyngeal phase 02/03/2025 9:15 PM CDT - 02/03/2025 11:59 PM CDT Hospital Encounter [facility] Imaging [address] [place] [address] Discharge Disposition: Discharge to home or self care 02/03/2025 9:15 PM CDT - 02/03/2025 11:59 PM CDT Hospital Encounter [facility] [address] [place] [address] Discharge Disposition: Discharge to home or self care 01/29/2025 Telephone [facility] Otolaryngology [address] [place] [address] Edilia Otero MS 01/26/2025 11:15 AM CDT Office Visit [facility] Cardiology [address] [place] [address] Alexandro Severino MD Stress-induced cardiomyopathy [...] on file 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 There will be no report generated by a [facility] Radiologist. Narrative RAD_PACS_[facility] - 02/03/2025 9:15 PM CDT EXAMINATION: Images For Reference Purposes Only Omar Germain MD IM CT PROCEDURES Final Re sult Performing Organization Address [facility] de Phone Number [email or web address] * CT Body Outside Reference (02/03/2025 9:15 PM CDT) Impressions RAD_PACS_[facility] - 02/03/2025 9:15 PM CDT These images are for Reference purposes only and have not been reviewed by [facility] Radiology. There will be no report generated by a [facility] Radiologist. Narrative RAD_PACS_[facility] - 02/03/2025 9:15 PM CDT EXAMINATION: Images For Reference Purposes Only Omar Germain MD IM CT PROCEDURES Final Re sult Performing Organization Address [facility] Co de Phone Number [email or web address] * Electrocardiogram Report (01/26/2025 3:18 PM CDT) us Alexandro Severino MD ECG ORDERABLES Final Re sult from Last 3 Months Insurance MEDICARE [facility] AETNA MEDICARE GOLD Care Teams Towel Folder Relationship Specialty Start Date End Date Antonietta Lopez DO [facility] [address] [place] [address] PCP - General Family Medicine 12/31/23
[2025-03-27 07:41] LABS: Hematocrit 38.1 % (37.0-47.0); Hemoglobin 12.4 g/dL (12.0-15.0); Mean Corpuscular HGB Conc 32.5 g/dl (32-36); Mean Corpuscular Hemoglobin 32.4 pg (26-34); Mean Corpuscular Volume 99.5 fl (80-100); Platelet Count Result 230 k/mm3 (150-375); Red Blood Count 3.83 M/mm3 (4.2-5.4); White Blood Count 4.6 K/mm3 (4.5-10.0)
[2025-03-27 08:03] LABS: Alanine Aminotransferase 14 U/L (6-35); Albumin Level 4.0 g/dL (3.5-5.1); Alkaline Phosphatase 51 U/L (38-126); Anion Gap 8 mmol/L (4-12); Aspartate Amino Transferase 27 U/L (14-36); Bilirubin,Total 0.9 mg/dL (0.2-1.3); Blood Urea Nitrogen 22 mg/dL (7-17); Calcium 9.3 mg/dL (8.4-10.2); Carbon Dioxide 24 mmol/L (22-30); Chloride 108 mmol/L (98-107); Cholesterol 202 mg/dL (0-200); Estimated Glomerular Filt Rate 45; Glucose 99 mg/dL (65-110); HDL Direct 80 mg/dL; Potassium 3.9 mmol/L (3.4-5.0); Sodium 140 mmol/L (137-145); Total Protein 7.0 g/dL (6.3-8.2); Triglycerides 92 mg/dL (<150)
[2025-03-27 08:05] LABS: Iron 152 ug/dL (37-170)
[2025-03-27 08:36] LABS: Percent Iron Saturation 67 % (20-50)
[2025-03-27 09:03] LABS: Vitamin B12 > 1000.0 pg/mL (239-931)
== END 2025-03-27 07:00 | disposition home or self-care (01) ==
LOC: ANHLAB 07:00
PROVIDERS: PCP Family Medicine; Visit Provider Nurse Practitioner
DX: D64.9 Anemia, unspecified (principal); E78.5 Hyperlipidemia, unspecified; E53.8 Deficiency of other specified B group vitamins; E55.9 Vitamin D deficiency, unspecified; I10 Essential (primary) hypertension
CPT/HCPCS: 36415; 80053; 80061; 82306; 82607; 83540; 83550; 85027